=== PATIENT | male | born 1980 | race Two or more races ===

== ENCOUNTER 2020-03-22 10:37 | Emergency (ER) | payer OTHER, SELFPAY ==
--- NOTE | 2020-03-22 10:42 | ED_ITS ---
HPI - Altered Mental Status General Chief Complaint: ETOH/Substance Use Stated Complaint: PCP USE ,COOPERATIVE AT THIS TIME Time Seen by Provider: 03/22/20 10:42 Source: EMS Mode of arrival: EMS Limitations: other (PCP abuse) History of Present Illness MD complaint: other (smoked PCP on the way to the pharmacy, seen sitting down picked up by PD - sent to ED for PCP use) Onset (ago): minute(s) Severity: mild Consistency of symptoms: constant Context: drug abuse (smoked PCP) Associated symptoms: denies other symptoms Related Data Allergies Allergy/AdvReac Type Severity Reaction Status Date / Time No Known Allergies Allergy Unverified 02/04/20 18:28 [No Known Allergies*] Review of Systems Review of Systems: ROS unable to be obtained due to PCP abuse and intoxication [facility] Past Medical History Attestation statement: The following information was validated with the patient. Medical History (Updated 03/22/20 @ 11:27 by Carol Gray DO) Seizure Social History Social History (Updated 03/22/20 @ 10:45 by Carol Gray DO) Smoking Status: Current every day smoker Substance Use Type: Marijuana Substance Use Type Other:: PCP just today Advance Directives: No Advance Directives Information Provided: No Physical Exam Vital Signs: Vital Signs: Vital Signs Pulse Resp BP Pulse Ox 03/22/20 10:47 76 16 152/91 H 97 Body Mass Index 29.0 Appearance: Alert. Oriented X3. No acute distress. appears intoxicated but calm and cooperative, using his phone without issue Eyes: Pupils equal, round and reactive to light. slight vertical nystagmus but very minimal ENT: Pharynx normal. Neck: Normal inspection. Neck supple. CVS: Normal heart rate and rhythm. Pulses normal. Respiratory: No respiratory distress. Breath sounds normal. Abdomen: Soft and nontender. Skin: Skin warm and dry. Normal skin color. Normal skin turgor. Extremities: No lower extremity edema. No calf ttp Neuro: Oriented X 3. No motor deficit. No sensory deficit. Course Course Course Narrative: patient improved, steady gait, calm and cooperative MDM - Altered Mental Status MDM Narrative Medical decision making narrative: 39 yo male who used PCP recreationally does not want help with detox, mildly intoxicated very calm and cooperative, does not have a sober ride at this time will monitor until improved. Discharge Plan Discharge Clinical Impression: PCP (phencyclidine) abuse Patient Disposition: Home, Self-Care Instructions: Polysubstance Abuse (ED) Additional Instructions: return to ED for any worsening symptoms or concerns Stand Alone Forms: Work/School Release
[2020-03-22 10:47] VITALS: BP 152/91; BP 160/84; PULSE 76; PULSE 92; RESP 16; O2SAT 97; BMI 29.0
== END 2020-03-22 13:01 | disposition home or self-care (01) ==
PROVIDERS: Emergency Provider Emergency Medicine; PCP Family Medicine
DX: F16.10 Hallucinogen abuse, uncomplicated (principal); F17.210 Nicotine dependence, cigarettes, uncomplicated; Z71.6 Tobacco abuse counseling; F12.90 Cannabis use, unspecified, uncomplicated; Z71.51 Drug abuse counseling and surveillance of drug abuser
CPT/HCPCS: 99284

== ENCOUNTER 2020-09-05 14:47 | Emergency (ER) | payer OTHER, SELFPAY ==
--- NOTE | ~2020-09-05 | CT_ITS ---
EXAMINATION: CT HEAD/BRAIN WITHOUT CONTRAST CT CERVICAL SPINE WITHOUT CONTRAST CLINICAL INFORMATION: Seizure. COMPARISON: CT head 07/05/2019. TECHNIQUE: A noncontrast CT scan was performed from the skull base to the vertex. A noncontrast CT scan of the cervical spine was performed from the base of the skull through T1 at 2.5 mm and 0.625 mm collimation. Coronal and sagittal reformats were obtained at the acquisition workstation. This CT examination was performed using dose optimization techniques as appropriate, variously including the following: * Automated exposure control. * Adjustment of mA and/or kV according to patient size (this includes techniques or standardized protocols for targeted exams where dose is matched to indication/reason for exam; i.e. extremities or head). * Use of iterative reconstruction technique. Dose length product is 709 mGy-cm. FINDINGS: HEAD/BRAIN: There is no evidence of acute intracranial hemorrhage or territorial infarction. No abnormal mass effect or midline shift is seen. Dcak-to-vobon matter differentiation is well preserved. No extra-axial fluid collections are identified. No significant volume loss. No hydrocephalus. There is no abnormal attenuation within the brain parenchyma. No acute calvarial fracture. Mild ethmoid sinus mucosal thickening. Remainder of the paranasal sinuses and mastoid air cells are well aerated. CERVICAL SPINE: Straightening of the cervical curvature. The atlantooccipital and atlantoaxial articulations remain well aligned. Otherwise, there is anatomic alignment of the vertebral bodies and posterior elements. No evidence of acute fracture or subluxation. Moderate C5-C6 disc degeneration. No prevertebral soft tissue swelling. The paraspinal soft tissues are unremarkable. There is no cervical lymphadenopathy. The thyroid gland is unremarkable. The visualized lung apices are clear. CT/CT cervical spine wo con IMPRESSION: 1. No CT evidence of acute intracranial pathology. 2. No CT evidence of acute cervical spine fracture.
[2020-09-05 15:03] VITALS: BP 150/90; BP 151/84; PULSE 113; PULSE 88; RESP 22; TEMP 37; O2SAT 96; O2SAT 98; BMI 30.3
--- NOTE | 2020-09-05 15:51 | ED.SEIZURE ---
HPI - Seizure General Chief Complaint: Seizure Stated Complaint: SZ Time Seen by Provider: 09/05/20 15:35 Source: patient Mode of arrival: ambulatory Limitations: no limitations History of Present Illness HPI Narrative: Patient presents to ED for seizure. Patient had a seizure today. Patient states he was informed by his neighbor that she found him seizing and biting his tongue. Patient states before having seizure he had aura and then woke up to his friend looked at him. He states he is compliant with his medications patient informed me that his neurologist informed him that if he had another seizure that he should go up on his oxcarbazepine to 1 pill and a half. Patient states he is compliant with his Dilantin and Keppra and Oxycarbazepine. Related Data Allergies Allergy/AdvReac Type Severity Reaction Status Date / Time No Known Allergies Allergy Verified 09/05/20 15:12 [No Known Allergies*] Review of Systems Review of Systems: Yes all other systems are reviewed and are negative Constitutional: Constitutional: Reports as per HPI and Reports no additional constitutional complaints Eyes: Eyes: Reports as per HPI and Reports no additional eye complaints ENT: Reports system reviewed and no additional complaints, except as documented and Reports as per HPI Cardiovascular: Cardiovascular: Reports as per HPI and Reports no additional cardiovascular complaints Respiratory: Respiratory: Reports as per HPI and Reports no additional respiratory complaints Gastrointestinal: Gastrointestinal: Reports as per HPI and Reports no additional gastrointestinal complaints Genitourinary: Genitourinary: Reports no additional male genitourinary complaints and Reports as per HPI Musculoskeletal: Musculoskeletal: Reports no additional musculoskeletal complaints and Reports as per HPI Neurologic: Reports system reviewed and no additional complaints, except as documented and Reports as per HPI Comments: Seizure Psychiatric: Psychiatric: Reports no additional psychiatric complaints and Reports as per HPI [facility] Past Medical History Medical History (Updated 09/06/20 @ 00:01 by Kaleb Banda) Seizure Social History Social History (Updated 03/22/20 @ 10:45 by Carol Gray DO) Alcohol intake: never Smoking Status: Current every day smoker Use of substances other than those prescribed or required for medical reasons: Yes Substance Use Type: Marijuana Advance Directives: No Advance Directives Information Provided: Yes Physical Exam Vital Signs: Vital Signs: Last Vital Signs Temp 98.6 F 09/05/20 15:03 Pulse 73 09/05/20 18:19 Resp 20 09/05/20 18:19 BP 141/93 H 09/05/20 18:19 Pulse Ox 99 09/05/20 18:19 Body Mass Index 30.3 Const: General: cooperative, healthy appearing, comfortable, no acute distress, well developed, alert, awake and Physically active Orientation/consciousness: patient oriented x3 HENMT: Other: Oral cavity patient has slight superficial abrasion on right side of tongue due to biting during seizure. No laceration repair indicated. Head: Yes normal to inspection, Yes No palpable skull fracture present, Yes normocephalic, Yes atraumatic, No abrasion, No Sanchez's sign, No contusion, No cranial bruits, No hematoma, No laceration, No occipital foramen tenderness, No palpable skull fracture, No raccoon eyes, No scalp lesion, No scalp tenderness, No Temporal artery tenderness present and No periorbital ecchymosis Eyes: General: appearance normal, both eyes and all related structures Neck: Neck: Yes normal visual inspection, Yes full ROM, Yes no lymphadenopathy, Yes no meningeal signs, Yes trachea midline, Yes supple and No tender Chest: Chest palpation & inspection: normal inspection of the chest and normal palpation of entire chest wall Resp: Effort & Inspection: normal respiratory effort and able to speak in complete sentences Auscultation: clear to auscultation bilaterally Cardio: Jugular venous distension: no JVD Heart sounds: S1 normal heart sound present and S2 normal heart sound present GI: Inspection: Yes normal to inspection and No abdominal wall ecchymosis Palpation (GI): Soft to palpation, not firm, nontender, no guarding and not rigid : General: No CVA tenderness and Yes no CVA tenderness Back/Spine/Pelvis: Back: no CVA tenderness, No CVA tenderness and No back tenderness Skin: General skin exam: no rashes or lesions noted and elasticity normal Neuro: General: patient oriented x3, gait normal, no meningeal signs and CN's II-XI intact bilaterally Cranial nerves: Yes CN's II-XII intact bilaterally Extrem: General: Yes normal to inspection and Yes full ROM Psych: Appearance: grossly normal, well kempt and not disheveled Course Course Course Narrative: Patient having medical workup to find out why he had another seizure. Patient will have labs, including imaging. Reevaluation(s) Reevaluation #1: Patient labs including electrolytes came back normal at baseline. Patient chronically has elevated white blood cell count. Head CT and cervical spine CT came back normal. Urine negative for any UTI. Patient denies any history of alcohol abuse. Not suspecting alcohol withdrawal seizures. Patient denies any recent drug use. Patient's Dilantin level came back 5.7. When I trended patient's Dilantin level is always subtherapeutic. Patient states he has not missed a dose of his meds including Dilantin and he has been on the same dose for 10 years and his neurologist Dr. Valdez is aware. Will try to contact to Dr. Cliff Valdez. Patient is not postictal. Patient is alert oriented x3 Reevaluation #2: I called the number of Dr. Cliff Valdez given to me by patient and it was affiliated with [facility] ( [phone]). Dr. Khloe Peguero, the covering neurologist called and back the ER spoke to me. I informed the patient's history, physical exam, and lab results and diagnostic. I discussed increasing oxcarbezepine to one pill and half as patient states his Neurologist, Dr. Cliff Valdez if patient has another seizure. Dr. Khloe Peguero states he knows Dr. Cliff Valdez. Dr. khloe Peguero agrees that patient can go up to 450mg oxcarbazepine twice a day from 300mg twice a day. Dr. Khloe Peguero was made aware of patient's present dilantin level and it being chronically subtherapuetic. He states the dilantin should not be increased and patient could be discharged and follow up and with infomred Dr. Valdez tomorrow of the dilantin level for adjustment if needed. Dr. Peguero states sometimes patient may be on low dilantin doses due to there body's inability to tolerate higer dilantin doses. patient states he has been on dilantin same dose for 10 years. Patient presently is alert oriented x3 with normal gait. Patient took his meds as instructed during the ED. Patient took his p.m. dose of Dilantin, and Keppra. Patient also was instructed to start taking 450 mg b.i.d. of oxcarbazepine tonight. Patient took in the ER before discharge. Patient given copy of labs and imaging to follow up with . MDM - Seizure MDM Narrative Medical decision making narrative: Seizure Lab Data Result diagrams: 09/05/20 16:50 09/05/20 16:50 Labs: Lab Results 09/05/20 09/05/20 09/05/20 Range/Units 16:50 16:50 16:50 WBC 16.9 H (4.8-10.8) X10*3/uL RBC 5.42 (4.60-5.80) X10*6/uL Hgb 17.3 (14.0-18.0) g/dl Hct 49.2 (42-52) % MCV 90.8 (80-98) fL MCH 31.9 (27.0-33.0) pg MCHC 35.2 (31.0-36.0) g/dl RDW 13.1 (11.0-16.0) % Plt Count 361 (160-400) X10*3/uL MPV 8.9 L (9.4-12.4) fL Immature Gran % (Auto) 0.5 H (0.0-0.4) % Neut % (Auto) 73.4 H (45-73) % Lymph % (Auto) 19.0 L (20-40) % Isabella % (Auto) 5.6 (2-11) % Eos % (Auto) 1.2 (0-4) % Baso % (Auto) 0.3 (0-2) % Lymph # (Auto) 3.2 (1.2-4.9) X10*3/uL Isabella # (Auto) 0.9 (0.1-1.2) X10*3/uL Eos # (Auto) 0.2 (0.0-0.4) X10*3/uL Baso # (Auto) 0.1 (0.0-0.2) X10*3/uL Abs Immat Gran (auto) 0.09 H (0.00-0.03) X10*3/uL Absolute Neuts (auto) 12.4 H (2.0-8.3) X10*3/uL Absolute Nucleated RBC 0.000 (0.0-0.012) X10*3/uL Nucleated RBC % (auto) 0.0 (0.0-0.2) /100WBC PT 12.6 (10.8-13.0) SEC INR 1.1 (0.9-1.1) APTT 33.5 (24.1-38.0) SEC Sodium 139 (135-145) mmol/L Potassium 4.4 (3.3-5.1) mmol/L Chloride 107 (96-108) mmol/L Carbon Dioxide 22 (22-29) mmol/L Anion Gap 14 (12-20) BUN 7 L (9-16) mg/dL Creatinine 0.93 (0.5-1.4) mg/dL Estim Creat Clear Calc 131.4 Estimated GFR > 60 Random Glucose 72 (60-115) mg/dL Calcium 9.1 (8.4-10.2) mg/dL Magnesium 2.2 (1.6-2.6) mg/dL Total Bilirubin 0.7 (0.0-1.0) mg/dL AST 29 (5-37) U/L ALT 42 H (0-40) U/L Alkaline Phosphatase 94 (39-117) U/L Total Protein 7.4 (6.5-8.0) g/dL Albumin 4.3 (3.5-5.0) g/dL Urine Color Urine Appearance Urine pH (5.0-8.0) Ur Specific [place] (1.005-1.025) Urine Protein (NEG-TRACE) MG/DL Urine Glucose (UA) (NEG) MG/DL Urine Ketones (NEG) MG/DL Urine Blood (NEG) Urine Nitrite (NEG) Ur Leukocyte Esterase (NEG) Phenytoin (10.0-20.0) ug/mL 09/05/20 09/05/20 Range/Units 16:50 17:07 WBC (4.8-10.8) X10*3/uL RBC (4.60-5.80) X10*6/uL Hgb (14.0-18.0) g/dl Hct (42-52) % MCV (80-98) fL MCH (27.0-33.0) pg MCHC (31.0-36.0) g/dl RDW (11.0-16.0) % Plt Count (160-400) X10*3/uL MPV (9.4-12.4) fL Immature Gran % (Auto) (0.0-0.4) % Neut % (Auto) (45-73) % Lymph % (Auto) (20-40) % Isabella % (Auto) (2-11) % Eos % (Auto) (0-4) % Baso % (Auto) (0-2) % Lymph # (Auto) (1.2-4.9) X10*3/uL Isabella # (Auto) (0.1-1.2) X10*3/uL Eos # (Auto) (0.0-0.4) X10*3/uL Baso # (Auto) (0.0-0.2) X10*3/uL Abs Immat Gran (auto) (0.00-0.03) X10*3/uL Absolute Neuts (auto) (2.0-8.3) X10*3/uL Absolute Nucleated RBC (0.0-0.012) X10*3/uL Nucleated RBC % (auto) (0.0-0.2) /100WBC PT (10.8-13.0) SEC INR (0.9-1.1) APTT (24.1-38.0) SEC Sodium (135-145) mmol/L Potassium (3.3-5.1) mmol/L Chloride (96-108) mmol/L Carbon Dioxide (22-29) mmol/L Anion Gap (12-20) BUN (9-16) mg/dL Creatinine (0.5-1.4) mg/dL Estim Creat Clear Calc Estimated GFR Random Glucose (60-115) mg/dL Calcium (8.4-10.2) mg/dL Magnesium (1.6-2.6) mg/dL Total Bilirubin (0.0-1.0) mg/dL AST (5-37) U/L ALT (0-40) U/L Alkaline Phosphatase (39-117) U/L Total Protein (6.5-8.0) g/dL Albumin (3.5-5.0) g/dL Urine Color YELLOW Urine Appearance CLEAR Urine pH 7.5 (5.0-8.0) Ur Specific [place] 1.020 (1.005-1.025) Urine Protein NEG (NEG-TRACE) MG/DL Urine Glucose (UA) NEG (NEG) MG/DL Urine Ketones NEG (NEG) MG/DL Urine Blood NEG (NEG) Urine Nitrite NEG (NEG) Ur Leukocyte Esterase NEG (NEG) Phenytoin 5.7 L* (10.0-20.0) ug/mL Discharge Plan Discharge Clinical Impression: Generalized seizure Patient Disposition: Home, Self-Care Instructions: Generalized Tonic Clonic Seizures (ED) Additional Instructions: Return to the ED immediately for another seizure, headache, dizziness, chest pain, weakness, paralysis, slurred speech, facial droop, fever, chills, headache, neck stiffness, any other concerning symptoms. Begin taking oxcarbazepine 450 mg b.i.d. starting today. Please follow-up with your neurologist Dr. Cliff Valdez tomorrow as recommended by Dr. Khloe Peguero. Your Dilantin level came back subtherapeutic at 5.7. Dr. Valdez should be made aware of subtherapeutic dilantin level. Electrolytes came back normal. Rest of labs came back at baseline. Urine negative for UTI. Referrals: Cliff Valdez MD [Physician] - 2 days (Seizure. oxcarbazepine increased to 450mg bid as recommended by Dr. Khloe Peguero. Dilantin level subtherapeutic at 5.7. Dr. Khloe Peguero did not recommend increasing dilantin dosage, and Dr. Valdez should be made aware of subtherapeutic level at clinic visit. ) Interventions: ED Discharge Assessment Last Done: 09/05/20 19:33 Discharge Date/Time: 09/05/20 19:42 Print Language: Romanian
[2020-09-05] MEDS: 0.9 % Sodium Chloride 1,000 ML 999 ML IV (15:52)
[2020-09-05 16:04] VITALS: PULSE 86; RESP 16
[2020-09-05 16:57] LABS: MANUAL DIFF FLAG NO
[2020-09-05 16:58] LABS: Basophils Absolute Auto 0.1 X10*3/uL (0.0-0.2); Basophils Percent Auto 0.3 % (0-2); Eosinophils Absolute Auto 0.2 X10*3/uL (0.0-0.4); Eosinophils Percent Auto 1.2 % (0-4); Hematocrit 49.2 % (42-52); Hemoglobin 17.3 g/dl (14.0-18.0); Imm Gran Abs Auto 0.09 X10*3/uL (0.00-0.03); Imm Gran Pct Auto 0.5 % (0.0-0.4); Lymphocytes Absolute Auto 3.2 X10*3/uL (1.2-4.9); Mean Corpuscular HGB Conc 35.2 g/dl (31.0-36.0); Mean Corpuscular Hemoglobin 31.9 pg (27.0-33.0); Mean Corpuscular Volume 90.8 fL (80-98); Mean Platelet Volume 8.9 fL (9.4-12.4); Monocytes Absolute Auto 0.9 X10*3/uL (0.1-1.2); Monocytes Percent Auto 5.6 % (2-11); Neutrophils Absolute Auto 12.4 X10*3/uL (2.0-8.3); Neutrophils Percent Auto 73.4 % (45-73); Platelet Count 361 X10*3/uL (160-400); Red Blood Count 5.42 X10*6/uL (4.60-5.80); Red Cell Distribution Width 13.1 % (11.0-16.0); White Blood Count 16.9 X10*3/uL (4.8-10.8)
[2020-09-05 17:03] LABS: INTERNATIONAL NORM RATIO 1.1 (0.9-1.1); Prothrombin Time 12.6 SEC (10.8-13.0)
[2020-09-05 17:06] LABS: Partial Thromboplastin Time 33.5 SEC (24.1-38.0)
[2020-09-05 17:21] LABS: Glucose Urine UA NEG (NEG); Leukocyte Esterase Urine NEG (NEG); Nitrite Urine NEG (NEG); PH 7.5 (5.0-8.0); Urine Blood NEG (NEG); Urine Ketones NEG (NEG); Urine Protein NEG (NEG-TRACE)
[2020-09-05 17:22] LABS: Appearance Urine CLEAR; Color Urine YELLOW
[2020-09-05 17:37] LABS: Alanine Aminotransferase 42 U/L (0-40); Albumin Level 4.3 g/dL (3.5-5.0); Alkaline Phosphatase 94 U/L (39-117); Anion Gap 14 (12-20); Aspartate Amino Transferase 29 U/L (5-37); Bilirubin Total 0.7 mg/dL (0.0-1.0); Blood Urea Nitrogen 7 mg/dL (9-16); Calcium 9.1 mg/dL (8.4-10.2); Carbon Dioxide 22 mmol/L (22-29); Chloride 107 mmol/L (96-108); Creatinine Clr Calc Pharmacy 131.4; Estimated Glomerular Filt Rate > 60; Glucose Random 72 mg/dL (60-115); Magnesium 2.2 mg/dL (1.6-2.6); Potassium 4.4 mmol/L (3.3-5.1); Sodium 139 mmol/L (135-145); Total Protein 7.4 g/dL (6.5-8.0)
[2020-09-05 18:11] LABS: Phenytoin Dilantin 5.7 ug/mL (10.0-20.0)
[2020-09-05 18:19] VITALS: BP 141/93; PULSE 73; RESP 20; O2SAT 99
--- NOTE | 2020-09-05 18:20 | PC.NURSE ---
patient awake and alert. skin pwd. resp even and non labored. speaking in full, clear sentences. NSR via tele. VSS. no further seizure activity noted. PA at bedside for re-eval
== END 2020-09-05 19:42 | disposition home or self-care (01) ==
PROVIDERS: Physician Assistant; Emergency Provider Emergency Medicine; PCP Family Medicine
DX: G40.409 Other generalized epilepsy and epileptic syndromes, not intractable, without status epilepticus (principal); F17.200 Nicotine dependence, unspecified, uncomplicated; F12.90 Cannabis use, unspecified, uncomplicated
CPT/HCPCS: 36415; 70450; 72125; 80053; 80185; 81003; 83735; 85025; 85610; 85730; 96360; 99284

== ENCOUNTER 2020-10-14 20:29 | Emergency (ER) | payer OTHER, MEDICARE, SELFPAY ==
[2020-10-14 20:36] VITALS: BP 147/94; PULSE 78; RESP 20; TEMP 36.6; O2SAT 98; BMI 30.2
--- NOTE | 2020-10-14 20:46 | ED.WOUNDLAC ---
HPI - Wound/Laceration General Chief Complaint: Wound/Laceration Stated Complaint: Finger Lac Time Seen by Provider: 10/14/20 20:45 History of Present Illness HPI narrative: Patient cut left index finger back of the finger with a knife while cutting vegetables in the kitchen, there is no numbness with no weakness no tingling no other injury Related Data Allergies Allergy/AdvReac Type Severity Reaction Status Date / Time No Known Allergies Allergy Verified 10/14/20 20:40 [No Known Allergies*] Review of Systems Review of Systems: Positive left 2nd finger laceration Negatives are no fever no chills no numbness weakness or tingling no joint pains no rash Yes all other systems are reviewed and are negative PMFSH Past Medical History Source: nursing notes reviewed Medical History Seizure Social History Social History Alcohol intake: never Substance Use Type: Marijuana Advance Directives: No Advance Directives Information Provided: No Physical Exam Vital Signs: Vital Signs: Last Vital Signs Temp 97.9 F 10/14/20 20:36 Pulse 78 10/14/20 20:36 Resp 20 10/14/20 20:36 BP 147/94 H 10/14/20 20:36 Pulse Ox 98 10/14/20 20:36 Body Mass Index 30.2 General appearance no distress Head is normocephalic atraumatic Neck is supple Respiratory no distress Extremities the left index finger has a 1.5 cm laceration, all extensor and flexor tendon function is normal, the laceration is on the mid dorsal phalanx, neurovascular intact distal Other extremities normal Course Course Course Narrative: 1.5 cm left index finger laceration is cleansed and irrigated with normal saline it is checked for foreign body none seen Digital block with 6 cc 1% lidocaine is injected and wound is closed with 4 5.0 nylon sutures Bleeding is controlled and wound is bandaged Discharge Plan Discharge Clinical Impression: Laceration Patient Disposition: Home, Self-Care Additional Instructions: Stitches out in 7 days Return anytime for redness swelling any sign of infection You did not want a tetanus shot now, check with primary doctor Interventions: ED Discharge Assessment Last Done: 10/14/20 22:00 Discharge Date/Time: 10/14/20 21:19
[2020-10-14] MEDS: Lidocaine HCl 1 % MPF 5 ML VIAL SUBCUT ×2 (20:52)
== END 2020-10-14 21:19 | disposition home or self-care (01) ==
PROVIDERS: Emergency Provider Internal Medicine; PCP Family Medicine
DX: S61.211A Laceration without foreign body of left index finger without damage to nail, initial encounter (principal); W26.0XXA Contact with knife, initial encounter; F12.90 Cannabis use, unspecified, uncomplicated; Y93.G1 Activity, food preparation and clean up; Y92.030 Kitchen in apartment as the place of occurrence of the external cause; Y99.8 Other external cause status
CPT/HCPCS: 12001; 90471; 99284

== ENCOUNTER 2020-10-21 12:25 | Emergency (ER) | payer MEDICARE, SELFPAY ==
[2020-10-21 12:29] VITALS: BP 152/92; PULSE 93; RESP 18; TEMP 36.4; O2SAT 96; BMI 30.2
--- NOTE | 2020-10-21 12:56 | ED_ITS ---
HPI - Recheck/Abnormal Lab/Rx General Chief Complaint: Wound/Laceration Stated Complaint: suture removal Time Seen by Provider: 10/21/20 12:46 Source: patient Mode of arrival: ambulatory Limitations: no limitations History of Present Illness complaint: suture/staple removal Initial visit (ago): day(s) (Seven days ago) Initial visit for: laceration Returns today for: staple/stitch removal Symptoms since prior visit: no new symptoms Context: planned re-check Associated symptoms: none Related Data Allergies Allergy/AdvReac Type Severity Reaction Status Date / Time No Known Allergies Allergy Verified 10/14/20 20:40 [No Known Allergies*] Review of Systems Review of Systems: Constitutional : No Fever, No Chills, Cardiovascular : No Chest Pain, No SOB Respiratory : No Dyspnea Gastrointestinal : No abdominal pain Musculoskeletal : No Joint Swelling Skin : positive healing wound, No Foreign bodies, No rash, No surrounding erythema Neuro : No Weakness, No Numbness/tingling Psych : No SI/HI/thoughts of self injury Yes all other systems are reviewed and are negative REPLACED BY [facility] Past Medical History Attestation statement: The following information was validated with the patient. Medical History Seizure Social History Social History Alcohol intake: never Substance Use Type: Marijuana Advance Directives: No Advance Directives Information Provided: No Physical Exam Vital Signs: Vital Signs: Last Vital Signs Temp 97.6 F 10/21/20 12:29 Pulse 93 10/21/20 12:29 Resp 18 10/21/20 12:29 BP 152/92 H 10/21/20 12:29 Pulse Ox 96 10/21/20 12:29 Body Mass Index 30.2 vital signs have been reviewed as normal and appeared to be correct. Blood pressure normal. Heart rate normal. Respiration rate normal. Temperature normal. Oxygen saturation normal. Appearance: Alert. Oriented X3. No acute distress. Head: Normal external exam. Normocephalic. Eyes: PERRLA. EOMI. Conjunctiva and sclera normal. Eyelids normal. ENT: Pharynx normal. Uvula midline. Moist mucous membranes. Neck: Normal inspection. Neck supple. FROM. No adenopathy. No meningeal signs. CVS: Normal heart rate and rhythm. Heart sound normal. No murmurs noted. Pulses normal throughout. Respiratory: No respiratory distress. Painless inspiration. Breath sounds normal. No wheezes/rales/rhonchi noted. Chest nontender. No accessory muscle usage noted or decreased air movement noted. Back: Full range of motion noted. Skin: To left index finger patient has 4 sutures with the well-healing wound no surrounding erythema/induration/fluctuance or signs of infection or streaking. Skin warm and dry. Normal skin color. Normal skin turgor. No rashes/lesions noted. Extremities: Extremities exhibit normal range of motion. Extremities nontender. Neuro: Oriented X 3. No motor deficit. No sensory deficit. Reflexes normal. Normal steady gait. Course Course Course Narrative: Patient is status post suture removal tolerated procedure well. No complications. No signs of infection. Will DC home with instructions return if any new or worsening symptoms and follow-up with primary care provider. Patient understands agrees with this plan. Discharge Plan Discharge Clinical Impression: Visit for suture removal Patient Disposition: Home, Self-Care Instructions: Stitches Removal (ED) Referrals: Sandi Ferris DO [Primary Care Provider] - 2 days Interventions: ED Discharge Assessment Last Done: 10/21/20 13:05 Discharge Date/Time: 10/21/20 13:06 Print Language: [place] Island[place]
== END 2020-10-21 13:06 | disposition home or self-care (01) ==
LOC: HO.ED 12:54
PROVIDERS: Emergency Provider Emergency Medicine Emergency Medical Services; PCP Family Medicine
DX: Z48.02 Encounter for removal of sutures (principal); S61.211D Laceration without foreign body of left index finger without damage to nail, subsequent encounter; W45.8XXD Other foreign body or object entering through skin, subsequent encounter
CPT/HCPCS: 99283

== ENCOUNTER 2023-04-05 13:05 | Outpatient (AMB) | payer MEDICARE, SELFPAY ==
--- NOTE | 2023-04-05 13:07 | A.OFFVIS_ITS ---
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 Pt reports he was followed by Dr. Valdez for seizure, but Dr. Valdez moved and he could not make follow up appointment. Pt reports he had the first seizure at his age [age] years old. He can't remember what happened and what type of seizure he had, just remember he lost consciousness. He has been taking keppra 1500 mg BID and trileptal 600 mg BID and dilantin 200 mg BID for 14 years. Pt reports he still has seizure sporadically. His seizure happens while he sleep, his mother witnessed gasping with weird sound and upper extremities contracture. He wakes up with muscle ache, neck and back pain when he had seizure. No incontinence with the seizure. Pt reports he had 4 seizures over the last 8 month. Every seizures happened when he sleeps. He did not missed medication. He had brain MRI done 3 years ago, but EEG was done more than 3 years ago. He smokes marijuana 3-4 times a day, 6-7 cigarets a day. Denies alcohol intake. Pt reports snoring, and daytime sleepiness. [facility] Medical History (Updated 04/05/23 @ 13:39 by Ash Dowling CNP) Seizure Family History (Updated 04/05/23 @ 13:15 by Sandi Guzman MA) Maternal Aunt Seizure disorder Social History (Updated 04/05/23 @ 13:15 by Sandi Guzman MA) Alcohol intake: never Patient Tobacco Use Status: Never used Tobacco Substance Use Type: Marijuana Review of Systems Const All systems reviewed & are unremarkable except as noted in HPI and below ENT Reports Normal hearing present Neuro Reports Normal hearing present Physical Exam Vital Signs: Last Vital Signs Pulse 91 04/05/23 13:15 BP 124/80 04/05/23 13:15 Pulse Ox 95 04/05/23 13:15 Oxygen Delivery Method Room Air 04/05/23 13:15 BMI result Body Mass Index 31.4 Const General: cooperative and tired appearing Nutritional Appearance: obese Orientation/consciousness: patient oriented x3 Neck Neck: Yes full ROM and Yes supple Resp Effort & Inspection: normal respiratory effort and able to speak in complete sentences Neuro Other: very mild left hand tremor General: patient oriented x3, gait normal and moves all extremities Cranial nerves: Yes Bilaterally intact EOM present, Yes Normal facial strength present, Yes Midline tongue present, Yes Symmetric palate elevation present, Yes Normal hearing present, Yes Ability to bilaterally rotate head present and Yes Ability to bilaterally elevate shoulders present Cognition (Neuro): normal cognition Gait exam (Neuro): Normal gait present Motor exam (neuro): 5/5 motor strength present throughout, Pronator motor function not present and no tremor noted Coordination: [id number] test normal and [id number] test normal Psych Appearance: grossly normal Mental Status: mental status grossly normal Speech and movement: Normal speech and movement present Affect: normal affect Attitude: cooperative Assessment & Plan Assessment & Plan (1) Seizure: Code(s): R56.9 - Unspecified convulsions (2) Daytime sleepiness: Code(s): R40.0 - Somnolence (3) Snoring: Code(s): R06.83 - Snoring Plan Advised patient to undergo brain MRI and EEG to assess seizure. Continue to take keppra 1500 mg BID, oxcarbazepine 600 mg BID and dilantin 200 mg BID. Advised patient to undergo home sleep study to assess sleep apnea. Will follow up of sleep study for appropriated treatment options. Refer patient to [facility] epilepsy clinic. Orders: Orders MR head/brain wo con Today R56.9 - Unspecified convulsions EEG ambulatory Today R56.9 - Unspecified convulsions RT home sleep study Today R06.83 - Snoring, R40.0 - Somnolence Referrals Neurology Referral R56.9 - Unspecified convulsions Coding Level of Care Code New Pt Level 4 (20693) Diagnoses Seizure R56.9 Daytime sleepiness R40.0 Snoring R06.83
[2023-04-05 13:15] VITALS: BP 124/80; PULSE 91; O2SAT 95; BMI 31.4
== END 2023-04-05 13:44 | disposition home or self-care (01) ==
PROVIDERS: PCP Family Medicine; Visit Provider Nurse Practitioner Family
DX: R56.9 Unspecified convulsions (principal); R40.0 Somnolence; R06.83 Snoring
CPT/HCPCS: 99204

== ENCOUNTER → 2023-04-05 13:05 | Outpatient (BNVA) | payer MEDICARE, SELFPAY | PROVIDERS: PCP Family Medicine; Visit Provider Nurse Practitioner Family | DX: R56.9 Unspecified convulsions (principal); R40.0 Somnolence; R06.83 Snoring | CPT/HCPCS: 99202 ==

== ENCOUNTER 2023-05-29 08:56 | Outpatient (REF) | payer MEDICARE, SELFPAY ==
--- NOTE | ~2023-05-29 | MR_ITS ---
EXAMINATION: MRI OF THE BRAIN WITHOUT CONTRAST CLINICAL INFORMATION: Unspecified convulsions. COMPARISON: CT scan of the head 09/05/2020. MRI scan of the brain 12/22/2012. TECHNIQUE: MRI of the brain was obtained using routine sequences without contrast. FINDINGS: No diffusion abnormalities are identified to suggest an acute or subacute infarct. No mass effect or midline shift is seen. The ventricles and sulci are normal in size. Brain parenchymal signal is unremarkable. The previously described area of hyperintense T2 adjacent to C2 on the right on the prior MRI scan is not appreciated on this study. Brain parenchymal signal is unremarkable. The hippocampi are symmetric in size and signal. No extra-axial fluid collections are seen. The brainstem and cerebellum are normal. No pathologic magnetic susceptibility artifact is identified on the gradient refocused acquisition. The craniovertebral junction, marrow signal, and midline structures are normal. The major intracranial flow-voids at the level of the [place] of [place] are preserved. The dural venous sinus flow-voids are maintained. The mastoid air cells are well-aerated. There is an area of heterogenous signal along the posterolateral wall of the left maxillary sinus superiorly. This has hyperintense T1 and T2 signal with surrounding hypointense material. It is a new finding compared to the prior MRI. It may be consistent with inspissated secretions. There is mucoperiosteal thickening in the posterior sphenoid and left ethmoid sinuses. MR/MR head/brain wo con IMPRESSION: 1. There are no acute bleeds or infarcts. No masses are demonstrated. Brain parenchymal signal is unremarkable on the current study. 2. There is an area of heterogenous signal along the posterolateral wall of the left maxillary sinus superiorly, which may be consistent with inspissated secretions. Recommend CT scan of the paranasal sinuses for further assessment.
== END 2023-05-29 08:57 | disposition home or self-care (01) ==
LOC: HO.MRI 08:56
PROVIDERS: PCP Family Medicine; Visit Provider Nurse Practitioner Family
DX: R56.9 Unspecified convulsions (principal)
CPT/HCPCS: 70551

== ENCOUNTER → 2023-06-27 13:21 | Outpatient (REF) | payer MEDICARE, MEDICAID, SELFPAY | LOC: HO.SL 13:21 | PROVIDERS: PCP Family Medicine; Visit Provider Nurse Practitioner Family | DX: G47.33 Obstructive sleep apnea (adult) (pediatric) (principal); R06.83 Snoring; R40.0 Somnolence | CPT/HCPCS: 95806 ==

== ENCOUNTER → 2023-06-27 13:48 | Outpatient (BNV) | payer MEDICARE, SELFPAY | PROVIDERS: PCP Family Medicine; Visit Provider Internal Medicine | DX: G47.33 Obstructive sleep apnea (adult) (pediatric) (principal) | CPT/HCPCS: 95806 ==

== ENCOUNTER 2023-07-31 09:16 | Outpatient (AMB) | payer MEDICARE, MEDICAID, SELFPAY ==
--- NOTE | 2023-07-31 09:47 | MHC.OFFVIS ---
Intake Vital Signs 07/31/23 09:54 Height 5 ft 11 in Weight 212 lb 8 oz BMI 29.6 BP 132/80 Blood Pressure Location Lt brachial Position Sitting Pulse 75 Pulse Source Pulse Oximeter Pulse Oximetry (%) 97 Oxygen Delivery Method Room Air Intake Visit Reasons: f/u for seizures - CONF w/ address Intake Note: Patient presents for seizures f/u. Allergies No Known Allergies [No Known Allergies*] Allergy (Verified 08/13/23 22:46) HPI HPI Comments History of Present Illness Details 42 y/o male patient presents for follow up of seizure and sleep study. Pt reports he did not have seizure since the last visit. His seizure usually happens while he sleep, his mother witnessed gasping with weird sound and upper extremities contracture. He wakes up with muscle ache, neck and back pain when he had seizure. Pt's first seizure at his age [age] years old. He can't remember what happened and what type of seizure he had, just remember he lost consciousness. He has been taking keppra 1500 mg BID and trileptal 600 mg BID and dilantin 200 mg BID for 14 years. Brain MRI report reviewed. 1. There are no acute bleeds or infarcts. No masses are demonstrated. Brain parenchymal signal is unremarkable on the current study. 2. There is an area of heterogenous signal along the posterolateral wall of the left maxillary sinus superiorly, which may be consistent with inspissated secretions. Recommend CT scan of the paranasal sinuses for further assessment. CT of brain ordered for further assessment and scheduled on 08/11/23. EEG not done yet. The home sleep study result was severe degree of sleep apnea. The AHI was 27/hr and oxygen anurag was 82%. APAP [id number] ordered, but he did not get CPAP yet. He smokes marijuana 3-4 times a day, 6-7 cigarets a day. Denies alcohol intake. [facility] Medical History (Updated 08/25/23 @ 19:49 by Ash Dowling CNP) Seizure Family History Maternal Aunt Seizure disorder Social History Alcohol intake: never Patient Tobacco Use Status: Never used Tobacco Substance Use Type: Marijuana Review of Systems Const All systems reviewed & are unremarkable except as noted in HPI and below ENT Reports Normal hearing present Neuro Reports Normal hearing present Physical Exam Vital Signs: Last Vital Signs Pulse 75 07/31/23 09:54 BP 132/80 07/31/23 09:54 Pulse Ox 97 07/31/23 09:54 Oxygen Delivery Method Room Air 07/31/23 09:54 BMI result Body Mass Index 29.6 Const General: cooperative Nutritional Appearance: obese Orientation/consciousness: patient oriented x3 Neck Neck: Yes full ROM and Yes supple Resp Effort & Inspection: normal respiratory effort and able to speak in complete sentences Neuro Other: very mild left hand tremor General: patient oriented x3, gait normal and moves all extremities Cranial nerves: Yes Bilaterally intact EOM present, Yes Normal facial strength present, Yes Midline tongue present, Yes Symmetric palate elevation present, Yes Normal hearing present, Yes Ability to bilaterally rotate head present and Yes Ability to bilaterally elevate shoulders present Cognition (Neuro): normal cognition Gait exam (Neuro): Normal gait present Motor exam (neuro): 5/5 motor strength present throughout, Pronator motor function not present and no tremor noted Coordination: [id number] test normal and sahq-im-fmvo test normal Psych Appearance: grossly normal Mental Status: mental status grossly normal Speech and movement: Normal speech and movement present Affect: normal affect Attitude: cooperative Assessment & Plan Assessment & Plan (1) Seizure: Code(s): R56.9 - Unspecified convulsions (2) JENNIFER (obstructive sleep apnea): Comment: Severe degree of sleep apnea. The AHI was 27/hr and oxygen anurag was 82%. Code(s): G47.33 - Obstructive sleep apnea (adult) (pediatric) (3) Daytime sleepiness: Code(s): R40.0 - Somnolence (4) Snoring: Code(s): R06.83 - Snoring Plan Advised patient to undergo CT of parasinus and EEG. Continue to take keppra 1500 mg BID, oxcarbazepine 600 mg BID and dilantin 200 mg BID. Advised patient to start APAP at [id number]. Stressed compliance, use CPAP mightly and more than 4 hrs. Orders: Orders Comprehensive Met. Panel 07/31/23 R56.9 - Unspecified convulsions Complete Blood Count Auto Diff 07/31/23 R56.9 - Unspecified convulsions Coding Level of Care Code Est Pt Level 4 (00158) Diagnoses Seizure R56.9 JENNIFER (obstructive sleep apnea) G47.33 Daytime sleepiness R40.0 Snoring R06.83
[2023-07-31 09:54] VITALS: BP 132/80; PULSE 75; O2SAT 97; BMI 29.6
== END 2023-07-31 10:19 | disposition home or self-care (01) ==
PROVIDERS: PCP Family Medicine; Visit Provider Nurse Practitioner Family
DX: R56.9 Unspecified convulsions (principal); G47.33 Obstructive sleep apnea (adult) (pediatric); R40.0 Somnolence; R06.83 Snoring
CPT/HCPCS: 99214

== ENCOUNTER → 2023-07-31 09:16 | Outpatient (BNVA) | payer MEDICARE, MEDICAID, SELFPAY | PROVIDERS: PCP Family Medicine; Visit Provider Nurse Practitioner Family | DX: R56.9 Unspecified convulsions (principal); G47.33 Obstructive sleep apnea (adult) (pediatric); R40.0 Somnolence; R06.83 Snoring | CPT/HCPCS: 99212 ==

== ENCOUNTER 2023-07-31 12:28 | Outpatient (REF) | payer MEDICARE, MEDICAID, SELFPAY ==
[2023-07-31 13:14] LABS: MANUAL DIFF FLAG NO
[2023-07-31 13:37] LABS: Basophils Absolute Auto 0.1 X10*3/uL (0.0-0.2); Basophils Percent Auto 0.6 % (0-2); Eosinophils Absolute Auto 0.2 X10*3/uL (0.0-0.4); Eosinophils Percent Auto 1.5 % (0-4); Hemoglobin 17.5 g/dl (14.0-18.0); Imm Gran Abs Auto 0.03 X10*3/uL (0.00-0.03); Imm Gran Pct Auto 0.3 % (0.0-0.4); Lymphocytes Absolute Auto 3.4 X10*3/uL (1.2-4.9); Lymphocytes Percent Auto 32.4 % (20-40); Mean Corpuscular HGB Conc 36.5 g/dl (31.0-36.0); Mean Corpuscular Volume 90.4 fL (80.0-98.0); Mean Platelet Volume 9.4 fL (9.4-12.4); Monocytes Absolute Auto 0.6 X10*3/uL (0.1-1.2); Monocytes Percent Auto 5.4 % (2-11); Neutrophils Absolute Auto 6.2 x10*3/uL (2.0-8.3); Neutrophils Percent Auto 59.8 % (45-73); Platelet Count 327 X10*3/uL (160-400); Red Blood Count 5.31 X10*6/uL (4.60-5.80); White Blood Count 10.4 X10*3/uL (4.8-10.8)
[2023-07-31 14:12] LABS: Alanine Aminotransferase 17 U/L (0-40); Albumin Level 4.5 g/dL (3.5-5.0); Alkaline Phosphatase 78 U/L (39-117); Anion Gap 15 (12-20); Aspartate Amino Transferase 20 U/L (5-37); Bilirubin Total 0.4 mg/dL (0.0-1.0); Blood Urea Nitrogen 10 mg/dL (9-16); Calcium 9.7 mg/dL (8.4-10.2); Carbon Dioxide 28 mmol/L (22-29); Chloride 101 mmol/L (96-108); Estimated Glomerular Filt Rate > 60; Glucose Random 128 mg/dL (60-115); Potassium 3.2 mmol/L (3.3-5.1); Sodium 141 mmol/L (135-145); Total Protein 7.9 g/dL (6.5-8.0)
== END 2023-07-31 12:29 | disposition home or self-care (01) ==
LOC: HO.HHCL 12:28
PROVIDERS: Visit Provider Nurse Practitioner Family
DX: R56.9 Unspecified convulsions (principal)
CPT/HCPCS: 36415; 80053; 85025

== ENCOUNTER 2023-08-13 22:34 | Emergency (ER) | payer MEDICARE, MEDICAID, SELFPAY ==
[2023-08-13 22:46] VITALS: BP 176/98; BP 188/102; PULSE 116; PULSE 125; RESP 24; TEMP 36.8; O2SAT 97; O2SAT 98; BMI 30.6
--- NOTE | 2023-08-13 23:37 | ED.GENADULT ---
HPI - General Adult General Chief complaint: Ear Problems Stated complaint: feels something crawled into ear, pressure Time Seen by Provider: 08/13/23 23:32 History of Present Illness HPI narrative: The patient is a 42-year-old male who says that he was at home watching TV when he felt a pressure in his left ear. He thought that perhaps something had crawled into his ear. He used a Q-tip to try to clear out his ear and it came out bloody. He then called an ambulance and was brought to the hospital. He was also concerned that his blood pressure was high. He has not taken his blood pressure medications today. The patient says he has not felt very well for the last few days. He enter 3 days ago and had a chest x-ray and other testing all of which was unremarkable. He does not know if he has had a fever. Related Data Home Medications Medication Instructions Recorded Confirmed atorvastatin 10 mg tablet 10 mg PO DAILY 04/05/23 levetiracetam 500 mg tablet 1,500 mg PO BID 04/05/23 oxcarbazepine 600 mg tablet 600 mg PO BID 04/05/23 phenytoin sodium extended 100 mg 200 mg PO BID 04/05/23 capsule hydrochlorothiazide 25 mg tablet 25 mg PO DAILY 07/31/23 Allergies Allergy/AdvReac Type Severity Reaction Status Date / Time No Known Allergies Allergy Verified 08/13/23 22:46 [No Known Allergies*] Review of Systems Review of Systems: Yes all other systems are reviewed and are negative [facility] Past Medical History Medical History (Updated 08/14/23 @ 01:50 by Ld Gilmore MD) Seizure Family History Family History Maternal Aunt Seizure disorder Social History Social History Alcohol intake: never Patient Tobacco Use Status: Never used Tobacco Substance Use Type: Marijuana Advance Directives: No Advance Directives Information Provided: No Physical Exam ED Vital Signs: Vital Signs - 24 hr 08/13/23 22:46 08/14/23 00:06 Temperature 98.2 F Pulse Rate 116 H 82 Respiratory Rate 24 H 20 Blood Pressure 176/98 H 159/97 H Pulse Oximetry 97 96 Oxygen Delivery Method Room Air Room Air BMI result Body Mass Index 30.6 Const Other: The patient was awake and alert. He has an anxious affect but does not appear in acute distress otherwise. HENMT Other: Face is symmetrical. Mucous membranes are moist. The pharynx is unremarkable in appearance. Both ear canals are clear. Both tympanic membranes are normal. The left ear canal has some small areas of abrasion but no active bleeding. There is no trismus. Eyes Other: Pupils are round equal, conjunctivae are clear, extraocular movements intact Neck Other: No cervical adenopathy appreciated Resp Effort & Inspection: normal respiratory effort Auscultation: clear to auscultation bilaterally Cardio Rate: regular rate Rhythm: regular rhythm Heart sounds: S1 normal heart sound present and S2 normal heart sound present Skin Other: The skin is dry and unremarkable Neuro Other: The patient was awake and alert with a normal mental status. Cranial nerves are intact. Eye movements are normal. Speech is clear. Moving his extremities normally. The patient is grossly neurologically intact Extrem Other: No peripheral edema. Medications Administered Discontinued Medications Generic Name Dose Route Start Last Admin Trade Name Barryq PRN Reason Stop Dose Admin Oxymetazoline HCl 2 spray 08/13/23 23:36 08/14/23 00:06 Oxymetazoline Hcl 0.05 % Nasal 15 Ml [place] NOSTRIL-B 08/13/23 23:37 2 spray ONCE ONE Administration Medical Decision Making Medical Decision Making [facility] Narrative: The patient is a 42-year-old male who has felt unwell for a few days. He was seen at [facility] 2 or 3 days ago with a negative workup. Today he developed abrupt left ear discomfort that he described as feeling like what happens when you take off in an airplane. He thought that perhaps he had something in his ear and so he used a Q-tip in the left ear and this seemed to provoke some bleeding. He called an ambulance and was brought to the hospital. Here he does not appear obviously acutely ill. His ear canals are normal bilaterally. No significant cerumen. No foreign bodies. There is some slight abrasion to the anterior wall of the left external auditory meatus. No active bleeding. Since the patient seemed to describes some sense of facial congestion I thought that perhaps he might have some degree of Eustachian tube dysfunction. He was given oxymetazoline in both nostrils and observed. Additionally viral swabs were sent. The patient seemed to feel better following the oxymetazoline. His viral swab is negative for COVID, influenza, and RSV. Clinically the patient looks well and I do not see any indication for additional testing. The tachycardia which he had initially as resolved. He will be discharged with instructions to avoid using Q-tips in his ear again. He should follow up with his regular doctor Lab Data Labs: Lab Results 08/14/23 Range/Units 00:46 Influenza Type A (PCR) NEGATIVE (Negative) Influenza Type B (PCR) NEGATIVE (Negative) RSV RNA Qual (PCR) NEGATIVE (Negative) SARS-CoV-2 RNA (RT-PCR) NEGATIVE (Negative) Discharge Plan Discharge Clinical Impression: Discomfort of left ear, Bleeding from left ear Patient Disposition: Home, Self-Care Additional Instructions: Please resume your normal medications. Your left ear canal is currently very clear although there are some abrasions in the ear canal. This is likely where the bleeding was coming from. There is no wax buildup or anything else in your left ear canal. Please be sure not to use Q-tips in the ear as you might provoke additional bleeding. Please plan on following up with your regular doctor for a recheck of your ear this. Return to the emergency room if significantly worse Prescriptions: No Action phenytoin sodium extended 100 mg capsule 200 mg PO BID levetiracetam 500 mg tablet 1,500 mg PO BID oxcarbazepine 600 mg tablet 600 mg PO BID atorvastatin 10 mg tablet 10 mg PO DAILY hydrochlorothiazide 25 mg tablet 25 mg PO DAILY Referrals: Sandi Ferris DO [Primary Care Provider] - (Left ear pain and bleeding)
[2023-08-14 00:06] VITALS: BP 159/97; PULSE 82; RESP 20; O2SAT 96
[2023-08-14] MEDS: Oxymetazoline HCl 0.05 % Nasal 15 ML SPRAY 2 SPRAY NOSTRIL-B (00:06)
[2023-08-14 01:40] LABS: Influenza A PCR NEGATIVE (Negative); Influenza B PCR NEGATIVE (Negative); Resp Syncy Virus RNA Qual PCR NEGATIVE (Negative); SARS COV2 PCR INHOUSE NEGATIVE (Negative)
[2023-08-14 02:03] VITALS: BP 123/72; PULSE 70; RESP 17; TEMP 36.6; O2SAT 97
== END 2023-08-14 02:04 | disposition home or self-care (01) ==
PROVIDERS: Emergency Provider Emergency Medicine; PCP Family Medicine
DX: H92.02 Otalgia, left ear (principal); H92.22 Otorrhagia, left ear; Z11.52 Encounter for screening for COVID-19; Z20.822 Contact with and (suspected) exposure to COVID-19
CPT/HCPCS: 0241U; 99282; 99283

== ENCOUNTER 2023-09-25 14:54 | Outpatient (REF) | payer MEDICARE, MEDICAID, SELFPAY ==
--- NOTE | ~2023-09-25 | CT_ITS ---
CT SINUS WITHOUT CONTRAST HISTORY: Evaluation of heterogeneous signal in the left maxillary sinus seen on prior MRI TECHNIQUE: CT images of the paranasal sinuses were acquired without contrast. This CT examination was performed using dose optimization techniques as appropriate, variously including the following: *Automated exposure control *Adjustment of mA and/or kV according to patient size (this includes techniques or standardized protocols for targeted exams where dose is matched to indication/reason for exam; i.e. extremities or head) *Use of iterative reconstruction technique DLP: 116 mGycm COMPARISON: Brain MRI 05/29/2023 FINDINGS: NASAL CAVITY: Chronic bilateral nasal bone fractures. Nasal septal curvature for which the possibility of remote nasal septal fracture not excluded. There is rightward curvature anteriorly narrowing the anterior right nasal passage, leftward curvature of the midportion with indentation along the left middle nasal turbinate and rightward curvature of the nasal septum more posteriorly indenting upon the right middle nasal turbinate. Asymmetric moderate mucosal disease and secretions in the left nasal cavity, including opacification of the left middle meatus anteriorly. Shallow bilateral olfactory fossae with lateral downsloping of the lateral lamellae. No evidence of Keros type III cribriform plate (lateral lamella 8-16 mm). FRONTAL SINUS: LEFT: Clear. Mild mucosal disease along the frontal sinus drainage pathway, which remains patent. RIGHT: Clear. Mild mucosal disease along the frontal sinus drainage pathway, which remains patent. MAXILLARY SINUS: LEFT: Chronic mucoperiosteal thickening along the left posterolateral maxillary sinus wall with cortical irregularity, which may reflect the clinical of chronic sinusitis and/or prior trauma. Otherwise the maxillary sinuses well aerated. The narrowed maxillary sinus ostium and ethmoid infundibulum. Opacified left middle meatus. RIGHT: Clear with patent osteomeatal unit. ETHMOID AIR CELLS: LEFT: Mild mucosal disease RIGHT: Mild mucosal disease Lamina papyracea: Intact. The left anterior ethmoid canal traverses through the ethmoid air cells. SPHENOID SINUS: LEFT: Redemonstrated dependent secretions/air-fluid level with patent ostium and sphenoethmoidal recess. RIGHT: Trace marginal secretions with patent ostium and sphenoethmoidal recess. The sphenoid septum does not insert onto the carotid canal. Sphenoethmoidal ([place]) cell: None. OTHER: Normal appearance of the orbits. The carotid canals are covered by bone. The temporomandibular joints are normal. The mastoid air cells and middle ear cavities are well aerated. A couple dental caries are seen. Impacted bilateral posterior maxillary molars. Elongated ossified styloid processes/stylohyoid ligaments can be correlated clinically for [place] syndrome. Complete right and incomplete left arcuate foramina. Nonspecific patchy sclerosis along the nasopharyngeal surface of the clivus with overlying tissue thickening along the roof of the nasopharynx eccentric to the right. While this may reflect adenoidal hyperplasia, ENT consultation and correlation with direct inspection is advised to exclude underlying lesion. This finding could also be further assessed with contrast-enhanced MRI. 3 mm ossified extra-axial lesion along the basiocciput just superior to the foramen magnum which may reflect a small meningioma. CT/CT sinus wo IV con IMPRESSION: 1. Chronic bilateral nasal bone fractures. Nasal septal curvature for which the possibility of remote nasal septal fracture is not excluded. Asymmetric moderate mucosal disease and partially opacified left nasal cavity. 2. Chronic mucoperiosteal thickening along the left posterolateral maxillary sinus wall with associated cortical irregularity, which may reflect sequela of prior trauma versus chronic sinusitis. Narrowing of the left maxillary sinus ostium and ethmoid infundibulum with opacified left middle meatus. 3. Redemonstrated dependent secretions/air-fluid level in the left sphenoid sinus. 4. A couple dental caries which correlation with dental examination is advised. 5. Elongated ossified styloid processes/stylohyoid ligaments can be correlated clinically for [place] syndrome. 6. Nonspecific patchy sclerosis along the nasopharyngeal surface of the clivus with overlying tissue thickening along the roof of the nasopharynx eccentric to the right. While this may reflect adenoidal hyperplasia, ENT consultation and correlation with direct inspection is advised to exclude underlying lesion. This finding could also be further assessed with contrast-enhanced MRI. Findings to be called to the ordering clinician by a [facility] Physician [employer]ision Repair Instructor. 7. 3 mm ossified extra-axial lesion along the basiocciput just superior to the foramen magnum which may reflect a small meningioma, which could likewise be better assessed on contrast-enhanced MRI.
== END 2023-09-25 14:55 | disposition home or self-care (01) ==
LOC: HO.CT 14:54
PROVIDERS: PCP Family Medicine; Visit Provider Nurse Practitioner Family
DX: R90.89 Other abnormal findings on diagnostic imaging of central nervous system (principal)
CPT/HCPCS: 70486

== ENCOUNTER 2023-11-06 11:42 | Emergency (ER) | payer MEDICARE, MEDICAID, SELFPAY ==
--- NOTE | 2023-11-06 | ECG_ITS ---
Test Reason : CHEST PAIN Blood Pressure : / mmHG Vent. Rate : 066 BPM Atrial Rate : 066 BPM P-R Int : 152 ms QRS Dur : 094 ms QT Int : 390 ms P-R-T Axes : 054 001 043 degrees QTc Int : 408 ms Normal sinus rhythm with sinus arrhythmia Normal ECG When compared to the previous EKG of Sinus tachycardia not present anymore Referred By: Generic ED Physician Electronically Signed By:Eric Robin
--- NOTE | ~2023-11-06 | XR_ITS ---
EXAMINATION: XR CHEST CLINICAL INFORMATION: Chest pain. COMPARISON: Chest radiograph 07/06/2019. TECHNIQUE: Frontal view of the chest was obtained. FINDINGS: Normal appearance of the cardiomediastinal silhouette. Unchanged slightly increased interstitial markings. No new focal airspace density. No pleural effusion. No pneumothorax. No acute osseous findings. XR/XR chest 1V IMPRESSION: 1. No acute cardiopulmonary findings. 2. Unchanged slightly increased interstitial markings that could indicate chronic small airways disease.
[2023-11-06 11:47] VITALS: BP 128/84; PULSE 68; O2SAT 100
[2023-11-06 11:50] VITALS: BP 149/91; PULSE 71; RESP 18; TEMP 36.7; O2SAT 97; BMI 27.6
--- NOTE | 2023-11-06 12:18 | ED.CHESTPAIN ---
HPI - Chest Pain General Chief Complaint: Chest Pain Stated Complaint: CP X12 HOURS PER EMS Time Seen by Provider: 11/06/23 12:02 Source: patient Mode of arrival: ambulatory Limitations: no limitations History of Present Illness ED Provider: MILLIE MCLAUGHLIN narrative: 43 yo male with PMH of seizures, HLD, HTN here with c/o anxiety and chest pain yesterday just started on HCTZ 3 months ago but daily BP readings 170/100 in AM then at night 130/90 or 100s and he states his BP is high throughout the day he feels the 25mg is not helping and he is anxious. No headaches, numbness, weakness. Pain gone now MD complaint: chest pain (HTN) Onset (ago): day(s) (2) Timing of current episode: now resolved Prior episodes: Yes Onset: during rest Pain location: substernal Pain radiation: none Severity: mild Quality: tightness Relieving factors: nothing Exacerbating factors: stress Context: other (recent dx of HTN and feels HCTZ is not helping) Associated symptoms: sense of impending doom Treatment prior to arrival: none Related Data Home Medications ?Medication ?Instructions ?Recorded ?Confirmed atorvastatin 10 mg tablet 10 mg PO DAILY 04/05/23 levetiracetam 500 mg tablet 1,500 mg PO BID 04/05/23 oxcarbazepine 600 mg tablet 600 mg PO BID 04/05/23 phenytoin sodium extended 100 mg 200 mg PO BID 04/05/23 capsule hydrochlorothiazide 25 mg tablet 25 mg PO DAILY 07/31/23 Previous Rx's ?Medication ?Instructions ?Recorded lisinopril 10 1 tab PO DAILY #30 tabs 11/06/23 mg-hydrochlorothiazide 12.5 mg tablet Allergies Allergy/AdvReac Type Severity Reaction Status Date / Time No Known Allergies Allergy Verified 11/06/23 11:52 [No Known Allergies*] Review of Systems Review of Systems: Constitutional : No Weight loss, No Fever, No Chills ENT/Mouth : No sore throat, No Rhinorrhea Eyes: No Eye Pain, No Swelling Cardiovascular : pos Chest Pain, no SOB, no Dyspnea on Exertion, No Orthopnea, No Edema, No Palpitations Respiratory : No Cough, No Sputum Gastrointestinal : no Nausea, No Vomiting, No Diarrhea, No abdominal Pain, No Hematochezia, No Melena Genitourinary : No Dysuria, No Urinary Frequency Musculoskeletal : No joint pain, No Myalgias, No Joint Swelling Skin : No Skin Lesions, No rash Neuro : No Weakness, No Numbness, No Dizziness, No Headache Psych : pos Anxiety/Panic, No Depression Heme/Lymph: No Bruising, No Lymphadenopathy Endocrine : No Polyuria, No Polydipsia All other systems reviewed and are negative [facility] Past Medical History Attestation statement: The following information was validated with the patient. Source: old records reviewed Medical History Nasopharyngeal mass Seizure Family History Family History Maternal Aunt Seizure disorder Social History Social History Alcohol intake: never Patient Tobacco Use Status: Never used Tobacco Smoked in Last 30 Days: Yes Use of substances other than those prescribed or required for medical reasons: Yes Substance Use Type: Marijuana Advance Directives: No Advance Directives Information Provided: No Do you have a plan to hurt others: No Plan Physical Exam Vital Signs: Vital Signs: Last Vital Signs Temp 98.0 F 11/06/23 11:50 Pulse 80 11/06/23 12:24 Resp 18 11/06/23 12:24 BP 129/99 H 11/06/23 12:24 Pulse Ox 97 11/06/23 12:24 O2 Del Method Room Air 11/06/23 12:24 BMI result Body Mass Index 27.6 Appearance: Alert. Oriented X3. No acute distress. Eyes: Pupils equal, round and reactive to light. ENT: Pharynx normal. Neck: Normal inspection. Neck supple. CVS: Normal heart rate and rhythm. Pulses normal. Respiratory: No respiratory distress. Breath sounds normal. Abdomen: Soft and nontender. Skin: Skin warm and dry. Normal skin color. Normal skin turgor. Extremities: No lower extremity edema. No calf ttp Neuro: Oriented X 3. No motor deficit. No sensory deficit. Medical Decision Making Medical Decision Making [facility] Narrative: 43 yo male with PMH of seizures, HLD, HTN here with c/o resolved chest pain and anxiety in setting of persistent elevated BP readings despite being on HCTZ x 3 months - at htis time symptoms very atypical PERC negative distal pulses intact and pain free now doubt dissection will obtain EKG, troponin and likely start on combination of lisinopril HCTZ he reports daily high readings of 170/100 then at night high 130s/100s. Differential Diagnosis Differential Diagnoses: The differential diagnosis associated with the presentation includes Admission/Observation Consideration of admission/observation: Escalation of care including admission/observation considered negative workup BP stable will add on lisinopril normal Cr and DC home Lab Data MDM Lab Attestation statement: I reviewed the patient's lab results. 11/06/23 12:21 11/06/23 12:21 Labs: Lab Results 11/06/23 Range/Units 12:21 Sodium 139 (135-145) mmol/L Potassium 3.4 (3.3-5.1) mmol/L Chloride 106 (96-108) mmol/L Carbon Dioxide 23 (22-29) mmol/L Anion Gap 13 (12-20) BUN 9 (9-16) mg/dL Creatinine 0.98 (0.5-1.4) mg/dL Estim Creat Clear Calc 113.0 Estimated GFR > 60 Random Glucose 173 H (60-115) mg/dL Calcium 8.9 D (8.4-10.2) mg/dL Magnesium 1.9 (1.6-2.6) mg/dL Total Bilirubin 0.4 (0.0-1.0) mg/dL AST 17 (5-37) U/L ALT 16 (0-40) U/L Alkaline Phosphatase 63 (39-117) U/L Total Protein 7.2 (6.5-8.0) g/dL Albumin 4.1 (3.5-5.0) g/dL Independent Interpretation I performed an independent interpretation of an: EKG and Plain X-Ray (normal ) Interpretation: Rate: 66 Rhythm: NSR Narvon: normal Normal P waves. Normal MARSHA. Normal QRS complex. ST T wave : normal no ANOOP qTC: 408 prior studies: no acute ischemia The study has been interpreted contemporaneously by me. . Radiology Impression Discussion of test interpretation with radiology: I have reviewed the radiologist's reading. Independent Historian Clinical information obtained from an independent historian. History obtained from or confirmed by: Spouse External Record Review External record reviewed: Inpatient record Prescription Management I considered prescription management with: Other Discharge Plan Discharge Clinical Impression: Atypical chest pain, Chronic hypertension Patient Disposition: Home, Self-Care Instructions: Chest Pain (ED), Chronic Hypertension (ED) Additional Instructions: STOP THE 25MG HCTZ YOU HAVE NOW AND TAKE THE COMBINATION PILL RETURN FOR WORSENING SYMPTOMS, TONGUE SWELLING, INCREASED PAIN OR EDEMA OR ANY OTHER CONCERNS HOLD BLOOD PRESSURE MEDICATIONS FOR DIZZINESS OR BLOOD PRESSURE BELOW 90 Prescriptions: New lisinopril-hydrochlorothiazide 10-12.5 mg tablet 1 tab PO DAILY Qty: 30 0RF No Action phenytoin sodium extended 100 mg capsule 200 mg PO BID levetiracetam 500 mg tablet 1,500 mg PO BID oxcarbazepine 600 mg tablet 600 mg PO BID atorvastatin 10 mg tablet 10 mg PO DAILY hydrochlorothiazide 25 mg tablet 25 mg PO DAILY Print Language: Lebanese
[2023-11-06 12:24] VITALS: BP 129/99; PULSE 80; RESP 18; O2SAT 97
--- NOTE | 2023-11-06 12:25 | PC.NURSE ---
Present to ED via EMS from home. Reports substernal CP X 12 hours, non-radiating, 10/27 initially. EMS treated with 324 mg of ASA and 0.4 mg of Nitro, pt reports his pain is relieved at this time. Denies this ever happening before. Started HCTZ 3 months ago and feels it is not working for his BP. Denies SOB, N/V/D, dizziness, recent illnesses or falls. Alert and oriented, breathing even and unlabored, skin warm and dry. 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
[2023-11-06 12:26] LABS: MANUAL DIFF FLAG NO
[2023-11-06 12:40] LABS: Alanine Aminotransferase 16 U/L (0-40); Albumin Level 4.1 g/dL (3.5-5.0); Alkaline Phosphatase 63 U/L (39-117); Anion Gap 13 (12-20); Aspartate Amino Transferase 17 U/L (5-37); Bilirubin Total 0.4 mg/dL (0.0-1.0); Blood Urea Nitrogen 9 mg/dL (9-16); Calcium 8.9 mg/dL (8.4-10.2); Carbon Dioxide 23 mmol/L (22-29); Chloride 106 mmol/L (96-108); Estimated Glomerular Filt Rate > 60; Glucose Random 173 mg/dL (60-115); Magnesium 1.9 mg/dL (1.6-2.6); Potassium 3.4 mmol/L (3.3-5.1); Sodium 139 mmol/L (135-145); Total Protein 7.2 g/dL (6.5-8.0)
[2023-11-06 12:47] LABS: Troponin-I High Sensitivity 5.2 ng/L (<3.5-35.0)
[2023-11-06 13:01] LABS: Basophils Absolute Auto 0.1 X10*3/uL (0.0-0.2); Basophils Percent Auto 0.6 % (0-2); Eosinophils Absolute Auto 0.2 X10*3/uL (0.0-0.4); Eosinophils Percent Auto 2.9 % (0-4); Hematocrit 45.9 % (42.0-52.0); Hemoglobin 16.7 g/dl (14.0-18.0); Imm Gran Abs Auto 0.03 X10*3/uL (0.00-0.03); Imm Gran Pct Auto 0.4 % (0.0-0.4); Lymphocytes Absolute Auto 2.7 X10*3/uL (1.2-4.9); Lymphocytes Percent Auto 32.4 % (20-40); Mean Corpuscular HGB Conc 36.4 g/dl (31.0-36.0); Mean Corpuscular Hemoglobin 33.1 pg (27.0-33.0); Mean Corpuscular Volume 91.1 fL (80.0-98.0); Mean Platelet Volume 9.2 fL (9.4-12.4); Monocytes Absolute Auto 0.5 X10*3/uL (0.1-1.2); Monocytes Percent Auto 6.1 % (2-11); Neutrophils Absolute Auto 4.8 x10*3/uL (2.0-8.3); Neutrophils Percent Auto 57.6 % (45-73); Platelet Count 289 X10*3/uL (160-400); Red Blood Count 5.04 X10*6/uL (4.60-5.80); Red Cell Distribution Width 13.2 % (11.0-16.0); White Blood Count 8.4 X10*3/uL (4.8-10.8)
[2023-11-06 13:33] VITALS: BP 125/79; PULSE 68; RESP 11; TEMP 36.9; O2SAT 98
[2023-11-06 13:35] VITALS: BP 125/79; PULSE 68; RESP 11; TEMP 36.9; O2SAT 98
== END 2023-11-06 13:36 | disposition home or self-care (01) ==
PROVIDERS: Emergency Provider Emergency Medicine; PCP Family Medicine
DX: R07.89 Other chest pain (principal); I10 Essential (primary) hypertension; F41.1 Generalized anxiety disorder; Z79.899 Other long term (current) drug therapy
CPT/HCPCS: 36415; 71045; 80053; 83735; 84484; 85025; 93005; 99283; 99285

== ENCOUNTER → 2023-11-06 11:49 | Outpatient (BNV) | payer MEDICARE, MEDICAID, SELFPAY | PROVIDERS: Emergency Provider Emergency Medicine; PCP Family Medicine; Visit Provider Internal Medicine Cardiovascular Disease | DX: R07.9 Chest pain, unspecified (principal) | CPT/HCPCS: 93010 ==

== ENCOUNTER 2023-11-27 09:32 | Outpatient (REF) | payer MEDICARE, MEDICAID, SELFPAY ==
[2023-11-27 10:59] LABS: MANUAL DIFF FLAG NO
[2023-11-27 11:11] LABS: Basophils Percent Auto 0.4 % (0-2); Eosinophils Absolute Auto 0.2 X10*3/uL (0.0-0.4); Eosinophils Percent Auto 2.4 % (0-4); Hematocrit 48.3 % (42.0-52.0); Hemoglobin 17.2 g/dl (14.0-18.0); Imm Gran Abs Auto 0.03 X10*3/uL (0.00-0.03); Imm Gran Pct Auto 0.4 % (0.0-0.4); Lymphocytes Absolute Auto 2.8 X10*3/uL (1.2-4.9); Lymphocytes Percent Auto 33.1 % (20-40); Mean Corpuscular HGB Conc 35.6 g/dl (31.0-36.0); Mean Corpuscular Hemoglobin 32.2 pg (27.0-33.0); Mean Corpuscular Volume 90.4 fL (80.0-98.0); Mean Platelet Volume 9.1 fL (9.4-12.4); Monocytes Absolute Auto 0.5 X10*3/uL (0.1-1.2); Monocytes Percent Auto 5.3 % (2-11); Neutrophils Percent Auto 58.4 % (45-73); Platelet Count 323 X10*3/uL (160-400); Red Blood Count 5.34 X10*6/uL (4.60-5.80); Red Cell Distribution Width 12.8 % (11.0-16.0); White Blood Count 8.5 X10*3/uL (4.8-10.8)
[2023-11-27 11:45] LABS: Alanine Aminotransferase 15 U/L (0-40); Albumin Level 4.5 g/dL (3.5-5.0); Alkaline Phosphatase 72 U/L (39-117); Anion Gap 12 (12-20); Aspartate Amino Transferase 16 U/L (5-37); Bilirubin Direct 0.1 mg/dL (0.0-0.5); Bilirubin Total 0.3 mg/dL (0.0-1.0); Blood Urea Nitrogen 10 mg/dL (9-16); Calcium 9.3 mg/dL (8.4-10.2); Carbon Dioxide 26 mmol/L (22-29); Chloride 104 mmol/L (96-108); Cholesterol 210 mg/dL (<200); Estimated Glomerular Filt Rate > 60; Free T4 (Free Thyroxine) 0.88 ng/dL (0.71-1.85); Glucose Random 114 mg/dL (60-115); HDL Cholesterol 40 mg/dL (>40); LDL Cholesterol Calculated 136 mg/dL (<100); Potassium 4.2 mmol/L (3.3-5.1); Sodium 138 mmol/L (135-145); Thyroid Stimulating Hormone 0.36 uIU/mL (0.32-4.0); Total Protein 7.5 g/dL (6.5-8.0); Triglycerides 172 mg/dL (<150); Vitamin D 25-OH Total 61.3 ng/mL (>30)
[2023-11-27 11:46] LABS: Estimated Average Glucose 103 mg/dL; Hemoglobin A1c % 5.2 % (<6.0)
[2023-11-27 12:38] LABS: CT PCR NOT DETECTED (Not Detect.); NG PCR NOT DETECTED (Not Detect.)
[2023-11-27 14:58] LABS: Creatinine Urine 140.58 mg/dL; Microalbumin Urine < 5.0 mg/L
[2023-11-28 08:13] LABS: HBsAGNum1 0.39 S/CO (0.00-0.99); HIV AB/AG Nonreactive (Nonreactive); HIV Num 1 0.05 S/CO (0.00-0.99); Hepatitis B Surface Antigen Negative (Negative)
[2023-11-29 14:04] LABS: RPR Rapid Plasma Reagin NON-REACTIVE (NON-REACTIVE)
[2023-11-29 15:14] LABS: HCV RNA PCR Qn <1.18 NOT DETECTED Log IU/mL (NOT DETECTED); HCV RNA PCR Qn <15 NOT DETECTED IU/mL (NOT DETECTED)
== END 2023-11-27 09:33 | disposition home or self-care (01) ==
LOC: HO.HHCL 09:32
PROVIDERS: Visit Provider Family Medicine
DX: I10 Essential (primary) hypertension (principal)
CPT/HCPCS: 80048; 80061; 80076; 82043; 82306; 82570; 83036; 84439; 84443; 85025; 86592; 87340; 87389; 87491; 87522; 87591

== ENCOUNTER 2023-12-09 09:59 | Outpatient (AMB) | payer MEDICAID, SELFPAY ==
[2023-12-09 10:42] VITALS: BP 118/84; PULSE 74; O2SAT 97; BMI 26.8
--- NOTE | 2023-12-09 10:42 | A.OFFVIS_ITS ---
Vital Signs 12/09/23 10:42 Height 6 ft 2 in Weight 209 lb BMI 26.8 BP 118/84 Blood Pressure Location Rt brachial Position Sitting Pulse 74 Pulse Source Auscultation Pulse Oximetry (%) 97 Oxygen Delivery Method Room Air Intake Visit Reasons: follow up seizures-CONF Intake Note: Patient presents for follow up seizures. patient had a seizure a month ago while he was sleeping. Allergies No Known Allergies [No Known Allergies*] Allergy (Verified 12/09/23 10:45) Medication List - Last Reconciled 12/09/23 by ERNESTINE Escalante atorvastatin 10 mg PO DAILY hydrochlorothiazide 25 mg PO DAILY levetiracetam 1,500 mg PO BID lisinopril-hydrochlorothiazide 10-12.5 mg 1 tab PO DAILY oxcarbazepine 600 mg PO BID phenytoin sodium extended 200 mg PO BID HPI Comments Details: 43-yr-old male presents for f/u visit. Pt denies any significant interval medical changes. Pt states he has started APAP 6-20 cmH2O w/ EPR 3, however he has not toelrtaed the nasal mask. He states he spoke to [facility] home [facility] and requested he try a full face mask instead, but he has not heard anything. He states he had one breakthrough nocturnal seizure about a month ago. He states he typically has about one breakthrough nocturnal seizure a month. He states he is compliant w/ his Keppra, Trileptal, Phenytoin. He does NOT drive. He does not work- on disability. Sinus CT showed sinus inflammation and nonspecific patchy sclerosis along the nasopharyngeal surface of the clivus with overlying tissue thickening along the roof of the nasopharynx eccentric to the right. Upon review, Dr Thurman had initiated a STAT referral to ENT- pt has an appt in Mar 2024. He denies h/o sinus infection. He reports that he has had a change in his voice in the last few months. When he is talking, his throat will feel dry, and his voice hesitates/cracks. Denies dysphagia, coughing while eating/drinking, rhinorhea while eating/drinking, sore throat. 09/25/23, CT/CT sinus wo IV con: IMPRESSION: 1. Chronic bilateral nasal bone fractures. Nasal septal curvature for which the possibility of remote nasal septal fracture is not excluded. Asymmetric moderate mucosal disease and partially opacified left nasal cavity. 2. Chronic mucoperiosteal thickening along the left posterolateral maxillary sinus wall with associated cortical irregularity, which may reflect sequela of prior trauma versus chronic sinusitis. Narrowing of the left maxillary sinus ostium and ethmoid infundibulum with opacified left middle meatus. 3. Redemonstrated dependent secretions/air-fluid level in the left sphenoid sinus. 4. A couple dental caries which correlation with dental examination is advised. 5. Elongated ossified styloid processes/stylohyoid ligaments can be correlated clinically for [place] syndrome. 6. Nonspecific patchy sclerosis along the nasopharyngeal surface of the clivus with overlying tissue thickening along the roof of the nasopharynx eccentric to the right. While this may reflect adenoidal hyperplasia, ENT consultation and correlation with direct inspection is advised to exclude underlying lesion. This finding could also be further assessed with contrast-enhanced MRI. Findings to be called to the ordering clinician by a [facility]. 7. 3 mm ossified extra-axial lesion along the basiocciput just superior to the foramen magnum which may reflect a small meningioma, which could likewise be better assessed on contrast-enhanced MRI. [facility] Medical History Nasopharyngeal mass Seizure Family History Maternal Aunt Seizure disorder Social History Alcohol intake: never Patient Tobacco Use Status: Never used Tobacco Substance Use Type: Marijuana Physical Exam Vital Signs: Last Vital Signs Pulse 74 12/09/23 10:42 BP 118/84 12/09/23 10:42 Pulse Ox 97 12/09/23 10:42 Oxygen Delivery Method Room Air 12/09/23 10:42 BMI result Body Mass Index 26.8 Const General: cooperative and no acute distress Orientation/consciousness: patient oriented x3 Resp Effort & Inspection: normal respiratory effort and able to speak in complete sentences Neuro Other: With prolonged speaking, voice breaks. Posterior oropharynx clear. General: patient oriented x3 Cranial nerves: Yes CN's II-XII intact bilaterally Cognition (Neuro): normal cognition Psych Appearance: grossly normal Mental Status: mental status grossly normal Speech and movement: Normal speech and movement present Affect: normal affect Attitude: cooperative Assessment & Plan Assessment & Plan (1) Nocturnal seizures: Code(s): R56.9 - Unspecified convulsions Category: Medical (2) JENNIFER (obstructive sleep apnea): Comment: Severe degree of sleep apnea. The AHI was 27/hr and oxygen anurag was 82%. Code(s): G47.33 - Obstructive sleep apnea (adult) (pediatric) Category: Medical (3) Seizure: Code(s): R56.9 - Unspecified convulsions Category: Medical (4) Meningioma: Comment: Sinus CT, September 2023: 3 mm ossified extra-axial lesion along the basiocciput just superior to the foramen magnum which may reflect a small meningioma Code(s): D32.9 - Benign neoplasm of meninges, unspecified Category: Medical Plan Pt is not tolerating APAP, thus pt advised to undergo in-lab PAP titration study to identify optimal PAP treatment settings for pt's severe degree of obstructive sleep apnea. Reviewed recent sinus CT- f/u w/ ENT as scheduled Will order f/u brain MRI w/wo to better assess brain MRI w/o finding of 3 mm ossified extra-axial lesion along the basiocciput just superior to the foramen magnum- possibly a small meningioma. For seizure: Re-ordered EEG Continue keppra 1500 mg BID, oxcarbazepine 600 mg BID and dilantin 200 mg BID. Check phenytoin level. f/u in 6 months or sooner prn. Orders: Orders MR head/brain wo/w con Today D32.9 - Benign neoplasm of meninges, unspecified, R56.9 - Unspecified convulsions EEG electroencephalogram Today R56.9 - Unspecified convulsions Phenytoin Dilantin Today R56.9 - Unspecified convulsions RT PSG in-lab sleep titration Today G47.33 - Obstructive sleep apnea (adult) (pediatric), R56.9 - Unspecified convulsions Coding Level of Care Code Est Pt Level 4 (43948) Diagnoses Nocturnal seizures R56.9 JENNIFER (obstructive sleep apnea) G47.33 Seizure R56.9 Meningioma D32.9
== END 2023-12-09 11:51 | disposition home or self-care (01) ==
PROVIDERS: PCP Family Medicine; Visit Provider Nurse Practitioner Family
DX: R56.9 Unspecified convulsions (principal); G47.33 Obstructive sleep apnea (adult) (pediatric); D32.9 Benign neoplasm of meninges, unspecified
CPT/HCPCS: 99214

== ENCOUNTER → 2023-12-09 09:59 | Outpatient (BNVA) | payer MEDICAID, SELFPAY | PROVIDERS: PCP Family Medicine; Visit Provider Nurse Practitioner Family | DX: R56.9 Unspecified convulsions (principal); G47.33 Obstructive sleep apnea (adult) (pediatric); D32.9 Benign neoplasm of meninges, unspecified | CPT/HCPCS: 99212 ==

== ENCOUNTER 2023-12-11 12:54 | Outpatient (REF) | payer MEDICARE, MEDICAID, SELFPAY ==
--- NOTE | ~2023-12-11 | MR_ITS ---
EXAMINATION: MR BRAIN WITHOUT AND WITH CONTRAST CLINICAL INFORMATION: 3 mm ossified extra-axial lesion COMPARISON: MRI brain on 05/29/[address] head on 09/25/2023 TECHNIQUE: Multiplanar, multisequence MRI of the brain was obtained before and after the intravenous administration of 10 mL Gadavist. FINDINGS: No acute intracranial hemorrhage or infarct. Several scattered periventricular and deep white matter T2/FLAIR hyperintensities, nonspecific however commonly seen with small vessel ischemic disease. No midline shift or hydrocephalus. No acute extra-axial fluid collections. There is a tiny protrusion finding along the right aspect of the clivus inferiorly which demonstrates some susceptibility artifact, likely correlating with finding on CT. No associated enhancement is definitively seen. The osseous structures are otherwise unremarkable. The pituitary gland, pineal gland and remaining midline structures are unremarkable. No orbital pathology. Mild mucosal thickening of the ethmoid and sphenoid sinuses. The mastoid air cells are clear. MR/MR head/brain wo/w con IMPRESSION: -Unremarkable MRI brain. -Nonspecific tiny protrusion finding along the right aspect of the clivus inferiorly which demonstrates some susceptibility artifact, likely correlating with finding on CT. No associated enhancement is definitively seen. This is similar in appearance when compared to prior MRI and remains too small to definitively characterize on MRI. Electronically signed by: Francesca Harman MD 01/09/2024 03:13 PM EDT
[2023-12-11] MEDS: gadobutroL 10 ML VIAL IVPUSH (14:19)
== END 2023-12-11 12:55 | disposition home or self-care (01) ==
LOC: HO.MRI 12:54
PROVIDERS: PCP Family Medicine; Visit Provider Nurse Practitioner Family
DX: R56.9 Unspecified convulsions (principal); D32.9 Benign neoplasm of meninges, unspecified
CPT/HCPCS: 70553; A9585

== ENCOUNTER 2024-04-28 10:18 | Emergency (ER) | payer MEDICARE, MEDICAID, SELFPAY ==
--- NOTE | ~2024-04-28 | CT_ITS ---
EXAMINATION: CT HEAD WITHOUT CONTRAST CLINICAL INFORMATION: Seizure. COMPARISON: CT head September 05, 2020. MRI of head December 11, 2023. CT sinus series September 25, 2023 TECHNIQUE: Contiguous axial imaging was performed from the skull base to vertex without intravenous administration of contrast. Coronal and sagittal reformatted images are performed at the CT scanner. This CT examination was performed using dose optimization techniques as appropriate, variously including the following: *Automated exposure control *Adjustment of mA and/or kV according to patient size (this includes techniques or standardized protocols for targeted exams where dose is matched to indication/reason for exam; i.e. extremities or head) *Use of iterative reconstruction technique DLP: 755 mGy-cm. FINDINGS: There is no evidence of acute intracranial hemorrhage or territorial infarction. No abnormal mass-effect or midline shift is seen. Devine to white matter differentiation is well preserved. No extra-axial fluid collections are identified. The ventricles are normal in size. There is no abnormal attenuation within the brain parenchyma. There is no osseous abnormality. Redemonstration of the fluid/mucoperiosteal thickening at the dependent portion of left sphenoid sinus unchanged since MR head December 11, 2023. Mastoid air cells and middle ear cavities are normally aerated. CT/CT head/brain wo IV con IMPRESSION: 1. No acute intracranial pathology. 2. Redemonstration of the fluid/mucoperiosteal thickening at the dependent portion of left sphenoid sinus unchanged since MR head December 11, 2023. Electronically signed by: José Wu MD 04/28/2024 03:35 PM EST
[2024-04-28 10:54] VITALS: BP 129/72; PULSE 83; O2SAT 97
[2024-04-28 11:07] VITALS: BMI 26.8
--- NOTE | 2024-04-28 11:10 | ECG_ITS ---
Test Reason : SIEZURE Blood Pressure : / mmHG Vent. Rate : 069 BPM Atrial Rate : 069 BPM P-R Int : 136 ms QRS Dur : 086 ms QT Int : 374 ms P-R-T Axes : 045 -02 041 degrees QTc Int : 400 ms Normal sinus rhythm Normal ECG When compared to the previous EKG of No significant changes seen Referred By: Jonathan Rico Electronically Signed By:JAYLENE MARCUS MD
[2024-04-28 11:15] VITALS: BP 120/70; PULSE 81; RESP 18; TEMP 36.6; O2SAT 96
[2024-04-28] MEDS: clonazePAM 1 MG TABLET PO (11:27)
--- NOTE | 2024-04-28 11:32 | PC.NURSE ---
[facility] s/p witnessed seizure by [facility] staff. pt arrives in clean dry clothes, a&o x4 on arrival, speaking in full sentences in kirk stretcher. seizure precautions placed pt has a seizure history and sts that he is compliant with his medications. significant other at bedside confirms that he take keppra and oxcarbazepine. per SO pt seizure activity is not tonic clonic in nature, however she and the patient report that seizures are become for frequent with up to 3 episodes per day Pt was evaluated by MD Rico at bedside on arrival, clonazepam 1mg given per JUL Plan for lab work EKG and CT imaging
--- NOTE | 2024-04-28 11:45 | ED_ITS ---
HPI - Seizure General Chief Complaint: Seizure Stated Complaint: MULTIPLE SZ @ ADULT DAY CARE PER EMS Time Seen by Provider: 04/28/24 11:18 Source: patient and family () Mode of arrival: EMS History of Present Illness HPI Narrative: THIS IS A 43 YEARS OLD WITH EPILEPSY PRESENTED TO THE EMERGENCY DEPARTMENT AFTER SEIZURE AT THE DAY CARE, HE ARRIVED BY AMBULANCE AWAKE ALERT NO POSTICTAL NOW, HE WAS POSTICTAL PER EMS. ACCORDING TO THE USUALLY BECAME STIFF. PATIENT WAS SEEN IN THE EMERGENCY DEPARTMENT At [facility] 04/26, HE TAKES KEPPRA 1500 TWICE A DAY, OXCARBAZEPINE 900 MG TWICE A DAY AND PHENYTOIN 200 MG TWICE A DAY complaint: seizure Onset (ago): hour(s) (3) Witnessed: No Seizure History: Yes Place: DAY PROGRAM Associated symptoms: denies other symptoms Related Data Home Medications ?Medication ?Instructions ?Recorded ?Confirmed atorvastatin 10 mg tablet 10 mg PO DAILY 04/05/23 12/09/23 levetiracetam 500 mg tablet 1,500 mg PO BID 04/05/23 12/09/23 oxcarbazepine 600 mg tablet 600 mg PO BID 04/05/23 12/09/23 phenytoin sodium extended 100 mg 200 mg PO BID 04/05/23 12/09/23 capsule hydrochlorothiazide 25 mg tablet 25 mg PO DAILY 07/31/23 Previous Rx's ?Medication ?Instructions ?Recorded lisinopril 10 1 tab PO DAILY #30 tabs 11/06/23 mg-hydrochlorothiazide 12.5 mg tablet Allergies Allergy/AdvReac Type Severity Reaction Status Date / Time No Known Allergies Allergy Verified 04/28/24 11:09 [No Known Allergies*] Review of Systems 2 Constitutional: Constitutional: Reports no additional constitutional complaints ENT: Reports system reviewed and no additional complaints, except as documented Musculoskeletal: Musculoskeletal: Reports no additional musculoskeletal complaints PMFSH Past Medical History Medical History Nasopharyngeal mass Seizure Family History Family History Maternal Aunt Seizure disorder Social History Social History Alcohol intake: never Patient Tobacco Use Status: Never used Tobacco Smoked in Last 30 Days: Yes Use of substances other than those prescribed or required for medical reasons: Yes Substance Use Type: Crack/Cocaine and Marijuana Advance Directives: No Advance Directives Information Provided: Yes Do you have a plan to hurt others: No Plan Physical Exam 2 Vital Signs: Vital Signs: Last Vital Signs Temp 99.1 F 04/28/24 14:00 Pulse 68 04/28/24 14:00 Resp 14 04/28/24 14:00 BP 106/52 L 04/28/24 14:00 Pulse Ox 97 04/28/24 14:00 O2 Del Method Room Air 04/28/24 14:00 BMI result Body Mass Index 26.8 PATIENT IS AWAKE ALERT NO DISTRESS AT THIS TIME Const: General: cooperative Nutritional Appearance: well nourished O rientation/consciousness: patient oriented x3 Limitations: no limitations HEENT: Head: Yes normal to inspection Ears: hearing grossly normal bilaterally Face and sinus: Yes normal facial exam Mouth: Normal oral and palatal mucosa present Neck: Neck: Yes normal visual inspection Carotids: normal carotid upstroke Chest: Chest palpation & inspection: normal inspection of the chest Resp: Effort & Inspection: normal respiratory effort Auscultation: clear to auscultation bilaterally Cardio: Jugular venous distension: no JVD Rate: regular rate Rhythm: r egular rhythm GI: Inspection: Yes normal to inspection Palpation (GI): Soft to palpation Auscultation: normal bowel sounds Skin: General skin exam: no rashes or lesions noted and elasticity normal L esions: no lesions Rashes: no rashes Neuro: General: patient oriented x3 Cranial nerves: Yes CN's II-XII intact bilaterally Course Reevaluation(s) Reevaluation #1: I REVIEWED THE RECORD FROM THE VISIT OF 04/26 TREATED AND RELEASE FROM THE EMERGENCY DEPARTMENT Time: 12:05 Reevaluation #2: DRUG SCREEN SEEN HE HAS COCAINE IN THE URINE THIS COULD BE THE REASON FOR HIS SEIZURE WELL, DILANTIN LEVEL IS LOW 7.6 I WILL GIVE AN EXTRA DOSE OF DILANTIN Time: 13:29 Reevaluation #3: I SPOKE WITH PT NEUROLOGIST DR MONICO BELL TO D/C WILL CALL PT FOR FOLLOW UP HE WILL BE ON OXCARBAZEPINE 600 MG TID,KEPPRA 1500 BID AND DILANTIN 200 BID WBC ELEVATED BUT NO FEVER NO SIGN OF INFECTION WAS ELEVATED AT [facility] 2 DAYS AGO 26 k Time: 14:57 Medications Administered Discontinued Medications Generic Name Dose Route Start Last Admin Trade Name Juwan PRN Reason Stop Dose Admin Clonazepam 1 mg 04/28/24 11:11 04/28/24 11:27 Clonazepam 1 Mg Tablet PO 04/28/24 11:12 1 mg ONCE ONE Administration Phenytoin Sodium 300 mg 04/28/24 13:28 04/28/24 13:41 Phenytoin Sodium Extended 100 Mg Capsule PO 04/28/24 13:29 300 mg ONCE ONE Administration Medical Decision Making Medical Decision Making [facility] Narrative: PATIENT IS HERE FOR RECURRENT SEIZURE WE WILL GET LABS LEVEL OF DILANTIN AND KEPPRA Differential Diagnosis Differential Diagnoses: The differential diagnosis associated with the presentation includes NONCOMPLIANT, SUBTHERAPEUTIC LEVELS, VIRAL SEEN Admission/Observation Consideration of admission/observation: Escalation of care including admission/observation considered Consult Healthcare Provider Management of the patient was discussed with: Chief [facility] NEUROLOGIST DR MONICO RANDALL Lab Data [facility] Lab Attestation statement: I reviewed the patient's lab results. 04/28/24 12:07 04/28/24 12:06 Labs: Lab Results 04/28/24 04/28/24 Range/Units 12:06 12:07 WBC 17.6 H (4.8-10.8) X10*3/uL RBC 4.95 (4.60-5.80) X10*6/uL Hgb 16.0 (14.0-18.0) g/dl Hct 46.4 (42.0-52.0) % MCV 93.7 (80.0-98.0) fL MCH 32.3 (27.0-33.0) pg MCHC 34.5 (31.0-36.0) g/dl RDW 12.8 (11.0-16.0) % Plt Count 277 (160-400) X10*3/uL MPV 8.8 L (9.4-12.4) fL Immature Gran % (Auto) 0.5 H (0.0-0.4) % Neut % (Auto) 85.7 H (45-73) % Lymph % (Auto) 9.4 L (20-40) % [place] % (Auto) 4.0 (2-11) % Eos % (Auto) 0.2 (0-4) % Baso % (Auto) 0.2 (0-2) % Lymph # (Auto) 1.7 (1.2-4.9) X10*3/uL [place] # (Auto) 0.7 (0.1-1.2) X10*3/uL Eos # (Auto) 0.0 (0.0-0.4) X10*3/uL Baso # (Auto) 0.0 (0.0-0.2) X10*3/uL Abs Immat Gran (auto) 0.09 H (0.00-0.03) X10*3/uL Absolute Neuts (auto) 15.1 H (2.0-8.3) x10*3/uL Absolute Nucleated RBC 0.000 (0.0-0.012) X10*3/uL Nucleated RBC % (auto) 0.0 (0.0-0.2) /100WBC Sodium 139 (135-145) mmol/L Potassium 3.8 (3.3-5.1) mmol/L Chloride 102 (96-108) mmol/L Carbon Dioxide 31 H (22-29) mmol/L Anion Gap 10 L (12-20) BUN 10 (9-16) mg/dL Creatinine 1.06 (0.5-1.4) mg/dL Estim Creat Clear Calc 75.2 Estimated GFR > 60 Random Glucose 109 (60-115) mg/dL Lactic Acid 1.5 (0.5-2.0) mmol/L Calcium 8.9 (8.4-10.2) mg/dL Magnesium 2.2 (1.6-2.6) mg/dL Total Bilirubin 0.3 (0.0-1.0) mg/dL AST 25 (5-37) U/L ALT 18 (0-40) U/L Alkaline Phosphatase 55 (39-117) U/L Total Protein 7.8 (6.5-8.0) g/dL Albumin 4.3 (3.5-5.0) g/dL Urine Color Yellow Urine Appearance Clear Urine pH 6.0 (5.0-9.0) Ur Specific [place] 1.015 (1.005-1.025) Urine Protein Negative (Neg-Trace) mg/dL Urine Glucose (UA) Negative (Negative) mg/dL Urine Ketones Negative (Negative) mg/dL Urine Blood Negative (Negative) Urine Nitrite Negative (Negative) Ur Leukocyte Esterase Negative (Negative) Urine RBC 0-2 (0-2) /HPF Urine WBC 0-5 (0-5) /HPF Ur Squamous Epith Cells 0-2 (0-2) /HPF Urine Bacteria None Seen (None Seen) Hyaline Casts 0-2 (0-2) /LPF Urine Opiates Screen Not Detected (Not Detect) Ur Buprenorphine Scrn Not Detected (Not Detect) ng/mL Ur Oxycodone Screen Not Detected (Not Detect) ng/mL Urine Methadone Screen Not Detected (Not Detect) ng/mL Urine Fentanyl Screen Not Detected (Not Detect) Ur Barbiturates Screen Not Detected (Not Detect) Phenytoin 7.6 L* (10.0-20.0) ug/mL Ur Phencyclidine Scrn Not Detected (Not Detect) Ur Amphetamines Screen Not Detected (Not Detect) U Benzodiazepines Scrn Not Detected (Not Detect) Urine Cocaine Screen POSITIVE H (Not Detect) U Marijuana (THC) Screen POSITIVE H (Not Detect) Independent Interpretation I performed an independent interpretation of an: CT Scan Interpretation: NAD Radiology Impression Discussion of test interpretation with radiology: I have reviewed the radiologist's reading. Radiologist Impression: morrhage or territorial infarction. No abnormal mass-effect or midline shift is seen. Devine to white matter differentiation is well preserved. No extra-axial fluid collections are identified. The ventricles are normal in size. There is no abnormal attenuation within the brain parenchyma. There is no osseous abnormality. Redemonstration of the fluid/mucoperiosteal thickening at the dependent portion of left sphenoid sinus unchanged since MR head December 11, 2023. Mastoid air cells and middle ear cavities are normally aerated. CT/CT head/brain wo IV con IMPRESSION: 1. No acute intracranial pathology. 2. Redemonstration of the fluid/mucoperiosteal thickening at the dependent portion of left sphenoid sinus unchanged since MR head December 11, 2023. Electronically signed by: José Wu MD 04/28/2024 03:35 PM [facility] Dictated By: José Wu MD Independent Historian Clinical information obtained from an independent historian. History obtained from or confirmed by: Spouse Chronic Conditions SEIZURE Social Determinants COCAINE ABUSE Discharge Plan Discharge Clinical Impression: Seizure, Cocaine abuse Patient Disposition: Home, Self-Care Instructions: Recurrent Seizures in Adults (ED) Additional Instructions: INCREASE OXCARBAZINE TO 900 TWICE DAY(3 PILLS TWICE DAY CONTINUE KEPPRA AND DILANTIN BEFORE YOUR NEUROLOGIST WILL CALL YOU FOR APPOINTMENT Prescriptions: No Action lisinopril-hydrochlorothiazide 10-12.5 mg tablet 1 tab PO DAILY Qty: 30 0RF phenytoin sodium extended 100 mg capsule 200 mg PO BID levetiracetam 500 mg tablet 1,500 mg PO BID oxcarbazepine 600 mg tablet 600 mg PO BID atorvastatin 10 mg tablet 10 mg PO DAILY hydrochlorothiazide 25 mg tablet 25 mg PO DAILY Print Language: Upper Sorbian
[2024-04-28 12:12] LABS: MANUAL DIFF FLAG NO
[2024-04-28 12:14] LABS: Basophils Percent Auto 0.2 % (0-2); Eosinophils Percent Auto 0.2 % (0-4); Hematocrit 46.4 % (42.0-52.0); Imm Gran Abs Auto 0.09 X10*3/uL (0.00-0.03); Imm Gran Pct Auto 0.5 % (0.0-0.4); Lymphocytes Absolute Auto 1.7 X10*3/uL (1.2-4.9); Lymphocytes Percent Auto 9.4 % (20-40); Mean Corpuscular HGB Conc 34.5 g/dl (31.0-36.0); Mean Corpuscular Hemoglobin 32.3 pg (27.0-33.0); Mean Corpuscular Volume 93.7 fL (80.0-98.0); Mean Platelet Volume 8.8 fL (9.4-12.4); Monocytes Absolute Auto 0.7 X10*3/uL (0.1-1.2); Neutrophils Absolute Auto 15.1 x10*3/uL (2.0-8.3); Neutrophils Percent Auto 85.7 % (45-73); Platelet Count 277 X10*3/uL (160-400); Red Blood Count 4.95 X10*6/uL (4.60-5.80); Red Cell Distribution Width 12.8 % (11.0-16.0); White Blood Count 17.6 X10*3/uL (4.8-10.8)
[2024-04-28 12:18] LABS: Appearance Urine Clear; Color Urine Yellow; Glucose Urine UA Negative (Negative); Leukocyte Esterase Urine Negative (Negative); Nitrite Urine Negative (Negative); Specific Gravity - Urine 1.015 (1.005-1.025); Urine Blood Negative (Negative); Urine Ketones Negative (Negative); Urine Protein Negative (Neg-Trace)
[2024-04-28 12:20] LABS: Bacteria Urine None Seen (None Seen); Hyaline Casts Urine 0-2 /LPF (0-2); RBC Urine 0-2 /HPF (0-2); Squamous Epithelial Cell Urine 0-2 /HPF (0-2); WBC Urine 0-5 /HPF (0-5)
[2024-04-28 12:23] LABS: Amphetamine Screen Urine Not Detected (Not Detect); Barbiturates, Urine Not Detected (Not Detect); Benzodiazepines Screen Urine Not Detected (Not Detect); Buprenorphine Scr Not Detected (Not Detect); Cannabinoid Screen Urine POSITIVE (Not Detect); Cocaine Screen Urine POSITIVE (Not Detect); Fentanyl, urine Not Detected (Not Detect); Methadone Screen, Urine Not Detected (Not Detect); Opiate Screen Urine Not Detected (Not Detect); Oxycodone Screen Urine Not Detected (Not Detect); Phencyclidine Screen Urine Not Detected (Not Detect)
[2024-04-28 12:27] LABS: Alanine Aminotransferase 18 U/L (0-40); Albumin Level 4.3 g/dL (3.5-5.0); Alkaline Phosphatase 55 U/L (39-117); Anion Gap 10 (12-20); Aspartate Amino Transferase 25 U/L (5-37); Bilirubin Total 0.3 mg/dL (0.0-1.0); Blood Urea Nitrogen 10 mg/dL (9-16); Calcium 8.9 mg/dL (8.4-10.2); Carbon Dioxide 31 mmol/L (22-29); Chloride 102 mmol/L (96-108); Creatinine Clr Calc Pharmacy 75.2; Estimated Glomerular Filt Rate > 60; Glucose Random 109 mg/dL (60-115); Magnesium 2.2 mg/dL (1.6-2.6); Potassium 3.8 mmol/L (3.3-5.1); Sodium 139 mmol/L (135-145); Total Protein 7.8 g/dL (6.5-8.0)
[2024-04-28 12:27] LABS: Lactic Acid 1.5 mmol/L (0.5-2.0)
[2024-04-28 12:33] LABS: Phenytoin Dilantin 7.6 ug/mL (10.0-20.0)
[2024-04-28] MEDS: Phenytoin Sodium Extended 100 MG CAPSULE 300 MG PO (13:41)
[2024-04-28 14:00] VITALS: BP 106/52; PULSE 68; RESP 14; TEMP 37.3; O2SAT 97
[2024-05-02 02:29] LABS: Levetiracetam Keppra 25.8 mcg/mL (6.0-46.0)
== END 2024-04-28 17:43 | disposition home or self-care (01) ==
PROVIDERS: Emergency Provider Emergency Medicine; PCP Family Medicine
DX: G40.909 Epilepsy, unspecified, not intractable, without status epilepticus (principal); F14.10 Cocaine abuse, uncomplicated
CPT/HCPCS: 36415; 70450; 80053; 80177; 80185; 80307; 81001; 83605; 83735; 85025; 93005; 99284

== ENCOUNTER → 2024-04-28 11:10 | Outpatient (BNV) | payer MEDICARE, MEDICAID, SELFPAY | PROVIDERS: Emergency Provider Emergency Medicine; PCP Family Medicine; Visit Provider Internal Medicine Cardiovascular Disease | DX: R56.9 Unspecified convulsions (principal) | CPT/HCPCS: 93010 ==

== ENCOUNTER 2024-06-03 10:04 | Outpatient (REF) | payer MEDICARE, MEDICAID, SELFPAY ==
[2024-06-03 11:43] LABS: Phenytoin Dilantin 13.6 ug/mL (10.0-20.0)
[2024-06-06 02:54] LABS: TS Negative Control Passed; TS Panel A 0; TS Panel B 0; TS Positive Control Passed; TSpotTB Negative (Negative)
== END 2024-06-03 10:05 | disposition home or self-care (01) ==
LOC: HO.HHCL 10:04
PROVIDERS: Nurse Practitioner Family; Visit Provider Family Medicine
DX: Z00.00 Encounter for general adult medical examination without abnormal findings (principal); R56.9 Unspecified convulsions; Z11.1 Encounter for screening for respiratory tuberculosis
CPT/HCPCS: 36415; 80185; 86481

== ENCOUNTER → 2024-06-22 15:11 | Outpatient (BNV) | payer MEDICARE, MEDICAID, SELFPAY | PROVIDERS: PCP Family Medicine; Visit Provider Radiology Diagnostic Radiology | DX: D48.0 Neoplasm of uncertain behavior of bone and articular cartilage (principal) | CPT/HCPCS: 70487 ==

== ENCOUNTER → 2024-06-25 10:57 | Outpatient (AMB) | payer MEDICARE, MEDICAID, SELFPAY ==
--- NOTE | 2024-06-25 10:57 | A.OFFVIS_ITS ---
Vital Signs 06/25/24 11:03 Height 5 ft 11 in Weight 206 lb BMI 28.7 Intake Visit Reasons: Follow up Intake Note: Patient is taking 300mg of Phenytoin. Also he states that oxcarbazepine is making him shaky and having mood swings. [employer] Department Required: No Accompanied by: Self / Same As Patient Allergies No Known Allergies [No Known Allergies*] Allergy (Verified 06/25/24 10:57) Medication List - Last Reconciled 06/25/24 by ERNESTINE Escalante atorvastatin 10 mg PO DAILY levetiracetam 1,250 mg (2.5 x 500 mg) PO Q12H 30 days lisinopril-hydrochlorothiazide 10-12.5 mg 1 tab PO DAILY oxcarbazepine 900 mg (1.5 x 600 mg) PO Q12H 30 days phenytoin sodium extended 200 mg (2 x 100 mg) PO Q12H 30 days pyridoxine (vitamin B6) 50 mg PO Q12H 30 days Do you need a note to return to daycare/school/sports/work: No HPI Comments Details: 43-yr-old male presents for f/u seizure disorder and obstructive sleep apnea. In regards to JENNIFER: Patient has not tolerated APAP 6-20 cmH2O w/ EPR 3, either with nasal or fullface mask. We had ordered a f/u in-lab PAP titration study at the last visit, however patient has not done this. Today, he would like to hold on doing this, as he feels he will not tolerate CPAP at all. For the previously identified nasopharynx lesion: He has ENT consult with Dr Daniel, patient states he was told everything is okay. Unfortunately, we do not have ENT notes to review today. He states he has a follow-up with ENT later this month. In regards to seizure disorder: He did not have the requested EEG after the last visit. He states had a stronger seizure- 3 back to back seizures, when he was in his day program in Apr, and was evaluated at the [facility] ER where work-up was notable for WBC 17.6 H, neuts 85.7 H, phenytoin level 7.6 L, levetiracetam level 25.8 WNL, positive urine marijuana/cocaine, . Pt reports he does regularly use marijuana. States he does not normally use cocaine- and can not clearly state why he did that day. He states his last breakthrough nocturnal seizure was last week, continues to have about one breakthrough seizure per month, which is milder than the 1 he had in April. He does sometimes skip a dose of his AED medications, when he is in a bad mood or is irritable. He is wondering if his Keppra can be causing his mood issues, as he recently read the that could be a side effect. His current AED tx- Keppra 1500 mg q.12 hours, Trileptal 600 mg q.12 hours, Phenytoin 200 mg q.12 hours. Patient states he was started on seizure medication proximally 14-15 years ago in [place]. At that time he was started on phenytoin. He states Trileptal and Keppra added once he moved to [place] by his previous neurologist, Dr. Valdez. He denies trying any other AED tx. He does NOT drive. He does not work- on disability. [facility] Medical History Nasopharyngeal mass Seizure Family History Maternal Aunt Seizure disorder Social History Alcohol intake: never Patient Tobacco Use Status: Never used Tobacco Substance Use Type: Crack/Cocaine and Marijuana Physical Exam Vital Signs: BMI result Body Mass Index 28.7 Const General: cooperative and no acute distress Orientation/consciousness: patient oriented x3 Resp Effort & Inspection: normal respiratory effort Neuro Other: With prolonged speaking, voice breaks. General: patient oriented x3 Cognition (Neuro): normal cognition Psych Appearance: grossly normal Mental Status: mental status grossly normal Affect: normal affect Attitude: cooperative Telehealth Telehealth Telehealth Platform: [facility] Location of provider rendering services: practice address Location of patient: address on file Patient Identification confirmed using: Name, : Yes Telehealth method: video Patient verbally consented to treatment: Yes Patient verbally consented to billing insurance company: Yes Patient informed of any privacy concerns related to visit: Yes Minutes spent on Phone/Video with Pt.: 29 Results Reviewed Results Reviewed: 06/22/2024, Ordering Physician: BEV DANIEL MD Date of Service: 06/22/24 Procedure(s): CT facial bones w IV con Comparison: MR/SR - MR HEAD/BRAIN WO/W CON - 12/11/23 13:[address]/SR - CT SINUS WO IV CON - 09/25/23 15:27 EDT Findings: * Chronic bilateral nasal bone fractures. * Chronic deformity of the nasal septum with leftward deviation. * Multiple dental caries. * Temporomandibular joints are intact. * Elongated styloid processes similar to prior. * Slight progression of periosteal thickening in the posterolateral wall of the left maxillary sinus. * Small amount of fluid in the left sphenoid sinus. * Orbits normal. * Visualized intracranial contents are within normal limits. * Similar sclerosis of the undersurface of the clivus. * Degenerative disc disease at C4-C5 and C5-C6. * No foreign bodies IMPRESSION: 1. No acute findings. 2. Slight progression of periosteal thickening in the posterolateral wall of the left maxillary sinus. This may be related to chronic sinusitis or prior trauma. 3. Similar sclerosis of the undersurface of the clivus. 12/11/2023, MR BRAIN WITHOUT AND WITH CONTRAST CLINICAL INFORMATION: 3 mm ossified extra-axial lesion COMPARISON: MRI brain on 05/29/[address] head on 09/25/2023 TECHNIQUE: Multiplanar, multisequence MRI of the brain was obtained before and after the intravenous administration of 10 mL Gadavist. FINDINGS: * No acute intracranial hemorrhage or infarct. Several scattered periventricular and deep white matter T2/FLAIR hyperintensities, nonspecific however commonly seen with small vessel ischemic disease. * No midline shift or hydrocephalus. * No acute extra-axial fluid collections. * There is a tiny protrusion finding along the right aspect of the clivus inferiorly which demonstrates some susceptibility artifact, likely correlating with finding on CT. No associated enhancement is definitively seen. The osseous structures are otherwise unremarkable. * The pituitary gland, pineal gland and remaining midline structures are unremarkable. * No orbital pathology. * Mild mucosal thickening of the ethmoid and sphenoid sinuses. The mastoid air cells are clear. IMPRESSION: -Unremarkable MRI brain. -Nonspecific tiny protrusion finding along the right aspect of the clivus inferiorly which demonstrates some susceptibility artifact, likely correlating with finding on CT. No associated enhancement is definitively seen. This is similar in appearance when compared to prior MRI and remains too small to definitively characterize on MRI. 09/25/23, CT/CT sinus wo IV con: IMPRESSION: 1. Chronic bilateral nasal bone fractures. Nasal septal curvature for which the possibility of remote nasal septal fracture is not excluded. Asymmetric moderate mucosal disease and partially opacified left nasal cavity. 2. Chronic mucoperiosteal thickening along the left posterolateral maxillary sinus wall with associated cortical irregularity, which may reflect sequela of prior trauma versus chronic sinusitis. Narrowing of the left maxillary sinus ostium and ethmoid infundibulum with opacified left middle meatus. 3. Redemonstrated dependent secretions/air-fluid level in the left sphenoid sinus. 4. A couple dental caries which correlation with dental examination is advised. 5. Elongated ossified styloid processes/stylohyoid ligaments can be correlated clinically for Clifton syndrome. 6. Nonspecific patchy sclerosis along the nasopharyngeal surface of the clivus with overlying tissue thickening along the roof of the nasopharynx eccentric to the right. While this may reflect adenoidal hyperplasia, ENT consultation and correlation with direct inspection is advised to exclude underlying lesion. This finding could also be further assessed with contrast-enhanced MRI. Findings to be called to the ordering clinician by a [facility] Hearing Consultant. 7. 3 mm ossified extra-axial lesion along the basiocciput just superior to the foramen magnum which may reflect a small meningioma, which could likewise be better assessed on contrast-enhanced MRI. Assessment & Plan Assessment & Plan (1) Seizure: Code(s): R56.9 - Unspecified convulsions Category: Medical (2) Nocturnal seizures: Code(s): R56.9 - Unspecified convulsions Category: Medical (3) Meningioma: Comment: Sinus CT, September 2023: 3 mm ossified extra-axial lesion along the basiocciput just superior to the foramen magnum which may reflect a small meningioma Code(s): D32.9 - Benign neoplasm of meninges, unspecified Category: Medical (4) JENNIFER (obstructive sleep apnea): Comment: Severe degree of sleep apnea. The AHI was 27/hr and oxygen anurag was 82%. Code(s): G47.33 - Obstructive sleep apnea (adult) (pediatric) Category: Medical Plan For severe JENNIFER: Pt has not tolerated APAP. Patient again advised to undergo in-lab PAP titration study, however patient declines today. For nasopharynx lesion: f/u w/ ENT as scheduled Will order f/u brain MRI w/wo to better assess brain MRI w/o finding of 3 mm ossified extra-axial lesion along the basiocciput just superior to the foramen magnum- possibly a small meningioma. For seizure disorder: Re-ordered EEG Check CBC, CMP, phenytoin and oxcarbazepine level in 4 weeks. Discussed that levetiracetam does have a known side effect of causing mood changes in/or irritability, thus we will try to decrease levetiracetam dose. However, as he continues to have breakthrough seizures, we will also need to trial increasing his oxcarbazepine level. In the meantime, we will initiate pyridoxine supplement in hopes this mitigates mood irritability from levetiracetam. As patient continues to have breakthrough seizure on 3 AEDs, we will request 2nd opinion from a tertiary epilepsy care center. Reduce levetiracetam from 1500 mg BID to 1250 mg p.o. q.12 hours. Start pyridoxine 50 mg p.o. q.12 hours. Increase oxcarbazepine from 600 mg BID to 900 mg q.12 hours Continue phenytoin 200 mg BID. Patient advised to avoid cocaine use. Patient/partner advise to call 911 for a seizure lasting greater than 2-3 minutes or if patient has more than 3 seizures in [address] We will reach out to patient in 1 month, to check status an ensure he completes labs and studies as ordered. Will follow-up upon review of above and patient to follow-up in clinic in 6 months or sooner prn. Orders: Orders Complete Blood Count Auto Diff Today D32.9 - Benign neoplasm of meninges, unspecified, J39.2 - Other diseases of pharynx, R56.9 - Unspecified convulsions Comprehensive Met. Panel Today D32.9 - Benign neoplasm of meninges, unspecified, J39.2 - Other diseases of pharynx, R56.9 - Unspecified convulsions EEG electroencephalogram Today D32.9 - Benign neoplasm of meninges, unspecified, J39.2 - Other diseases of pharynx, R56.9 - Unspecified convulsions Phenytoin Dilantin Today R56.9 - Unspecified convulsions Phenytoin, Free/Unbound Today R56.9 - Unspecified convulsions Oxcarbazepine Today R56.9 - Unspecified convulsions Referrals Neurology Referral R56.9 - Unspecified convulsions Medications: New pyridoxine (vitamin B6) 50 mg PO Q12H 30 days 60 tabs 6RF Changed From phenytoin sodium extended 200 mg PO BID To phenytoin sodium extended 200 mg (2 x 100 mg) PO Q12H 30 days 120 caps 6RF From oxcarbazepine 600 mg PO BID To oxcarbazepine 900 mg (1.5 x 600 mg) PO Q12H 30 days 90 tabs 6RF From levetiracetam 1,500 mg PO BID To levetiracetam 1,250 mg (2.5 x 500 mg) PO Q12H 30 days 150 tabs 3RF Coding Level of Care Code Tele Est Pt Level 4 (43239) Diagnoses Seizure R56.9 Nocturnal seizures R56.9 Meningioma D32.9 JENNIFER (obstructive sleep apnea) G47.33
--- OUTSIDE RECORDS SUMMARY | 2024-06-25 10:59 | XMS_ITS | Encounter Summary ---
Author Organization [facility] Address [address] [facility] [address] [place] [address] Care Team Providers Care Distance Learning Administrator Name Role Phone Roxy Ferrisfer Primary Care Provider + [phone] Encounter Details Date Type Department Care Team (Late st Contact Info) Description 06/03/2024 Orders Only GENERIC EXTERNAL DATA DEPARTMENT Provider, Generic External Data Social History Tobacco Use Types Packs/Day Years Used Date Smoking Tobacco: Former Cigarettes Passive Smoke Exposure: Past Smokeless Tobacco: Never Alcohol Use Standard Drinks/Week Comments Never 0 (1 standard drink = 0.6 oz pur e alcohol) Depression Answer Date Recorded Patient Health Questionnaire-9 Score 2 11/22/2023 Patient Health Questionnaire-9 Score 2 11/22/2023 Last PHQ-9: Questionnaire Data Not on file 0 11/22/2023 Housing Stability Answer Date Recorded What is your housing situation today? I have carmine cisneros 11/22/[address] you li ve. Do you have problems with any of the following? None of the above 11/22/2023 Food Insecurity Answer Date Recorded Within the past 12 months, y ou worried that your food would run out before you got money to buy more: Never True 11/22/2023 Within the past 12 months,th e food you bought just didn't last and you didn't have enough money to get more: Never True 09/2023 Transportation Answer Date Recorded In the past 12 months, has l ack of transportation kept you from medical appts, meetings, work or from getting things needed for daily living? Yes, it has kept me from non-medical meetings, work, or getting things that I need 11/22/2023 Utilities Answer Date Recorded In the past 12 months, has t he electric, gas, oil or water [employer] threatened to shut off services in your home? No 11/22/2023 Depression Answer Date Recorded Patient Health Questionnaire-2 Score 1 11/22/2023 Internet Access Answer Date Recorded Internet Access Q1 No 01/20/2024 Internet Access Q2 I do not want or need it 06/2023 Sex and Gender Information Value Date Recorded Sex Assigned at Male 03/19/2022 10:22 AM EDT Legal Sex Male 10:22 AM EDT Gender Identity Male 03/19/2022 10:22 AM EDT Sexual Orientation Straight 03/19/2022 10 :22 AM EDT documented as of this encounter Plan of Treatment Not on file documented as of this encounter Procedures Procedure Name Priority Date/Time Associated Diagnosis Comments CT FACIAL BONES W CONTRAST Routine 06/23/2024 6:58 PM EST PHENYTOIN Routine 06/03/2024 10:06 AM EST documented in this encounter Results * CT FACIAL BONES W CONTRAST (06/23/2024 6:58 PM EST) Anatomical Region Laterality Modality Computed Tomogra phy 06/23/2024 6:58 PM EST Narrative 06/23/2024 7:00 PM EST ? [facility] ?[address] ?[place] [address] ? CT Scan Report ? Signed ? Patient: Jenna Felipe, ?MR#: [id number] ?? [id number] ? : 1980 ?Acct:[id number] ? Age/Sex: 43 / M ?ADM Date: 06/22/24 ? Loc: HO.CT ? Attending Dr: Matt Daniel MD ? Ordering Physician: MATT DANIEL MD ?? Date of Service: 06/22/24 ?? Procedure(s): CT facial bones w IV con ?? Accession Number(s): [id number] ? cc: Sandi Ferris DO; MATT DANIEL MD ? Report Number: ?? [id number]: Total DLP = ??350.00 mGy-cm ? 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 ARTICULAR CARTILAGE ? CT maxillofacial with contrast ? Comparison: MR/SR - MR HEAD/BRAIN WO/W CON - 12/11/23 13:22 EDT ?? CT/SR - CT SINUS WO IV CON - 09/25/23 15:27 EDT ? Findings: ?? Chronic bilateral nasal bone fractures. ?? Chronic deformity of the nasal septum with leftward deviation. ? Multiple dental caries. ?? Temporomandibular joints are intact. ?? Elongated styloid processes similar to prior. ? Slight progression of periosteal thickening in the posterolateral wall of ?? the left maxillary sinus. ?? Small amount of fluid in the left sphenoid sinus. ? Orbits normal. ?? Visualized intracranial contents are within normal limits. ? Similar sclerosis of the undersurface of the clivus. ?? 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 ?? No foreign bodies. ? IMPRESSION: ? 1. No acute findings. ?? 2. Slight progression of periosteal thickening in the posterolateral wall ?? of the left maxillary sinus. This may be related to chronic sinusitis or ?? prior trauma. ?? 3. Similar sclerosis of the undersurface of the clivus. ? This document has been electronically signed by: Cris Allison MD on ?? 06/23/2024 18:58:50 ? Dictated By: ?Cris Allison MD ? Signed By: ?<Electronically signed by Cris Allison MD in [place]> ?06/23/241858 ? DD/ 57 ? TD/TT: 06/23/241857 ? Roll Up Guider Operator: ? 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 Chronic deformity of the nasal septum with leftward deviation. Multiple dental caries. Temporomandibular joints are intact. Elongated styloid processes similar to prior. Slight progression of periosteal thickening in the posterolateral wall of the left maxillary sinus. Small amount of fluid in the left sphenoid sinus. Orbits normal. Visualized intracranial contents are within normal limits. Similar sclerosis of the undersurface of the clivus. 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 No foreign bodies. IMPRESSION: 1. No acute findings. 2. Slight progression of periosteal thickening in the posterolateral wall of the left maxillary sinus. This may be related to chronic sinusitis or prior trauma. 3. Similar sclerosis of the undersurface of the clivus. This document has been electronically signed by: Cris Allison MD on 06/23/2024 18:58:50 Dictated By: Cris Allison MD Signed By: <Electronically signed by Cris Allison MD in [place]> 06/23/241858 DD/ 57 TD/TT: 06/23/241857 Roll Up Guider Operator: us [facility] External Provider IMG CT PROCEDURES Final Result * Phenytoin (06/03/2024 10:06 AM EST) Phenytoin Dilantin 13.6 10.0 - 20.0 ug/mL [facility] 06/03/2024 10:0 6 AM EST 06/03/2024 11:03 AM EST Generic External Data Provider LAB BLOOD ORDERAB LES Final Result [facility] [address] [place] [address] [phone] documented in this encounter Visit Diagnoses Not on filedocumented in this encounter Additional Health Concerns Assessment Noted Time PHQ-9 Depression Total Score: 2 11/22/19 24 11:52 AM EDT documented as of this encounter Care Teams Distance Learning Administrator Relationship Specialty Start Date End Date Sandi Ferris DO [address] [place] [address] PCP - General Family Medicine 11/10/12 documented as of this encounter
--- OUTSIDE RECORDS SUMMARY | 2024-06-25 10:59 | XMS_ITS | Encounter Summary ---
Author Organization [employer] Address [address] [facility] [address] [place] [address] Care Team Providers Care Kindergarten Tutor Name Role Phone Sandi Ferris DO Primary Care Provider [phone] Reason for Visit * Reason Onset Date Comments Nurse Triage 05/06/2024 Encounter Details Date Type Department Care Team ([facility] st Contact Info) Description 05/06/2024 Telephone [facility] MEDICINE [address] [place], [place] [phone] Sandi Ferris DO [address] [place], [place] [phone] Nurse Triage Social History Tobacco Use Types Packs/Day Years [...] t he electric, gas, oil or water company threatened to shut off services in your [...] AM EDT documented as of this encounter Miscellaneous Notes * Telephone Encounter - Eleanor John RN - 05/06/2024 3:44 PM EST Request ED report [facility] medical for 05/10/24 for Pt chart. Triage call Pt reports two seizures recently, 04/28/24 and 05/10/24. Pt reports taking medication as prescribed, no missed doses. [place] [facility] [place]. Pt went to [facility] 05/10/24 for second seizure. Pt reports the Doctor there said the medications are just not working for Pt and there may be something else wrong , Pt is afraid at this time. During this call Pt is talking to other people and voice sounds shakey possibly on public transportation. Pt is advised to go home and rest, continue to take medications as prescribed and Pt has a scheduled apt with PCP 05/18/24 @ 1115am and is reminded to come to that apt. Pt agrees with this disposition and will be at apt 05/18/24. Lost call x1 . Pt insurance is verified as active . Protocol Used: Seizure (Adult) Protocol-Based Disposition: See in Office or Video Visit Today or Tomorrow Override (Final) Disposition: See in Office or Video Visit within 2 Weeks Override Reason: Other Video visit not offered Positive Triage Question: * Patient wants to be seen * All higher-acuity triage questions were negative Care Advice Discussed: * Reassurance and Education - Brief Seizure Lasting Less Than 5 Minutes * Post-Ictal Confusion * Reasons To Call Back - Another seizure occurs - Fever or severe headache - Stays confused (such as disoriented or slurred speech) over 30 minutes - Wants to sleep over 2 hours (or longer than usual) - Patient becomes worse or you have more questions * Prevention * Reasons To Call Back - You have more questions * Telephone Encounter - Juan Luis Klein - 05/06/2024 3:23 PM EST Symptom: Seizure Outcome: Talk to a nurse or provider within 15 minutes Reason: Caller denied all higher acuity questions The caller accepted this outcome. documented in this encounter Plan of Treatment Not on file documented as of this encounter Visit Diagnoses Not on filedocumented in this encounter Additional Health Concerns Assessment Noted Time PHQ-9 Depression Total Score: 2 11/22/19 24 11:52 AM EDT documented as of this encounter Care Teams Kindergarten Tutor Relationship Specialty Start Date End Date Sandi Ferris DO [address] [place] [address] PCP - General Family Medicine 11/10/12 documented as of this encounter
--- OUTSIDE RECORDS SUMMARY | 2024-06-25 10:59 | XMS_ITS | Clinical Summary ---
Author Organization [email or web address] Address [address] [place] [address] [address] [place] [address] Care Team Providers Care Supervisor Orchard Name Role Phone Barrington Sandi Primary Care Provider [phone] Allergies No known active allergies Medications atorvastatin (Lipitor) 10 MG tabletIndications :Hyperlipidemia, unspecified hyperlipidemia type TAKE 1 TABLET BY MOUTH DAILY 90 tablet 3 11/08/19 24 Active lisinopril-hydroC HLOROthiazide 10-12.5 MG tablet TAKE 1 TABLET BY MOUTH EVERY DAY 90 tablet 1 02/14/20 24 Active OXcarbazepine (Trileptal) 600 MG tablet TAKE 1 TABLET BY MOUTH TWO TIMES A DAY 60 tablet 05/22/19 25 Active OXcarbazepine (Trileptal) 300 MG tablet Take 1 tablet (300 mg) by mouth 2 times daily. Take with 600 mg tablet BID 60 tablet 3 06/03/19 25 026 Active phenytoin ER (Dilantin) 100 MG capsule TAKE 2 CAPSULES BY MOUTH TWO TIMES A DAY 120 capsule 1 06/16/19 25 Active levETIRAcetam XR (Keppra XR) 500 MG 24 hr tablet TAKE 3 TABLETS BY MOUTH TWO TIMES A DAY. DO NOT CRUSH, CHEW OR SPLIT 180 tablet 1 06/16/19 25 Active phenytoin ER (Dilantin) 100 MG capsule TAKE 2 CAPSULES BY MOUTH TWO TIMES A DAY 120 capsule 05/21/19 25 025 Discontinued levETIRAcetam XR (Keppra XR) 500 MG 24 hr tablet TAKE 3 TABLETS BY MOUTH TWO TIMES A DAY. DO NOT CRUSH, CHEW OR SPLIT 180 tablet 05/22/19 25 025 Discontinued(R eorder (will not trigger notification to Pharmacy)) Active Problems Problem Noted Date Diagnosed Date Hyperlipidemia 06/03/2024 Cocaine use 06/03/2024 History of traumatic brain injury 08/14/2022 Major depression, recurrent, chronic 08/14/2022 Essential hypertension 08/14/2022 Cannabis abuse 02/21/2015 Mood disorder 02/21/2015 Seizure disorder 02/21/2015 History of tobacco use 02/21/2015 Encounters Date Type Department Care Team Description 06/16/2024 Telephone [facility] [address] [facility] [place] [address] Sandi Ferris DO Adult Day Health Program (I called Windy at the [facility], and reached her voicemail. I left a message informing her that the [facility] PCP Order Form, was faxed to her office this morning. I asked her to return my call at ext [phone], if she has any questions.) 06/15/2024 Refill [facility] [address] [place] [address] Sandi Ferris DO 06/15/2024 Refill [facility] [address] [place] [address] Name, MD Landry 06/03/2024 9:30 AM EST Office Visit [facility] [address] [facility] [facility] [place] [address] Sandi Ferris DO Essential hypertension (Primary Dx); Other hyperlipidemia; Seizure disorder (CMS/HCC); Major depression, recurrent, chronic (CMS/HCC); Abnormal CT scan, sinus; Healthcare maintenance; Encounter for immunization 06/03/2024 Orders Only GENERIC EXTERNAL DATA DEPARTMENT Provider, Generic External Data 06/03/2024 Travel 05/26/2024 Outside Procedure [facility] [address] [place], [place] [phone] Kush Sorensenn, OD Presbyopia (Primary Dx) 05/25/2024 2:30 PM EST Office Visit [facility] [address] [place] [address] EduKushn, OD Myopia of both eyes (Primary Dx) 05/25/2024 Travel 05/25/2024 Patient Outreach [facility] [address] [place] [address] Sandi Ferris DO Pre-visit Planning (SDOH screening completed on 11/22/2023) 05/22/2024 Refill [facility] Murray Sanchez, [place] [address] Sandi Ferris DO 05/21/2024 Refill [facility] [place], [place] [address] Sandi Ferris, 05/18/2024 Travel 05/18/2024 Telephone [facility] [address] [facility] [place] [address] Manasa Heath RN Appointment Request; Nurse Triage 05/18/2024 Telephone [facility] [place], [place] [address] Sandi Ferris DO 05/06/2024 Telephone [facility] [address] [facility] [place] [address] Sandi Ferris DO Nurse Triage 04/28/2024 Orders Only GENERIC EXTERNAL DATA DEPARTMENT Provider, Generic External Data 04/27/2024 Telephone [facility] [place] [address] Sandi Ferris DO 04/23/2024 Telephone [facility] [place], [place] [address] Sandi Ferris DO Appointment Request 04/23/2024 Telephone [facility] [place] [address] Sandi Ferris DO ADH Program (I received a message from Windy, at [facility], regarding a PCP order form and standing orders. I returned her call, and informed her that the patient needs to be seen, before the paperwork is completed, because his last PCP appointment was on 01/30/23. He is scheduled for a RV on 05/18/24, and for a PE on 06/03/24. The paperwork will be completed after he is seen. She verbalized understanding.) 04/13/2024 Patient Outreach [facility] [place] [address] Sandi Dietrich DO Pre-visit Planning (SDND screening completed on 11/22/2023) from Last 3 Months Immunizations Name Administration Dates Next Due Influenza injectable quadriv alent IIV4 with preservative 01/30/2023,02/21/2015 Influenza injectable quadrivalent preservative f ree 08/14/2022,03/30/2019 Influenza, Split (incl. purified surface antigen ) 03/05/2013 Influenza, seasonal, injectable, preservative fr ee 06/03/2024 Moderna Covid-19 Vaccine 12+ 10/24/2020,09/27/19 21 Moderna Covid-19 Vaccine 6+ Bivalent 08/14/2022 Pfizer Covid-19 Vaccine 12+ 06/03/2024 Pneumococcal Polysaccharide PPSV23 11/06/2013, TD (adult), 2 Lf tetanus tox oid, preservative free, adsorbed 07/14/2019 Tdap 11/25/2012 Family History Medical History Relation Name Comments Kidney disease Brother Heart failure Father Kidney failure Father Lung cancer Father's Brother Anxiety disorder Mother Hypertension Mother Lupus Mother Stroke Mother's Brother 1 Seizures Mother's Brother 2 Relation Name Status Comments Brother Father Father's Brother Mother Mother's Brother 1 Mother's Brother 2 Alive Social History Tobacco Use Types Packs/Day Years Used Date Smoking Tobacco: Former Cigarettes Passive Smoke Exposure: Past Smokeless Tobacco: Never Tobacco Cessation:Counseling Given: Not Answered Alcohol Use Standard Drinks/Week Comments Never 0 [...] Orientation Straight 03/19/2022 10 :22 AM EDT Last Filed Vital Signs Vital Sign Reading Time Taken Comments Blood Pressure 124/78 06/03/2024 9:16 AM EST Pulse 86 06/03/2024 9:16 AM EST Temperature 36.2 ??C (97.1 ??F) 06/03/2024 9:16 AM ES T Respiratory Rate 20 06/03/2024 9:16 AM EST Oxygen Saturation 98% 11/22/2023 11:46 AM EDT Inhaled Oxygen Concentration - - Weight 93.5 kg (206 lb 2 oz) 06/03/2024 9:16 AM EST Height 180.3 cm (5' 11 ) 06/03/2024 9:16 AM EST Body Mass Index 28.75 06/03/2024 9:16 AM EST Plan of Treatment Health Maintenance Due Date Last Done Comments Family Planning (PISQ) 09/08/1995 Hepatitis A Vaccines (1 of 2 - Risk 2-dose series) 09/08/1999 Hepatitis B Vaccines (1 of 3 - 19+ 3-dose series) 09/08/1999 Depression Screening 11/21/2024 11/22/2023, 11/22/19 24 SDOH Screening 11/21/2024 11/22/2023 Alcohol/Substance Use Screening 06/03/2025 06/03/2024 Tobacco Screening 06/03/2025 06/03/2024 Lipid Panel 11/26/2028 11/27/2023, 11/02/2020 DTaP/Tdap/Td Vaccines (3 - Td or Tdap) 07/14/2029 07/14/2019, 11/25/2012 Zoster Vaccines (1 of 2) 2030 RSV Patients and Patients Aged 60 years or older (1 - 1-dose 75+ series) 09/08/2055 Pneumococcal Vaccine: Pediatrics (0 to 5 Years) and At-Risk Patients (6 to 49) Years) Aged Out 11/06/2013, 11/25/2012 No longer eligibl e based on patient's age to complete this topic Hepatitis C Screening Completed 11/02/2020 HIV Screening Completed 11/27/2023, 11/02/2020 COVID-19 Vaccine Completed 06/03/2024, , 10/24/2020, Additional history exists Influenza Vaccine Completed 06/03/2024, , 08/14/2022, Additional history exists HIB Vaccines Aged Out No longer eligi ble based on patient's age to complete this topic HPV Vaccines Aged Out No longer eligi ble based on patient's age to complete this topic IPV Vaccines Aged Out No longer eligi ble based on patient's age to complete this topic Meningococcal Vaccine Aged Out No anthony kimber eligible based on patient's age to complete this topic RSV under 20 months Aged Out No longe r eligible based on patient's age to complete this topic Rotavirus Vaccines Aged Out No longer eligible based on patient's age to complete this topic Procedures Procedure Name Priority Date/Time Associated Diagnosis Comments CT FACIAL BONES W CONTRAST Routine 06/23/2024 6:58 PM EST PHENYTOIN Routine 06/03/2024 10:06 AM EST T-SPOT(R).TB Routine 06/03/2024 10:06 AM EST Healthcare maintenance LEVETIRACETAM Routine 04/28/2024 12:07 PM EST PHENYTOIN Routine 04/28/2024 12:07 PM EST LACTIC ACID Routine 04/28/2024 12:07 PM EST DRUG MONITOR, PANEL 1, SCREEN, URINE Routine 04/28/2024 12:07 PM EST CBC WITH AUTO DIFFERENTIAL Routine 04/28/2024 12:07 PM EST MAGNESIUM Routine 04/28/2024 12:06 PM EST COMPREHENSIVE METABOLIC PANEL Routine 04/28/2024 12:06 PM EST URINALYSIS, COMPLETE, WITH REFLEX TO CULTURE Routine 04/28/2024 12:[address] HEAD WO CONTRAST Routine 04/28/2024 1 1:39 AM EST HIV 1/2 ANTIGEN/ANTIBODY, FOURTH GENERATION W/RFL Routine 11/27/2023 9:44 AM EDT LIPID PANEL, STANDARD Routine 11/27/2023 9:44 AM EDT ZZZ HISTORICAL HEPATITIS C AB W/REFL TO HCV RNA, QN, PCR Routine 11/02/2020 9:55 AM EDT from Last 3 Months or Most Recently Relevant to Health Maintenance Results * CT FACIAL BONES W CONTRAST (06/23/2024 6:58 PM EST) Anatomical Region Laterality Modality Computed Tomogra phy 06/23/2024 6:58 PM EST Narrative 06/23/2024 7:00 PM EST ? [facility] ?[address] ?[place] [address] ? CT Scan Report ? Signed ? Patient: West Matteo, ?MR#: [id number] ?? [id number] ? : 1980 ?Acct:[id number] ? Age/Sex: 43 / M ?ADM Date: /03/25 ? Loc: HO.CT ? Attending Dr: Matt Daniel MD ? Ordering Physician: MATT DANIEL MD ?? Date of Service: 06/22/24 ?? Procedure(s): CT facial bones w IV con ?? Accession Number(s): [id number] ? cc: Sandi Ferris DO; MATT DANIEL MD ? Report Number: ?? [id number]: Total DLP = ??350.00 mGy-cm ? CLINICAL [...] signed by Cris Allison MD in OV> ?06/23/24 1859 ? DD/ 1858 ? TD/TT: 06/23/24 1858 ? Flat Machine Cutter: ? Procedure Note Alma Delia Velásquez - 06/23/[address] [place] [address] CT Scan Report Signed Patient: West Matteo,LuisMR#: [id number] : 1980Acct:[id number] Age/Sex: 43 / MADM Date: 06/22/24 Loc: HO.CT Attending Dr: Matt Daniel MD Ordering Physician: MATT DANIEL MD Date of Service: 06/22/24 Procedure(s): CT facial bones w IV con Accession Number(s): [id number] cc: Sandi Ferris DO; MATT DANIEL MD Report Number: [id number]: Total DLP = 350.00 mGy-cm CLINICAL HISTORY: [...] in OV> 06/23/241858 DD/ 57 TD/TT: 06/23/241857 Flat Machine Cutter: [facility] External Provider IMG CT PROCEDURES Final Result * T-SPOT??.TB (06/03/2024 10:06 AM EST) T Spot TB Negative Negative [facility] Comment:A negative test resu lt does not exclude the possibilityof exposure to or infection with Mycobacteriumtuberculosis (M. tuberculosis). Patients with recentexposure to TB infected individuals exhibiting anegative T-SPOT.TB result should be considered forretesting within 6 weeks or if other relevant clinicalsymptoms indicate. Results from T-SPOT.TB testing mustbe used in conjunction with each individual'sepidemiological history, current medical status,and results of other diagnostic evaluations.The T-SPOT.TB test is qualitative and results arereported as positive, borderline, or negative, giventhat the test controls perform as expected. In linewith the Centers for Disease Control and Prevention's2010 recommendation to report quantitative measurementsalongside the qualitative result, the laboratoryprovides spot counts for informational purposes only.The T-SPOT.TB test should not be interpreted as aquantitative test. TS PANEL A 0 [facility] TS PANEL B 0 [facility] Negative Control Passed [facility] Positive Control Passed [facility] Comment:For additional infor mation, please refer tohttp://education.WordSentry/faq/GBW554(This link is being provided for informational/educational purposes only.)THIS TEST WAS PERFORMED AT:[id number] [place] [address]RLVYSPYCHUCK FERRELL MD,PHD 06/03/2024 10:0 6 AM EST 06/03/2024 11:03 AM EST us Sandi Ferris DO LAB BLOOD ORDERABLES Final R esult [facility] [address] [place] [phone] * Phenytoin (06/03/2024 10:06 AM EST) Only the most recent of2 resultswithin the time period is included. Pathologist [facility] Phenytoin Dilantin 13.6 10.0 - 20.0 ug/mL [facility] 06/03/2024 10:0 6 AM EST 06/03/2024 11:03 AM EST us Generic External Data Provider LAB BLOOD ORDERAB LES Final Result [facility] [address] [place] [address] [phone] * (ABNORMAL) Drug Monitoring, Panel 1, Screen, Urine (04/28/2024 12:07 PM EST) Opiate Screen Urine Not Detected Not Detect [facility] Comment:Opiate cut-off is 30 0 ng/mL.Positive results are unconfirmed and should not be used fornon-medical purposes. Barbiturates, Urine Not Detected Not Detect [facility] Comment:Barbiturate cut-off is 200 ng/mL.Positive results are unconfirmed and should not be used fornon-medical purposes. Phencyclidine Screen Urine Not Detected Not Detect [facility] Comment:Phencyclidine cut-of f is 25 ng/mL.Positive results are unconfirmed and should not be used fornon-medical purposes. Amphetamine Screen Urine Not Detected Not Detect [facility] Comment:Amphetamine cut-off is 1000 ng/mL.Positive results are unconfirmed and should not be used fornon-medical purposes. Benzodiazepines Screen Urine Not Detected Not Detect [facility] Comment:Benzodiazepine cut-o ff is 200 ng/mL.Positive results are unconfirmed and should not be used fornon-medical purposes. Cocaine Screen Urine POSITIVE(A) Not Detect [facility] Comment:Cocaine cut-off is 3 00 ng/mL.Positive results are unconfirmed and should not be used fornon-medical purposes. Cannabinoid Screen Urine POSITIVE(A) Not Detect [facility] Comment:Cannabinoid cut-off is 50 ng/mL.Positive results are unconfirmed and should not be used fornon-medical purposes. Methadone Screen, Urine Not Detected Not Detect ng/mL [facility] Comment:Methadone cut-off is 300 ng/mL.Positive results are unconfirmed and should not be used fornon-medical purposes. FENTANYL URINE Not Detected Not Detect [facility] Comment:Fentanyl cut-off is 1 ng/mL.Positive results are unconfirmed and should not be used fornon-medical purposes. Oxycodone Urine Screen Not Detected Not Detect ng/mL [facility] Comment:Oxycodone cut-off is 100 ng/mL.Positive results are unconfirmed and should not be used fornon-medical purposes. Buprenorphine Screen Not Detected Not Detect ng/mL [facility] Comment:Buprenorphine cut-of f is 5 ng/mL.Positive results are unconfirmed and should not be used fornon-medical purposes. 04/28/2024 12:0 7 PM EST 04/28/2024 12:09 PM EST us Generic External Data Provider LAB URINE ORDERAB LES Final Result [facility] [address] [place] [phone] * (ABNORMAL) CBC auto differential (04/28/2024 12:07 PM EST) White Blood Count 17.6(H) 4.8 - 10.8 X10*3/uL [facility] Red Blood Count 4.95 4.60 - 5.80 X10*6/uL [facility] Hemoglobin 16.0 14.0 - 18.0 g/dl [facility] Hematocrit 46.4 42.0 - 52.0 % [facility] Mean Corpuscular Volume 93.7 80.0 - 98.0 fL [facility] Mean Corpuscular Hemoglobin 32.3 27.0 - 33.0 pg [facility] Mean Corpuscular HGB Conc 34.5 31.0 - 36.0 g/dl [facility] Red Cell Distribution Width 12.8 11.0 - 16.0 % [facility] Platelet Count 277 160 - 400 X10*3/uL [facility] Mean Platelet Volume 8.8(L) 9.4 - 12.4 fL [facility] Neutrophils Percent Auto 85.7(H) 45 - 73 % [facility] Imm Gran Pct Auto 0.5(H) 0.0 - 0.4 % [facility] Lymphocytes Percent Auto 9.4(L) 20 - 40 % [facility] Monocytes Percent Auto 4.0 2 - 11 % [facility] Eosinophils Percent Auto 0.2 0 - 4 % [facility] Basophils Percent Auto 0.2 0 - 2 % [facility] NRBC Pct Auto 0.0 0.0 - 0.2 /100WBC [facility] Neutrophils Absolute Auto 15.1(H) 2.0 - 8.3 x10*3/uL [facility] Imm Gran Abs Auto 0.09(H) 0.00 - 0.03 X10*3/uL [facility] Lymphocytes Absolute Auto 1.7 1.2 - 4.9 X10*3/uL [facility] Monocytes Absolute Auto 0.7 0.1 - 1.2 X10*3/uL [facility] Eosinophils Absolute Auto 0.0 0.0 - 0.4 X10*3/uL [facility] Basophils Absolute Auto 0.0 0.0 - 0.2 X10*3/uL [facility] NRBC Abs Auto 0.000 0.0 - 0.012 X10*3/uL [facility] 04/28/2024 12:0 7 PM EST 04/28/2024 12:09 PM EST us Generic External Data Provider LAB BLOOD ORDERAB LES Final Result [facility] [address] [place], [place] [phone] * Levetiracetam (04/28/2024 12:07 PM EST) Levetiracetam 25.8 6.0 - 46.0 mcg/mL [facility] Comment:Brivaracetam (Brivia ct(R), Rikelta(R)) exhibitssignificant cross- reactivity in the Levetiracetam(Keppra(R), Spritam(R)) immunoassay. If Brivaracetamhas been prescribed, order test code [id number] by [facility].THIS TEST WAS PERFORMED AT:[id number] [place] [address]RRFNZEQCHUCK FERRELL MD,PHD 04/28/2024 12:0 7 PM EST 04/28/2024 12:09 PM EST Generic External Data Provider LAB BLOOD ORDERAB LES Final Result Performing Organization Address [facility]/ZIP Co de Phone Number [facility] [address] [place] [phone] * Lactic Acid (04/28/2024 12:07 PM EST) Lactic Acid 1.5 0.5 - 2.0 mmol/L [facility] 04/28/2024 12:0 7 PM EST 04/28/2024 12:09 PM EST Generic External Data Provider LAB BLOOD ORDERAB LES Final Result Performing Organization Address City/[facility]/ZIP Co de Phone Number [facility] [address] [place] [phone] * Urinalysis, Complete, with Reflex to Culture (04/28/2024 12:06 PM EST) Color Urine Yellow [facility] Appearance Urine Clear [facility] PH 6.0 5.0 - 9.0 [facility] Glucose Urine UA Negative Negative mg/dL [facility] Urine Blood Negative Negative [facility] Specific [place] - Urine 1.015 1.005 - 1.025 [facility] Urine Protein Negative Neg-Trace mg/dL [facility] Urine Ketones Negative Negative mg/dL [facility] Nitrite Urine Negative Negative [facility] Leukocyte Esterase Urine Negative Negative [facility] RBC Urine 0-2 0 - 2 /HPF [facility] Urine WBC 0-5 0 - 5 /HPF [facility] Urine Squamous Epithelial Cell 0-2 0 - 2 /HPF [facility] Urine Bacteria None Seen None Seen [facility] Hyaline Casts, Urine 0-2 0 - 2 /LPF [facility] 04/28/2024 12:0 6 PM EST 04/28/2024 12:09 PM EST Narrative [facility] - 04/28/2024 12:21 PM EST [id number], Clean Catch us Generic External Data Provider LAB URINE ORDERAB LES Final Result Performing Organization Address City/[facility]/ZIP Co de Phone Number [facility] [address] [place] [phone] * Magnesium (04/28/2024 12:06 PM EST) Pathologist [facility] Magnesium 2.2 1.6 - 2.6 mg/dL [facility] 04/28/2024 12:0 6 PM EST 04/28/2024 12:09 PM EST us Generic External Data Provider LAB BLOOD ORDERAB LES Final Result Performing Organization Address [facility]/ZIP Co de Phone Number [facility] [address] [place] [phone] * (ABNORMAL) Comprehensive Metabolic Panel (04/28/2024 12:06 PM EST) Pathologist [facility] Sodium 139 135 - 145 mmol/L [facility] Potassium 3.8 3.3 - 5.1 mmol/L [facility] Chloride 102 96 - 108 mmol/L [facility] Carbon Dioxide 31(H) 22 - 29 mmol/L [facility] Anion Gap 10(L) 12 - 20 [facility] Urea Nitrogen (BUN) 10 9 - 16 mg/dL [facility] Creatinine, Serum 1.06 0.5 - 1.4 mg/dL [facility] Creatinine Clr Calc Pharmacy 75.2 [facility] Comment:eGFR (calculated fro m the MDRD study equation) and eCrCl(calculated from the Cockcroft-Gault equation) are based ondifferent parameters and may not yield comparable results.If eCrCl result is absurd, please check patient'sheight/weight. Estimated Glomerular Filt Rate >60 [facility] Comment:Chronic Kidney Disea se: Estimated GFR < 60 mL/min/1.11k2Ogbiil Kidney Disease: Estimated GFR < 15 mL/min/1.73m2 Glucose 109 60 - 115 mg/dL [facility] Calcium 8.9 8.4 - 10.2 mg/dL [facility] Bilirubin, Total 0.3 0.0 - 1.0 mg/dL [facility] Aspartate Amino Transferase 25 5 - 37 U/L [facility] Alanine Aminotransferase 18 0 - 40 U/L [facility] Total Protein 7.8 6.5 - 8.0 g/dL [facility] Albumin Level 4.3 3.5 - 5.0 g/dL [facility] Alkaline Phosphatase 55 39 - 117 U/L [facility] 04/28/2024 12:0 6 PM EST 04/28/2024 12:09 PM EST us Generic External Data Provider LAB BLOOD ORDERAB LES Final Result Performing Organization Address City/State/[facility] de Phone Number [facility] [address] [place] [phone] * CT Head w/o Contrast (04/28/2024 11:39 AM EST) Anatomical Region Laterality Modality Head, Neck Computed Tomogra phy 04/28/2024 11:3 9 AM EST Narrative 04/28/2024 3:37 PM EST ? [facility] [facility] ?[address] ?[place] [address] ? CT Scan Report ? Signed ? Patient: West Matteo, ?MR#: [id number] ?? [id number] ? : 1980 ?Acct:[id number] ? Age/Sex: 43 / M ?ADM Date: 04/28/24 ? Loc: HO.ED ? Attending Dr: ? Ordering Physician: Jonathan Rico MD ?? Date of Service: 04/28/24 ?? Procedure(s): CT head/brain wo IV con ?? Accession Number(s): [id number] ? cc: Jonathan Rico MD; Sandi Ferris DO ? EXAMINATION: ?? CT HEAD WITHOUT CONTRAST ? CLINICAL INFORMATION: ?? Seizure. ? COMPARISON: ?? CT head September 05, 2020. MRI of head December 11, 2023. CT sinus series May ?? 2023 ? TECHNIQUE: ?? Contiguous axial imaging was performed from the skull base to vertex ?? without intravenous administration of contrast. ?? Coronal and sagittal reformatted images are performed at the CT scanner. ? This CT examination was performed using dose optimization techniques as ?? appropriate, variously including the following: ?? *Automated exposure control ?? *Adjustment of mA and/or kV according to patient size (this includes ?? techniques or standardized protocols for targeted exams where dose is ?? matched to indication/reason for exam; i.e. extremities or head) ?? *Use of iterative reconstruction technique ? DLP: ?? 755 mGy-cm. ? FINDINGS: ?? There is no evidence of acute intracranial hemorrhage or territorial ?? infarction. No abnormal mass-effect or midline shift is seen. Devine to ?? white matter differentiation is well preserved. ?? No extra-axial fluid collections are identified. ?? The ventricles are normal in size. There is no abnormal attenuation ?? within the brain parenchyma. ?? There is no osseous abnormality. ?? Redemonstration of the fluid/mucoperiosteal thickening at the dependent ?? portion of left sphenoid sinus unchanged since MR head December 11, 2023. ?? Mastoid air cells and middle ear cavities are normally aerated. ? CT/CT head/brain wo IV con ?? IMPRESSION: ?? 1. ??No acute intracranial pathology. ?? 2. ??Redemonstration of the fluid/mucoperiosteal thickening at the ?? dependent portion of left sphenoid sinus unchanged since MR head November ?? 2023. ? Electronically signed by: ??José Wu MD ??04/28/2024 03:35 PM EST RP ? Dictated By: ?José Wu MD ? Signed By: ?<Electronically signed by José Wu MD in OV> ?04/28/245 ? DD/ ? TD/TT: 04/28/24 1200 ? Flat Machine Cutter: BA ? Procedure Note Donbrandonter, Image - 04/28/[address] [address] [address] Scan Report Signed Patient: Tylor Mckeon#: [id number] : 1980Acct:[id number] Age/Sex: 43 / MADM Date: 04/28/24 Loc: HO.ED Attending Dr: Ordering Physician: Jonathan Rico MD Date of Service: 04/28/24 Procedure(s): CT head/brain wo IV con Accession Number(s): [id number] cc: Jonathan Rico MD; Sandi Ferris DO EXAMINATION: CT HEAD WITHOUT CONTRAST CLINICAL INFORMATION: Seizure. COMPARISON: CT head September 05, 2020. MRI of head December 11, 2023. CT sinus series September 25, 2023 TECHNIQUE: Contiguous axial imaging was performed from the skull base to vertex without intravenous administration of contrast. Coronal and sagittal reformatted images are performed at the CT scanner. This CT examination was performed using dose optimization techniques as appropriate, variously including the following: *Automated exposure control *Adjustment of mA and/or kV according to patient size (this includes techniques or standardized protocols for targeted exams where dose is matched to indication/reason for exam; i.e. extremities or head) *Use of iterative reconstruction technique DLP: 755 mGy-cm. FINDINGS: There is no evidence of acute intracranial hemorrhage or territorial infarction. No abnormal mass-effect or midline shift is seen. Devine to white matter differentiation is well preserved. No extra-axial fluid collections are identified. The ventricles are normal in size. There is no abnormal attenuation within the brain parenchyma. There is no osseous abnormality. Redemonstration of the fluid/mucoperiosteal thickening at the dependent portion of left sphenoid sinus unchanged since MR head December 11, 2023. Mastoid air cells and middle ear cavities are normally aerated. CT/CT head/brain wo IV con IMPRESSION: 1. No acute intracranial pathology. 2. Redemonstration of the fluid/mucoperiosteal thickening at the dependent portion of left sphenoid sinus unchanged since MR head December 11, 2023. Electronically signed by: José Wu MD 04/28/2024 03:35 PM EST RP Dictated By: José Wu MD Signed By: <Electronically signed by José Wu MD in OV> 04/28/24 1535 DD/ 1139 TD/TT: 04/28/24 1200 Flat Machine Cutter: [facility] External Provider IMG CT PROCEDURES Final Result * HIV-1/2 Antigen and Antibodies, Fourth Generation, with Reflexes (11/27/2023 9:44 AM EDT) HIV AB/AG Nonreactive Nonreactive [facility] Comment:HIV-1 p24 Ag and/or HIV-1/HIV-2 Ab not detected.A test result that is nonreactive does not exclude thepossibility of exposure to or infection with HIV-1 and/orHIV-2. Nonreactive results in this assay for individualswith prior exposure to HIV-1 and/or HIV-2 may be due toantigen and antibody levels that are below the limit ofdetection of this assay.The [employer] HIV Ag/Ab Combo assay result andsupplemental assay results should be interpreted inconjunction with the patient's clinical presentation,history and other laboratory results. If the results areinconsistent with clinical evidence, additional testing issuggested to confirm the result. 11/27/2023 9:44 AM EDT 11/27/2023 10:58 AM EDT Sandi Ferris DO LAB BLOOD ORDERABLES Final R esult [facility] [address] [place] [phone] * (ABNORMAL) Lipid Panel, Standard (11/27/2023 9:44 AM EDT) Triglycerides 172(H) <150 mg/dL [facility] Comment:Desirable Triglyceri de: less than 150 mg/dLBorderline High Triglyceride 150-199 mg/dLHigh Triglyceride: 200-499 mg/dLVery High Triglyceride: greater than or equal to 5OO mg/dL Cholesterol 210(H) <200 mg/dL [facility] Comment:Desirable Cholestero l: less than 200 mg/dLBorderline High Cholesterol: 200-239 mg/dLHigh Cholesterol: greater than 239 mg/dL LDL Cholesterol Calculated 136(H) <100 mg/dL [facility] Comment:Desirable LDL: less than 100 mg/dLNear Optimal/Above Optimal LDL: 110- 129 mg/dLBorderline High LDL: 130-159 mg/dLHigh LDL: 160-189 mg/dLVery High LDL: greater than or equal to 190 mg/dL HDL Cholesterol 40(L) >40 mg/dL [facility] Comment:Desirable HDL: great er than 40 mg/dL Note: This HDL assay may give artificially low results in patients with liver disease. 11/27/2023 9:44 AM EDT 11/27/2023 10:58 AM EDT Sandi Ferris DO LAB BLOOD ORDERABLES Final R esult [facility] [address] [place] [phone] * HEPATITIS C AB W/REFL TO HCV RNA, QN, PCR (11/02/2020 9:55 AM EDT) HEPATITIS C ANTIBODY NON-REACT JEFF NON-REACT JEFF [facility] INDEX 0.03 <1.00 [facility] Comment: ?? HCV antibody was non-reactive. There is no laboratory ?? evidence of HCV infection. ?? In most cases, no further action is required. However, if recent HCV exposure is suspected, a test for HCV RNA (test code 44142) is suggested. ?? For additional information please refer to http://education.Little Bird.[employer] e via [place]/faq/ZGI02q5 (This link is being provided for informational/ educational purposes only.) ?? 11/02/2020 9:55 AM EDT us Sandi Ferris DO HISTORICAL/NON ORDERABLE LAB S Final Result [facility] [address] from Last 3 Months or Most Recently Relevant to Health Maintenance Insurance STANDARD MEDICARE Care Teams Supervisor Orchard Relationship Specialty Start Date End Date Sandi Ferris DO [address] [place] [phone] PCP - General Family Medicine 11/10/12
--- OUTSIDE RECORDS SUMMARY | 2024-06-25 10:59 | XMS_ITS | Encounter Summary ---
Author Organization [employer] Address [address] [facility] [address] [place] [address] Care Team Providers Care Human Performance Technologist Name Role Phone BarringtonSandi Primary Care Provider + [phone] Reason for Visit * Reason Comments Med Refill Encounter Details Date Type Department Care Team ([facility] st Contact Info) Description 06/15/2024 Refill [facility] [address] [place], [place] [phone] Name, MD Landry [address] [place] [address] Social History Tobacco Use Types Packs/Day Years [...] documented as of this encounter Care Teams Human Performance Technologist Relationship Specialty Start Date End Date Sandi Ferris DO [address] [place] [phone] PCP - General Family Medicine 11/10/12 documented as of this encounter
--- OUTSIDE RECORDS SUMMARY | 2024-06-25 10:59 | XMS_ITS | Encounter Summary ---
Author Organization [employer] Address [address] [place] [address] 7t [place] [address] Care Team Providers Care Math Professor Name Role Phone Sandi Ferris DO Primary Care Provider [phone] Reason for Referral * Consultation (Urgent) - Authorized Specialty Diagnoses / Procedures Referred By Contac t Referred To Contact Neurology Diagnoses Seizure disorder (CMS/HCC) Sandi Ferris DO [address] [place] [address] Phone: tel: fax: [facility] [address] [place] [address] [address] [place] [address] Phone: tel: fax: Referral ID Status Reason Start Date Expiration Date Visits Requested Visits Authorized [id number] Authorized Specialty Services Required 06/03/2024 06/03/2025 1 1 Encounter Details Date Type Department Care Team (Late st Contact Info) Description 06/03/2024 9:30 AM EST Office Visit [facility]INE [address] [place], [place] [phone] Sandi Ferris DO [address] [place] [phone] Essential hypertension (Primary Dx); Other hyperlipidemia; Seizure disorder (CMS/HCC); Major depression, recurrent, chronic (CMS/HCC); Abnormal CT scan, sinus; Healthcare maintenance; Encounter for immunization Social History Tobacco Use Types Packs/Day Years [...] AM EDT documented as of this encounter Last Filed Vital Signs Vital Sign Reading Time Taken Comments Blood Pressure 124/78 06/03/2024 9:16 AM EST Pulse 86 06/03/2024 9:16 AM EST Temperature 36.2 ??C (97.1 ??F) 06/03/2024 9:16 AM ES T Respiratory Rate 20 06/03/2024 9:16 AM EST Oxygen Saturation - - Inhaled Oxygen Concentration - - Weight 93.5 kg (206 lb 2 oz) 06/03/2024 9:16 AM EST Height 180.3 cm (5' 11 ) 06/03/2024 9:16 AM EST Body Mass Index 28.75 06/03/2024 9:16 AM EST documented in this encounter Progress Notes * Sandi Barrington, DO - 06/03/2024 9:30 AM EST SUBJECTIVE Luis Felipe is a 43 y.o. male who presents for annual visit. He needs visit so that paperwork can be completed for day program. 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 He really enjoys the day program. HPI He had f/u with neurology in November and was re-referred for EEG and sent for MRI brain for f/u of CT findings. He was also sent for sleep study and advised to f/u in 6 mos. He was seen in [facility] ED last mos with multiple seizures. His utox was positive for cocaine and THC. His dilantin level was low and he was given dose of dilantin. ED spoke with neuro and ok to discharge. His oxcarbazepine was changed to TID and continued on keppra and dilantin. He was advised to f/u with neurology. He wants a new neurologist. He says that his neurologist called him after the ED visit and told himthat he was discharged from their office for going to the ED . He was supposed to have finger surgery 2 days after his ED visit but they cancelled the surgery because of his recent ED visit. He hasn't heard anything from [email or web address]. He was just told he needs to see his primary. He has to wear the splint all the time o/w he finger keeps bending backwards. He had eye exam in March and was given updated glasses rx and advised to f/u in a year. He saw ENT in February and had nasal endoscopy which showed mild nasal septal deviation to the L with mild crusting, no masses or bone erosions. ENT felt that all of the findings were due to his cocaine use and advised to f/u prn. He says that ENT just called the other day and told him that he had reviewed his MRI and that everything was good. He lives with his . He and his have shyanne together for 16 years. He has no kids. He has h/o tobacco use, quit 3 mos ago. He smoked 1ppd x 25 years. He reports no alcohol use. He uses THC every day. 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 He has been on disability since then. He has never had surgery. He has never had anesthesia. Review of Systems Constitutional: Negative for chills, fatigue and fever. HENT: Negative for congestion. Eyes: Negative for visual disturbance. Respiratory: Negative for cough and shortness of breath. Cardiovascular: Negative for chest pain, palpitations and leg swelling. Gastrointestinal: Negative for abdominal pain, constipation, diarrhea and vomiting. Skin: Negative for rash. Neurological: Negative for dizziness and headaches. Patient Active Problem List Diagnosis Cannabis abuse Mood disorder (CMS/HCC) Seizure disorder (CMS/HCC) History of tobacco use History of traumatic brain injury Major depression, recurrent, chronic (CMS/HCC) Essential hypertension Hyperlipidemia Cocaine use No Known Allergies History reviewed. No pertinent past medical history. History reviewed. No pertinent surgical history. Family History Problem Relation Name Age of Onset Lupus Mother Anxiety disorder Mother Hypertension Mother Kidney failure Father Heart failure Father Kidney disease Brother Stroke Mother's Brother Seizures Mother's Brother Lung cancer Father's Brother OBJECTIVE Visit Vitals BP 124/78 (BP Location: Left arm, Patient Position: Sitting, BP Cuff Size: Adult) Pulse 86 Temp 97.1 ??F (36.2 ??C) (Oral) Resp 20 Ht 5' 11 (1.803 m) Wt 206 lb 2 oz (93.5 kg) BMI 28.75 kg/m?? Smoking Status Former BSA 2.16 m?? Physical Exam Constitutional: General: He is not in acute distress. Appearance: Normal appearance. HENT: Right Ear: Tympanic membrane, ear canal and external ear normal. Left Ear: Tympanic membrane, ear canal and external ear normal. Nose: Nose normal. Mouth/Throat: Mouth: Mucous membranes are moist. Pharynx: Oropharynx is clear. Eyes: Extraocular Movements: Extraocular movements intact. Conjunctiva/sclera: Conjunctivae normal. Pupils: Pupils are equal, round, and reactive to light. Cardiovascular: Rate and Rhythm: Normal rate and regular rhythm. Heart sounds: Normal heart sounds. No murmur heard. Pulmonary: Effort: Pulmonary effort is normal. Breath sounds: Normal breath sounds. No wheezing or rhonchi. Abdominal: General: Bowel sounds are normal. Palpations: Abdomen is soft. There is no mass. Tenderness: There is no abdominal tenderness. Musculoskeletal: General: Normal range of motion. Cervical back: Normal range of motion and neck supple. Skin: General: Skin is warm and dry. Neurological: General: No focal deficit present. Mental Status: He is alert and oriented to person, place, and time. Cranial Nerves: No cranial nerve deficit. Motor: No weakness. Gait: Gait normal. Psychiatric: Mood and Affect: Mood normal. Thought Content: Thought content normal. Assessment/Plan Diagnoses and all orders for this visit: Essential hypertension BP controlled -cont lisinopril/HCTZ daily -Cr, GFR and urine microalbumin nml November 2023 -refer for EKG next visit -s/p optho eval Mar 2024 at [facility] for annual f/u Other hyperlipidemia LDL improved November 2023 -cont lipitor nightly -check lipids next visit Seizure disorder (CMS/HCC) -cont current med regimen -advised go to ED if >2 seizures/24hrs -referred to neurology for eval - Referral to Neurology; Future Major depression, recurrent, chronic (CMS/HCC) Mood improved -he denies any SI/HI -he has the number for crisis -he is not interested in med mgmt -he declines referral to therapist Abnormal CT scan, sinus S/p ENT eval with no masses or bone erosions Feb 2024 -CT sinus with chronic b/l nasal bone fractures, with nasal septal curvature, chronic mucoperiosteal thickening of the L lateral maxillary sinus, elongated ossified styloid processes, non-specific patchy sclerosis of the nasopharyngeal surface of the clivus, and 3 mm ossified extra-axial lesion along the basi occiput SEPTEMBER 2023 -MRI brain unremarkable with nonspecific tiny protrusion along R aspect of clivus inferiorly without enhancement, too small to characterize November 2023 -f/u with ENT prn Healthcare maintenance -s/p flu vaccine Jan 2023, repeat today -COVID vaccine today -s/p Tdap NOV 2012 -s/p Td JUN 2019 -s/p pneumovax NOV 2012 -PCV20 next visit -check T-spot -A1c 5.19 November 2023 -STI/HIV screen negative November 2023 - T-SPOT??.TB; Future Encounter for immunization - FLU VACCINE TRIVALENT (Fluarix) 6 mo + - COVID-19 VACCINE (Pfizer) 8610-0189 12 yrs + F/U with me in 4 mos or sooner prn Current Outpatient Medications: atorvastatin (Lipitor) 10 MG tablet, TAKE 1 TABLET BY MOUTH DAILY, Disp: 90 tablet, Rfl: 3 levETIRAcetam XR (Keppra XR) 500 MG 24 hr tablet, TAKE 3 TABLETS BY MOUTH TWO TIMES A DAY. DO NOT CRUSH, CHEW OR SPLIT, Disp: 180 tablet, Rfl: 0 lisinopril-hydroCHLOROthiazide 10-12.5 MG tablet, TAKE 1 TABLET BY MOUTH EVERY DAY, Disp: 90 tablet, Rfl: 1 OXcarbazepine (Trileptal) 300 MG tablet, Take 1 tablet (300 mg) by mouth 2 times daily. Take with 600 mg tablet BID, Disp: 60 tablet, Rfl: 3 OXcarbazepine (Trileptal) 600 MG tablet, TAKE 1 TABLET BY MOUTH TWO TIMES A DAY, Disp: 60 tablet, Rfl: 0 phenytoin ER (Dilantin) 100 MG capsule, TAKE 2 CAPSULES BY MOUTH TWO TIMES A DAY, Disp: 120 capsule, Rfl: 0 documented in this encounter Plan of Treatment Scheduled Referrals Name Type Priority Associated Diagnoses Orde r Schedule Referral to Neurology Outpatient Referral Urgent Seizure disorder ([facility]/HCC) Expected: 06/03/2024 (Approximate), Expires: 06/03/2025 documented as of this encounter Procedures Procedure Name Priority Date/Time Associated Diagnosis Comments T-SPOT(R).TB Routine 06/03/2024 10:06 AM EST Healthcare maintenance documented in this encounter Results * T-SPOT??.TB (06/03/2024 10:06 AM EST) [facility] T Spot TB Negative Negative [facility] Comment:A negative test resu lt does [...] as aquantitative test. TS PANEL A 0 [facility] TS PANEL B 0 [facility] Negative Control Passed [facility] Positive Control Passed [facility] Comment:For additional infor mation, please refer tohttp://education.[employer]/faq/OQV012(This link is being provided for informational/educational purposes only.)THIS TEST WAS PERFORMED AT:[employer] [id number] [place] [id number] FERRELL MD,PHD 06/03/2024 10:0 6 AM EST 06/03/2024 11:03 AM EST Sandi Ferris DO LAB BLOOD ORDERABLES Final R esult [facility] [address] [place] [phone] documented in this encounter Visit Diagnoses Diagnosis Essential hypertension- Primary Unspecified essential hypertension Other hyperlipidemia Seizure disorder (CMS/HCC) Unspecified epilepsy without mention of intractable epilepsy Major depression, recurrent, chronic (CMS/HCC) Abnormal CT scan, sinus Healthcare maintenance Encounter for immunization documented in this encounter Additional Health Concerns Assessment Noted Time PHQ-9 Depression Total Score: 2 11/22/19 24 11:52 AM EDT documented as of this encounter Care Teams Math Professor Relationship Specialty Start Date End Date Sandi Ferris DO [address] [place] [address] PCP - General Family Medicine 11/10/12 documented as of this encounter
--- OUTSIDE RECORDS SUMMARY | 2024-06-25 10:59 | XMS_ITS | Encounter Summary ---
Author Organization [employer] Address [address] [facility] 7t [place] [address] Care Team Providers Care Towing Pilot Name Role Phone BarringtonSandi Primary Care Provider + [phone] Encounter Details Date Type Department Care Team (Latest Contact Info) Description 06/03/2024 Travel Social History Tobacco Use Types Packs/Day Years [...] documented as of this encounter Care Teams Towing Pilot Relationship Specialty Start Date End Date Sandi Ferris DO [address] [place] [address] PCP - General Family Medicine 11/10/12 documented as of this encounter
--- OUTSIDE RECORDS SUMMARY | 2024-06-25 10:59 | XMS_ITS | Data Portability ---
Author Organization [place] [facility], Allergy Address [address] [address] Care Team Providers Care Mainframe Consultant Name Role Phone CORNELIUS SWAN Primary Care Provider [phone] Assessment Encounter Date Assessment Date Assessment LastModified by Organization Details LastModified Time 02/24/2024 02/24/2024 Patient underwent MRI scan for seizure workup showing changes of the clivus and the posterior aspect of the maxillary sinus. He denies any nasal symptoms other than some congestion. He does have a history of cocaine use which she reports stopping 1 month ago. Nasal endoscopy shows a mild septal deviation to the left side with crusting along the middle turbinate. There is no evidence of any masses or bone erosion. No lesions of the nasopharynx. I been unable to review the films personally. He will try to obtain the actual images for us on a disk so that we can look at both the MRI and any CTs that were performed. I suspect everything is likely to be related to cocaine use but it would be best to follow-up on the images [email or web address] Not available 02/24/2024 11:26:38 Plan of Treatment Reminders Order Date Submit Date Provider Last Modified By Organization Details Last Modified Time Details Appointments Establish ed 15 2024 08:45A M BEV CHERY MD Not available Not available Not available Lab None recorded. Referral None recorded. Procedures None recorded. Surgeries None recorded. Imaging None recorded. Medication Orders None recorded. Patient TargetsNo targets recorded. Patient InstructionsNo instructions recorded. Reason for Referral None Reported. Results Created Date Observation Date Name Description Value Unit Range Abnormal Flag Note LastModifiedBy Organization Detail LastModifiedTime 02/24/20 24 12/11/2023 MRI, brain + brain stem, w/wo contr ast No observ ation record ed. [email or web address] [facility] ([facility]) [address], [place], [address], 02/27/2024 14:58:33 05/15/20 24 12/11/2023 MRI, brain , w/wo contr ast No observ ation record ed. [email or web address] Not Available 2024 11:59:01 06/23/19 25 06/22/2024 CT, maxil lofac ial, w/ contr ast No observ ation record ed. [facility] (Medical Records) [address] [facility], [place], [address], 06/25/2024 10:28:37 Result Notes None recorded. Problems Name Problem SNOMED Code Status Onset Date Resolution Date Notes Provider Name and Address Organization Details Recorded Time Chronic rhinitis 18929887 Active 024 BEV CHERY MD [address] [address], [facility] [place], [address], [place] [facility] 4 11:25:12 Cocaine dependence in remission 512383651 Active 024 BEV CHERY MD [address] [address], [facility] [place], [address], [place] [facility] 4 11:25:24 Imaging result abnormal 880507752 Active 024 BEV CHERY MD 100 [facility] [address] [facility][note 2], [facility] [place], [address], [place] [facility] 4 11:25:30 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 Procedures Surgical History Date Name Laterality Status Provider Name and Address Organization Details Recorded Time JMSNasal/Sinus Endoscopy completed BEV DANIEL MD 100 [facility], [place], [address], [place] - [facility] 02/24/2024 11:25:07 Imaging Results Imaging Date Name Status LastModified by Organiz [facility] Details LastModified Time 12/11/2023 MRI, brain + brain stem, w/wo contrast completed [email or web address] [facility] ([facility]) [address] [facility] [address], [place], [address], 02/27/2024 14:58:33 12/11/2023 MRI, brain, w/wo contrast completed [email or web address] Information not available 05/21/2024 11:59:01 06/22/2024 CT, maxillofacial , w/ contrast active [email or web address] [facility] (Medical Records) [address], [place], [address], 06/25/2024 10:28:37 Procedure Notes None recorded. Medical Equipment None Reported. Medications Name Sig Start Date Stop Date Status Note LastModified by Organization Details LastModified Time atorvastatin 10 mg tablet TAKE 1 TABLET BY MOUTH DAILY active Not Available Not Available No t Available phenytoin sodium extended 100 mg capsule TAKE 2 CAPSULES BY MOUTH TWO TIMES A DAY active Not Available Not Available No t Available oxcarbazepine 600 mg tablet TAKE 1 TABLET BY MOUTH TWO TIMES A DAY active Not Available Not Available No t Available hydrochlorothi azide 25 mg tablet TAKE 1 TABLET BY MOUTH EVERY MORNING active Not Available Not Available No t Available lisinopril 10 mg-hydrochloro thiazide 12.5 mg tablet TAKE 1 TABLET BY MOUTH EVERY DAY active Not Available Not Available No t Available levetiracetam ER 500 mg tablet,extende d release 24 hr TAKE 3 TABLETS BY MOUTH TWO TIMES A DAY. DO NOT CRUSH, CHEW OR SPLIT active Not Available Not Available No t Available Vitals Date Recorded Body height Body mass index (BMI) Body weight Provider Name and Address Organization Details Last Updated DateTime 02/24/2024 180.34 cm 30.7 kg/m2 49012.32 g Curt Javier [place] - [facility] 02/24/2024 10:48:44 Social History None recorded. Functional Status None recorded. Mental Status None recorded. Family History Nothing Reported. Medical History No medical history recorded. Past Encounters Encounter ID Performer Location Encounter Start Date Encounter Closed Date Diagnosis/Indication Diagnosis SNOMED-CT Code Diagnosis ICD10 Code Diagnosis Note BEV AVILES MD [facility] [address] [place] [address] 02/24/2024 10:38:51 02/24/2024 11:31:02 Chronic rhinitis 24325850 J31.0 Cocaine de pendence in remission 814628237 F14.21 Imaging re sult abnormal 431112346 R93.89 Health Concerns Section Related Observation LastModified by Organization Detai ls LastModified Time None Recorded Concern Status LastModified by Organization Details LastModified Time None Recorded Advance Directives Directive None Recorded Payers Encounter Date Sequence Insurance Name Policy Number Policy Solorzano Covered Member ID Solorzano Member ID Guarantor Name 02/24/2024 2 [place] [facility] Luis José [id number] Luis José Notes Date Note Type Note Provider Name and Address Organization Details Recorded Time 02/24/2024 text/html Patient with history of seizure disorder and sleep apnea seen for an opinion regarding abnormal signal in the maxillary sinus and nasal cavity on MRI scan done for his seizures. He has a history of cocaine use. Reports last use 1 month ago. Also uses marijuana regularly. Denies any sinus pain or pressure. Currently using CPAP but has some congestion BEV DANIEL MD [address] [place] [address], [address], [facility] - [facility] 02/24/2024 11:27:27
--- OUTSIDE RECORDS SUMMARY | 2024-06-25 10:59 | XMS_ITS | Encounter Summary ---
Author Organization [employer] Address [address] [facility] 7t [place] [address] Care Team Providers Care Transmission Engineer Name Role Phone Sandi Ferris DO Primary Care Provider + [phone] Reason for Visit * Reason Comments Med Refill Encounter Details Date Type Department Care Team ([facility] st Contact Info) Description 06/15/2024 Refill [facility] [address] [place], [place] [phone] Sandi Ferris DO [address] [place], [place] [phone] Social History Tobacco Use Types Packs/Day Years [...] documented as of this encounter Care Teams Transmission Engineer Relationship Specialty Start Date End Date Sandi Ferris DO [address] [place] [address] PCP - General Family Medicine 11/10/12 documented as of this encounter
--- OUTSIDE RECORDS SUMMARY | 2024-06-25 10:59 | XMS_ITS | Encounter Summary ---
Author Organization [employer] Address [address] [facility] [address] [place] [address] Care Team Providers Care Tip Stretcher Name Role Phone Sandi Ferris DO Primary Care Provider Reason for Visit * Reason Onset Date Comments Adult Day Health Program 06/16/2024 I youngmanuel Temple at the [facility], and reached her voicemail. I left a message informing her that the [facility] PCP Order Form, was faxed to her office this morning. I asked her to return my call at ext [phone], if she has any questions. Encounter Details Date Type Department Care Team (Late st Contact Info) Description 06/16/2024 Telephone [facility] [address] [place] [address] Sandi Ferris DO [address] [place], [place] [phone] Adult Day Health Program (I called Windy at the [facility], and reached her voicemail. I left a message informing her that the [facility] PCP Order Form, was faxed to her office this morning. I asked her to return my call at ext [phone], if she has any questions.) Social History Tobacco Use Types Packs/Day Years [...] encounter Miscellaneous Notes * Telephone Encounter - Jeannette Chin [place] - 06/16/2024 9:55 AM EST I called Windy at the [facility], and reached her voicemail. I left a message informing her that the [facility] PCP Order Form, was faxed to her office this morning. I asked her to return my call at ext [phone], if she has any questions. documented in this encounter Plan of Treatment Not on file documented as of this encounter Visit Diagnoses Not on filedocumented in this encounter Additional Health Concerns Assessment Noted Time PHQ-9 Depression Total Score: 2 11/22/19 24 11:52 AM EDT documented as of this encounter Care Teams Tip Stretcher Relationship Specialty Start Date End Date Sandi Ferris DO [address] [place] [address] PCP - General Family Medicine 11/10/12 documented as of this encounter
--- OUTSIDE RECORDS SUMMARY | 2024-06-25 10:59 | XMS_ITS | Encounter Summary ---
Author Organization [employer] Address [address] [facility] 7t [place] [address] Care Team Providers Care Art Dealer Name Role Phone Sandi Ferris DO Primary Care Provider + [phone] Reason for Visit * Reason Onset Date Comments Appointment Request 06/12/2023 Encounter Details Date Type Department Care Team ([facility] st Contact Info) Description 06/12/2023 Telephone [facility] 230 [place], [place] [phone] Sandi Ferris DO 230 [place], [place] [phone] Appointment Request Social History Tobacco Use Types Packs/Day Years Used Date Smoking Tobacco: Every Day Cigarettes Passive Smoke Exposure: Current Smokeless Tobacco: Never Alcohol Use Standard Drinks/Week Comments Never 0 (1 standard drink = 0.6 oz pur e alcohol) Depression Answer Date Recorded Patient Health Questionnaire-9 Score 1 08/14/2022 Housing Stability Answer Date Recorded What is your housing situation today? I do not have housing (Staying with others, in a hotel, in a senior care, living outside on the street, on a beach, in a car, or in a park 02/26/[address] you li ve. Do you have problems with any of the following? None of the above 02/26/2023 Food Insecurity Answer Date Recorded Within the past 12 months, y ou worried that your food would run out before you got money to buy more: Never True 03/25/2023 Within the past 12 months,th e food you bought just didn't last and you didn't have enough money to get more: Never True 10/2022 Transportation Answer Date Recorded In the past 12 months, has l ack of transportation kept you from medical appts, meetings, work or from getting things needed for daily living? No 03/25/2023 Utilities Answer Date Recorded In the past 12 months, has t he electric, gas, oil or water company threatened to shut off services in your home? No 03/25/2023 Depression Answer Date Recorded Patient Health Questionnaire-2 Score 1 08/14/2022 Sex and Gender Information Value Date Recorded Sex Assigned at Male 03/19/2022 10:22 AM EDT Legal Sex Male 10:22 AM EDT Gender Identity Male 03/19/2022 10:22 AM EDT Sexual Orientation Straight 03/19/2022 10 :22 AM EDT documented as of this encounter Miscellaneous Notes * Telephone Encounter - Justin Hills - 07/26/2023 11:16 AM EST Tc from pt requesting to switch PCP due to provider not being available to see patient when needed,states they are not satisfied. Please contact at [phone] * Telephone Encounter - Cal Guzman - 06/12/2023 1:21 PM EST Tc from pt requesting to r/s OV on 06/12/2023 for HTN . Please contact pt @ [phone] documented in this encounter Plan of Treatment Not on file documented as of this encounter Visit Diagnoses Not on filedocumented in this encounter Additional Health Concerns Assessment Noted Time PHQ-9 Depression Total Score: 1 08/15/19 23 11:43 AM EDT documented as of this encounter Care Teams Art Dealer Relationship Specialty Start Date End Date Sandi Ferris DO [address] [place] [address] PCP - General Family Medicine 11/10/12 documented as of this encounter
--- OUTSIDE RECORDS SUMMARY | 2024-06-25 11:00 | XMS_ITS | Encounter Summary ---
Author Organization [employer] Address [address] [facility] [address] 7[address] [place] [address] Care Team Providers Care Chief Operating Officer Name Role Phone Roxy Ferrisfer Primary Care Provider + [phone] Encounter Details Date Type Department Care Team (Latest Contact Info) Description 05/26/2024 Outside Procedure [facility] [address] [place] [address] Edu, Rona, OD [address] [place] [address] Presbyopia (Primary Dx) Social History Tobacco Use Types Packs/Day Years [...] AM EDT documented as of this encounter Progress Notes * Rona Sorensen OD - 05/26/2024 4:40 PM EST MH glasses were dispensed, 2 of 2. documented in this encounter Plan of Treatment Not on file documented as of this encounter Visit Diagnoses Diagnosis Presbyopia- Primary documented in this encounter Additional Health Concerns Assessment Noted Time PHQ-9 Depression Total Score: 2 11/22/19 24 11:52 AM EDT documented as of this encounter Care Teams Chief Operating Officer Relationship Specialty Start Date End Date Sandi Ferris DO [address] [place] [address] PCP - General Family Medicine 11/10/12 documented as of this encounter
--- OUTSIDE RECORDS SUMMARY | 2024-06-25 11:00 | XMS_ITS | Clinical Summary ---
Author Organization [facility] Address [address] [place] [address] Care Team Providers Care Bonded Strand Operator Name Role Phone Unavailable Primary Care Provider Unavailabl e Social History Tobacco Use Types Packs/Day Years Used Date Smoking Tobacco: Never Assessed Sex and Gender Information Value Date Recorded Sex Assigned at Not on file Gender Identity Not on file Sexual Orientation Not on file Plan of Treatment Health Maintenance Due Date Last Done Comments DTaP,Tdap,and Td Vaccines (1 - Tdap) 09/08/1999 Hepatitis B Vaccines (1 of 3 - 19+ 3-dose series) 09/08/1999 COVID-19 Vaccine (2023-2 5 season) 2024 Influenza Vaccine (#1) 2024 HIB Vaccines Aged Out No longer eligi ble based on patient's age to complete this topic HPV Vaccines Aged Out No longer eligi ble based on patient's age to complete this topic Hepatitis A Vaccines Aged Out No long er eligible based on patient's age to complete this topic IPV Vaccines Aged Out No longer eligi ble based on patient's age to complete this topic MMR Vaccines Aged Out No longer eligi ble based on patient's age to complete this topic Meningococcal ACWY Vaccine Aged Out N o longer eligible based on patient's age to complete this topic Pneumococcal Vaccine: Pediat rics (0 to 5 Years) and At-Risk Patients (6 to 64 Years) Aged Out No longer eligible b ased on patient's age to complete this topic RSV Immunization Patients Un munira 20 months Aged Out No longer eligible b ased on patient's age to complete this topic Varicella Vaccines Aged Out No longer eligible based on patient's age to complete this topic
[2024-06-25 11:03] VITALS: BMI 28.7
== END ==
LOC: HO.HSMS 10:57
PROVIDERS: PCP Family Medicine; Visit Provider Nurse Practitioner Family
DX: R56.9 Unspecified convulsions (principal); D32.9 Benign neoplasm of meninges, unspecified; G47.33 Obstructive sleep apnea (adult) (pediatric)
CPT/HCPCS: 99214

== ENCOUNTER → 2024-06-25 10:57 | Outpatient (BNVA) | payer MEDICARE, MEDICAID, SELFPAY | PROVIDERS: PCP Family Medicine; Visit Provider Nurse Practitioner Family ==

== ENCOUNTER 2024-10-16 08:21 | Outpatient (AMB) | payer MEDICARE, MEDICAID, SELFPAY ==
--- OUTSIDE RECORDS SUMMARY | 2024-10-16 08:24 | XMS_ITS | Encounter Summary ---
Author Organization [employer] Address 75 [facility] 7t [place] [address] Care Team Providers Care Network Architect Name Role Phone Sandi Ferris DO Primary Care Provider + [phone] Reason for Visit * Reason Onset Date Comments Appointment Request 06/12/2023 Encounter Details Date Type Department Care Team ([facility] st Contact Info) Description 06/12/2023 Telephone [facility] MED[facility] 230 [place], [place] [phone] Sandi Ferris DO 230 [place], [place] [phone] Appointment Request Social History Tobacco Use Types [...] others, in a hotel, in a senior living, living outside on the street, on a [...] they are not satisfied. Please contact at [phone] * Telephone Encounter - Cal Guzman - 06/12/2023 1:21 PM EST Tc from pt requesting to r/s OV on 06/12/2023 for HTN . Please contact pt @ [phone] documented in this encounter Plan of Treatment Not on file documented as of this encounter Visit Diagnoses Not on filedocumented in this encounter Additional Health Concerns Assessment Noted Time PHQ-9 Depression Total Score: 1 08/15/19 23 11:43 AM EDT documented as of this encounter Care Teams Network Architect Relationship Specialty Start Date End Date Sandi Ferris DO [address] [place] [address] PCP - General Family Medicine 11/10/12 documented as of this encounter
[2024-10-16 08:32] VITALS: BP 120/78; PULSE 92; O2SAT 95; BMI 38.4
--- NOTE | 2024-10-16 08:32 | A.OFFVIS_ITS ---
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 Required: No Spindle Repairer Name: Patient speaks hebrew Accompanied by: Self / Same As Patient Allergies No Known Allergies [No Known Allergies*] Allergy (Verified 10/16/24 08:39) Medication List - Last Reconciled 10/16/24 by ERNESTINE Escalante atorvastatin 10 mg PO DAILY levetiracetam 1,250 mg (2.5 x 500 mg) PO Q12H 30 days lisinopril-hydrochlorothiazide 10-12.5 mg 1 tab PO DAILY oxcarbazepine 900 mg (1.5 x 600 mg) PO Q12H 30 days phenytoin sodium extended 200 mg (2 x 100 mg) PO Q12H 30 days pyridoxine (vitamin B6) 50 mg PO Q12H 30 days HPI Comments Details: 43-yr-old male presents for f/u seizure disorder and obstructive sleep apnea. In regards to seizure disorder: Patient had [facility] hospital evaluation, in early September, for having 3 back to back convulsive seizures. He denies known trigger for the seizures. He denies recent cocaine he is. He does still take marijuana on a regular basis, but confirms he only purchases marijuana from the dispensary. Head CT was unremarkable. Video EEG, while on his usual antiepileptic regimen, showed sharp waves and focal intermittent slowing over bilateral temporal regions, without push-button events or distinct electrographic seizure activity. Lab results were notable for, low oxcarbazepine level < 1, low Dilantin level at 5.2, positive cannabinoid screen, low TSH 0.22, low phosphorus 2.4, elevated magnesium 2.5, elevated glucose level 113, elevated lactate 3.4, elevated WBC 21.3, elevated needs 18.4-with otherwise normal CBC. Patient has not received an appointment yet with [facility]- patient had not realized that he needed to register with them directly, an order for them to accept our referral. But he states he did this today. He also did not undergo the brain MRI or EEG that was ordered by us at the last visit. He states he is compliant with his Keppra 1500 mg b.i.d., oxcarbazepine 600 mg b.i.d. and phenytoin 200 mg b.i.d.- usually taking these at 08:00 and 17:00. He did start vitamin B6, but stated he did not tolerate the prescribed version- made him dizzy. Since the recent hospitalization, he did start an OTC vitamin B6 supplement, which he states he is tolerating better. He can still be prone to irritability, such as may throw his phone when he receives multiple Spam calls. Patient states he was started on seizure medication proximally 14-15 years ago in [place]. At that time he was started on phenytoin. He states Trileptal and Keppra added once he moved to [place] by his previous neurologist, Dr. Valdez. He denies trying any other AED tx. He does NOT drive. He does not work- on disability. In regards to JENNIFER: Patient has not tolerated APAP 6-20 cmH2O w/ EPR 3, either with nasal or fullface mask. He continues to have sleep difficulties, snoring, fragmented sleep. And today, he is open to having a follow-up in-lab sleep study to help to determine which PAP settings and mask he would better tolerate. For the previously identified nasopharynx lesion: He has ENT consult with Dr Small, patient states he was told everything is okay. Unfortunately, we still do not have ENT notes. [facility] Medical History Nasopharyngeal mass Seizure Family History Maternal Aunt Seizure disorder Social History Alcohol intake: never Patient Tobacco Use Status: Never used Tobacco Substance Use Type: Crack/Cocaine and Marijuana Physical Exam Vital Signs: Last Vital Signs Pulse 92 10/16/24 08:32 BP 120/78 10/16/24 08:32 Pulse Ox 95 10/16/24 08:32 Oxygen Delivery Method Room Air 10/16/24 08:32 BMI result Body Mass Index 38.4 Const General: cooperative and no acute distress Orientation/consciousness: patient oriented x3 Resp Effort & Inspection: normal respiratory effort Neuro Other: With prolonged speaking, voice breaks. General: patient oriented x3 Cognition (Neuro): normal cognition Psych Appearance: grossly normal Mental Status: mental status grossly normal Affect: normal affect Attitude: cooperative Results Reviewed Results Reviewed: Results Labs, FROM [facility] CENTER: BLOOD COUNT & DIFF WBC 21.3 k/mm3 (High)? 09/19/2024 05:07 RBC 4.85 m/mm3 ()? 09/20/19 05:07 Hgb 16.0 Gm/dL ()? 09/19/2024 05:07 Hct 44.0 % ()? 09/19/2024 05:07 MCV 90.7 femtoliters ()? 09/19/2024 05:07 MCH 33.0 pg ()? 2024 05:07 MCHC 36.4 Gm/dL ()? 09/19/2024 05:07 Platelet Count 342 k/mm3 ()? 09/19/2024 05:07 RDW-SD 43.9 femtoliters ()? 09/19/2024 05:07 MPV 8.7 femtoliters (Low)? 09/19/2024 05:07 Nucleated RBC (Automated) 0.0 #/100 WBC'S ()? 09/19/2024 05:07 Abs. NRBC 0.0 k/mm3 ()? 09/19/2024 05:07 Abs. Neut 18.4 k/mm3 (High)? 09/19/2024 05:07 Abs. Lymph 1.8 k/mm3 ()? 09/19/2024 05:07 Abs. Becker 0.9 k/mm3 ()? 09/19/2024 05:07 Abs. Eo 0.0 k/mm3 ()? 025 05:07 Abs. Baso 0.1 k/mm3 ()? 09/19/2024 05:07 Neut % 86.3 % (High)? 09/20/19 05:07 Lymph % 8.5 % (Low)? 09/19/2024 05:07 Becker % 4.3 % (Low)? 09/20/19 05:07 Eos % 0.1 % ()? 09/19/2024 05:07 Baso % 0.3 % ()? 09/20/19 05:07 Imm Gran 0.5 % ()? 09/19/2024 05:07 Abs. Imm Gran 0.1 k/mm3 ()? 0 09/19/2024 05:07 BLOOD GAS Specimen Type - Blood Gas VENOUS ()? 09/19/2024 05:09 pH, Venous 7.46 (High)? 09/19/2024 05:09 pCO2, Venous 34 mm Hg (Low)? 09/19/2024 05:09 pO2, Venous 32 mm Hg (Low)? 09/19/2024 05:09 Bicarbonate, Estimated(Venous) 24 mmol/L ()? 09/19/2024 05:09 ? ? ? CHEM GENERAL Sodium 139 mmol/L ()? 09/20/2024 06:19 Potassium 4.0 mmol/L ()? 09/20 06:19 Chloride 104 mmol/L ()? 09/20/2024 06:19 Bicarbonate Level 22 mmol/L ()? 09/20/2024 06:19 Anion Gap 13 mmol/L ()? 09/20/2024 06:19 Glucose Level 113 mg/dL (High)? 09/20/2024 06:19 BUN 8 mg/dL ()? 09/20/2024 06:19 Creatinine-Blood 0.77 mg/dL ()? 09/20/2024 06:19 Estimated GFR Creatinine 113 ML/MIN/1.73 M2 ()? 09/20/2024 06:19 Calcium 8.6 mg/dL ()? 09/20/2024 06:19 Phosphorus 2.4 mg/dL (Low)? 09/20/2024 06:19 Magnesium 2.5 mg/dL (High)? 08/2024 06:19 Protein, Total 6.8 Gm/dL ()? 09/20/2024 06:19 Albumin 4.0 Gm/dL ()? 025 06:19 AG Ratio 1.4 ()? 09/20/2024 06:19 Alkaline Phosphatase 61 units/L ()? 09/20/2024 06:19 AST (SGOT) 28 units/L ()? 09/20/2024 06:19 ALT (SGPT) 16 units/L ()? 08/2024 06:19 Bilirubin, Total 0.5 mg/dL ()? 09/20/2024 06:19 Lactate 3.4 mmol/L (High)? 09/19/2024 07:18 ENDOCRINE/TUMOR MARKER TSH 0.22 uIU/mL (Low)? 09/20/2024 06:19 Free T4 0.96 ng/dL ()? 0508/2024 06:19 TOXICOLOGY/TDM Dilantin Level 5.2 mg/L (Low)? 09/20/2024 06:19 Barbiturate Screen, Urine NONE DETECTED ()? 09/19/2024 07:52 Cannabinoid Screen, Urine POSITIVE (Abnormal)? 09/19/2024 07:52 Cocaine Metabolite Screen, Urine NONE DETECTED ()? 09/19/2024 07:52 Benzodiazepine Screen, Urine NONE DETECTED ()? 09/19/2024 07:52 Amphetamine Screen, Urine NONE DETECTED ()? 09/19/2024 07:52 Opiate Screen, Urine NONE DETECTED ()? 09/19/2024 07:52 Levetiracetam Level 19.70 mg/L ()? 09/20/2024 06:19 UA/URINALYSIS Appear/Color, Urine LIGHT YELLOW ()? 09/19/2024 08:40 Specific [place], Urine 1.022 ()? 09/19/2024 08:40 pH, Urine 6.0 ()? 09/19/2024 08:40 Albumin, Urine 1+ (Abnormal)? 09/19/2024 08:40 Glucose, Urine 2+ (Abnormal)? 09/19/2024 08:40 Ketones, Urine TRACE (A bnormal)? 09/19/2024 08:40 Bilirubin, Urine NEGATIVE ()? 09/19/2024 08:40 Hemoglobin, Urine NEGATIVE ()? 09/19/2024 08:40 Nitrite, Urine NEGATIVE ()? 09/19/2024 08:40 Leukocyte, Urine NEGATIVE ()? 09/19/2024 08:40 Urobilinogen NORMAL mg/dL ()? 09/19/2024 08:40 WBC's, Urine 1 /HPF ()? 09/19/2024 08:40 RBC's, Urine <1 /HPF ()? 09/19/2024 08:40 Hyaline Cast 1 LPF ()? 09/19 08:40 Amorphous Crystals SLIGHT /HPF ()? 09/19/2024 08:40 Mucus SLIGHT /LPF ()? 09/19/2024 08:40 Hold Urine Culture Testing available 48 hours from time of collection. ()? 09/19/2024 08:40 ? ? ? RESULT: CT Head/Brain W/O Contrast CT Head/Brain W/O Contrast INDICATION: Seizure-like activity.. TECHNIQUE: Incremental CT without contrast through the head was formatted in axial and coronal plane. Weight-based protocol using automatic tube modulation was performed to optimize scan parameters. CTDIvol Head: 45.50 mGy, DLP Head: 772 mGy*cm. COMPARISON: 01/16/2021, 01/26/2024. FINDINGS: BRAIN and EXTRA-AXIAL SPACES: No parenchymal hemorrhage, midline shift or mass effect. Devine-white matter differentiation is well preserved. No acute infarct. Ventricles, sulci and basilar cisterns are age appropriate. No white matter lesions. No subarachnoid hemorrhage, subdural or epidural collections. CALVARIUM, SKULL BASE AND SOFT TISSUES: No fractures or suspicious bony lesions. The paranasal sinuses and mastoid air cells are clear. Visualized orbits and gl obes are intact. The extracranial soft tissues are unremarkable. IMPRESSION: No acute process. 09/20/2024, Interim EEG note, from [facility] Center: Patient: ??FLAVIO OWEN? Age: ??44 years?? ? Sex: ?Male?? ? : ?1980 Associated Diagnoses: ??None Author: ??Sudhir MOODY, Jeff Barfield INTRODUCTION:??The patient is a 44-year-old male who is referred for possible seizures in the setting of episodes of full body shaking during sleep. ? MEDICATIONS:??Oxcarbazepine, Levetiracetam, Cholecalciferol ? CONDITION OF RECORDING:??The patient underwent one day of digitally recorded video EEG monitoring beginning on 09/19/2024 at 3:56 PM and ending on 09/20/2024 at 8:00 AM, recorded with the patient awake and in all stages of sleep, reviewed with longitudinal and coronal bipolar montages, as well as average referential and anterior temporal montages with all electrodes applied in accordance with the International 10-20 System. ?Seizure and spike detection software was utilized throughout the recording. ?A single channel EKG lead was recorded as well to help identify artifact. ?The entire record was reviewed with special attention to button presses and diary entries.? ? DAY 1 (from 09/19/2024 at 3:56 PM until 09/20/2024 at 8:00 AM) ? INTERICTAL EEG DESCRIPTION:??An occipital dominant rhythm of 9 Hz is present. ?Low voltage 18 to 22 Hz activity is seen over the anterior head regions bilaterally. Focal intermittent slowing in the 2 to 6 Hz range is seen independently over the temporal regions bilaterally. ?Focal sharp waves are seen over the temporal regions bilaterally. ? Sleep is normal in configuration and distribution. ? ICTAL EEG AND VIDEO DESCRIPTION:?During the course of this day of continuous video EEG monitoring there were no push button events. ? IMPRESSION:??This day of continuous terminal system operator video EEG monitoring?is abnormal due to the presence of potentially epileptogenic activity seen over the temporal regions bilaterally. ?Focal intermittent slowing is seen over the temporal regions bilaterally as well. ?The findings suggest the presence of focal lesions or disturbances of cerebral function involving the temporal regions bilaterally. ?During the course of this day of continuous video EEG monitoring there were no push button events. ?No electrographic seizure activity is present. Assessment & Plan Assessment & Plan (1) Seizure: Code(s): R56.9 - Unspecified convulsions Category: Medical (2) Nocturnal seizures: Code(s): R56.9 - Unspecified convulsions Category: Medical (3) JENNIFER (obstructive sleep apnea): Comment: Severe degree of sleep apnea. The AHI was 27/hr and oxygen anurag was 82%. Code(s): G47.33 - Obstructive sleep apnea (adult) (pediatric) Category: Medical (4) Meningioma: Comment: Sinus CT, September 2023: 3 mm ossified extra-axial lesion along the basiocciput just superior to the foramen magnum which may reflect a small meningioma Code(s): D32.9 - Benign neoplasm of meninges, unspecified Category: Medical Plan For severe JENNIFER: Pt has not tolerated APAP. Patient advised to undergo in-lab PAP titration study to identify optimal PAP treatment pressures and PAP mask tolerance. For nasopharynx lesion: Hold brain MRI w/wo- previously ordered to better assess brain MRI w/o finding of 3 mm ossified extra-axial lesion along the basiocciput just superior to the foramen magnum- possibly a small meningioma. We will request ENT notes, and upon review will consider ordering brain MRI again. For seizure disorder: Reviewed recent [facility] Center records, video EEG results, labs. Check CBC, CMP, phenytoin, levetiracetam and oxcarbazepine levels, as well as magnesium/phosphorus/vitamin-D/thyroid studies today As patient continues to have breakthrough seizure on 3 AEDs, we will follow-up on request for 2nd opinion from a tertiary epilepsy care center. Continue levetiracetam 1250 mg p.o. q.12 hours. Continue OTC pyridoxine 50 mg p.o. q.12 hours. Continue oxcarbazepine 900 mg q.12 hours Continue phenytoin 200 mg q.12 hours. Advise patient to take all of his AED therapies every 12 hours, such as at 08:00 and 20:00 every day. Patient advised to avoid cocaine use. We will provide small order of as needed clonazepam ODT 2 mg for seizure lasting greater than 2 minutes. Reviewed administration technique with spouse. Patient/partner advise to call 911 for a seizure lasting greater than 2-3 minutes or if patient has more than 3 seizures in [address] We will reach out to patient in 1 month, to check status an ensure he completes labs and studies as ordered. Will follow-up upon review of above and patient to follow-up in clinic in 6 months or sooner prn. [place] Orders: Orders Complete Blood Count Auto Diff Today E83.39 - Other disorders of phosphorus metabolism, E83.41 - Hypermagnesemia, G47.33 - Obstructive sleep apnea (adult) (pediatric), R56.9 - Unspecified convulsions TSH reflex Free T4 Today E83.39 - Other disorders of phosphorus metabolism, E83.41 - Hypermagnesemia, G47.33 - Obstructive sleep apnea (adult) (pediatric), R56.9 - Unspecified convulsions Vitamin D 25-OH (D2 and D3) Today E83.39 - Other disorders of phosphorus metabolism, E83.41 - Hypermagnesemia, G47.33 - Obstructive sleep apnea (adult) (pediatric), R56.9 - Unspecified convulsions Vitamin B12 and Folate Today E83.39 - Other disorders of phosphorus metabolism, E83.41 - Hypermagnesemia, G47.33 - Obstructive sleep apnea (adult) (pediatric), R56.9 - Unspecified convulsions RT PSG in-lab sleep titration Today E83.39 - Other disorders of phosphorus metabolism, E83.41 - Hypermagnesemia, G47.33 - Obstructive sleep apnea (adult) (pediatric), R56.9 - Unspecified convulsions Phenytoin Dilantin Today E83.39 - Other disorders of phosphorus metabolism, E83.41 - Hypermagnesemia, G47.33 - Obstructive sleep apnea (adult) (pediatric), R56.9 - Unspecified convulsions Oxcarbazepine Today E83.39 - Other disorders of phosphorus metabolism, E83.41 - Hypermagnesemia, G47.33 - Obstructive sleep apnea (adult) (pediatric), R56.9 - Unspecified convulsions Comprehensive Met. Panel Today E83.39 - Other disorders of phosphorus metabo lism, E83.41 - Hypermagnesemia, G47.33 - Obstructive sleep apnea (adult) (pediatric), R56.9 - Unspecified convulsions Vitamin B6 Today D64.9 - Anemia, unspecified, E83.39 - Other disorders of phosphorus metabolism, E83.41 - Hypermagnesemia, G47.33 - Obstructive sleep apnea (adult) (pediatric), R56.9 - Unspecified convulsions Phosphorus Today E83.39 - Other disorders of phosphorus metabolism, E83.41 - Hypermagnesemia, G47.33 - Obstructive sleep apnea (adult) (pediatric), R56.9 - Unspecified convulsions Triiodothyronine T3 Total Today E83.39 - Other disorders of phosphorus metabolism, E83.41 - Hypermagnesemia, G47.33 - Obstructive sleep apnea (adult) (pediatric), R56.9 - Unspecified convulsions Phenytoin, Free/Unbound Today E83.39 - Other disorders of phosphorus metabolism, E83.41 - Hypermagnesemia, G47.33 - Obstructive sleep apnea (adult) (pediatric), R56.9 - Unspecified convulsions Levetiracetam Keppra Today E83.39 - Other disorders of phosphorus metabolism, E83.41 - Hypermagnesemia, G47.33 - Obstructive sleep apnea (adult) (pediatric), R56.9 - Unspecified convulsions Magnesium Today E83.39 - Other disorders of phosphorus metabolism, E83.41 - Hypermagnesemia, G47.33 - Obstructive sleep apnea (adult) (pediatric), R56.9 - Unspecified convulsions Medications: New clonazepam 2 mg PO DAILY 30 days 5 tabs 0RF seizure lasting > 2 minutes Coding Level of Care Code Est Pt Level 4 (35279) Diagnoses Seizure R56.9 Nocturnal seizures R56.9 JENNIFER (obstructive sleep apnea) G47.33 Meningioma D32.9
== END 2024-10-16 09:20 | disposition home or self-care (01) ==
LOC: HO.HSMS 08:22
PROVIDERS: PCP Family Medicine; Visit Provider Nurse Practitioner Family
DX: R56.9 Unspecified convulsions (principal); G47.33 Obstructive sleep apnea (adult) (pediatric); D32.9 Benign neoplasm of meninges, unspecified
CPT/HCPCS: 99214

== ENCOUNTER → 2024-10-16 08:21 | Outpatient (BNVA) | payer MEDICARE, MEDICAID, SELFPAY | PROVIDERS: PCP Family Medicine; Visit Provider Nurse Practitioner Family | DX: R56.9 Unspecified convulsions (principal); D32.9 Benign neoplasm of meninges, unspecified; G47.33 Obstructive sleep apnea (adult) (pediatric) | CPT/HCPCS: 99212 ==

== ENCOUNTER 2024-10-30 10:20 | Emergency (ER) | payer MEDICARE, MEDICAID, SELFPAY ==
--- NOTE | 2024-10-30 11:07 | ED.BACK ---
HPI - Back Pain/Injury General Chief Complaint: Skin/Abscess/Foreign Body Stated Complaint: Back pain Time Seen by Provider: 10/30/24 11:15 Source: patient and RN notes reviewed Mode of arrival: ambulatory Limitations: no limitations History of Present Illness ED Provider: Neetu Catalan PA-C HPI Narrative: This is a 44-year-old male, with a past medical history of a seizure disorder on [facility], who presents emergency department with complaints of lump on upper back for several years. Patient states that his started to pick at this region and this caused him increased pain. No fevers or chills. No injury. He is otherwise feeling well other than pain to the area with palpation. He states that he followed up with a sales associate key holder, however states that they did not tell him what it was, and did not have follow-up. No other complaints or concerns at this time. Radiation: none Exacerbating factors: none Relieving factors: none Related Data Home Medications ?Medication ?Instructions ?Recorded ?Confirmed atorvastatin 10 mg tablet 10 mg PO DAILY 04/05/23 10/16/24 Previous Rx's ?Medication ?Instructions ?Recorded lisinopril 10 1 tab PO DAILY #30 tabs 11/06/23 mg-hydrochlorothiazide 12.5 mg tablet levetiracetam 500 mg tablet 1,250 mg (2.5 x 500 mg) PO Q12H 30 06/25/24 days #150 tabs oxcarbazepine 600 mg tablet 900 mg (1.5 x 600 mg) PO Q12H 30 06/25/24 days #90 tabs phenytoin sodium extended 100 mg 200 mg (2 x 100 mg) PO Q12H 30 06/25/24 capsule days #120 caps pyridoxine (vitamin B6) 50 mg 50 mg PO Q12H 30 days #60 tabs 06/25/24 tablet clonazepam 2 mg disintegrating 2 mg PO DAILY seizure lasting > 2 10/16/24 tablet minutes 30 days #5 tabs Allergies Allergy/AdvReac Type Severity Reaction Status Date / Time No Known Allergies (No Known Allergy Verified 10/30/24 11:09 Allergies*) Review of Systems Review of Systems: Yes all other systems are reviewed and are negative Constitutional: Constitutional: Reports as per [facility] Past Medical History Medical History Nasopharyngeal mass Seizure Family History Family History Maternal Aunt Seizure disorder Social History Social History Alcohol intake: never Patient Tobacco Use Status: Never used Tobacco Substance Use Type: Crack/Cocaine and Marijuana Advance Directives: No Advance Directives Information Provided: No Do you have a plan to hurt others: No Plan Physical Exam Vital Signs: Vital Signs: Last Vital Signs Temp 98.4 F 10/30/24 11:38 Pulse 71 10/30/24 11:38 Resp 18 10/30/24 11:38 BP 137/82 10/30/24 11:38 Pulse Ox 98 10/30/24 11:38 O2 Del Method Room Air 10/30/24 11:38 BMI result Body Mass Index 28.4 Const: General: cooperative, comfortable and no acute distress Orientation/consciousness: patient oriented x3 Limitations: no limitations HEENT: Head: Yes normal to inspection, Yes normocephalic and Yes atraumatic Ears: hearing grossly normal bilaterally General nose exam: Normal external nose present Face and sinus: Yes normal facial exam Mouth: Normal oral and palatal mucosa present, oropharynx normal and moist mucous membranes Throat: Yes posterior oropharynx normal Eyes: General: appearance normal, both eyes and all related structures Eyelids: Yes eyelids normal Conjunctivae: conjunctivae normal Sclerae: sclerae normal Pupils: Equal, round and reactive pupils present EOM: EOMs intact bilaterally Neck: Neck: Yes normal visual inspection, Yes full ROM and Yes no lymphadenopathy Lymphatic: no lymphadenopathy noted Chest: Chest palpation & inspection: normal inspection of the chest Resp: Effort & Inspection: normal respiratory effort and able to speak in complete sentences Auscultation: clear to auscultation bilaterally, no crackles, no rales, no rhonchi and no wheezes Cardio: Rate: regular rate Rhythm: regular rhythm GI: Inspection: Yes normal to inspection Skin: Other: Upper back, with 1 x 1 mm area of induration, hardened, mildly tender to palpation, no surrounding erythema, or drainage. General skin exam: no rashes or lesions noted Trauma: no lacerations or abrasions Wounds: no wounds Neuro: General: patient oriented x3 and moves all extremities Cranial nerves: Yes Equal, round and reactive pupils present Extrem: General: Yes normal to inspection Right upper extremity: normal to inspection Left upper extremity: normal to inspection Right lower extremity: normal to inspection Left lower extremity: normal to inspection Medical Decision Making Medical Decision Making [facility] Narrative: 44-year-old male who presents emergency department with concerns of lump on upper back for several years. reports that she tried picking at this and now it is causing him to have pain. On arrival, vital signs within normal limits. Patient has 1 mm x 1 mm area of hard induration, question of a ingrown hair versus blackhead vs cyst. Does not appear to be cellulitic. No surrounding erythema or drainage. Discussed with patient that he has follow-up with Dermatology, given referral. Given strict return precautions. Does not require antibiotics at this time. Patient stable for discharge Differential Diagnosis Differential Diagnoses: The differential diagnosis associated with the presentation includes Folliculitis, blackhead, cyst, abscess, lipoma Admission/Observation Consideration of admission/observation: Escalation of care including admission/observation considered Lab Data [facility] Lab Attestation statement: I reviewed the patient's lab results. Radiology Impression Discussion of test interpretation with radiology: I have reviewed the radiologist's reading. External Record Review External record reviewed: Inpatient record, Office record, Outpatient record, Prior outpatient labs, Prior outpatient radiology, Primary care record and Outside ED record Discharge Plan Discharge Clinical Impression: Lump of skin of back Patient Disposition: Home, Self-Care Instructions: Cyst (ED) Additional Instructions: You were seen in the emergency department due to a cyst on your upper back. This is not infected, but you do need to follow-up with a sales associate key holder as they will be able to remove this for you. Do not pick at the area, watch for any redness, swelling, or pain. Call the sales associate key holder today to make an appointment. If any new or worsening symptoms occur including but not limited to increased redness, swelling, please return for re-evaluation. [facility] [id number], [place] [address] [facility] [address] [place] [address] Prescriptions: No Action lisinopril-hydrochlorothiazide 10-12.5 mg tablet 1 tab PO DAILY Qty: 30 0RF atorvastatin 10 mg tablet 10 mg PO DAILY phenytoin sodium extended 100 mg capsule 200 mg PO Q12H 30 Days Qty: 120 6RF oxcarbazepine 600 mg tablet 900 mg PO Q12H 30 Days Qty: 90 6RF levetiracetam 500 mg tablet 1,250 mg PO Q12H 30 Days Qty: 150 3RF pyridoxine (vitamin B6) 50 mg tablet 50 mg PO Q12H 30 Days Qty: 60 6RF clonazepam 2 mg tablet,disintegrating 2 mg PO DAILY 30 Days Qty: 5 0RF Interventions: ED Discharge Assessment Last Done: 10/30/24 11:38 Discharge Date/Time: 10/30/24 11:39 Print Language: Ivorian
[2024-10-30 11:08] VITALS: BP 137/82; PULSE 71; RESP 18; TEMP 36.9; O2SAT 98; BMI 28.4
[2024-10-30 11:38] VITALS: BP 137/82; PULSE 71; RESP 18; TEMP 36.9; O2SAT 98
--- OUTSIDE RECORDS SUMMARY | 2024-10-30 12:21 | XMS_ITS | Encounter Summary ---
Author Organization [employer] Address [address] [place] [address] [address] [place] [address] Care Team Providers Care Disk Recordist Name Role Phone Sandi Ferris DO Primary Care Provider + [phone] Reason for Visit * Reason Onset Date Comments pt1 10/22/2024 Encounter Details Date Type Department Care Team ([facility] st Contact Info) Description 10/22/2024 Telephone [facility] [address] [place], [place] [phone] Sandi Ferris DO [address] [place], [place] [phone] pt1 Social History Tobacco Use Types Packs/Day Years Used Date Smoking Tobacco: Former Cigarettes Passive Smoke Exposure: Current Smokeless Tobacco: Never Passive Exposure Comments:oc Alcohol Use Standard Drinks/Week Comments Never 0 [...] getting things needed for daily living? No 10/01/2024 Utilities Answer Date Recorded In the past [...] encounter Miscellaneous Notes * Telephone Encounter - Ольга Armas - 10/22/2024 8:09 AM EDT Patient calling requesting PT1 Home Address verified: Y/N: Yes Provider name or facility name: [facility] [address], [place] [address] Escort needed: Y/N: Yes Do you have a wheelchair: No If yes- Manual or electric: Visits: 2x documented in this encounter Plan of Treatment Not on file documented as of this encounter Visit Diagnoses Not on filedocumented in this encounter Additional Health Concerns Assessment Noted Time PHQ-9 Depression Total Score: 2 11/22/19 24 11:52 AM EDT documented as of this encounter Care Teams Disk Recordist Relationship Specialty Start Date End Date Sandi Ferris DO [address] [place] [id number] PCP - General Family Medicine 11/10/12 documented as of this encounter
== END 2024-10-30 11:39 | disposition home or self-care (01) ==
PROVIDERS: Emergency Provider Emergency Medicine; PCP Family Medicine
DX: R22.2 Localized swelling, mass and lump, trunk (principal)
CPT/HCPCS: 99282

== ENCOUNTER 2024-11-25 23:52 | Emergency (ER) | payer MEDICARE, MEDICAID, SELFPAY ==
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
[2024-11-26] VITALS: BP 139/86; BP 150/90; PULSE 81; PULSE 85; RESP 16; TEMP 36.7; O2SAT 97; BMI 28.6
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
[2024-11-26] MEDS: diazePAM 10 MG/2 ML CARTRIDGE 5 MG IM (00:56)
== END 2024-11-26 05:20 | disposition home or self-care (01) ==
PROVIDERS: Emergency Provider Emergency Medicine Emergency Medical Services
DX: S09.90XA Unspecified injury of head, initial encounter (principal); Y04.8XXA Assault by other bodily force, initial encounter; Y93.89 Activity, other specified; Y92.521 Bus station as the place of occurrence of the external cause; Y99.9 Unspecified external cause status
CPT/HCPCS: 70450; 72125; 73130; 96372; 99284; J1885; J3360

== ENCOUNTER → 2024-11-26 00:15 | Outpatient (BNV) | payer MEDICARE, MEDICAID, SELFPAY | PROVIDERS: Emergency Provider Emergency Medicine Emergency Medical Services; Visit Provider Radiology Neuroradiology | DX: R22.0 Localized swelling, mass and lump, head (principal); R22.31 Localized swelling, mass and lump, right upper limb; Y04.8XXA Assault by other bodily force, initial encounter | CPT/HCPCS: 70450; 72125; 73130 ==

== ENCOUNTER 2024-12-30 09:37 | Outpatient (REF) | payer MEDICARE, MEDICAID, SELFPAY ==
--- OUTSIDE RECORDS SUMMARY | 2024-12-30 10:06 | XMS_ITS | Clinical Summary ---
Author Organization [facility] Address [address] [place] [address] [place] [address] Phone Care Team Providers Care Staffing Administrator Name Role Phone [place] Sandi Primary Care Provider Social History Tobacco Use Types Packs/Day Years Used Date Smoking Tobacco: Never Assessed Education Answer Date Recorded Are you interested in more education? Not on reina e 11/13/2024 Are you concerned about learning? Not on file 11/13/2024 No 11/13/2024 No 11/13/2024 Digital Access Answer Date Recorded No 11/13/2024 No 11/13/2024 Reliable internet access at home? Not on file 11/13/2024 Device with a working camera? Not on file Sex and Gender Information Value Date Recorded Sex Assigned at Male 09/28/2024 2:10 PM EDT Legal Sex Male 1:49 PM EDT Gender Identity Male 09/28/2024 2:10 PM EDT Sexual Orientation Straight 09/28/2024 2: 10 PM EDT Plan of Treatment Upcoming Encounters Date Type Department Care Team ([facility] st Contact Info) Description 01/21/2025 4:00 PM EDT Office Visit [facility], Department of Neurology [address] [place] [address] Gelacio Spears MD [address] [place] [id number] [email or web address] Due Date Last Done Comments Adult Td,Tdap Booster 1980 LIPID PANEL 1980 DEPRESSION SCREENING 1992 SMOKING Hx and SMOKELESS TOB ACCO SCREENING 1993 HEPATITIS C SCREENING 1998 HIV ONE-TIME SCREENING (18-6 5 YEARS) 1998 COVID-19 VACCINE (2023-2 5 season) 2024 HEPATITIS A VACCINES Aged Out No long er eligible based on patient's age to complete this topic HIB VACCINES Aged Out No longer eligi ble based on patient's age to complete this topic MENINGOCOCCAL VACCINES (ACWY) Aged Out No longer eligible based on patient's age to complete this topic MENINGOCOCCAL VACCINES (B) Aged Out N o longer eligible based on patient's age to complete this topic PNEUMOCOCCAL VACCINES (0-49 years) Aged Out No longer eligible based on patient's age to complete this topic Medical Devices Not on file Insurance [place] [id number] MEDICARE PART A & B MEDICARE PART A & B [address] [id number] MEDICARE PART A & B MEDICARE PART A & B MEDICARE PART A & B Care Teams Staffing Administrator Relationship Specialty Start Date End Date Sandi Ferris DO [address] [place] [address] PCP - General Family Medicine 09/28/24 Additional Source Comments The information contained in this document represents components of the legal health record. It is not the complete legal health record.[facility]
--- OUTSIDE RECORDS SUMMARY | 2024-12-30 10:06 | XMS_ITS | Clinical Summary ---
Author Organization [facility] Address [address] [place] [address] Care Team Providers Care Border Patrol Officer Name Role Phone Unavailable Primary Care Provider Unavailabl e Social History Tobacco Use Types Packs/Day Years Used Date Smoking Tobacco: Never Assessed Sex and Gender Information Value Date Recorded Sex Assigned at Not on file Legal Sex Male 12:37 PM EST Gender Identity Not on file Sexual Orientation Not on file Plan of Treatment Health Maintenance Due Date Last Done Comments DTaP,Tdap,and Td Vaccines (1 - Tdap) 09/08/1999 Hepatitis B Vaccines (1 of 3 - 19+ 3-dose series) 09/08/1999 COVID-19 Vaccine (2023-2 5 season) 2024 Depression Screening 05/20/2024 Influenza Vaccine (#1) 2025 HIB Vaccines Aged Out No longer eligi [...] patient's age to complete this topic Meningococcal B Vaccine Aged Out No l onger eligible based on patient's age to complete this topic Pneumococcal Vaccine: Pediat rics (0 to 5 Years) and At-Risk Patients (6 to 49 Years) Aged Out No longer eligible b ased on patient's age to complete this topic RSV Immunization Patients Un munira 20 months Aged Out No longer eligible b ased on patient's age to complete this topic Varicella Vaccines Aged Out No longer eligible based on patient's age to complete this topic
--- OUTSIDE RECORDS SUMMARY | 2024-12-30 10:06 | XMS_ITS | Encounter Summary ---
Author Organization [employer] Address [address] [place] [address] [address] [place] [address] Care Team Providers Care Custodial Services Manager Name Role Phone Sandi Ferris DO Primary Care Provider + [phone] Reason for Visit * Reason Onset Date Comments pt1 10/22/2024 Encounter Details Date Type Department Care Team ([facility] st Contact Info) Description 10/22/2024 Telephone [facility] [address] [place], [place] [phone] Sandi Ferris DO [address] [place], [place] [phone] pt1 Social History Tobacco Use Types Packs/Day [...] Y/N: Yes Provider name or facility name: [facility] [address], [place] [address] Escort needed: Y/N: Yes Do you have a wheelchair: No If yes- Manual or electric: Visits: 2x documented in this encounter Plan of Treatment Not on file documented as of this encounter Visit Diagnoses Not on filedocumented in this encounter Additional Health Concerns Assessment Noted Time PHQ-9 Depression Total Score: 2 11/22/19 24 11:52 AM EDT documented as of this encounter Care Teams Custodial Services Manager Relationship Specialty Start Date End Date Sandi Ferris DO [address] [place] [id number] PCP - General Family Medicine 11/10/12 documented as of this encounter
[2024-12-30 13:31] LABS: MANUAL DIFF FLAG NO
[2024-12-30 13:48] LABS: Hematocrit 47.2 % (42.0-52.0); Hemoglobin 16.5 g/dl (14.0-18.0); Imm Gran Abs Auto 0.02 X10*3/uL (0.00-0.03); Imm Gran Pct Auto 0.3 % (0.0-0.4); Lymphocytes Absolute Auto 2.7 X10*3/uL (1.2-4.9); Mean Corpuscular HGB Conc 35.0 g/dl (31.0-36.0); Mean Corpuscular Hemoglobin 32.5 pg (27.0-33.0); Mean Corpuscular Volume 93.1 fL (80.0-98.0); NRBC Abs Auto 0.000 X10*3/uL (0.0-0.012); NRBC Pct Auto 0.0 /100WBC (0.0-0.2); Platelet Count 322 X10*3/uL (160-400); Red Blood Count 5.07 X10*6/uL (4.60-5.80); White Blood Count 7.8 X10*3/uL (4.8-10.8)
[2024-12-30 14:17] LABS: Alanine Aminotransferase 23 U/L (0-40); Albumin Level 4.6 g/dL (3.5-5.0); Alkaline Phosphatase 71 U/L (39-117); Anion Gap 14 (12-20); Aspartate Amino Transferase 29 U/L (5-37); Blood Urea Nitrogen 9 mg/dL (9-16); Calcium 9.2 mg/dL (8.4-10.2); Carbon Dioxide 25 mmol/L (22-29); Chloride 106 mmol/L (96-108); Cholesterol 200 mg/dL (<200); Estimated Glomerular Filt Rate > 60; HDL Cholesterol 38 mg/dL (>40); Magnesium 2.1 mg/dL (1.6-2.6); Potassium 4.0 mmol/L (3.3-5.1); Sodium 141 mmol/L (135-145); Thyroid Stimulating Hormone 0.26 uIU/mL (0.32-4.0); Total Protein 7.3 g/dL (6.5-8.0); Triglycerides 177 mg/dL (<150)
[2024-12-30 14:22] LABS: Free T4 (Free Thyroxine) 1.00 ng/dL (0.71-1.85)
[2024-12-30 14:34] LABS: Folate 4.0 ng/mL (> or = 4.0); Vitamin B12 284 pg/mL (200-900)
[2024-12-30 14:47] LABS: Microalbum/Creatinine Ratio Ur 1.9 ug/mg cr (<30)
[2024-12-31 04:22] LABS: HBS Num1 0.97 mIU/mL (0-7.99); HBc Num1 0.07 S/CO (0.00-0.79); HBsAGNum1 0.42 S/CO (0.00-0.99); HIV Num 1 0.05 S/CO (0.00-0.99); Hepatitis B Surface Antigen Negative (Negative); ~HepC Num1 0.27 S/CO (0.00-0.79); ~Hepatitis B Surface Antibody NONREACTIVE (Nonreactive); ~Hepatitis C Antibody Nonreactive (Nonreactive)
[2024-12-31 20:14] LABS: Phenytoin, Free/Unbound 0.7 mg/L (1.0-2.0)
[2025-01-01 03:45] LABS: ~Hepatitis A Antibody IgG 0.36 S/CO (0.00-0.99)
[2025-01-03 02:23] LABS: Levetiracetam Keppra 3.1 mcg/mL (6.0-46.0)
[2025-01-04 12:33] LABS: Vitamin D 25-OH, D2 <4 ng/mL; Vitamin D 25-OH, D3 33 ng/mL; Vitamin D 25-OH, Total 33 ng/mL (30-100)
== END 2024-12-30 09:38 | disposition home or self-care (01) ==
LOC: HO.HKASLDS 09:37
PROVIDERS: Family Medicine; Visit Provider Nurse Practitioner Family
DX: I10 Essential (primary) hypertension (principal); E78.49 Other hyperlipidemia; G40.909 Epilepsy, unspecified, not intractable, without status epilepticus; F33.9 Major depressive disorder, recurrent, unspecified; Z51.81 Encounter for therapeutic drug level monitoring; Z13.1 Encounter for screening for diabetes mellitus; Z11.59 Encounter for screening for other viral diseases; Z11.3 Encounter for screening for infections with a predominantly sexual mode of transmission; Z11.4 Encounter for screening for human immunodeficiency virus [HIV]; Z72.89 Other problems related to lifestyle
CPT/HCPCS: 36415; 80053; 80061; 80177; 80185; 80186; 80339; 82043; 82248; 82306; 82570; 82607; 82746; 83036; 83735; 84100; 84207; 84439; 84443; 84480; 85025; 86592; 86704; 86706; 86708; 86803; 87340; 87389

== ENCOUNTER 2025-02-12 17:09 | Emergency (ER) | payer MEDICARE, MEDICAID, SELFPAY ==
--- NOTE | ~2025-02-12 | XR_ITS ---
CLINICAL HISTORY: trauma 3 view right hand Comparison: CR - XR HAND RT MIN 3V - 11/26/24 00:29 EDT Findings: No fractures or dislocations. No significant arthritic change. No erosions. No radiopaque foreign body. IMPRESSION: No acute fracture or dislocation. This document has been electronically signed by: Yoon Huber DO on 02/12/2025 17:49:12
[2025-02-12 17:20] VITALS: BP 128/79; PULSE 105; RESP 18; TEMP 36.8; O2SAT 97; BMI 26.9
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
--- OUTSIDE RECORDS SUMMARY | 2025-02-12 20:28 | XMS_ITS | Clinical Summary ---
Author Organization [facility] Address [address] [place] [address] Care Team Providers Care Poultry Culler Name Role Phone Unavailable Primary Care Provider [...] - 19+ 3-dose series) 09/08/1999 Depression Screening 05/20/2024 COVID-19 Vaccine (1 - 2023-2 5 season) 2025 Influenza Vaccine (#1) 2025 RSV Immunization Adult Patie nts (1 - 1-dose 75+ series) 09/08/2055 HIB Vaccines Aged Out No longer eligi [...]
--- OUTSIDE RECORDS SUMMARY | 2025-02-12 20:28 | XMS_ITS | Clinical Summary ---
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 atorvastatin (Lipitor) 10 MG tabletIndications :Hyperlipidemia, unspecified hyperlipidemia type Take 1 tablet by mouth daily 30 tablet 3 Active lisinopril-hydroC HLOROthiazide 10-12.5 MG tabletIndications :Essential hypertension Take 1 tablet by mouth Once per day. 30 tablet 3 025 2025 Active OXcarbazepine (Trileptal) 600 MG tablet Take 1.5 tablets (900 mg) by mouth 2 times daily. 90 tablet 3 Active phenytoin ER (Dilantin) 100 MG capsule Take 2 capsules (200 mg) by mouth 2 times daily. 120 capsule 3 Active hydrOXYzine pamoate (Vistaril) 25 MG capsuleIndication s:Major depression, recurrent, chronic (CMS/HCC) Take 1 capsule (25 mg) by mouth every 6 (six) hours if needed for anxiety. 30 capsule 1 025 2025 Active levETIRAcetam XR (Keppra XR) 500 MG 24 hr tablet Take 5 tablets by mouth Once per day. 025 Active clonazePAM (KlonoPIN) 2 MG disintegrating tablet Take 1 tablet by mouth if needed each day for seizures (lasting more than 2 minutes). 025 Active levETIRAcetam (Keppra) 500 MG tabletIndications :Seizure disorder (CMS/HCC) Take 2.5 tablets (1,250 mg) by mouth 2 times daily. 150 tablet 3 025 2024 Discontinued(M ed list cleanup (will not trigger notification to Pharmacy)) pyridoxine (Vitamin B-6) 50 MG tablet Take 1 tablet (50 mg) by mouth Once per day. Purchases OTC as instructed by neurologist 30 tablet 3 025 2024 Discontinued(M ed list cleanup (will not trigger notification to Pharmacy)) sertraline (Zoloft) 25 MG tablet Take 1 tablet (25 mg) by mouth Once per day. 30 tablet 2 025 2024 Discontinued(M ed list cleanup (will not trigger notification to Pharmacy)) Active Problems Problem Noted Date Diagnosed Date Finger deformity, acquired, right 10/01/2024 Hyperlipidemia 06/03/2024 Cocaine use 06/03/2024 History of traumatic brain injury 08/14/2022 Major depression, recurrent, chronic 08/14/2022 Essential hypertension 08/14/2022 Assessment & Plan (10/01/2024 10:04 AM EDT): Refill for blood pressure medication on today Cannabis abuse 02/21/2015 Mood disorder 02/21/2015 Seizure disorder 02/21/2015 Assessment & Plan (10/01/2024 10:04 AM EDT): refill done today continue to follow-up with neurology History of tobacco use 02/21/2015 Encounters * This document contains information received from the source organization and may not represent a complete record from that organization. Date Type Department Care Team Description 02/12/2025 Orders Only [facility] External Provider, [facility] 02/08/2025 Telephone [facility] MED[facility] [address] [place] [address] Sandi Ferris DO Chart Prep 01/31/2025 Refill [facility] [address] [place] [address] Sandi Ferris DO Hyperlipidemia, unspecified hyperlipidemia type 01/14/[address] [address] Sandi Ferris DO Referral 01/11/[address] [address] Edwina Cain MD Seizure disorder (CMS/HCC) 01/11/2025 Patient Outreach [address] [address] Sandi Ferris DO Transition Of Care (Tcm) (HDF scheduled and SDOH screening completed on 10/01/24 ) 01/05/2025 Patient Outreach [address] [address] Sandi Ferris DO Transition Of Care (Tcm) (HDF unscheduled LVM ) 12/30/2024 Orders Only GENERIC EXTERNAL DATA DEPARTMENT Provider, Generic External Data 12/08/[address] [address] Brianne Carnes, [facility] Follow-up 11/27/2024 9:15 AM EDT Office Visit [address] [address] Sandi Ferris DO Essential hypertension (Primary Dx); Other hyperlipidemia; Seizure disorder (CMS/HCC); Major depression, recurrent, chronic (CMS/HCC); Finger deformity, acquired, right; Healthcare maintenance; Hyperlipidemia, unspecified hyperlipidemia type; Liver disease, unspecified; Encounter for screening for other viral diseases; Abnormal finding of blood chemistry, unspecified; Encounter for screening for infections with a predominantly sexual mode of transmission; Encounter for procreative management and counseling for gestational carrier 11/27/2024 Travel 11/19/[address] [phone] Sandi Ferris DO Chart Prep 11/18/2024 Travel 11/17/[address] [address] Sandi Ferris DO Recall Letter from Last 3 Months Immunizations Immunization Administration Dates Next Due Influenza injectable quadriv [...] Passive Smoke Exposure: Current Smokeless Tobacco: Never Tobacco Cessation:Counseling Given: Not Answered Passive Exposure Comments:oc Alcohol Use Standard Drinks/Week Comments Never 0 (1 standard drink = 0.6 oz pur e alcohol) Depression Answer Date Recorded Patient Health Questionnaire-9 Score 15 11/27/2024 Patient Health Questionnaire-9 Score 15 11/27/2024 Last PHQ-9: Questionnaire Data Not on file 0 11/27/2024 Housing Stability Answer Date Recorded What is [...] Answer Date Recorded Patient Health Questionnaire-2 Score 3 11/27/2024 Internet Access Answer Date Recorded Internet Access [...] Sign Reading Time Taken Comments Blood Pressure 118/70 11/27/2024 9:09 AM EDT Pulse 70 11/27/2024 9:09 AM EDT Temperature 36.1 C (97 F) 11/27/2024 9:09 AM EDT Respiratory Rate 19 11/27/2024 9:09 AM EDT Oxygen Saturation 98% 11/27/2024 9:09 AM EDT Inhaled Oxygen Concentration - - Weight 91.2 kg (201 lb) 11/27/2024 9:09 AM EDT Height 180.3 cm (5' 11 ) 11/27/2024 9:09 AM EDT Body Mass Index 28.03 11/27/2024 9:09 AM EDT Plan of Treatment Upcoming Encounters Date Type Department Care Team (Late st Contact Info) Description 05/27/2025 2:00 PM EST Office Visit [facility] OPTOMETRY [address] [place] [address] Ning Crandall, OD [address] [place] [address] Health Maintenance Due Date Last Done Comments Family Planning (PISQ) 09/08/1995 HPV Vaccines (1 - Male 3-dose series) 09/08/1995 Hepatitis A Vaccines (1 of 2 - Risk 2-dose series) 09/08/1999 Hepatitis B Vaccines (1 of 3 - 19+ 3-dose series) 09/08/1999 Influenza Vaccine (#1) 2025 , 01/30/2023, 08/14/2022, Additional history exists Depression Monitoring 05/30/2025 11/27/2024, 025 Alcohol/Substance Use Screening 06/03/2025 06/03/2024 Disability Screening 10/01/2025 10/01/2024 SDOH Screening 10/01/2025 10/01/2024 Tobacco Screening 11/27/2025 11/27/2024 DTaP/Tdap/Td Vaccines (3 - Td or Tdap) 07/14/2029 07/14/2019, 11/25/2012 Lipid Panel 12/30/2029 12/30/2024, 11/17, 11/02/2020 Zoster Vaccines (1 of 2) 2030 RSV Patients and Patients Aged 60 years or older (1 - 1-dose 75+ series) 09/08/2055 Pneumococcal Vaccine: Pediatrics (0 to 5 Years) and At-Risk Patients (6 to 49) Years Aged Out 11/06/2013, 11/25/2012 No longer eligibl e based on patient's age to complete this topic COVID-19 Vaccine Completed 06/03/2024, , 10/24/2020, Additional history exists HIV Screening Completed 12/30/2024, 11/17, 11/02/2020 Hepatitis C Screening Completed 12/30/2024, 021 HIB Vaccines Aged Out No longer eligi [...] Procedure Name Priority Date/Time Associated Diagnosis Comments XR HAND 3+ VIEWS RIGHT Routine 02/12/2025 5:49 PM EDT VITAMIN B6 Routine 12/30/2024 9:50 AM EDT VITAMIN D 25-OH (D2 AND D3) Routine 12/30/2024 9:50 AM EDT LEVETIRACETAM Routine 12/30/2024 9:50 AM EDT OXCARBAZEPINE METABOLITE Routine 12/30/2024 9:50 AM EDT PHENYTOIN, FREE Routine 12/30/2024 9:50 AM EDT T3, TOTAL Routine 12/30/2024 9:50 AM EDT VITAMIN B12/FOLATE, SERUM PANEL Routine 12/30/2024 9:50 AM EDT PHENYTOIN Routine 12/30/2024 9:50 AM EDT TSH W/REFLEX TO FT4 Routine 12/30/2024 9 :50 AM EDT MAGNESIUM Routine 12/30/2024 9:50 AM EDT PHOSPHATE ( PHOSPHORUS) Routine 12/30/2024 9:50 AM EDT COMPREHENSIVE METABOLIC PANEL Routine 12/30/2024 9:50 AM EDT CBC WITH AUTO DIFFERENTIAL Routine 12/30/2024 9:50 AM EDT ALBUMIN, RANDOM URINE W/CREATININE Routine 12/30/2024 9:50 AM EDT Essential hypertension HEPATITIS B CORE AB TOTAL Routine 12/30/2024 9:50 AM EDT Essential hypertension Other hyperlipidemia Seizure disorder (CMS/HCC) Major depression, recurrent, chronic (CMS/HCC) Finger deformity, acquired, right Healthcare maintenance Hyperlipidemia, unspecified hyperlipidemia type Encounter for screening for other viral diseases HEPATITIS A ANTIBODY, TOTAL Routine 12/30/2024 9:50 AM EDT Essential hypertension Other hyperlipidemia Seizure disorder (CMS/HCC) Major depression, recurrent, chronic (CMS/HCC) Finger deformity, acquired, right Healthcare maintenance Hyperlipidemia, unspecified hyperlipidemia type HEPATITIS B SURFACE ANTIBODY, QUALITATIVE Routine 12/30/2024 9:50 AM EDT Essential hypertension Other hyperlipidemia Seizure disorder (CMS/HCC) Major depression, recurrent, chronic (CMS/HCC) Finger deformity, acquired, right Healthcare maintenance Hyperlipidemia, unspecified hyperlipidemia type Encounter for screening for other viral diseases RPR (MONITOR) W/REFL TITER Routine 12/30/2024 9:50 AM EDT Essential hypertension Other hyperlipidemia Seizure disorder (CMS/HCC) Major depression, recurrent, chronic (CMS/HCC) Finger deformity, acquired, right Healthcare maintenance Hyperlipidemia, unspecified hyperlipidemia type Encounter for screening for other viral diseases Encounter for screening for infections with a predominantly sexual mode of transmission HEPATITIS C AB W/REFL TO HCV RNA, QN, PCR Routine 12/30/2024 9:50 AM EDT Essential hypertension Other hyperlipidemia Seizure disorder (CMS/HCC) Major depression, recurrent, chronic (CMS/HCC) Finger deformity, acquired, right Healthcare maintenance Hyperlipidemia, unspecified hyperlipidemia type HIV 1/2 ANTIGEN/ANTIBODY, FOURTH GENERATION W/RFL Routine 12/30/2024 9:50 AM EDT Essential hypertension Other hyperlipidemia Seizure disorder (CMS/HCC) Major depression, recurrent, chronic (CMS/HCC) Finger deformity, acquired, right Healthcare maintenance Hyperlipidemia, unspecified hyperlipidemia type Encounter for screening for other viral diseases Encounter for procreative management and counseling for gestational carrier HEPATITIS B SURFACE ANTIGEN, EIA Routine 12/30/2024 9:50 AM EDT Essential hypertension Other hyperlipidemia Seizure disorder (CMS/HCC) Major depression, recurrent, chronic (CMS/HCC) Finger deformity, acquired, right Healthcare maintenance Hyperlipidemia, unspecified hyperlipidemia type Encounter for screening for other viral diseases HEMOGLOBIN A1C Routine 12/30/2024 9:50 AM EDT Essential hypertension Other hyperlipidemia Seizure disorder (CMS/HCC) Major depression, recurrent, chronic (CMS/HCC) Finger deformity, acquired, right Healthcare maintenance Hyperlipidemia, unspecified hyperlipidemia type Encounter for screening for other viral diseases Abnormal finding of blood chemistry, unspecified HEPATIC FUNCTION PANEL Routine 12/30/2024 9:50 AM EDT Essential hypertension Other hyperlipidemia Seizure disorder (CMS/HCC) Major depression, recurrent, chronic (CMS/HCC) Finger deformity, acquired, right Healthcare maintenance Hyperlipidemia, unspecified hyperlipidemia type VITAMIN D,25-OH,TOTAL,IA Routine 12/30/2024 9:50 AM EDT Essential hypertension Other hyperlipidemia Seizure disorder (CMS/HCC) Major depression, recurrent, chronic (CMS/HCC) Finger deformity, acquired, right Healthcare maintenance Hyperlipidemia, unspecified hyperlipidemia type Liver disease, unspecified Encounter for screening for other viral diseases TSH Routine 12/30/2024 9:50 AM EDT Essential hypertension Other hyperlipidemia Seizure disorder (CMS/HCC) Major depression, recurrent, chronic (CMS/HCC) Finger deformity, acquired, right Healthcare maintenance Hyperlipidemia, unspecified hyperlipidemia type LIPID PANEL, STANDARD Routine 12/30/2024 9:50 AM EDT Essential hypertension Other hyperlipidemia Seizure disorder (CMS/HCC) Major depression, recurrent, chronic (CMS/HCC) Finger deformity, acquired, right Healthcare maintenance Hyperlipidemia, unspecified hyperlipidemia type T4, FREE Routine 12/30/2024 9:50 AM EDT Essential hypertension Other hyperlipidemia Seizure disorder (CMS/HCC) Major depression, recurrent, chronic (CMS/HCC) Finger deformity, acquired, right Healthcare maintenance Hyperlipidemia, unspecified hyperlipidemia type from Last 3 Months Results * XR Hand 3+ Views Right (02/12/2025 5:49 PM EDT) Anatomical Region Laterality Modality Upper Extremities, Hand Right [facility] 02/12/2025 5:49 PM EDT Narrative 02/12/2025 5:50 PM EDT [address] [address] XRay Report Signed Patient: uLis Mckeon MR#: [id number] : 1980 Acct:[id number] Age/Sex: 44 / M ADM Date: 02/12/25 Loc: HO.ED Attending Dr: Ordering Physician: Gelacio Stinson Date of Service: 02/12/25 Procedure(s): XR hand RT min 3V Accession Number(s): [id number] cc: Sandi Ferris DO; Gelacio Stinson Reason for Exam: trauma CLINICAL HISTORY: trauma 3 view right hand Comparison: CR - XR HAND RT MIN 3V - 11/26/24 00:29 EDT Findings: No fractures or dislocations. No significant arthritic change. No erosions. No radiopaque foreign body. IMPRESSION: No acute fracture or dislocation. This document has been electronically signed by: Yoon Huber DO on 02/12/2025 17:49:12 Dictated By: Yoon Huber MD Signed By: <Electronically signed by Yoon Huber MD in OV> 02/12/251749 DD/ 48 TD/TT: 02/12/251748 [employer]ing [employer] Operator: Procedure Note Donotuseinterpreter, Image - 02/12/2025 [place] [address] XRay Report Signed Patient: Tylor Mckeon#: [id number] : 1980Acct:[id number] Age/Sex: 44 / MADM Date: 02/12/25 Loc: HO.ED Attending Dr: Ordering Physician: Gelacio Stinson Date of Service: 02/12/25 Procedure(s): XR hand RT min 3V Accession Number(s): [id number] cc: Sandi Ferris DO; Gelacio Stinson Reason for Exam: trauma CLINICAL HISTORY: trauma 3 view right hand Comparison: CR - XR HAND RT MIN 3V - 11/26/24 00:29 EDT Findings: No fractures or dislocations. No significant arthritic change. No erosions. No radiopaque foreign body. IMPRESSION: No acute fracture or dislocation. 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 It hasnot been cleared or approved by the .[place]. Food and DrugAdministration. This assay has been validated pursuantto the CLIA regulations and is used for clinicalpurposes.THIS TEST WAS PERFORMED AT:[employer] [id number] [place] [address]GVAAMBACHUCK FERRELL MD,PHD Vitamin D, 25-OH, D3 33 ng/mL [facility] Comment:This test was develo ped and its analytical performancecharacteristics have been determined by [facility] [place], [place]. It hasnot been cleared or approved by the U.S. Food and DrugAdministration. This assay has been validated pursuantto the CLIA regulations and is used for clinicalpurposes. Vitamin D, 25-OH, Total 33 30 - 100 ng/mL [facility] Comment:Vitamin D, 25-Hydrox y reports concentrations of twocommon forms, 25-OHD2 and 25-OHD3. 25-OHD3 indicatesboth endogenous production and supplementation.25-OHD2 is an indicator of exogenous sources such asdiet or supplementation. Therapy is based onmeasurement of Total 25-OHD, with levels <20 ng/mLindicative of Vitamin D deficiency, while levelsbetween 20 ng/mL and 30 ng/mL suggest insufficiency.Optimal levels are > or = 30 ng/mL.For additional information, please refer tohttp://education.i.Sec/faq/CGO907(This link is being provided for informational/educational purposes only.) 12/30/2024 9:50 AM EDT 12/30/2024 1:25 PM EDT us Generic External Data Provider LAB BLOOD ORDERAB LES Final Result Performing Organization Address [facility]/ZIP Co de Phone Number [facility] [address] [place] [address] [phone] * Vitamin D, 25-Hydroxy, Total, Immunoassay (12/30/2024 9:50 AM EDT) Vitamin D 25-OH Total 77.8 >30 ng/mL [facility] Comment: Health Based Reference Values*< 20 ng/mL Nrdrxahof69-23 ng/mL Insufficient> 30 ng/mL Sufficient*Brendon MCDONNELL. N Engl J Med. 2007;357:266-280There is no well-established upper level of normal vitamin Dlevels. Some laboratories use 50 ng/mL as an upper limit ofnormal. However, toxicity is patient-dependent and may occurat any level. Careful correlation with the patient'spresentation is necessary and, if there is concern forvitamin D toxicity, treatment should be consideredirrespective of the serum level.Care must be taken in interpreting Vitamin D results fromdifferent laboratories and methodologies. Published datademonstrated that results from patients undergoinghemodialysis may show a negative bias when tested withvarious automated 25-OH vitamin D assays when compared toLC-MS/MS.When testing samples from patients whose predominant form ofVitamin D is Vitamin D2, such as patients receiving VitaminD2 supplementation, results that are subtherapeutic shouldbe confirmed with another method such as LC-MS/MS. Blood Venous blood specimen / Unknown 12/30/2024 9:50 AM EDT 12/30/2024 1:25 PM EDT us Sandi Ferris DO LAB BLOOD ORDERABLES Final R esult [facility] [address] [place] [phone] * Vitamin B12 (Cobalamin) and Folate Panel, Serum (12/30/2024 9:50 AM EDT) Pathologist [facility] Vitamin B12 284 200 - 900 pg/mL [facility] Comment:NORMAL 200-900 PG/ML INDETERMINATE 160-199 PG/ML DEFICIENT < 160 PG/ML Folate 4.0 > or = 4.0 ng/mL [facility] Comment:Reference Values:> o r = 4.0 ng/mL< 4.0 ng/mL suggests folate deficiency Methotrexate, aminopterin and folinic acid(leucovorin) are chemotherapeutic agents whose molecularstructures are similar to folate; therefore, the Architectfolate assay cannot be used for patients using these drugs. 12/30/2024 9:50 AM EDT 12/30/2024 1:25 PM EDT us Generic External Data Provider LAB BLOOD ORDERAB LES Final Result Performing Organization Address [facility] de Phone Number [facility] [address] [place] [phone] * (ABNORMAL) TSH with Reflex to Free T4 (12/30/2024 9:50 AM EDT) [facility] TSH reflex Free T4 0.26(L) 0.32 - 4.0 uIU/mL [facility] 12/30/2024 9:50 AM EDT 12/30/2024 1:25 PM EDT us Generic External Data Provider LAB BLOOD ORDERAB LES Final Result Performing Organization Address [facility] Co de Phone Number [facility] [address] [place] [phone] * Albumin, Random Urine W/Creatinine (12/30/2024 9:50 AM EDT) [facility] Creatinine, Urine 258.17 mg/dL [facility] Microalbumin Urine 5.0 mg/L [facility] Microalbum Creatinine Ratio Ur 1.9 <30 ug/mg cr [facility] Comment:Albumin/Creatinine R atio Reference Ranges: Normal: < 30 ug/mg creatinine Microalbuminuria: 30 - 300 ug/mg creatinineClinical Albuminuria: > 300 ug/mg creatinine Urine (Urine, Random) 12/30/2024 9:50 AM EDT 12/30/2024 1:20 PM EDT us Sandi Ferris DO LAB URINE ORDERABLES Final R esult [facility] [address] [place] [phone] * CBC auto differential (12/30/2024 9:50 AM EDT) White Blood Count 7.8 4.8 - 10.8 X10*3/uL [facility] Red Blood Count 5.07 4.60 - 5.80 X10*6/uL [facility] Hemoglobin 16.5 14.0 - 18.0 g/dl [facility] Hematocrit 47.2 42.0 - 52.0 % [facility] Mean Corpuscular Volume 93.1 80.0 - 98.0 fL [facility] Mean Corpuscular Hemoglobin 32.5 27.0 - 33.0 pg [facility] Mean Corpuscular HGB Conc 35.0 31.0 - 36.0 g/dl [facility] Red Cell Distribution Width 13.0 11.0 - 16.0 % [facility] Platelet Count 322 160 - 400 X10*3/uL [facility] Mean Platelet Volume 9.7 9.4 - 12.4 fL [facility] Neutrophils Percent Auto 57.5 45 - 73 % [facility] Imm Gran Pct Auto 0.3 0.0 - 0.4 % [facility] Lymphocytes Percent Auto 34.7 20 - 40 % [facility] Monocytes Percent Auto 5.2 2 - 11 % [facility] Eosinophils Percent Auto 1.9 0 - 4 % [facility] Basophils Percent Auto 0.4 0 - 2 % [facility] NRBC Pct Auto 0.0 0.0 - 0.2 /100WBC [facility] Neutrophils Absolute Auto 4.5 2.0 - 8.3 x10*3/uL [facility] Imm Gran Abs Auto 0.02 0.00 - 0.03 X10*3/uL [facility] Lymphocytes Absolute Auto 2.7 1.2 - 4.9 X10*3/uL [facility] Monocytes Absolute Auto 0.4 0.1 - 1.2 X10*3/uL [facility] Eosinophils Absolute Auto 0.2 0.0 - 0.4 X10*3/uL [facility] Basophils Absolute Auto 0.0 0.0 - 0.2 X10*3/uL [facility] NRBC Abs Auto 0.000 0.0 - 0.012 X10*3/uL [facility] 12/30/2024 9:50 AM EDT 12/30/2024 1:25 PM EDT us Generic External Data Provider LAB BLOOD ORDERAB LES Final Result Performing Organization Address City/[facility]/ZIP Co de Phone Number [facility] [address] [place] [address] [phone] * Hepatitis C Antibody with Reflex to HCV, RNA, Quantitative, Real-Time PCR (12/30/2024 9:50 AM EDT) Hepatitis C Antibody Nonreactive Nonreactive [facility] Comment:Antibodies to HCV no t detected; does not exclude early acuteHCV infection. Blood Venous blood specimen / Unknown 12/30/2024 9:50 AM EDT 12/30/2024 1:25 PM EDT us Sandi Ferris DO LAB BLOOD ORDERABLES Final R esult [facility] [address] [place] [phone] * Hepatitis A Antibody, Total (12/30/2024 9:50 AM EDT) Hepatitis A Antibody IgG Nonreactive Nonreactive [facility] Blood Venous blood specimen / Unknown 12/30/2024 9:50 AM EDT 12/30/2024 1:25 PM EDT Sandi Ferris DO LAB BLOOD ORDERABLES Final R esult Performing Organization Address [facility] Co de Phone Number [facility] [address] [place] [phone] * Hepatitis B surface antigen, EIA (12/30/2024 9:50 AM EDT) Hepatitis B Surface Ag Negative Negative [facility] Blood Venous blood specimen / Unknown 12/30/2024 9:50 AM EDT 12/30/2024 1:25 PM EDT Sandi Ferris DO LAB BLOOD ORDERABLES Final R esult Performing Organization Address [facility] Co de Phone Number [facility] [address] [place] [phone] * Hepatitis B Core Antibody, Total (12/30/2024 9:50 AM EDT) Hepatitis B Core Antibody Nonreactive Nonreactive [facility] Blood Venous blood specimen / Unknown 12/30/2024 9:50 AM EDT 12/30/2024 1:25 PM EDT Sandi Ferris DO LAB BLOOD ORDERABLES Final R esult Performing Organization Address [facility] Co de Phone Number [facility] [address] [place] [address] [phone] * RPR (Monitor) with Reflex to??Titer (12/30/2024 9:50 AM EDT) RPR (Monitor) w/Refl Titer NON-REACTI VE NON-REACT JEFF [facility] Comment:THIS TEST WAS PERFOR MED AT:[employer] [address] [id number] CARLOS MD Rapid Plasma Reagin Ab Titer TNP [facility] Blood Venous blood specimen / Unknown 12/30/2024 9:50 AM EDT 12/30/2024 1:25 PM EDT us Sandi Ferris DO LAB BLOOD ORDERABLES Final R esult Performing Organization Address City/[facility]/ZIP Co de Phone Number [facility] [address] [place] [address] [phone] * (ABNORMAL) Oxcarbazepine Metabolite (12/30/2024 9:50 AM EDT) 10 Hydroxycarbazepine 1.9(A) 8.0 - 35.0 mcg/mL [facility] Comment:THIS TEST WAS PERFOR MED AT:[employer] [place] [address]OTMOIOQCHUCK FERRELL MD,PHD 12/30/2024 9:50 AM EDT 12/30/2024 1:25 PM EDT us Generic External Data Provider LAB BLOOD ORDERAB LES Final Result Performing Organization Address [facility]/ZIP Co de Phone Number [facility] [address] [place] [address] [phone] * (ABNORMAL) Levetiracetam (12/30/2024 9:50 AM EDT) Levetiracetam 3.1(A) 6.0 - 46.0 mcg/mL [facility] Comment:Brivaracetam (Brivia ct(R), Rikelta(R)) exhibitssignificant cross- reactivity in the Levetiracetam(Keppra(R), Spritam(R)) immunoassay. If Brivaracetamhas been prescribed, order test code [id number] by [facility].THIS TEST WAS PERFORMED AT:[employer] [id number] [place] [address]QEBFMRGCHUCK FERRELL MD,PHD 12/30/2024 9:50 AM EDT 12/30/2024 1:25 PM EDT us Generic External Data Provider LAB BLOOD ORDERAB LES Final Result Performing Organization Address [facility] Co de Phone Number [facility] [address] [place] [phone] * HIV-1/2 Antigen and Antibodies, Fourth Generation, with Reflexes (12/30/2024 9:50 AM EDT) HIV AB/AG Nonreactive Nonreactive [facility] Comment:HIV-1 p24 Ag and/or HIV-1/HIV-2 Ab not detected.A test result that is nonreactive does not exclude thepossibility of exposure to or infection with HIV-1 and/orHIV-2. Nonreactive results in this assay for individualswith prior exposure to HIV-1 and/or HIV-2 may be due toantigen and antibody levels that are below the limit ofdetection of this assay.The Quickcuenity HIV Ag/Ab Combo assay result andsupplemental assay results should be interpreted inconjunction with the patient's clinical presentation,history and other laboratory results. If the results areinconsistent with clinical evidence, additional testing issuggested to confirm the result. Blood Venous blood specimen / Unknown 12/30/2024 9:50 AM EDT 12/30/2024 1:25 PM EDT us Sandi Ferris DO LAB BLOOD ORDERABLES Final R esult [facility] [address] [place] [phone] * Hepatitis B Surface Antibody, Qualitative (12/30/2024 9:50 AM EDT) [facility] ~Hepatitis B Surface Antibody NONREACTIVE Nonreactive [facility] Comment:Nonreactive: < 8.00 mIU/mL Blood Venous blood specimen / Unknown 12/30/2024 9:50 AM EDT 12/30/2024 1:25 PM EDT us Sandi Ferris DO LAB BLOOD ORDERABLES Final R esult Performing Organization Address [facility] Co de Phone Number [facility] [address] [place] [phone] * T3, Total (12/30/2024 9:50 AM EDT) Pathologist [facility] T3, Total 101 76 - 181 ng/dL [facility] Comment:THIS TEST WAS PERFOR MED AT:[employer] [place] [id number] CARLOS MD 12/30/2024 9:50 AM EDT 12/30/2024 1:25 PM EDT us Generic External Data Provider LAB BLOOD ORDERAB LES Final Result Performing Organization Address [facility] Co de Phone Number [facility] [address] [place] [phone] * (ABNORMAL) TSH (12/30/2024 9:50 AM EDT) [facility] Thyroid Stimulating Hormone 0.26(L) 0.32 - 4.0 uIU/mL [facility] Comment:TSH 3rd Generation ( [facility]) Blood Venous blood specimen / Unknown 12/30/2024 9:50 AM EDT 12/30/2024 1:25 PM EDT us Sandi Ferris DO LAB BLOOD ORDERABLES Final R esult Performing Organization Address [facility]/ZIP Co de Phone Number [facility] [address] [place] [phone] * T4, Free (12/30/2024 9:50 AM EDT) Free T4 (Free Thyroxine) 1.00 0.71 - 1.85 ng/dL [facility] Blood Venous blood specimen / Unknown 12/30/2024 9:50 AM EDT 12/30/2024 1:25 PM EDT Sandi Ferris LAB BLOOD ORDERABLES Final R esult Performing Organization Address [facility] de Phone Number [facility] [address] [place] [phone] * (ABNORMAL) Vitamin B6, Plasma (12/30/2024 9:50 AM EDT) Pathologist [facility] Vitamin B6 95.8(A) 2.1 - 21.7 ng/mL [facility] Comment:Vitamin supplementat ion within 24 hours prior toblood draw may affect the accuracy of the results.This test was developed and its analytical performancecharacteristics have been determined by [employer] [place], [place]. It hasnot been cleared or approved by the U.S. Food and DrugAdministration. This assay has been validated pursuantto the CLIA regulations and is used for clinicalpurposes.THIS TEST WAS PERFORMED AT:[employer] [place] [address]DBTVEHACHUCK FERRELL MD,PHD 12/30/2024 9:50 AM EDT 12/30/2024 1:25 PM EDT Generic External Data Provider LAB BLOOD ORDERAB LES Final Result Performing Organization Address [facility] Co de Phone Number [facility] [address] [place] [phone] * (ABNORMAL) Phosphate (As Phosphorus) (12/30/2024 9:50 AM EDT) Phosphorus 1.9(L) 2.7 - 4.5 mg/dL [facility] 12/30/2024 9:50 AM EDT 12/30/2024 1:25 PM EDT Generic External Data Provider LAB BLOOD ORDERAB LES Final Result Performing Organization Address City/[facility]/ZIP Co de Phone Number [facility] [address] [place] [phone] * Magnesium (12/30/2024 9:50 AM EDT) Magnesium 2.1 1.6 - 2.6 mg/dL [facility] 12/30/2024 9:50 AM EDT 12/30/2024 1:25 PM EDT Generic External Data Provider LAB BLOOD ORDERAB LES Final Result Performing Organization Address [facility] Co de Phone Number [facility] [address] [place] [phone] * Hemoglobin A1c (12/30/2024 9:50 AM EDT) Hemoglobin A1c 5.0 <6.0 % [facility] Comment:Hemoglobin A1C Refer ence Range Adults: 4.8 - 6.0 % Non diabetic: < 6.0 % Goal: < 7.0 %Additional Action Suggested: > 8.0 %Note: Hemoglobin A1c results are invalid for patients with abnormal amounts of HbF. Blood transfusions may impact the HbA1c concentration in the patient sample. Estimated Average Glucose 97 mg/dL [facility] Comment:eAG = Estimated ave rage glucose which is %A1C expressed asaverage glucose, using the formula of the Z5C-LgxdmloBqcymsw Glucose study (ADAG), Diabetes Care, Vol.31,#8,2007 Blood Venous blood specimen / Unknown 12/30/2024 9:50 AM EDT 12/30/2024 1:25 PM EDT us Sandi Ferris DO LAB BLOOD ORDERABLES Final R esult Performing Organization Address [facility] Co de Phone Number [facility] [address] [place] [phone] * (ABNORMAL) Phenytoin level, free (12/30/2024 9:50 AM EDT) Phenytoin, Free 0.7(A) 1.0 - 2.0 mg/L [facility] Comment:THIS TEST WAS PERFOR MED AT:[employer] [place] [id number] CARLOS MD 12/30/2024 9:50 AM EDT 12/30/2024 1:25 PM EDT us Generic External Data Provider LAB BLOOD ORDERAB LES Final Result Performing Organization Address [facility] de Phone Number [facility] [address] [place] [phone] * (ABNORMAL) Phenytoin (12/30/2024 9:50 AM EDT) Phenytoin Dilantin 8.6(L) 10.0 - 20.0 ug/mL [facility] 12/30/2024 9:50 AM EDT 12/30/2024 1:25 PM EDT us Generic External Data Provider LAB BLOOD ORDERAB LES Final Result Performing Organization Address [facility] Co de Phone Number [facility] [address] [place] [phone] * Hepatic Function Panel (12/30/2024 9:50 AM EDT) Bilirubin, Direct 0.2 0.0 - 0.5 mg/dL [facility] Blood Venous blood specimen / Unknown 12/30/2024 9:50 AM EDT 12/30/2024 1:25 PM EDT Sandi Ferris LAB BLOOD ORDERABLES Final R esult Performing Organization Address City/[facility]/ZIP Co de Phone Number [facility] [address] [place] [phone] * (ABNORMAL) Lipid Panel, Standard (12/30/2024 9:50 AM EDT) Triglycerides 177(H) <150 mg/dL [facility] Comment:Desirable Triglyceri de: less than 150 mg/dLBorderline High Triglyceride 150-199 mg/dLHigh Triglyceride: 200-499 mg/dLVery High Triglyceride: greater than or equal to 5OO mg/dL Cholesterol 200(H) <200 mg/dL [facility] Comment:Desirable Cholestero l: less than 200 mg/dLBorderline High Cholesterol: 200-239 mg/dLHigh Cholesterol: greater than 239 mg/dL LDL Cholesterol Calculated 127(H) <100 mg/dL [facility] Comment:Desirable LDL: less than 100 mg/dLNear Optimal/Above Optimal LDL: 110- 129 mg/dLBorderline High LDL: 130-159 mg/dLHigh LDL: 160-189 mg/dLVery High LDL: greater than or equal to 190 mg/dL HDL Cholesterol 38(L) >40 mg/dL [facility] Comment:Desirable HDL: great er than 40 mg/dL Note: This HDL assay may give artificially low results in patients with liver disease. Blood Venous blood specimen / Unknown 12/30/2024 9:50 AM EDT 12/30/2024 1:25 PM EDT Sandi Ferris LAB BLOOD ORDERABLES Final R esult Performing Organization Address City/[facility]/ZIP Co de Phone Number [facility] [address] [place] [phone] * Comprehensive Metabolic Panel (12/30/2024 9:50 AM EDT) Sodium 141 135 - 145 mmol/L [facility] Potassium 4.0 3.3 - 5.1 mmol/L [facility] Chloride 106 96 - 108 mmol/L [facility] Carbon Dioxide 25 22 - 29 mmol/L [facility] Anion Gap 14 12 - 20 [facility] Urea Nitrogen (BUN) 9 9 - 16 mg/dL [facility] Creatinine, Serum 0.87 0.5 - 1.4 mg/dL [facility] Estimated Glomerular Filt Rate >60 [facility] Comment:Chronic Kidney Disea se: Estimated GFR < 60 mL/min/1.79n5Bvxucg Kidney Disease: Estimated GFR < 15 mL/min/1.73m2 Glucose 94 60 - 115 mg/dL [facility] Calcium 9.2 8.4 - 10.2 mg/dL [facility] Bilirubin, Total 0.5 0.0 - 1.0 mg/dL [facility] Aspartate Amino Transferase 29 5 - 37 U/L [facility] Alanine Aminotransferase 23 0 - 40 U/L [facility] Total Protein 7.3 6.5 - 8.0 g/dL [facility] Albumin Level 4.6 3.5 - 5.0 g/dL [facility] Alkaline Phosphatase 71 39 - 117 U/L [facility] 12/30/2024 9:50 AM EDT 12/30/2024 1:25 PM EDT us Generic External Data Provider LAB BLOOD ORDERAB LES Final Result [facility] [address] [place] [phone] from Last 3 Months Insurance [facility] [employer] * Guarantor: Luis Mckeon Account Type Relation to Patient Date of Phone Billing Address Personal/Family Self [address] Care Teams Livestock Exhibitor Relationship Specialty Start Date End Date Sandi Ferris DO [address] [place] [address] PCP - General Family Medicine 11/10/12
--- OUTSIDE RECORDS SUMMARY | 2025-02-12 20:28 | XMS_ITS | Encounter Summary ---
Author Organization [employer] Address [address] [place] [address] [address] [place] [address] Care Team Providers Care Phone Triage Specialist Name Role Phone Sandi Ferris DO Primary Care Provider + [phone] Reason for Visit * Reason Onset Date Comments Nurse Triage 05/06/2024 Encounter Details Date Type Department Care Team ([facility] st Contact Info) Description 05/06/2024 Telephone [facility] [address] [place], [place] [phone] Sandi Ferris DO [address] [place], [place] [phone] Nurse Triage Social History Tobacco Use Types [...] 05/06/2024 3:44 PM EST Request ED report [facility] medical for 05/10/24 for Pt chart. Triage call Pt reports two seizures recently, 04/28/24 and 05/10/24. Pt reports taking medication as prescribed, no missed doses. Report from [place] is on the chart from 04/28/24 visit. Pt went to [facility] 05/10/24 for second seizure. Pt reports the [...] documented in this encounter Plan of Treatment Upcoming Encounters Date Type Department Care Team (Late st Contact Info) Description 05/27/2025 2:00 PM EST Office Visit [facility] [address] [place] [address] Ning Crandall, OD [address] [place] [address] documented as of this encounter Visit Diagnoses Not on filedocumented in this encounter Additional Health Concerns Assessment Noted Time PHQ-9 Depression Total Score: 2 11/22/19 24 11:52 AM EDT documented as of this encounter Care Teams Phone Triage Specialist Relationship Specialty Start Date End Date Sandi Ferris DO [address] [place] [address] PCP - General Family Medicine 11/10/12 documented as of this encounter
--- OUTSIDE RECORDS SUMMARY | 2025-02-12 20:28 | XMS_ITS | Encounter Summary ---
Author Organization [employer] Address [address] [place] [address] 7 [place] [address] Care Team Providers Care Tray Worker Name Role Phone Sandi Ferris DO Primary Care Provider + [phone] Reason for Visit * Reason Comments Med Refill Encounter Details Date Type Department Care Team ([facility] st Contact Info) Description 01/31/2025 Refill [facility] [address] [place], [place] [phone] Sandi Ferris DO [address] [place], [place] [phone] Hyperlipidemia, unspecified hyperlipidemia type Social History Tobacco Use Types Packs/Day Years [...] as of this encounter Plan of Treatment Upcoming Encounters Date Type Department Care Team (Late st Contact Info) Description 05/27/2025 2:00 PM EST Office Visit [facility] OPT[facility]ET[facility] [address] [place] [address] Tarka, Ning, OD [address] [place] [address] documented as of this encounter Visit Diagnoses Diagnosis Hyperlipidemia, unspecified hyperlipidemia type documented in this encounter Additional Health Concerns Assessment Noted Time PHQ-9 Depression Total Score: 15 025 9:37 AM EDT documented as of this encounter Care Teams Tray Worker Relationship Specialty Start Date End Date Sandi Ferris DO [address] [place] [address] PCP - General Family Medicine 11/10/12 documented as of this encounter
--- OUTSIDE RECORDS SUMMARY | 2025-02-12 20:28 | XMS_ITS | Encounter Summary ---
Author Organization [employer] Address [address] [place] [address], [place] [address] Care Team Providers Care Plane Tableman Name Role Phone Sandi Ferris DO Primary Care Provider + [phone] Reason for Visit * Reason Onset Date Comments Appointment Request 06/12/2023 Encounter Details Date Type Department Care Team ([facility] st Contact Info) Description 06/12/2023 Telephone [facility] [address] [place], [place] [phone] Sandi Ferris DO [address] [place], [place] [phone] Appointment Request Social History Tobacco Use Types [...] with others, in a hotel, in a long-term, living outside on the street, on a [...] they are not satisfied. Please contact at [phone] * Telephone Encounter - Cal Guzman - 06/12/2023 1:21 PM EST Tc from pt requesting to r/s OV on 06/12/2023 for HTN . Please contact pt @ [phone] documented in this encounter Plan of Treatment Upcoming Encounters Date Type Department Care Team (Late st Contact Info) Description 05/27/2025 2:00 PM EST Office Visit [facility] OPTOMETRY [address] [place], [place] [phone] Ning Crandall, OD [address] [place] [address] documented as of this encounter Visit Diagnoses Not on filedocumented in this encounter Additional Health Concerns Assessment Noted Time PHQ-9 Depression Total Score: 1 08/15/19 11:43 AM EDT documented as of this encounter Care Teams Plane Tableman Relationship Specialty Start Date End Date Sandi Ferris DO [address] [place] [address] PCP - General Family Medicine 11/10/12 documented as of this encounter
--- OUTSIDE RECORDS SUMMARY | 2025-02-12 20:28 | XMS_ITS | Encounter Summary ---
Author Organization [employer] Address [address] [facility] [address] [place] [address] Care Team Providers Care Feed Preparation Operator Name Role Phone [place] Sandi Primary Care Provider + [phone] Encounter Details Date Type Department Care Team (Late st Contact Info) Description 09/28/2024 Orders Only [facility] [address] [place], [place] [phone] Freddy Boswell, PharmD [address] [place], [place] [phone] Social History Tobacco Use Types Packs/Day Years [...] Description 05/27/2025 2:00 PM EST Office Visit [facility] OPTOMETRY [address] [place] [address] Ning Crandall, OD [address] [place] [address] documented as of this encounter Visit Diagnoses Not on filedocumented in this encounter Additional Health Concerns Assessment Noted Time PHQ-9 Depression Total Score: 2 11/22/19 24 11:52 AM EDT documented as of this encounter Care Teams Feed Preparation Operator Relationship Specialty Start Date End Date Sandi Ferris DO [address] [place] [address] PCP - General Family Medicine 11/10/12 documented as of this encounter
--- OUTSIDE RECORDS SUMMARY | 2025-02-12 20:28 | XMS_ITS | Encounter Summary ---
Author Organization [employer] Address [address] [place] [address] [address] [place] [address] Care Team Providers Care Lead Cytogenetic Technologist Name Role Phone Sandi Ferris DO Primary Care Provider + [phone] Reason for Visit * Reason Onset Date Comments Chart Prep 02/08/2025 Encounter Details Date Type Department Care Team ([facility] st Contact Info) Description 02/08/2025 Telephone [facility] [address] [place], [place] [phone] Sandi Ferris DO [address] [place], [place] [phone] Chart Prep Social History Tobacco Use Types Packs/Day Years [...] encounter Miscellaneous Notes * Telephone Encounter - Gloria Heath [place] - 02/08/2025 8:57 AM EDT Chart Prep Labs: done Images: not applicable Referrals: appointment pending Vaccines due: Flu, Hep B, Hep A, and HPV Screenings: not applicable Overdue care gaps: PHQ-9 and RICCARDO-7 documented in this encounter Plan of Treatment Upcoming Encounters Date Type Department Care Team (Late st Contact Info) Description 05/27/2025 2:00 PM EST Office Visit [facility] [address] [place] [address] Ning Crandall, OD [address] [place] [address] documented as of this encounter Visit Diagnoses Not on filedocumented in this encounter Additional Health Concerns Assessment Noted Time PHQ-9 Depression Total Score: 15 025 9:37 AM EDT documented as of this encounter Care Teams Lead Cytogenetic Technologist Relationship Specialty Start Date End Date Sandi Ferris DO [address] [place] [address] PCP - General Family Medicine 11/10/12 documented as of this encounter
--- OUTSIDE RECORDS SUMMARY | 2025-02-12 20:28 | XMS_ITS | Encounter Summary ---
Author Organization [employer] Address [address] [place] [address] [address] [place] [address] Care Team Providers Care Machine Sorter Name Role Phone Sandi Ferris DO Primary Care Provider + [phone] Reason for Visit * Reason Onset Date Comments Hospital Follow-up 09/25/2024 Encounter Details Date Type Department Care Team ([facility] st Contact Info) Description 09/25/2024 Telephone [facility] MED[facility]INE [address] [place], [place] [phone] Sandi Ferris DO [address] [place], [place] [phone] Hospital Follow-up Social History Tobacco Use Types Packs/Day Years [...] encounter Miscellaneous Notes * Telephone Encounter - Juan Luis Klein - 09/25/2024 9:31 AM EDT Tc from pt requesting a HDF appt. Hospital: [facility] Date of admission: 09/19/24 Discharge date: 09/20/24 Diagnosed: 3 unprovoked seizures *Send message to [place] Clinical Care Coordinators documented in this encounter Plan of Treatment Upcoming Encounters Date Type Department Care Team (Late st Contact Info) Description 05/27/2025 2:00 PM EST Office Visit [facility] [address] [place] [address] Ning Crandall, OD [address] [place] [address] documented as of this encounter Visit Diagnoses Not on filedocumented in this encounter Additional Health Concerns Assessment Noted Time PHQ-9 Depression Total Score: 2 11/22/19 24 11:52 AM EDT documented as of this encounter Care Teams Machine Sorter Relationship Specialty Start Date End Date Sandi Ferris DO [address] [place] [address] PCP - General Family Medicine 11/10/12 documented as of this encounter
--- OUTSIDE RECORDS SUMMARY | 2025-02-12 20:28 | XMS_ITS | Encounter Summary ---
Author Organization [employer] Address [address] [facility] 7t [place] [address] Care Team Providers Care Diamond Setter Name Role Phone Barrington Sandi Primary Care Provider + [phone] Encounter Details Date Type Department Care Team (Late st Contact Info) Description 02/12/2025 Orders Only [facility] [place] External Provider, [facility] Social History Tobacco Use Types Packs/Day Years [...] Description 05/27/2025 2:00 PM EST Office Visit [facility] [address] [place] [address] Tarka Ning, OD [address] [place] [address] documented as of this encounter Procedures Procedure Name Priority Date/Time Associated Diagnosis Comments XR HAND 3+ VIEWS RIGHT Routine 02/12/2025 5:49 PM EDT documented in this encounter Results * XR Hand 3+ Views Right (02/12/2025 5:49 PM EDT) Anatomical Region Laterality Modality Upper Extremities, Hand Right Radiogra phic Imaging 02/12/2025 5:49 PM EDT Narrative 02/12/2025 5:50 PM EDT [address] [address] XRay Report Signed Patient: Luis Mckeon MR#: [id number] : 1980 Acct:[id number] Age/Sex: 44 / M ADM Date: 02/12/25 Loc: .ED Attending Dr: Ordering Physician: Gelacio Stinson Date of Service: 02/12/25 Procedure(s): XR hand RT min 3V Accession Number(s): [id number] cc: Sandi Ferris DO; Gelacio Stinson Reason [...] signed by Yoon Huber MD in OV> 02/12/25 175 DD/ 48 TD/TT: 02/12/251748 Board Filler: Procedure Note Donotkofiinterpreter, Image - 02/12/2025 [place] [address] XRay Report Signed Patient: Tylor Mckeon#: [id number] : 1980Acct:[id number] Age/Sex: 44 / MADM Date: 02/12/25 Loc: .ED Attending Dr: Ordering Physician: Gelacio Stinson Date of Service: 02/12/25 Procedure(s): XR hand RT min 3V Accession Number(s): [id number] cc: Sandi Ferris DO; Gelacio Stinson Reason [...] in OV> 02/12/251749 DD/ 48 TD/TT: 02/12/251748 Board Filler: [facility] External Provider IMG XR PROCEDURES Final Result documented in this encounter Visit Diagnoses Not on filedocumented in this encounter Additional Health Concerns Assessment Noted Time PHQ-9 Depression Total Score: 15 025 9:37 AM EDT documented as of this encounter Care Teams Diamond Setter Relationship Specialty Start Date End Date Sandi Ferris DO [address] [place] [address] PCP - General Family Medicine 11/10/12 documented as of this encounter
--- OUTSIDE RECORDS SUMMARY | 2025-02-12 20:28 | XMS_ITS | Encounter Summary ---
Author Organization [employer] Address [address] [place] [address] 7 [place] [address] Care Team Providers Care Mechanical Design Drafter Name Role Phone BarringtonSandi Primary Care Provider + [phone] Reason for Visit * Reason Comments Med Refill Encounter Details Date Type Department Care Team ([facility] st Contact Info) Description 01/11/2025 Refill [facility] MEDICINE [address] [place], [place] [phone] Edwina Cain MD [address] [place] [address] Seizure disorder (CMS/HCC) Social History Tobacco Use Types Packs/Day Years [...] your housing situation today? I have carmine blayne 11/22/[address] you li [...] Description 05/27/2025 2:00 PM EST Office Visit [facility] OPTOMETRY [address] [place] [address] Ning Crandall, OD [address] [place] [address] documented as of this encounter Visit Diagnoses Diagnosis Seizure disorder (CMS/HCC) Unspecified epilepsy without mention of intractable epilepsy documented in this encounter Additional Health Concerns Assessment Noted Time PHQ-9 Depression Total Score: 15 025 9:37 AM EDT documented as of this encounter Care Teams Mechanical Design Drafter Relationship Specialty Start Date End Date Sandi Ferris DO [address] [place] [address] PCP - General Family Medicine 11/10/12 documented as of this encounter
--- NOTE | 2025-02-12 20:38 | PC.NURSE ---
Pt called multiple times for a bed, no longer in ED. LWCT.
== END 2025-02-12 20:39 | disposition left against medical advice (07) ==
PROVIDERS: Emergency Provider Emergency Medicine; PCP Family Medicine
DX: S69.91XA Unspecified injury of right wrist, hand and finger(s), initial encounter (principal); X58.XXXA Exposure to other specified factors, initial encounter; Y93.9 Activity, unspecified; Y92.9 Unspecified place or not applicable; Y99.9 Unspecified external cause status; J34.89 Other specified disorders of nose and nasal sinuses; G40.909 Epilepsy, unspecified, not intractable, without status epilepticus; F14.90 Cocaine use, unspecified, uncomplicated; F12.90 Cannabis use, unspecified, uncomplicated
CPT/HCPCS: 73130; 99281; 99283

== ENCOUNTER → 2025-02-12 17:22 | Outpatient (BNV) | payer MEDICARE, MEDICAID, SELFPAY | PROVIDERS: PCP Family Medicine; Visit Provider Radiology Diagnostic Radiology | DX: M79.641 Pain in right hand (principal) | CPT/HCPCS: 73130 ==

== ENCOUNTER 2025-04-04 10:05 | Emergency (ER) | payer MEDICARE, MEDICAID, SELFPAY ==
[2025-04-04 10:21] VITALS: BP 107/58; PULSE 70; RESP 18; TEMP 36.6; O2SAT 96; BMI 26.4
--- OUTSIDE RECORDS SUMMARY | 2025-04-04 11:27 | XMS_ITS | Clinical Summary ---
Author Organization [facility] Address [address] [place] [address] Care Team Providers Care Stone Paver Name Role Phone Unavailable Primary Care Provider [...] of 3 - 19+ 3-dose series) 09/08/1999 HPV Vaccines (1 - 3-dose SCD M series) 09/08/2007 Depression Screening 05/20/2024 COVID-19 Vaccine (1 - 2024-2 6 season) 2025 Influenza Vaccine (#1) 2025 RSV [...]
[2025-04-04] MEDS: Fluorescein Sodium STRIP 1 STRIP EYE-BOTH (12:10)
--- NOTE | 2025-04-04 12:13 | ED.EYEPROB ---
HPI - Eye Problem General Chief complaint: Eye Problems Stated complaint: Eye Issues Irritation Time Seen by Provider: 04/04/25 11:48 Source: patient and science interpreter Mode of arrival: ambulatory Limitations: language barrier History of Present Illness ED Provider: HPI Narrative: Patient presenting with left eye redness and states he had discharge from in his left eye earlier today, has been using eyedrops for allergic conjunctivitis states currently feels better no foreign body sensations no visual loss. Related Data Home Medications ?Medication ?Instructions ?Recorded ?Confirmed atorvastatin 10 mg tablet 10 mg PO DAILY 04/05/23 10/16/24 Previous Rx's ?Medication ?Instructions ?Recorded lisinopril 10 1 tab PO DAILY #30 tabs 11/06/23 mg-hydrochlorothiazide 12.5 mg tablet levetiracetam 500 mg tablet 1,250 mg (2.5 x 500 mg) PO Q12H 30 06/25/24 days #150 tabs pyridoxine (vitamin B6) 50 mg 50 mg PO Q12H 30 days #60 tabs 06/25/24 tablet clonazepam 2 mg disintegrating 2 mg PO DAILY seizure lasting > 2 10/16/24 tablet minutes 30 days #5 tabs phenytoin sodium extended 100 mg 200 mg (2 x 100 mg) PO Q12H 30 01/13/25 capsule days #120 caps lacosamide 50 mg tablet 50 mg PO Q12H 14 days #28 tabs 04/02/25 ofloxacin 0.3 % eye drops See Rx Instructions ophthalmic 04/04/25 (eye) .COMPLEX #5 mL Allergies Allergy/AdvReac Type Severity Reaction Status Date / Time No Known Allergies (No Known Allergy Verified 04/04/25 10:24 Allergies*) Review of Systems Constitutional: Constitutional: Reports as per [facility] Past Medical History Medical History Nasopharyngeal mass Seizure Family History Family History Maternal Aunt Seizure disorder Social History Social History Alcohol intake: never Patient Tobacco Use Status: Never used Tobacco Substance Use Type: Crack/Cocaine and Marijuana Advance Directives: No Advance Directives Information Provided: Yes Do you have a plan to hurt others: No Plan Physical Exam Exam: Exam: No periorbital edema Vision is intact at bedside Pupils 3 mm reactive bilaterally Ophthalmoscopic examination with no abnormal appearing vasculature, present red reflex, with stain no anterior flare cells, slightly injected conjunctiva, negative Markus sign, no corneal abrasion, no foreign bodies, no dendritic lesions Alert and oriented x4 Vital Signs: Vital Signs: Last Vital Signs Temp 97.8 F 04/04/25 10:21 Pulse 70 04/04/25 10:21 Resp 18 04/04/25 10:21 BP 107/58 L 04/04/25 10:21 Pulse Ox 96 04/04/25 10:21 O2 Del Method Room Air 04/04/25 10:21 BMI result Body Mass Index 26.4 Medications Administered Discontinued Medications Generic Name Dose Route Start Last Admin Trade Name Freq PRN Reason Stop Dose Admin Fluorescein Sodium 1 strip 04/04/25 11:50 04/04/25 12:10 Fluorescein Sodium Strip EYE-BOTH 04/04/25 11:51 1 strip ONCE ONE Administration Medical Decision Making Medical Decision Making MDM Narrative: 12:16 PM 04/04/2025 (Dr. Yovani Campos): Ophthalmoscopic and Wood's lamp exam nausea reassuring, this is likely viral conjunctivitis, with some crusting we will prescribe antibiotics if not improving last 2 days, no visual changes nothing to suspect acute angle closure glaucoma foreign bodies there was no trauma and no evidence for preseptal septal cellulitis on physical examination Differential Diagnosis Differential Diagnoses: The differential diagnosis associated with the presentation includes (Corneal abrasion, septal cellulitis, preseptal cellulitis, foreign body, bacterial conjunctivitis) Prescription Management I considered prescription management with: Antibiotic Discharge Plan Discharge Clinical Impression: Acute viral conjunctivitis of left eye Patient Disposition: Home, Self-Care Instructions: Conjunctivitis (ED) Additional Instructions: Physical examination of the eye is consistent likely with a viral conjunctivitis but if the crusting continues in the next 24-48 hours you can start using eyedrops as prescribed, any swelling around the eye, worsening pain visual loss any other concerns come back to the ER Prescriptions: New ofloxacin 0.3 % drops See Rx Instructions .ROUTE .COMPLEX Qty: 5 0RF Rx Instructions: put 1-2 drps into affected eye(s) every 2-4 h x 2 days, then 1-2 drps 4 times/day days 3-7 No Action phenytoin sodium extended 100 mg capsule 200 mg PO Q12H 30 Days Qty: 120 6RF lacosamide 50 mg tablet 50 mg PO Q12H 14 Days Qty: 28 0RF lisinopril-hydrochlorothiazide 10-12.5 mg tablet 1 tab PO DAILY Qty: 30 0RF atorvastatin 10 mg tablet 10 mg PO DAILY levetiracetam 500 mg tablet 1,250 mg PO Q12H 30 Days Qty: 150 3RF pyridoxine (vitamin B6) 50 mg tablet 50 mg PO Q12H 30 Days Qty: 60 6RF clonazepam 2 mg tablet,disintegrating 2 mg PO DAILY 30 Days Qty: 5 0RF Print Language: Slovak
[2025-04-04 12:29] VITALS: BP 137/72; PULSE 75; RESP 16; TEMP 36.6; O2SAT 98
[2025-04-04 12:30] VITALS: BP 137/72; PULSE 75; RESP 16; TEMP 36.6; O2SAT 98
== END 2025-04-04 12:30 | disposition home or self-care (01) ==
PROVIDERS: Emergency Provider Emergency Medicine; PCP Family Medicine
DX: B30.9 Viral conjunctivitis, unspecified (principal)
CPT/HCPCS: 99283

== ENCOUNTER 2025-04-10 16:32 | Emergency (ER) | payer MEDICARE, MEDICAID, SELFPAY ==
--- OUTSIDE RECORDS SUMMARY | 2025-04-05 15:30 | XMS_ITS | Encounter Summary ---
Author Organization [employer] Address [address] [place] [address] 7 [place] [address] Care Team Providers Care Jumbo Operator Name Role Phone Barrington Sandi Primary Care Provider + [phone] Reason for Visit * Reason Comments ED RN VISIT Encounter Details Date Type Department Care Team (Latest Contact Info) Description 04/05/2025 3:30 PM EST Telemedicine [facility] MEDICINE [address] [place], [place] [phone] Kajal Johnson, RN [address] [place] [address] Acute conjunctivitis of left eye, unspecified acute conjunctivitis type Social History Tobacco Use Types Packs/Day [...] as of this encounter Progress Notes * Kajal Johnson RN - 04/05/2025 3:30 PM EST Transition of Care Note is going through a recent transition of care. Hospital Discharges and Admission for [facility] Type of Visit: Emergency Department Date of Admission/Visit: 04/04/25 Date of Discharge: 04/04/25 Facility: [facility] Diagnosis: Conjunctivitis Disposition: Discharged Home Follow-Up Actions Follow-Up Needed: None/self-monitoring Follow-Up Outcome: Spoke to Patient Initial Contact Date: 04/05/25 The full discharge summary is available in Care Everywhere. Recent Visits Date Type Provider Dept 11/27/24 Office Visit Sandi Ferris DO [facility] Medicine 10/01/24 Office Visit Edwina Luis MD [facility] Medicine 06/03/24 Office Visit Sandi Ferris DO [facility] Medicine 11/22/23 Office Visit Sandi Ferris DO [facility] Medicine Showing recent visits within past 540 days with a meds authorizing provider and meeting all other requirements Future Appointments No visits were found meeting these conditions. Showing future appointments within next 150 days with a meds authorizing provider and meeting all other requirements ED note reviewed, pt. Went to ED 04/04/25 with complaints of L eye redness with drainage. Using allergy eye drops without positive effect. Diagnosis conjunctivitis and prescribed antibiotic eye drops. TC placed to pt. Pt. Reports he picked up eye drops approx 4 hours ago and has used one dose. No improvement in symptoms yet but not worsening or spreading. Pt. Will continue with full course of 7 days of drops and call clinic if symptoms are not improved or are worsening at any time. documented in this encounter Plan of Treatment Upcoming Encounters Date Type Department Care Team (Late st Contact Info) Description 05/27/2025 2:00 PM EST Office Visit [facility] OPTOMETRY [address] [place], [place] [phone] Ning Crandall, FANNY [address] [place], [place] [phone] documented as of this encounter Visit Diagnoses Diagnosis Acute conjunctivitis of left eye, unspecified acute conjunctivitis type documented in this encounter Additional Health Concerns Assessment Noted Time PHQ-9 Depression Total Score: 15 025 9:37 AM EDT documented as of this encounter Care Teams Jumbo Operator Relationship Specialty Start Date End Date Sandi Ferris DO [address] [place], [place] [phone] PCP - General Family Medicine 11/10/12 documented as of this encounter
[2025-04-10 16:35] VITALS: BP 115/79; PULSE 97; RESP 18; TEMP 36.6; O2SAT 98; BMI 26.4
--- OUTSIDE RECORDS SUMMARY | 2025-04-10 18:01 | XMS_ITS | Encounter Summary ---
Author Organization [employer] Address [address] [facility] 7t [place] [address] Care Team Providers Care Grain Farmworker Name Role Phone Barrington Sandi Primary Care Provider + [phone] Encounter Details Date Type Department Care Team (Late st Contact Info) Description 09/28/2024 Orders Only [facility] MEDICINE [address] [place], [place] [phone] Freddy Boswell, PharmD [address] [place], [place] [phone] Social History Tobacco Use Types Packs/Day Years [...] Description 05/27/2025 2:00 PM EST Office Visit [facility] OPTOMETRY [address] [place] [address] Ning Crandall, OD [address] [place] [address] documented as of this encounter Visit Diagnoses Not on filedocumented in this encounter Additional Health Concerns Assessment Noted Time PHQ-9 Depression Total Score: 2 11/22/19 24 11:52 AM EDT documented as of this encounter Care Teams Grain Farmworker Relationship Specialty Start Date End Date Sandi Ferris DO [address] [place] [address] PCP - General Family Medicine 11/10/12 documented as of this encounter
--- OUTSIDE RECORDS SUMMARY | 2025-04-10 18:01 | XMS_ITS | Encounter Summary ---
Author Organization [employer] Address [address] [place] [address] [address], [place] [address] Care Team Providers Care Steam Pipe Fitter Name Role Phone Sandi Ferris DO Primary Care Provider + [phone] Reason for Visit * Reason Onset Date Comments Appointment Request 06/12/2023 Encounter Details Date Type Department Care Team ([facility] st Contact Info) Description 06/12/[address] [facility] MEDICINE [address] [place], [place] [phone] Sandi Ferris DO [address] [place], [place] [phone] Appointment Request Social History Tobacco Use Types [...] with others, in a hotel, in a fci, living outside on the street, on a [...] they are not satisfied. Please contact at [phone] * Telephone Encounter - Cal Guzman - 06/12/2023 1:21 PM EST Tc from pt requesting to r/s OV on 06/12/2023 for HTN . Please contact pt @ [phone] documented in this encounter Plan of Treatment Upcoming Encounters Date Type Department Care Team (Late st Contact Info) Description 05/27/2025 2:00 PM EST Office Visit [facility] OPTOMETRY [address] [place], [place] [phone] Ning Crandall, OD [address] [place] [address] documented as of this encounter Visit Diagnoses Not on filedocumented in this encounter Additional Health Concerns Assessment Noted Time PHQ-9 Depression Total Score: 1 08/15/19 11:43 AM EDT documented as of this encounter Care Teams Steam Pipe Fitter Relationship Specialty Start Date End Date Sandi Ferris DO [address] [place] [address] PCP - General Family Medicine 11/10/12 documented as of this encounter
--- OUTSIDE RECORDS SUMMARY | 2025-04-10 18:01 | XMS_ITS | Encounter Summary ---
Author Organization [employer] Address [address] [place] [address] 7 [place] [address] Care Team Providers Care Screen Printing Inspector Name Role Phone Sandi Ferris DO Primary Care Provider + [phone] Reason for Visit * Reason Comments Med Refill Encounter Details Date Type Department Care Team ([facility] st Contact Info) Description 01/31/2025 Refill [facility] MEDICINE [address] [place], [place] [phone] Sandi Ferris DO [address] [place], [place] [phone] Hyperlipidemia, unspecified hyperlipidemia type Social History Tobacco [...] PM EST Office Visit [facility] [address] [place] [address] Tarka, Ning, OD [address] [place] [address] documented as of this encounter Visit Diagnoses Diagnosis Hyperlipidemia, unspecified hyperlipidemia type documented in this encounter Additional Health Concerns Assessment Noted Time PHQ-9 Depression Total Score: 15 025 9:37 AM EDT documented as of this encounter Care Teams Screen Printing Inspector Relationship Specialty Start Date End Date Sandi Ferris DO [address] [place] [address] PCP - General Family Medicine 11/10/12 documented as of this encounter
--- OUTSIDE RECORDS SUMMARY | 2025-04-10 18:01 | XMS_ITS | Encounter Summary ---
Author Organization [employer] Address [address] [place] [address] 7 [place] [address] Care Team Providers Care Carnival Worker Name Role Phone BarringtonSandi Primary Care Provider + [phone] Reason for Visit * Reason Comments Med Refill Encounter Details Date Type Department Care Team ([facility] st Contact Info) Description 01/11/2025 Refill [facility] MEDICINE [address] [place], [place] [phone] Edwina Cain MD [address] [place] [address] Seizure disorder (CMS/HCC) Social History Tobacco Use [...] Description 05/27/2025 2:00 PM EST Office Visit [facility] OPTOMETRY [address] [place] [address] Ning Crandall, OD [address] [place] [address] documented as of this encounter Visit Diagnoses Diagnosis Seizure disorder (CMS/HCC) (HCC) Unspecified epilepsy without mention of intractable epilepsy documented in this encounter Additional Health Concerns Assessment Noted Time PHQ-9 Depression Total Score: 15 025 9:37 AM EDT documented as of this encounter Care Teams Carnival Worker Relationship Specialty Start Date End Date Sandi Ferris DO [address] [place] [address] PCP - General Family Medicine 11/10/12 documented as of this encounter
--- OUTSIDE RECORDS SUMMARY | 2025-04-10 18:01 | XMS_ITS | Encounter Summary ---
Author Organization [employer] Address [address] [place] [address] 7 [place] [address] Care Team Providers Care Ladle Filler Name Role Phone Sandi Ferris DO Primary Care Provider + [phone] Reason for Visit * Reason Onset Date Comments Hospital Follow-up 09/25/2024 Encounter Details Date Type Department Care Team ([facility] st Contact Info) Description 09/25/2024 Telephone [facility] MEDICINE 230 [place], [place] [phone] Sandi Ferris DO [address] [place], [place] [phone] Hospital Follow-up Social History Tobacco Use Types [...] from pt requesting a HDF appt. Hospital: [facility] Date of admission: 09/19/24 Discharge date: 09/20/24 Diagnosed: 3 unprovoked seizures *Send message to [facility] Clinical Care Coordinators documented in this encounter Plan of Treatment Upcoming Encounters Date Type Department Care Team (Late st Contact Info) Description 05/27/2025 2:00 PM EST Office Visit [facility] OPTOMETRY [address] [place] [address] Ning Crandall, OD [address] [place] [address] documented as of this encounter Visit Diagnoses Not on filedocumented in this encounter Additional Health Concerns Assessment Noted Time PHQ-9 Depression Total Score: 2 11/22/19 24 11:52 AM EDT documented as of this encounter Care Teams Ladle Filler Relationship Specialty Start Date End Date Sandi Ferris DO [address] [place] [address] PCP - General Family Medicine 11/10/12 documented as of this encounter
--- OUTSIDE RECORDS SUMMARY | 2025-04-10 18:01 | XMS_ITS | Encounter Summary ---
Author Organization [employer] Address [address] [place] [address] 7 [place] [address] Care Team Providers Care Background Check Coordinator Name Role Phone Sandi Ferris DO Primary Care Provider + [phone] Reason for Visit * Reason Comments Med Refill Encounter Details Date Type Department Care Team ([facility] st Contact Info) Description 02/18/2025 Refill [facility] MEDICINE [address] [place], [place] [phone] Sandi Ferris DO 230 [place], [place] [phone] Social History Tobacco Use Types Packs/Day Years [...] Description 05/27/2025 2:00 PM EST Office Visit [facility] OPTOMETRY [address] [place] [address] Tarka, Ning, OD [address] [place] [address] documented as of this encounter Visit Diagnoses Not on filedocumented in this encounter Additional Health Concerns Assessment Noted Time PHQ-9 Depression Total Score: 15 025 9:37 AM EDT documented as of this encounter Care Teams Background Check Coordinator Relationship Specialty Start Date End Date Sandi Ferris DO [address] [place] [address] PCP - General Family Medicine 11/10/12 documented as of this encounter
--- OUTSIDE RECORDS SUMMARY | 2025-04-10 18:01 | XMS_ITS | Encounter Summary ---
Author Organization [employer] Address [address] [facility] 7t [place] [address] Care Team Providers Care Food Concession Manager Name Role Phone BarringtonSandi Primary Care Provider + [phone] Encounter Details Date Type Department Care Team (Latest Contact Info) Description 04/05/2025 Travel Social History Tobacco Use Types Packs/Day [...] PM EST Office Visit [facility] [address] [place], [place] [phone] TarkaNing, OD [address] [place] [address] documented as of this encounter Visit Diagnoses Not on filedocumented in this encounter Additional Health Concerns Assessment Noted Time PHQ-9 Depression Total Score: 15 025 9:37 AM EDT documented as of this encounter Care Teams Food Concession Manager Relationship Specialty Start Date End Date Sandi Ferris DO [address] [place] [address] PCP - General Family Medicine 11/10/12 documented as of this encounter
--- OUTSIDE RECORDS SUMMARY | 2025-04-10 18:01 | XMS_ITS | Encounter Summary ---
Author Organization [employer] Address [address] [place] [address] 7 [place] [address] Care Team Providers Care Education Research Analyst Name Role Phone Sandi Ferris DO Primary Care Provider + [phone] Reason for Visit * Reason Onset Date Comments Nurse Triage 05/06/2024 Encounter Details Date Type Department Care Team ([facility] st Contact Info) Description 05/06/2024 Telephone [facility] MEDICINE 230 [place], [place] [phone] Sandi Ferris DO [address] [place], [place] [phone] Nurse Triage Social History Tobacco Use Types [...] 05/06/2024 3:44 PM EST Request ED report [facility] medical for 05/10/24 for Pt chart. Triage call Pt reports two seizures recently, 04/28/24 and 05/10/24. Pt reports taking medication as prescribed, no missed doses. Report from [facility] is on the chart from 04/28/24 visit. Pt went to [facility] 05/10/24 for second seizure. Pt reports the [...] Description 05/27/2025 2:00 PM EST Office Visit [facility] OPTOMETRY [address] [place] [address] Ning Crandall, OD [address] [place] [address] documented as of this encounter Visit Diagnoses Not on filedocumented in this encounter Additional Health Concerns Assessment Noted Time PHQ-9 Depression Total Score: 2 11/22/19 24 11:52 AM EDT documented as of this encounter Care Teams Education Research Analyst Relationship Specialty Start Date End Date Sandi Ferris DO [address] [place] [address] PCP - General Family Medicine 11/10/12 documented as of this encounter
--- OUTSIDE RECORDS SUMMARY | 2025-04-10 18:01 | XMS_ITS | Clinical Summary ---
Author Organization [employer] Address [address] [place] [address] [address] [place] [address] Care Team Providers Care Back Sizer Name Role Phone Sandi Ferris DO Primary Care Provider + [phone] Allergies No known active allergies Medications * This document contains information received from the source organization and may not represent a complete record from that organization. atorvastatin (Lipitor) 10 MG tabletIndications:H yperlipidemia, unspecified hyperlipidemia type Take 1 tablet by mouth daily 30 tablet 3 5 Active lisinopril-hydroCHL OROthiazide 10-12.5 MG tabletIndications:E ssential hypertension Take 1 tablet by mouth Once per day. 30 tablet 3 5 11/28/19 26 Active OXcarbazepine (Trileptal) 600 MG tablet Take 1.5 tablets (900 mg) by mouth 2 times daily. 90 tablet 3 5 Active phenytoin ER (Dilantin) 100 MG capsule Take 2 capsules (200 mg) by mouth 2 times daily. 120 capsule 3 5 Active hydrOXYzine pamoate (Vistaril) 25 MG capsuleIndications: Major depression, recurrent, chronic (CMS/HCC) Take 1 capsule (25 mg) by mouth every 6 (six) hours if needed for anxiety. 30 capsule 1 5 11/28/19 26 Active levETIRAcetam XR (Keppra XR) 500 MG 24 hr tablet Take 5 tablets by mouth Once per day. 5 Active clonazePAM (KlonoPIN) 2 MG disintegrating tablet Take 1 tablet by mouth if needed each day for seizures (lasting more than 2 minutes). Active Active Problems Problem Noted Date Diagnosed Date Finger deformity, acquired, right 10/01/2024 Hyperlipidemia 06/03/2024 Cocaine use 06/03/2024 History of traumatic brain injury 08/14/2022 Major depression, recurrent, chronic 08/14/2022 Essential hypertension 08/14/2022 Assessment & Plan (10/01/2024 10:04 AM EDT): Refill for blood pressure medication on today Cannabis abuse 02/21/2015 Mood disorder 02/21/2015 Seizure disorder ([facility]) 02/21/2015 Assessment & Plan (10/01/2024 10:04 AM EDT): refill done today continue to follow-up with neurology History of tobacco use 02/21/2015 Encounters Date Type Department Care Team Description 04/05/2025 3:30 PM EST Telemedicine [facility] [address] [place] [phone] Kajal Johnson RN Acute conjunctivitis of left eye, unspecified acute conjunctivitis type 04/05/2025 Travel 03/16/2025 Patient Outreach [facility] [address] [place] [phone] Jonas Pitts Recovery Supports 03/15/2025 Patient Outreach [facility] [address] [place] [phone] Tj Bill Recovery Supports 02/18/2025 Refill [facility] [address] [place] [phone] Sandi Ferris DO 02/12/2025 Orders Only [facility] External Provider, [facility] 02/08/2025 Telephone [facility] [address] [place] [address] Sandi Ferris DO Chart Prep 01/31/2025 Refill [facility] [address] [place] [address] Sandi Ferris DO Hyperlipidemia, unspecified hyperlipidemia type 01/14/2025 Telephone [facility] [address] [place] [phone] Sandi Ferris DO Referral 01/11/2025 Refill [facility] [address] [place] [address] Edwina Cain MD Seizure disorder ([facility]/HCC) 01/11/2025 Patient Outreach [facility] [address] [place] [address] Sandi Ferris DO Transition Of Care (Tcm) (HDF scheduled and SDOH screening completed on 10/01/24 ) from Last 3 Months Immunizations Immunization Administration [...] your housing situation today? I have carmine sing 11/22/[address] you li [...] Description 05/27/2025 2:00 PM EST Office Visit [facility]OM[facility]RY [address] [place] [address] Ning Crandall, OD [address] [place] [address] Health Maintenance Due Date Last Done Comments Family Planning (PISQ) 09/08/1995 HPV Vaccines (1 - Male 3-dose series) 09/08/1995 Hepatitis A Vaccines (1 of 2 - Risk 2-dose series) 09/08/1999 Hepatitis B Vaccines (1 of 3 - 19+ 3-dose series) 09/08/1999 COVID-19 Vaccine ( season) 2025 06/03/2024, 08/14/2022, 10/24/2020, Additional history exists Influenza Vaccine (#1) 2025 , 01/30/2023, 08/14/2022, [...] on patient's age to complete this topic HIV Screening Completed 12/30/2024, 11/17, 11/02/2020 Hepatitis [...] VIEWS RIGHT Routine 02/12/2025 5:49 PM EDT HEPATITIS C AB W/REFL TO HCV RNA, [...] procreative management and counseling for gestational carrier LIPID PANEL, STANDARD Routine 12/30/2024 9:50 AM EDT Essential hypertension Other hyperlipidemia Seizure disorder (CMS/HCC) Major depression, recurrent, chronic (CMS/HCC) Finger deformity, acquired, right Healthcare maintenance Hyperlipidemia, unspecified hyperlipidemia type from Last 3 Months or Most Recently Relevant to Health Maintenance Results * XR Hand 3+ Views Right (02/12/2025 5:49 PM EDT) Anatomical Region Laterality Modality Upper Extremities, Hand Right [facility] 02/12/2025 5:49 PM EDT Narrative 02/12/2025 5:50 PM EDT [address] [address] XRay Report Signed Patient: Luis Mckeon MR#: [id number] : 1980 Acct:[id number] Age/Sex: 44 / M ADM Date: 02/12/25 Loc: HO.ED Attending Dr: Ordering Physician: Gelacio Stinson Date of Service: 02/12/25 Procedure(s): XR hand RT min 3V Accession Number(s): [id number] cc: Sandi Ferris DO; Gelacio Stinson Reason [...] OV> 02/12/25 175 DD/ 48 TD/TT: 02/12/251748 Electric Dolly Operator: Procedure Note Donotuseinterpreter, Image - 02/12/2025 [place] [address] XRay Report Signed Patient: Tylor Mckeon#: [id number] : 1980Acct:[id number] Age/Sex: 44 / MADM Date: 02/12/25 Loc: HO.ED Attending Dr: Ordering Physician: Gelacio Stinson Date of Service: 02/12/25 Procedure(s): XR hand RT min 3V Accession Number(s): [id number] cc: Sandi Ferris DO; Gelacio Stinson Reason [...] in OV> 02/12/251749 DD/ 48 TD/TT: 02/12/251748 Electric Dolly Operator: [facility] External Provider IMG XR PROCEDURES Final Result * Hepatitis C Antibody with Reflex to HCV, RNA, Quantitative, Real-Time PCR (12/30/2024 9:50 AM EDT) Hepatitis C Antibody Nonreactive Nonreactive [facility] Comment:Antibodies to HCV no t detected; does not exclude early acuteHCV infection. Blood Venous blood specimen / Unknown 12/30/2024 9:50 AM EDT 12/30/2024 1:25 PM EDT Sandi Ferris LAB BLOOD ORDERABLES Final R esult [facility] [address] [place] [address] [phone] * HIV-1/2 Antigen and Antibodies, Fourth Generation, with Reflexes (12/30/2024 9:50 AM EDT) HIV AB/AG Nonreactive Nonreactive [facility] Comment:HIV-1 p24 Ag and/or HIV-1/HIV-2 Ab not detected.A test result that is nonreactive does not exclude thepossibility of exposure to or infection with HIV-1 and/orHIV-2. Nonreactive results in this assay for individualswith prior exposure to HIV-1 and/or HIV-2 may be due toantigen and antibody levels that are below the limit ofdetection of this assay.The Telkonet HIV Ag/Ab Combo assay result andsupplemental assay results should be interpreted inconjunction with the patient's clinical presentation,history and other laboratory results. If the results areinconsistent with clinical evidence, additional testing issuggested to confirm the result. Blood Venous blood specimen / Unknown 12/30/2024 9:50 AM EDT 12/30/2024 1:25 PM EDT Sandi Ferris DO LAB BLOOD ORDERABLES Final R esult Performing Organization Address [facility]/ZIP Co de Phone Number [facility] [address] [place] [phone] [phone] * (ABNORMAL) Lipid Panel, Standard (12/30/2024 9:50 AM EDT) Triglycerides 177(H) <150 mg/dL [facility] Comment:Desirable Triglyceri de: less than 150 mg/dLBorderline High Triglyceride 150-199 mg/dLHigh Triglyceride: 200-499 mg/dLVery High Triglyceride: greater than or equal to 5OO mg/dL Cholesterol 200(H) <200 mg/dL [facility] Comment:Desirable Cholestero l: less than 200 mg/dLBorderline High Cholesterol: 200-239 mg/dLHigh Cholesterol: greater than 239 mg/dL LDL Cholesterol Calculated 127(H) <100 mg/dL [facility] Comment:Desirable LDL: less than 100 mg/dLNear Optimal/Above Optimal LDL: 110- 129 mg/dLBorderline High LDL: 130-159 mg/dLHigh LDL: 160-189 mg/dLVery High LDL: greater than or equal to 190 mg/dL HDL Cholesterol 38(L) >40 mg/dL [facility] Comment:Desirable HDL: great er than 40 mg/dL Note: This HDL assay may give artificially low results in patients with liver disease. Blood Venous blood specimen / Unknown 12/30/2024 9:50 AM EDT 12/30/2024 1:25 PM EDT us Sandi Ferris DO LAB BLOOD ORDERABLES Final R esult Performing Organization Address [facility]/ZIP Co de Phone Number [facility] [address] [place] [phone] [phone] from Last 3 Months or Most Recently Relevant to Health Maintenance Insurance [address] [phone] [facility] STANDARD MEDICARE [address] Care Teams Back Sizer Relationship Specialty Start Date End Date Sandi Ferris DO [address] [place] [phone] PCP - General Family Medicine 11/10/12
--- OUTSIDE RECORDS SUMMARY | 2025-04-10 18:01 | XMS_ITS | Clinical Summary ---
Author Organization [facility] it[facility] Address [address] [place] [address] Care Team Providers Care Director Electrical Engineering Name Role Phone Unavailable Primary Care Provider [...]
--- NOTE | 2025-04-10 20:36 | ED.EYEPROB ---
HPI - Eye Problem General Chief complaint: Eye Problems Stated complaint: Eye Issues Irritation Time Seen by Provider: 04/10/25 20:07 Source: patient Mode of arrival: ambulatory Limitations: no limitations History of Present Illness ED Provider: DR. Guevara HPI Narrative: 44-year-old male came in for worsening of bilateral eye redness with thick discharge and both eyelids are sticking in the morning, was seen on 04/04 sent home on ofloxacin eyedrops returned today for worsening of his symptoms increased redness of the eyelid with increased secretions and eyelids sticking. Related Data Home Medications ?Medication ?Instructions ?Recorded ?Confirmed atorvastatin 10 mg tablet 10 mg PO DAILY 04/05/23 10/16/24 Previous Rx's ?Medication ?Instructions ?Recorded lisinopril 10 1 tab PO DAILY #30 tabs 11/06/23 mg-hydrochlorothiazide 12.5 mg tablet levetiracetam 500 mg tablet 1,250 mg (2.5 x 500 mg) PO Q12H 30 06/25/24 days #150 tabs pyridoxine (vitamin B6) 50 mg 50 mg PO Q12H 30 days #60 tabs 06/25/24 tablet clonazepam 2 mg disintegrating 2 mg PO DAILY seizure lasting > 2 10/16/24 tablet minutes 30 days #5 tabs phenytoin sodium extended 100 mg 200 mg (2 x 100 mg) PO Q12H 30 01/13/25 capsule days #120 caps lacosamide 50 mg tablet 50 mg PO Q12H 14 days #28 tabs 04/02/25 ofloxacin 0.3 % eye drops See Rx Instructions ophthalmic 04/04/25 (eye) .COMPLEX #5 mL amoxicillin 875 mg-potassium 1 tab PO BID #14 tabs 04/10/25 clavulanate 125 mg tablet prednisone 10 mg tablet 10 mg PO BID #10 tabs 04/10/25 Allergies Allergy/AdvReac Type Severity Reaction Status Date / Time No Known Allergies (No Known Allergy Verified 04/10/25 16:37 Allergies*) Review of Systems Review of Systems: All other systems are reviewed and are negative Constitutional: Reports as per HPI and Reports no additional constitutional complaints Eyes: Reports as per HPI and Reports no additional eye complaints Reports system reviewed and no additional complaints, except as documented Cardiovascular: Reports as per HPI and Reports no additional cardiovascular complaints Respiratory: Reports as per HPI and Reports no additional respiratory complaints Gastrointestinal: Reports as per HPI and Reports no additional gastrointestinal complaints Genitourinary: Reports no additional female genitourinary complaints Musculoskeletal: Reports no additional musculoskeletal complaints Skin/Breast: Reports system reviewed and no additional complaints, except as docu Psychiatric: Reports no additional psychiatric complaints Endocrine: Reports no additional endocrine complaints Hematologic/Lymphatic: Reports no additional hematologic/lymphatic complaints Allergic/Immunologic: Reports no additional allergic/immunologic complaints Reports system reviewed and no additional complaints, except as documented and Reports Abnormal speech present [facility] Past Medical History Medical History Nasopharyngeal mass Seizure Family History Family History Maternal Aunt Seizure disorder Social History Social History Alcohol intake: never Patient Tobacco Use Status: Never used Tobacco Substance Use Type: Crack/Cocaine and Marijuana Advance Directives: No Advance Directives Information Provided: Yes Do you have a plan to hurt others: No Plan Physical Exam Vital Signs: Vital Signs: Last Vital Signs Temp 98 F 04/10/25 16:35 Pulse 97 04/10/25 16:35 Resp 18 04/10/25 16:35 BP 115/79 04/10/25 16:35 Pulse Ox 98 04/10/25 16:35 O2 Del Method Room Air 04/10/25 16:35 BMI result Body Mass Index 26.4 Vital signs have been reviewed and appear to be correct. Blood pressure elevated. Heart rate normal. Respiratory rate normal. Temperature normal. Oxygen saturation normal. Appearance: Alert. Oriented X3. No acute distress. Head: Normal external exam. Normocephalic. Atraumatic. No Sanchez signs noted. No raccoon eyes noted Eyes: VA right 20/40 left 20/40 corrected 20/30 General: appearance normal, both eyes and all related structures Visual Cuenca: normal visual cuenca by confrontation Alignment and Position: alignment normal and position normal Periorbital: periorbital mild swelling and redness. Eyelids: Mild swelling and redness. Conjunctivae: Conjunctival injection. Sclerae: sclerae normal Corneas: corneas normal Pupils: Equal, round and reactive pupils present and Pupil accommodation reflex normal EOM: EOM abnormal (Limited abduction of right eye) and No Nystagmus present Direct Ophthalmoscopy: normal light reflex, no photophobia, no papilledema and fundi normal bilaterally ENT: TM's Normal. Pharynx normal. Uvula midline. Moist mucous membranes. No trismus noted. No drooling noted. No muffled voice noted. Neck: Normal inspection. Neck supple. FROM. No adenopathy. Thyroid Normal. No meningeal signs. No neck mass noted. CVS: Normal heart rate and rhythm. Heart sound normal. No murmurs noted. Pulses normal throughout. Respiratory: No respiratory distress. Painless inspiration. Breath sounds normal. No wheezes/rales/rhonchi noted. Chest nontender. No accessory muscle usage noted or decreased air movement noted. Abdomen: Soft and nontender. Bowel sounds normal in all 4 quadrants. No distention noted. No organomegaly noted. No visible injury noted. Back: No CVA tenderness. Full range of motion noted. Skin: Skin warm and dry. Normal skin color. Normal skin turgor. No rashes/lesions/lacerations noted. Extremities: No lower extremity edema. Extremities exhibit normal range of motion. Extremities nontender. Neuro: Oriented X 3. Cranial nerve exam: II-XII are grossly intact No motor deficit. No sensory deficit. Reflexes normal. Course Reevaluation(s) Reevaluation #1: Mix of allergic conjunctivitis and bacterial conjunctivitis not responding to ofloxacin eyedrops. Will add Augmentin, patient was given instruction of MRSA resistant conjunctivitis and follow-up with his eye doctor in 2 days, patient was instructed to return immediately if his symptoms is not improving in 2 days. Time: 22:30 Medical Decision Making Differential Diagnosis Differential Diagnoses: The differential diagnosis associated with the presentation includes ( Bacterial conjunctivitis, viral conjunctivitis, allergic conjunctivitis,) Admission/Observation Consideration of admission/observation: Escalation of care including admission/observation considered Lab Data MDM Lab Attestation statement: I reviewed the patient's lab results. Discharge Plan Discharge Clinical Impression: Conjunctivitis Patient Disposition: Home, Self-Care Instructions: Conjunctivitis (ED) Additional Instructions: make an appointment with your eye doctor for follow-up in 1-2 days. If your eyes do not feel better and improving in 2 days seek immediate medical attention. Prescriptions: New amoxicillin-pot clavulanate 875-125 mg tablet 1 tab PO BID Qty: 14 0RF prednisone 10 mg tablet 10 mg PO BID Qty: 10 0RF No Action phenytoin sodium extended 100 mg capsule 200 mg PO Q12H 30 Days Qty: 120 6RF lacosamide 50 mg tablet 50 mg PO Q12H 14 Days Qty: 28 0RF lisinopril-hydrochlorothiazide 10-12.5 mg tablet 1 tab PO DAILY Qty: 30 0RF ofloxacin 0.3 % drops See Rx Instructions .ROUTE .COMPLEX Qty: 5 0RF Rx Instructions: put 1-2 drps into affected eye(s) every 2-4 h x 2 days, then 1-2 drps 4 times/day days 3-7 atorvastatin 10 mg tablet 10 mg PO DAILY levetiracetam 500 mg tablet 1,250 mg PO Q12H 30 Days Qty: 150 3RF pyridoxine (vitamin B6) 50 mg tablet 50 mg PO Q12H 30 Days Qty: 60 6RF clonazepam 2 mg tablet,disintegrating 2 mg PO DAILY 30 Days Qty: 5 0RF Referrals: Sandi Ferris DO [Primary Care Provider, Internal Medicine] Print Language: Divehi
[2025-04-10 22:37] VITALS: BP 115/79; PULSE 97; RESP 18; TEMP 36.6; O2SAT 98
== END 2025-04-10 22:37 | disposition home or self-care (01) ==
PROVIDERS: Emergency Provider Emergency Medicine; PCP Family Medicine
DX: H10.9 Unspecified conjunctivitis (principal)
CPT/HCPCS: 99283

== ENCOUNTER 2025-04-17 11:26 | Inpatient (IN) | payer MEDICARE, MEDICAID, SELFPAY ==
--- OUTSIDE RECORDS SUMMARY | 2025-04-12 15:30 | XMS_ITS | Encounter Summary ---
Author Organization [employer] Address [address] [place] [address] [address] [place] [address] Care Team Providers Care Cardiac Cath Technologist Name Role Phone [place] Sandi Primary Care Provider + [phone] Reason for Visit * Reason Comments ED RN visit Encounter Details Date Type Department Care Team (Latest Contact Info) Description 04/12/2025 3:30 PM EST Telemedicine [facility] MEDIC[facility] [address] [place], [place] [phone] Penny Gomes, RN [address] [place] [address] Acute bacterial conjunctivitis of both eyes Social History Tobacco Use Types Packs/Day Years Used Date Smoking Tobacco: Former Cigarettes Passive Smoke Exposure: Current Smokeless Tobacco: Never Passive Exposure Comments:oc Alcohol Use Standard Drinks/Week Comments Never 0 (1 standard drink = 0.6 oz pur e alcohol) Depression Answer Date Recorded Patient Health Questionnaire-9 Score 17 04/13/2025 Patient Health Questionnaire-9 Score 17 04/13/2025 Last PHQ-9: Questionnaire Data Not on file 1 06/13/2024 Housing Stability Answer Date Recorded What is [...] Answer Date Recorded Patient Health Questionnaire-2 Score 6 04/13/2025 Internet Access Answer Date Recorded Internet Access [...] as of this encounter Progress Notes * Penny Gomes RN - 04/12/2025 3:30 PM EST Hospital Discharges and Admission for [facility] Type of Visit: Emergency Department Date of Admission/Visit: 04/10/25 Date of Discharge: 04/10/25 Facility: [facility] ED Diagnosis: Conjunctivitis Disposition: Discharged Home Follow-Up Actions Follow-Up Needed: Specialist appointment Follow-Up Outcome: Spoke to Patient Initial Contact Date: 04/12/25 Patient Contacted: Yes Patient Status: Unchanged TC placed to patient [phone] for status check. Patient repots he has obtained the 2 new prescriptions from the pharmacy (prednisone and amoxicillin- pot clavulanate). Patient reports he is using medication as prescribed. ED note also advised patient to see eye doctor within 2 days however patient has not called eye doctor to schedule appointment. Patient uses [facility] eyecare, RN contacted them toinform of recent ED visits x2 and the need for patient to f/u with eyecare within 2 days. RN was informed ee provider will review chart and contact patient for a sooner appointment. Patient verbalized understanding and is aware to come to [facility] for returning s/s. Patient to f/u PRN. The full discharge summary is Is available under media scanned document Review Flowsheet [facility] Transition of Care Documentation Type of Visit Date of Admission/Visit Date of Discharge Facility Diagnosis Disposition 09/25/2024 9:45 AM Hospital Admission 09/19/2024 09/20/2024 [facility] Epilepsy Discharged Home 01/05/2025 8:53 AM Hospital Admission 01/03/2025 01/04/2025 [facility] Seizure, Head trauma, Hyperlipidemia Discharged Home 01/11/2025 10:00 AM Hospital Admission 01/03/2025 01/04/2025 [facility] Seizure, Head trauma, Hyperlipidemia Discharged Home 04/05/2025 3:00 PM Emergency Department 04/04/2025 04/04/2025 [facility] Conjunctivitis DischargedHome 04/12/2025 1:00 PM Emergency Department 04/10/2025 04/10/2025 [facility] ED Conjunctivitis Discharged Home Recent Visits Date Type Provider Dept 11/27/24 Office Visit Sandi Ferris DO [facility] Medicine 10/01/24 Office Visit Edwina Luis MD [facility] Medicine 06/03/24 Office Visit Sandi Ferris DO [facility] Medicine Showing recent visits within past 365 days with a meds authorizing provider and meeting all other requirements Future Appointments No visits were found meeting these conditions. Showing future appointments within next 150 days with a meds authorizing provider and meeting all other requirements Patient was educated on hours of operation. documented in this encounter Plan of Treatment Upcoming Encounters Date Type Department Care Team (Late st Contact Info) Description 05/27/2025 2:00 PM EST Office Visit [facility] OPT[facility] [address] [place] [address] TarkaNing, OD [address] [place] [address] documented as of this encounter Visit Diagnoses Diagnosis Acute bacterial conjunctivitis of both eyes documented in this encounter Additional Health Concerns Assessment Noted Time PHQ-9 Depression Total Score: 15 025 9:37 AM EDT documented as of this encounter Care Teams Cardiac Cath Technologist Relationship Specialty Start Date End Date Sandi Ferris DO [address] [place] [address] PCP - General Family Medicine 11/10/12 documented as of this encounter
--- NOTE | ~2025-04-17 | XR_ITS ---
CLINICAL HISTORY: fever unknown source 1 view chest x-ray Comparison: CR/KS/SR - XR CHEST 2 VIEWS - 11/06/23 12:07 EDT Findings: No consolidation or effusion. Heart size is normal. No acute fracture. IMPRESSION: 1. No acute findings. This document has been electronically signed by: Jung Maria MD on 04/17/2025 18:06:54
--- NOTE | ~2025-04-17 | CT_ITS ---
CLINICAL HISTORY: sz --- Additional Notes or Special Instructions: CT HEAD WITHOUT CONTRAST Comparison: CT/SR - CT HEAD/BRAIN WO IV CON - 11/26/24 00:16 EDT Findings: No acute intracranial hemorrhage, extra-axial fluid collection, hydrocephalus or midline shift. No significant atrophy-like change. No significant white matter disease. There is no sinus or mastoid fluid. Chronic mild mucosal thickening in the sphenoid sinus. Visualized orbits: No acute abnormalities. There is no acute fracture. Old bilateral nasal bone fractures. IMPRESSION: 1. No acute intracranial process. This document has been electronically signed by: Yoon Huber DO on 04/18/2025 14:31:16
--- NOTE | ~2025-04-17 | US_ITS ---
EXAMINATION: US PELVIS LIMITED (BLADDER) CLINICAL INFORMATION: Urinary retention.. COMPARISON: None available. TECHNIQUE: Real-time imaging of the bladder. FINDINGS: BLADDER: Fluid-filled without gross wall thickening. Bilateral ureteral jets are not demonstrated. Prevoid bladder volume is 717 mL. Postvoid bladder volume is not documented. Prostate gland measures 4 x 3 x 5 cm and volume: 30 cc. US/US bladder IMPRESSION: Prostate volume: 30 cc. No post void image of the bladder suggesting urinary retention.. Electronically signed by: Evans Delgado MD 04/20/2025 11:09 AM MT
--- NOTE | ~2025-04-17 | XR_ITS ---
CLINICAL HISTORY: seizure episode ? aspiration 1 view chest x-ray Comparison: CR - XR CHEST 1V - 04/17/25 17:32 EST Findings: No consolidation, pleural effusion or pneumothorax. Normal size heart. No acute fracture. IMPRESSION: No acute cardiopulmonary process. This document has been electronically signed by: Yoon Huber DO on 04/18/2025 14:23:22
[2025-04-17 11:36] VITALS: BP 132/73; PULSE 95; RESP 18; TEMP 36.6; O2SAT 92; BMI 29.1
--- NOTE | 2025-04-17 11:43 | ED_ITS ---
HPI - Seizure General Chief Complaint: Seizure Stated Complaint: MULTI SZ TODAY,POSTICTAL/COMBATIVE Time Seen by Provider: 04/17/25 11:39 Source: EMS Mode of arrival: EMS Limitations: altered mental status History of Present Illness HPI Narrative: This is a 44 years old male with hx of epilepsy presented to the emergency department after seizure, at arrival of EMS he was extremely combative postictal he was given 5 mg of midazolam IM and 5 mg of Haldol IM. He arrived sedated seizure free MD complaint: seizure Onset (ago): hour(s) (1) Description of Episode: tonic-clonic movement Seizure History: Yes Place: Home Related Data Home Medications ?Medication ?Instructions ?Recorded ?Confirmed atorvastatin 10 mg tablet 10 mg PO DAILY 04/05/2303/22 clonazepam 2 mg disintegrating 2 mg PO DAILY PRN seizu re lasting 04/18/25 04/18/25 tablet > 2 minutes levetiracetam 500 mg tablet 500 mg PO Q12H 04/18/25 Previous Rx's ?Medication ?Instructions ?Recorded lisinopril 10 1 tab PO DAILY #30 tabs 10/18 02/10 mg-hydrochlorothiazide 12.5 mg tablet phenytoin sodium extended 100 mg 200 mg (2 x 100 mg) P O Q12H 30 01/13/25 capsule days #120 caps lacosamide 50 mg tablet 50 mg PO Q12H 14 days #28 ta bs 04/02/25 Allergies Allergy/AdvReac Type Severity Reaction Status Date / Time No Known Allergies (No Known Allergy Verified 04/17/25 11:39 Allergies*) Review of Systems 2 Review of Systems: Yes Unobtainable due to mental status [facility] Past Medical History Attestation statement: The following information was validated with the patient. [facility] Narrative: Epilepsy substance abuse Medical History Nasopharyngeal mass Seizure Family History Family History Maternal Aunt Seizure disorder Social History Social History Household Members: Unknown / Unable to assess Housing: Unknown / Unable to assess Alcohol intake: never Comment: 1:1 sitter for confusion/high fall risk with recent seizure activity 12/1 Patient Tobacco Use Status: Never used Tobacco Substance Use Type: Marijuana service: No Physical Exam 2 Exam: Exam: Patient is sedated postictal Vital Signs: Vital Signs: Last Vital Signs Temp 98.7 F 04/21/25 08:00 Pulse 109 H 04/21/25 09:37 Resp 15 04/21/25 09:37 BP 126/82 04/21/25 09:37 Pulse Ox 97 04/21/25 09:37 O2 Del Method Room Air 04/21/25 09:00 O2 Flow Rate 2 04/19/25 06:00 FiO2 21 04/19/25 04:00 BMI result Body Mass Index 29.1 Const: Nutritional Appearance: average body habitus Limitations: altered mental status HEENT: Other: Atraumatic Head: Yes normal to inspection Ears: hearing grossly normal bilaterally General nose exam: Normal external nose present Face and sinus: Yes normal facial exam Chest: Chest palpation & inspection: normal inspection of the chest Resp: Effort & Inspection: normal respiratory effort Auscultation: clear to auscultation bilaterally Cardio: Jugular venous distension: no JVD Rate: regular rate Rhythm: r egular rhythm GI: Inspection: Yes normal to inspection Palpation (GI): Soft to palpation, not firm, nontender and no guarding Auscultation: normal bowel sounds Skin: General skin exam: no rashes or lesions noted, elasticity normal and turgor normal Rashes: no rashes Neuro: Other: Patient is postictal at this time he just received Versed IM Haldol IM by the rehab physician Course Reevaluation(s) Reevaluation #1: Patient is now awake alert oriented fully ambulatory Time: 13:19 Reevaluation #2: $:37 PM I am off shift now signed out to Dr Caldwell, pt sleeping in NAD.To be reexamined when awake Time: 16:37 Medications Administered Discontinued Medications Generic Name Dose Route Start Last Admin Trade Name Barryq PRN Reason Stop Dose Admin Atorvastatin Calcium 10 mg 04/20/25 09:45 04/21/25 08:27 Atorvastatin Calcium 10 Mg Tablet PO 10 mg DAILY [place] Administration Clonazepam 1 mg 04/18/25 21:00 04/21/25 08:27 Clonazepam 1 Mg Tablet PO 1 mg BID [place] Administration Diazepam 5 mg 04/18/25 12:11 04/18/25 12:34 Diazepam 10 Mg/2 Ml Cartridge IVPUSH 04/18/25 12:12 Not Given STAT STA Diazepam 2.5 mg 04/18/25 17:32 04/18/25 17:36 Diazepam 10 Mg/2 Ml Cartridge IVPUSH 04/18/25 17:33 2.5 mg STAT STA Administration Enoxaparin Sodium 40 mg 04/18/25 09:00 04/21/25 08:26 Enoxaparin Sodium 40 Mg/0.4 Ml Syringe SUBCUT 40 mg Q24H [place] Administration Hydrochlorothiazide 12.5 mg 04/20/25 10:00 04/21/25 08:27 Hydrochlorothiazide 12.5 Mg Tablet PO 12.5 mg DAILY [place] Administration Sodium Chloride 1,000 mls @ 999 mls/hr 04/17/25 11:45 04/17/25 13:22 Ns IVCONT 04/17/25 12:45 Infused .Q1H1M [place] Infusion Levetiracetam 2,000 mg/ Sodium 120 mls @ 480 mls/hr 04/17/25 11:41 04/17/25 12:37 Chloride IV 04/17/25 11:55 Infused ONCE ONE Infusion Phenytoin Sodium 500 mg/ 35 mls @ 35 mls/hr 04/17/25 13:18 04/17/25 13:42 Sodium Chloride IV 04/17/25 13:19 Not Given ONCE ONE Sodium Chloride 1,000 mls @ 999 mls/hr 04/17/25 13:30 04/17/25 16:08 Ns IVCONT 04/17/25 14:30 Infused .Q1H1M [place] Infusion Phenytoin Sodium 500 mg/ 60 mls @ 60 mls/hr 04/17/25 13:45 04/17/25 16:14 Sodium Chloride IV 04/17/25 14:44 Infused ONCE ONE Infusion Levetiracetam 1,500 mg in 100 mls @ 400 mls/hr 04/18/25 06:00 04/21/25 05:18 Keppra IV Infused Q12H [place] Infusion Lactated Ringer's 1,000 mls @ 100 mls/hr 04/18/25 12:45 04/20/25 12:52 Lr IVCONT Infused .Q10H [place] Infusion Levetiracetam 500 mg in 100 mls @ 400 mls/hr 04/18/25 17:28 04/18/25 19:29 Keppra IV 04/18/25 17:42 Infused ONCE ONE Infusion Potassium Phosphate 15 mmol in 250 mls @ 62.5 mls/hr 04/19/25 08:00 04/19/25 12:46 Kphos IV 04/19/25 11:59 Infused ONCE ONE Infusion Levetiracetam 1,000 mg in 100 mls @ 400 mls/hr 04/19/25 14:30 04/19/25 15:15 Keppra IV 04/19/25 14:59 Infused Q15M [place] Infusion Dexmedetomidine HCl 400 mcg in 100 mls @ 0 mls/hr 04/19/25 15:45 04/20/25 12:33 Precedex IVCONT Infused .Q0M [place] Titration Protocol Per Protocol Esmolol HCl 2,500 mg in 250 mls @ 0 mls/hr 04/19/25 16:15 04/20/25 12:30 Brevibloc/Nacl IVCONT Infused .Q0M [place] Titration Protocol Per Protocol Phenytoin Sodium 1,340 mg/ 126.8 mls @ 126.8 mls/hr 04/20/25 14:23 04/20/25 15:48 Sodium Chloride IV 04/20/25 14:24 Infused ONCE ONE Infusion Dexmedetomidine HCl 400 mcg in 100 mls @ 0 mls/hr 04/20/25 20:45 04/21/25 10:07 Precedex IVCONT Infused .Q0M [place] Titration Protocol Per Protocol Lacosamide 50 mg 04/18/25 21:00 04/21/25 08:27 Lacosamide 100 Mg Tablet PO 50 mg BID [place] Administration Lisinopril 10 mg 04/20/25 10:00 04/21/25 08:27 Lisinopril 10 Mg Tablet PO 10 mg DAILY [place] Administration Lorazepam 1 mg 04/18/25 12:25 04/18/25 12:34 Lorazepam 2 Mg/Ml Vial IV 04/18/25 12:26 1 mg STAT STA Administration Metoprolol Tartrate 2.5 mg 04/19/25 14:47 04/19/25 14:54 Metoprolol Tartrate 5 Mg/5 Ml Vial IVPUSH 04/19/25 14:48 2.5 mg ONCE ONE Administration Protocol Midazolam HCl 2 mg 04/18/25 20:50 04/19/25 12:23 Midazolam Hcl 2 Mg/2 Ml Vial IVPUSH 2 mg Q1H PRN Administration Seizures Midazolam HCl 2 mg 04/19/25 19:48 04/20/25 19:59 Midazolam Hcl 2 Mg/2 Ml Vial IVPUSH 2 mg Q1H PRN Administration Seizures Phenytoin Sodium 400 mg 04/18/25 06:00 04/18/25 05:45 Phenytoin Sodium Extended 100 Mg Capsule PO 04/18/25 06:01 400 mg ONCE ONE Administration Phenytoin Sodium 200 mg 04/18/25 21:00 04/21/25 08:27 Phenytoin Sodium Extended 100 Mg Capsule PO 200 mg BID [place] Administration Phenytoin Sodium 100 mg 04/20/25 21:00 04/21/25 08:28 Phenytoin Sodium 100 Mg/2 Ml Vial IVPUSH 100 mg TID [place] Administration Sodium Chloride 3 ml 04/18/25 00:00 04/21/25 08:30 0.9 % Sodium Chloride Flush 3 Ml Syringe IVFLUSH 3 ml QSHIFT [place] Administration Medical Decision Making Medical Decision Making [facility] Narrative: Patient presented with a seizure history of epilepsy on Keppra/Dilantin/oxcarbazepine we will check labs we will monitor Differential Diagnosis Differential Diagnoses: The differential diagnosis associated with the presentation includes Seizure/drug abuse/noncompliant with the antiepileptic Lab Data 04/21/25 04:23 04/21/25 04:23 Labs: Lab Results 04/17/25 04/17/25 04/17/25 Range/Units 12:05 12:06 13:20 WBC 21.5 H (4.8-10.8) X10*3/uL RBC 5.39 (4.60-5.80) X10*6/uL Hgb 17.4 (14.0-18.0) g/dl Hct 48.7 (42.0-52.0) % MCV 90.4 (80.0-98.0) fL MCH 32.3 (27.0-33.0) pg MCHC 35.7 (31.0-36.0) g/dl RDW 13.0 (11.0-16.0) % Plt Count 381 (160-400) X10*3/uL MPV 8.4 L (9.4-12.4) fL Immature Gran % (Auto) 0.6 H (0.0-0.4) % Neut % (Auto) 89.0 H (45-73) % Lymph % (Auto) 7.5 L (20-40) % [place] % (Auto) 2.7 (2-11) % Eos % (Auto) 0.0 (0-4) % Baso % (Auto) 0.2 (0-2) % Lymph # (Auto) 1.6 (1.2-4.9) X10*3/uL [place] # (Auto) 0.6 (0.1-1.2) X10*3/uL Eos # (Auto) 0.0 (0.0-0.4) X10*3/uL Baso # (Auto) 0.1 (0.0-0.2) X10*3/uL Abs Immat Gran (auto) 0.12 H (0.00-0.03) X10*3/uL Absolute Neuts (auto) 19.1 H (2.0-8.3) x10*3/uL Absolute Nucleated RBC 0.000 (0.0-0.012) X10*3/uL Nucleated RBC % (auto) 0.0 (0.0-0.2) /100WBC Neutrophils % (Manual) (45-73) % Band Neutrophils % (3-5) % Lymphocytes % (Manual) (20-40) % Atypical Lymphs % (Man) (0-6) % Abs Neuts (Manual) (2.0-8.3) X10*3/uL Lymphocytes # (Manual) (1.2-4.9) X10*3/uL Atyp Lymphs # (Manual) x10*3/uL Platelet Estimate (NORMAL) Plt Morphology Comment RBC Morphology [place]aches Cells /OIF Sodium 141 (135-145) mmol/L Potassium 3.8 (3.3-5.1) mmol/L Chloride 107 (96-108) mmol/L Carbon Dioxide 19 L (22-29) mmol/L Anion Gap 19 (12-20) BUN 12 (9-16) mg/dL Creatinine 1.17 (0.5-1.4) mg/dL Estim Creat Clear Calc 89.0 Estimated GFR > 60 Random Glucose 140 H (60-115) mg/dL Calcium 9.4 (8.4-10.2) mg/dL Total Bilirubin 0.3 (0.0-1.0) mg/dL AST 33 (5-37) U/L ALT 27 (0-40) U/L Alkaline Phosphatase 75 (39-117) U/L Total Protein 8.2 H (6.5-8.0) g/dL Albumin 5.2 H (3.5-5.0) g/dL Urine Color Yellow Urine Appearance Turbid Urine pH 5.0 (5.0-9.0) Ur Specific [place] 1.015 (1.005-1.025) Urine Protein Trace (Neg-Trace) mg/dL Urine Glucose (UA) 250 H (Negative) mg/dL Urine Ketones Trace (Negative) mg/dL Urine Blood Negative (Negative) Urine Nitrite Negative (Negative) Ur Leukocyte Esterase Negative (Negative) Urine Opiates Screen Not Detected (Not Detect) Ur Buprenorphine Scrn Not Detected (Not Detect) ng/mL Ur Oxycodone Screen Not Detected (Not Detect) ng/mL Urine Methadone Screen Not Detected (Not Detect) ng/mL Urine Fentanyl Screen Not Detected (Not Detect) Ur Barbiturates Screen Not Detected (Not Detect) Phenytoin 8.7 L (10.0-20.0) ug/mL Levetiracetam 3.7 L (10.0-40.0) mcg/mL Ur Phencyclidine Scrn Not Detected (Not Detect) Ur Amphetamines Screen Not Detected (Not Detect) U Benzodiazepines Scrn POSITIVE H (Not Detect) Urine Cocaine Screen POSITIVE H (Not Detect) U Marijuana (THC) Screen POSITIVE H (Not Detect) Influenza Type A (PCR) (Negative) Influenza Type B (PCR) (Negative) RSV RNA Qual (PCR) (Negative) SARS-CoV-2 RNA (RT-PCR) (Negative) 04/17/25 04/17/25 Range/Units 14:43 16:59 WBC 24.1 H (4.8-10.8) X10*3/uL RBC 4.80 (4.60-5.80) X10*6/uL Hgb 15.5 (14.0-18.0) g/dl Hct 42.7 (42.0-52.0) % MCV 89.0 (80.0-98.0) fL MCH 32.3 (27.0-33.0) pg MCHC 36.3 H (31.0-36.0) g/dl RDW 12.9 (11.0-16.0) % Plt Count 347 (160-400) X10*3/uL MPV 8.5 L (9.4-12.4) fL Immature Gran % (Auto) Cancelled (0.0-0.4) % Neut % (Auto) Cancelled (45-73) % Lymph % (Auto) Cancelled (20-40) % [place] % (Auto) Cancelled (2-11) % Eos % (Auto) Cancelled (0-4) % Baso % (Auto) Cancelled (0-2) % Lymph # (Auto) Cancelled (1.2-4.9) X10*3/uL [place] # (Auto) Cancelled (0.1-1.2) X10*3/uL Eos # (Auto) Cancelled (0.0-0.4) X10*3/uL Baso # (Auto) Cancelled (0.0-0.2) X10*3/uL Abs Immat Gran (auto) Cancelled (0.00-0.03) X10*3/uL Absolute Neuts (auto) Cancelled (2.0-8.3) x10*3/uL Absolute Nucleated RBC 0.000 (0.0-0.012) X10*3/uL Nucleated RBC % (auto) 0.0 (0.0-0.2) /100WBC Neutrophils % (Manual) 88 H (45-73) % Band Neutrophils % 0 L (3-5) % Lymphocytes % (Manual) 11 L (20-40) % Atypical Lymphs % (Man) 1 (0-6) % Abs Neuts (Manual) 21.2 H (2.0-8.3) X10*3/uL Lymphocytes # (Manual) 2.7 (1.2-4.9) X10*3/uL Atyp Lymphs # (Manual) 0.2 x10*3/uL Platelet Estimate NORMAL (NORMAL) Plt Morphology Comment NORMAL RBC Morphology NOTED [place] Cells 2+ (3-5) /OIF Sodium (135-145) mmol/L Potassium (3.3-5.1) mmol/L Chloride (96-108) mmol/L Carbon Dioxide (22-29) mmol/L Anion Gap (12-20) BUN (9-16) mg/dL Creatinine (0.5-1.4) mg/dL Estim Creat Clear Calc Estimated GFR Random Glucose (60-115) mg/dL Calcium (8.4-10.2) mg/dL Total Bilirubin (0.0-1.0) mg/dL AST (5-37) U/L ALT (0-40) U/L Alkaline Phosphatase (39-117) U/L Total Protein (6.5-8.0) g/dL Albumin (3.5-5.0) g/dL Urine Color Urine Appearance Urine pH (5.0-9.0) Ur Specific [place] (1.005-1.025) Urine Protein (Neg-Trace) mg/dL Urine Glucose (UA) (Negative) mg/dL Urine Ketones (Negative) mg/dL Urine Blood (Negative) Urine Nitrite (Negative) Ur Leukocyte Esterase (Negative) Urine Opiates Screen (Not Detect) Ur Buprenorphine Scrn (Not Detect) ng/mL Ur Oxycodone Screen (Not Detect) ng/mL Urine Methadone Screen (Not Detect) ng/mL Urine Fentanyl Screen (Not Detect) Ur Barbiturates Screen (Not Detect) Phenytoin (10.0-20.0) ug/mL Levetiracetam (10.0-40.0) mcg/mL Ur Phencyclidine Scrn (Not Detect) Ur Amphetamines Screen (Not Detect) U Benzodiazepines Scrn (Not Detect) Urine Cocaine Screen (Not Detect) U Marijuana (THC) Screen (Not Detect) Influenza Type A (PCR) NEGATIVE (Negative) Influenza Type B (PCR) NEGATIVE (Negative) RSV RNA Qual (PCR) NEGATIVE (Negative) SARS-CoV-2 RNA (RT-PCR) NEGATIVE (Negative) Procedures EJ/Peripheral Line Arm L: Time Out Performed: Yes Skin Cleansed in Sterile Fashion: Yes Size (gauge): 20 IV Secured and Dressing Applied: Yes Patient Tolerated Procedure: well Additional Comments: Under US guided cannulated left basilic vein with 20 G catheter 1 inch 3/4 good blood return good flash Critical Care Time Critical Care Time Critical Care Time: Yes Total Critical Care Time: 60 Attestation: iV dilantin/IV keppra taking care of the pt speaking with EMS Discharge Plan Discharge Clinical Impression: Seizure, Cocaine abuse, Generalized seizure Patient Disposition: Admitted As Inpatient Interventions: Admission Worksheet (ED) Last Done: 04/18/25 00:13 Discharge Date/Time: 04/18/25 01:56
[2025-04-17 12:09] LABS: MANUAL DIFF FLAG NO
[2025-04-17 12:11] LABS: Hematocrit 48.7 % (42.0-52.0); Hemoglobin 17.4 g/dl (14.0-18.0); Imm Gran Abs Auto 0.12 X10*3/uL (0.00-0.03); Imm Gran Pct Auto 0.6 % (0.0-0.4); Lymphocytes Absolute Auto 1.6 X10*3/uL (1.2-4.9); Mean Corpuscular HGB Conc 35.7 g/dl (31.0-36.0); Mean Corpuscular Hemoglobin 32.3 pg (27.0-33.0); Mean Corpuscular Volume 90.4 fL (80.0-98.0); NRBC Abs Auto 0.000 X10*3/uL (0.0-0.012); NRBC Pct Auto 0.0 /100WBC (0.0-0.2); Platelet Count 381 X10*3/uL (160-400); Red Blood Count 5.39 X10*6/uL (4.60-5.80); White Blood Count 21.5 X10*3/uL (4.8-10.8)
--- OUTSIDE RECORDS SUMMARY | 2025-04-17 12:12 | XMS_ITS | Encounter Summary ---
Author Organization [employer] Address [address] [facility] [address] [place] [address] Care Team Providers Care Bobbin Collector Name Role Phone BarringtonSandi Primary Care Provider + [phone] Encounter Details Date Type Department Care Team (Latest Contact Info) Description 04/12/2025 Travel Social History Tobacco Use Types Packs/Day [...] PM EST Office Visit [facility] [address] [place], [place] [phone] TarkaNing, OD [address] [place] [address] documented as of this encounter Visit Diagnoses Not on filedocumented in this encounter Additional Health Concerns Assessment Noted Time PHQ-9 Depression Total Score: 15 025 9:37 AM EDT documented as of this encounter Care Teams Bobbin Collector Relationship Specialty Start Date End Date Sandi Ferris DO [address] [place] [address] PCP - General Family Medicine 11/10/12 documented as of this encounter
--- OUTSIDE RECORDS SUMMARY | 2025-04-17 12:12 | XMS_ITS | Encounter Summary ---
Author Organization [employer] Address [address] [place] [address] [address] [place] [address] Care Team Providers Care Hl7 Developer Name Role Phone BarringtonSandi Primary Care Provider + [phone] Reason for Visit * Reason Comments Med Refill Encounter Details Date Type Department Care Team ([facility] st Contact Info) Description 01/11/2025 Refill [facility] MED[facility] [address] [place], [place] [phone] Edwina Cain MD [address] [place] [address] Seizure disorder (CMS/HCC) Social History Tobacco Use [...] Description 05/27/2025 2:00 PM EST Office Visit [facility] [address] [place] [address] Ning Crandall, OD [address] [place] [address] documented as of this encounter Visit Diagnoses Diagnosis Seizure disorder (CMS/HCC) (HCC) Unspecified epilepsy without mention of intractable epilepsy documented in this encounter Additional Health Concerns Assessment Noted Time PHQ-9 Depression Total Score: 15 025 9:37 AM EDT documented as of this encounter Care Teams Hl7 Developer Relationship Specialty Start Date End Date Sandi Ferris DO [address] [place] [address] PCP - General Family Medicine 11/10/12 documented as of this encounter
--- OUTSIDE RECORDS SUMMARY | 2025-04-17 12:12 | XMS_ITS | Encounter Summary ---
Author Organization [employer] Address [address] [place] [address] [address] [place] [address] Care Team Providers Care Leather Cartridge Belt Maker Name Role Phone Sandi Ferris DO Primary Care Provider + [phone] Reason for Visit * Reason Comments Med Refill Encounter Details Date Type Department Care Team ([facility] st Contact Info) Description 02/18/2025 Refill [facility] [address] [place], [place] [phone] Sandi Ferris DO [address] [place], [place] [phone] Social History Tobacco Use Types Packs/Day Years [...] Description 05/27/2025 2:00 PM EST Office Visit [facility] [address] [place] [address] Tarka, Ning, OD [address] [place] [address] documented as of this encounter Visit Diagnoses Not on filedocumented in this encounter Additional Health Concerns Assessment Noted Time PHQ-9 Depression Total Score: 15 025 9:37 AM EDT documented as of this encounter Care Teams Leather Cartridge Belt Maker Relationship Specialty Start Date End Date Sandi Ferris DO [address] [place] [address] PCP - General Family Medicine 11/10/12 documented as of this encounter
--- OUTSIDE RECORDS SUMMARY | 2025-04-17 12:12 | XMS_ITS | Encounter Summary ---
Author Organization [employer] Address [address] [facility] [address] [place] [address] Care Team Providers Care Washroom Attendant Name Role Phone Barrington Sandi Primary Care Provider + [phone] Encounter Details Date Type Department Care Team (Late st Contact Info) Description 09/28/2024 Orders Only [facility] MEDICINE [address] [place], [place] [phone] Freddy Boswell, PharmD [address] [place], [place] [phone] Social History Tobacco Use Types Packs/Day Years [...] Description 05/27/2025 2:00 PM EST Office Visit [facility] [address] [place] [address] Ning Crandall, OD [address] [place] [address] documented as of this encounter Visit Diagnoses Not on filedocumented in this encounter Additional Health Concerns Assessment Noted Time PHQ-9 Depression Total Score: 2 11/22/19 24 11:52 AM EDT documented as of this encounter Care Teams Washroom Attendant Relationship Specialty Start Date End Date Sandi Ferris DO [address] [place] [id number] PCP - General Family Medicine 11/10/12 documented as of this encounter
--- OUTSIDE RECORDS SUMMARY | 2025-04-17 12:12 | XMS_ITS | Clinical Summary ---
Author Organization [employer] Address [address] [place] [address] 7 [place] [address] Care Team Providers Care Wagon Winder Name Role Phone Sandi Ferris DO Primary Care Provider + [phone] Allergies No known active allergies Medications * This document contains information received from the source organization and may not represent a complete record from that organization. atorvastatin (Lipitor) 10 MG tabletIndications: Hyperlipidemia, unspecified hyperlipidemia type Take 1 tablet by mouth daily 30 tablet 3 11/28/19 25 Active lisinopril-hydroCH LOROthiazide 10-12.5 MG tabletIndications: Essential hypertension Take 1 tablet by mouth Once per day. 30 tablet 3 11/28/19 25 026 Active OXcarbazepine (Trileptal) 600 MG tablet Take 1.5 tablets (900 mg) by mouth 2 times daily. 90 tablet 3 11/28/19 25 Active phenytoin ER (Dilantin) 100 MG capsule Take 2 capsules (200 mg) by mouth 2 times daily. 120 capsule 3 11/28/19 25 Active hydrOXYzine pamoate (Vistaril) 25 MG capsuleIndications :Major depression, recurrent, chronic (CMS/HCC) Take 1 capsule (25 mg) by mouth every 6 (six) hours if needed for anxiety. 30 capsule 1 11/28/19 25 026 Active Additional Information Patient not taking.Reported on 04/12/2025 levETIRAcetam XR (Keppra XR) 500 MG 24 hr tablet Take 5 tablets by mouth Once per day. 01/05/20 25 Active clonazePAM (KlonoPIN) 2 MG disintegrating tablet Take 1 tablet by mouth if needed each day for seizures (lasting more than 2 minutes). 01/04/20 Active predniSONE (Deltasone) 10 MG tablet Take 10 mg by mouth 2 times daily. Active amoxicillin-clavul anate (Augmentin) 437.5-62.5 mg per split tabletIndications: Conjunctivitis Take 1 tablet by mouth 2 times daily. Active Active Problems Problem Noted Date Diagnosed Date RICCARDO (generalized anxiety disorder) 04/13/2025 Finger deformity, acquired, right 10/01/2024 Hyperlipidemia 06/03/2024 Cocaine use 06/03/2024 History of traumatic brain injury 08/14/2022 Major depression, recurrent, chronic 08/14/2022 Essential hypertension 08/14/2022 Assessment & Plan (10/01/2024 10:04 AM EDT): Refill for blood pressure medication on today Cannabis abuse 02/21/2015 Mood disorder 02/21/2015 Seizure disorder ([facility]/HCC) 02/21/2015 Assessment & Plan (10/01/2024 10:04 AM EDT): refill done today continue to follow-up with neurology History of tobacco use 02/21/2015 Encounters * This document contains information received from the source organization and may not represent a complete record from that organization. Date Type Department Care Team Description 04/12/2025 3:30 PM EST Telemedicine [facility] MEDICINE [address] [place] [id number] Penny Gomes, pipelines laborer bacterial conjunctivitis of both eyes 04/12/2025 Travel 04/05/2025 3:30 PM EST Telemedicine [facility] MEDICINE [address] [place] [address] Kajal Johnson, pipelines laborer conjunctivitis of left eye, unspecified acute conjunctivitis type 04/05/2025 Travel 03/16/2025 Patient Outreach [facility] MEDICINE [address] [place] [address] Jonas Pitts Recovery Supports 03/15/2025 Patient Outreach [facility] MEDICINE [address] [place] [address] Tj Bill RC Recovery Supports 02/18/2025 Refill [facility] MEDICINE [address] [place] [address] Sandi Ferris DO 02/12/2025 Orders Only [facility] External Provider, [facility] 02/08/2025 Telephone [facility] MEDICINE [address] [place] [address] Sandi Ferris DO Chart Prep 01/31/2025 Refill [facility] MEDICINE [address] [place] [address] Sandi Ferris DO Hyperlipidemia, unspecified hyperlipidemia type from Last 3 Months Immunizations Immunization Administration [...] 05/27/2025 2:00 PM EST Office Visit [facility] OPTOMETRY [address] [place] [address] Ning Crandall, OD [address] [place] [address] Health Maintenance Due Date Last Done Comments Family Planning (PISQ) 09/08/1995 HPV Vaccines (1 - Male 3-dose series) 09/08/1995 Hepatitis A Vaccines (1 of 2 - Risk 2-dose series) 09/08/1999 Hepatitis B Vaccines (1 of 3 - 19+ 3-dose series) 09/08/1999 COVID-19 Vaccine ( season) 2025 06/03/2024, 08/14/2022, 10/24/2020, Additional history exists Influenza Vaccine (#1) 2025 , 01/30/2023, 08/14/2022, Additional history exists Alcohol/Substance Use Screening 06/03/2025 06/03/2024 Disability Screening 10/01/2025 10/01/2024 SDOH Screening 10/01/2025 10/01/2024 Depression Monitoring 10/11/2025 04/13/2025, 025 Tobacco Screening 11/27/2025 11/27/2024 DTaP/Tdap/Td Vaccines (3 [...] Laterality Modality Upper Extremities, Hand Right [facility] 02/12/2025 5:49 PM EDT Narrative 02/12/2025 5:50 PM EDT [address] [address] XRay Report Signed Patient: Luis Mckeon MR#: [id number] : 1980 Acct:[id number] Age/Sex: 44 / M ADM Date: 02/12/25 Loc: HO.ED Attending Dr: Ordering Physician: Gelacio Stinson Date of Service: 02/12/25 Procedure(s): XR hand RT min 3V Accession Number(s): [id number] cc: Sandi Ferris DO; Gelacio Stinson Reason [...] by Yoon Huber MD in OV> 02/12/25 1750 DD/ 48 TD/TT: 02/12/251748 Appliances Sample Maker: Procedure Note Donotuseinterpreter, Image - 02/12/2025 [place] [address] XRay Report Signed Patient: Tylor Mckeon#: [id number] : 1980Acct:[id number] Age/Sex: 44 / MADM Date: 02/12/25 Loc: HO.ED Attending Dr: Ordering Physician: Gelacio Stinson Date of Service: 02/12/25 Procedure(s): XR hand RT min 3V Accession Number(s): [id number] cc: Sandi Ferris DO; Gelacio Stinson Reason [...] in OV> 02/12/251749 DD/ 48 TD/TT: 02/12/251748 Appliances Sample Maker: [facility] External Provider IMG XR PROCEDURES Final Result * Hepatitis C Antibody with Reflex to HCV, RNA, Quantitative, Real-Time PCR (12/30/2024 9:50 AM EDT) Hepatitis C Antibody Nonreactive Nonreactive [facility] Comment:Antibodies to HCV no t detected; does not exclude early acuteHCV infection. Blood Venous blood specimen / Unknown 12/30/2024 9:50 AM EDT 12/30/2024 1:25 PM EDT Sandi Barrington LAB BLOOD ORDERABLES Final R esult [facility] [address] [place] [phone] * HIV-1/2 Antigen and Antibodies, Fourth Generation, with Reflexes (12/30/2024 9:50 AM EDT) HIV AB/AG Nonreactive Nonreactive [facility] Comment:HIV-1 p24 Ag and/or HIV-1/HIV-2 Ab not detected.A test result that is nonreactive does not exclude thepossibility of exposure to or infection with HIV-1 and/orHIV-2. Nonreactive results in this assay for individualswith prior exposure to HIV-1 and/or HIV-2 may be due toantigen and antibody levels that are below the limit ofdetection of this assay.The Mama HIV Ag/Ab Combo assay result andsupplemental assay results should be interpreted inconjunction with the patient's clinical presentation,history and other laboratory results. If the results areinconsistent with clinical evidence, additional testing issuggested to confirm the result. Blood Venous blood specimen / Unknown 12/30/2024 9:50 AM EDT 12/30/2024 1:25 PM EDT Sandi Ferris LAB BLOOD ORDERABLES Final R esult Performing Organization Address City/[facility]/ZIP Co de Phone Number [facility] [address] [place] [phone] * (ABNORMAL) Lipid Panel, Standard (12/30/2024 9:50 AM EDT) Triglycerides 177(H) <150 mg/dL [facility] Comment:Desirable Triglyceri de: less than 150 mg/dLBorderline High Triglyceride 150-199 mg/dLHigh Triglyceride: 200-499 mg/dLVery High Triglyceride: greater than or equal to 5OO mg/dL Cholesterol 200(H) <200 mg/dL [facility] Comment:Desirable Cholestero l: less than 200 mg/dLBorderline High Cholesterol: 200-239 mg/dLHigh Cholesterol: greater than 239 mg/dL LDL Cholesterol Calculated 127(H) <100 mg/dL [facility] Comment:Desirable LDL: less than 100 mg/dLNear Optimal/Above Optimal LDL: 110- 129 mg/dLBorderline High LDL: 130-159 mg/dLHigh LDL: 160-189 mg/dLVery High LDL: greater than or equal to 190 mg/dL HDL Cholesterol 38(L) >40 mg/dL [facility] Comment:Desirable HDL: great er than 40 mg/dL Note: This HDL assay may give artificially low results in patients with liver disease. Blood Venous blood specimen / Unknown 12/30/2024 9:50 AM EDT 12/30/2024 1:25 PM EDT Sandi Ferris LAB BLOOD ORDERABLES Final R esult Performing Organization Address City/[facility]/ZIP Co de Phone Number [facility] [address] [place] [phone] from Last 3 Months or Most Recently Relevant to Health Maintenance Insurance [address] [address] [facility] MEDICARE Care Teams Wagon Winder Relationship Specialty Start Date End Date Sandi Ferris DO [address] [place] [phone] PCP - General Family Medicine 11/10/12
--- OUTSIDE RECORDS SUMMARY | 2025-04-17 12:12 | XMS_ITS | Clinical Summary ---
Author Organization [facility] Address [address] [place] [address] Care Team Providers Care Prosthetic Aide Name Role Phone Unavailable Primary Care Provider [...]
--- OUTSIDE RECORDS SUMMARY | 2025-04-17 12:12 | XMS_ITS | Encounter Summary ---
Author Organization [employer] Address [address] [place] [address] [address] [place] [address] Care Team Providers Care House Painter Name Role Phone Sandi Ferris DO Primary Care Provider + [phone] Reason for Visit * Reason Onset Date Comments Hospital Follow-up 09/25/2024 Encounter Details Date Type Department Care Team ([facility] st Contact Info) Description 09/25/2024 Telephone [facility] MEDICINE [address] [place], [place] [phone] Sandi Ferris DO [address] [place], [place] [phone] Hospital Follow-up Social History Tobacco Use Types [...] from pt requesting a HDF appt. [facility] Date of admission: 09/19/24 Discharge date: 09/20/24 Diagnosed: 3 unprovoked seizures *Send message to [place] Clinical Care Coordinators documented in this encounter Plan of Treatment Upcoming Encounters Date Type Department Care Team (Late st Contact Info) Description 05/27/2025 2:00 PM EST Office Visit [facility] OPTOMETRY [address] [place] [address] Ning Crandall, OD [address] [place] [address] documented as of this encounter Visit Diagnoses Not on filedocumented in this encounter Additional Health Concerns Assessment Noted Time PHQ-9 Depression Total Score: 2 11/22/19 24 11:52 AM EDT documented as of this encounter Care Teams House Painter Relationship Specialty Start Date End Date Sandi Ferris DO [address] [place] [address] PCP - General Family Medicine 11/10/12 documented as of this encounter
--- OUTSIDE RECORDS SUMMARY | 2025-04-17 12:12 | XMS_ITS | Encounter Summary ---
Author Organization [employer] Address [address] [place] [address] [address], [place] [address] Care Team Providers Care Washer Cutter Name Role Phone Sandi Ferris DO Primary Care Provider + [phone] Reason for Visit * Reason Onset Date Comments Appointment Request 06/12/2023 Encounter Details Date Type Department Care Team ([facility] st Contact Info) Description 06/12/2023 Telephone [facility] MEDICINE [address] [place], [place] [phone] Sandi Ferris DO [address] [place], [place] [phone] Appointment Request Social History Tobacco Use Types [...] with others, in a hotel, in a assisted, living outside on the street, on a [...] they are not satisfied. Please contact at [phone] * Telephone Encounter - Cal Guzman - 06/12/2023 1:21 PM EST Tc from pt requesting to r/s OV on 06/12/2023 for HTN . Please contact pt @ [phone] documented in this encounter Plan of Treatment Upcoming Encounters Date Type Department Care Team (Late st Contact Info) Description 05/27/2025 2:00 PM EST Office Visit [facility] OPTOMETRY [address] [place], [place] [phone] Ning Crandall, OD [address] [place] [address] documented as of this encounter Visit Diagnoses Not on filedocumented in this encounter Additional Health Concerns Assessment Noted Time PHQ-9 Depression Total Score: 1 08/15/19 11:43 AM EDT documented as of this encounter Care Teams Washer Cutter Relationship Specialty Start Date End Date Sandi Ferris DO [address] [place] [phone] PCP - General Family Medicine 11/10/12 documented as of this encounter
--- OUTSIDE RECORDS SUMMARY | 2025-04-17 12:12 | XMS_ITS | Encounter Summary ---
Author Organization [employer] Address [address] [place] [address] 7 [place] [address] Care Team Providers Care Director Medical Surgical Name Role Phone Sandi Ferris DO Primary Care Provider + [phone] Reason for Visit * Reason Comments Med Refill Encounter Details Date Type Department Care Team ([facility] st Contact Info) Description 01/31/2025 Refill [facility] MEDICINE [address] [place], [place] [phone] Sandi Ferris DO [address] [place], [place] [phone] Hyperlipidemia, unspecified hyperlipidemia type Social History Tobacco [...] PM EST Office Visit C OPTOMETRY [address] [place] [address] Tarka, Ning, OD [address] [place] [address] documented as of this encounter Visit Diagnoses Diagnosis Hyperlipidemia, unspecified hyperlipidemia type documented in this encounter Additional Health Concerns Assessment Noted Time PHQ-9 Depression Total Score: 15 025 9:37 AM EDT documented as of this encounter Care Teams Director Medical Surgical Relationship Specialty Start Date End Date Sandi Ferris DO [address] [place] [address] PCP - General Family Medicine 11/10/12 documented as of this encounter
--- OUTSIDE RECORDS SUMMARY | 2025-04-17 12:12 | XMS_ITS | Encounter Summary ---
Author Organization [employer] Address [address] [place] [address] [address] [place] [address] Care Team Providers Care Artificial Limb Fitter Name Role Phone Sandi Ferris DO Primary Care Provider + [phone] Reason for Visit * Reason Onset Date Comments Nurse Triage 05/06/2024 Encounter Details Date Type Department Care Team ([facility] st Contact Info) Description 05/06/2024 Telephone [facility] MEDICINE [address] [place], [place] [phone] Sandi Ferris DO [address] [place], [place] [phone] Nurse Triage Social History Tobacco Use Types [...] 05/06/2024 3:44 PM EST Request ED report [facility] medical for 05/10/24 for Pt chart. Triage call Pt reports two seizures recently, 04/28/24 and 05/10/24. Pt reports taking medication as prescribed, no missed doses. Report from [facility] [place] on the chart from 04/28/24 visit. Pt went to [facility] 05/10/24 for second seizure. Pt reports [...] Description 05/27/2025 2:00 PM EST Office Visit [facility] OPTOMETRY [address] [place] [address] Ning Crandall, OD [address] [place] [address] documented as of this encounter Visit Diagnoses Not on filedocumented in this encounter Additional Health Concerns Assessment Noted Time PHQ-9 Depression Total Score: 2 11/22/19 24 11:52 AM EDT documented as of this encounter Care Teams Artificial Limb Fitter Relationship Specialty Start Date End Date Sandi Ferris DO [address] [place] [address] PCP - General Family Medicine 11/10/12 documented as of this encounter
[2025-04-17 12:35] LABS: Alanine Aminotransferase 27 U/L (0-40); Albumin Level 5.2 g/dL (3.5-5.0); Alkaline Phosphatase 75 U/L (39-117); Anion Gap 19 (12-20); Aspartate Amino Transferase 33 U/L (5-37); Blood Urea Nitrogen 12 mg/dL (9-16); Calcium 9.4 mg/dL (8.4-10.2); Carbon Dioxide 19 mmol/L (22-29); Chloride 107 mmol/L (96-108); Creatinine Clr Calc Pharmacy 89.0; Estimated Glomerular Filt Rate > 60; Potassium 3.8 mmol/L (3.3-5.1); Sodium 141 mmol/L (135-145); Total Protein 8.2 g/dL (6.5-8.0)
[2025-04-17 12:37] VITALS: BP 130/65; PULSE 99; RESP 17; O2SAT 99
[2025-04-17 13:26] LABS: Appearance Urine Turbid; Glucose Urine UA 250 mg/dL (Negative); PH 5.0 (5.0-9.0); Specific Gravity - Urine 1.015 (1.005-1.025)
[2025-04-17 13:36] LABS: Cannabinoid Screen Urine POSITIVE (Not Detect)
[2025-04-17 14:13] VITALS: BP 126/78; PULSE 102; RESP 20; O2SAT 99
[2025-04-17 14:49] LABS: Hematocrit 42.7 % (42.0-52.0); Hemoglobin 15.5 g/dl (14.0-18.0); Mean Corpuscular HGB Conc 36.3 g/dl (31.0-36.0); Mean Corpuscular Hemoglobin 32.3 pg (27.0-33.0); Mean Corpuscular Volume 89.0 fL (80.0-98.0); NRBC Abs Auto 0.000 X10*3/uL (0.0-0.012); NRBC Pct Auto 0.0 /100WBC (0.0-0.2); Platelet Count 347 X10*3/uL (160-400); Red Blood Count 4.80 X10*6/uL (4.60-5.80); White Blood Count 24.1 X10*3/uL (4.8-10.8)
[2025-04-17 15:10] VITALS: BP 137/65; PULSE 110; RESP 18; TEMP 37.1; O2SAT 98
[2025-04-17 15:36] LABS: Atypical Lymph Absolute Manual 0.2 x10*3/uL; Atypical Lymphs Percent Manual 1 % (0-6); Band Neutrophils Percent 0 % (3-5); Burr Cells 2+ (3-5) /OIF; Lymphocytes Absolute Manual 2.7 X10*3/uL (1.2-4.9); Lymphocytes Percent Manual 11 % (20-40); Neutrophils Absolute Manual 21.2 X10*3/uL (2.0-8.3); Neutrophils Percent Manual 88 % (45-73); RBC Morphology NOTED
[2025-04-17 17:44] VITALS: BP 120/69; PULSE 101; RESP 18; TEMP 37; O2SAT 98
--- NOTE | 2025-04-17 17:47 | PC.NURSE ---
Pt presented to ED via EMS from home, EMS reporting pt had 4 seizures at home witnessed by significant other (tonic clonic), pt has hx of seizures, takes Keppra and Dilatin (has been med compliant). Pt has hx of becoming aggressive and violent after seizures, EMS had to give 5mg of haldol and 5mg of versed IM to sedate pt. Pt has been calm and cooperative while here. Alert and oriented at this time, no resp distress. VSS, sinus tach on monitor. Provider placed US guided line in left AC. Seizure precautions in place. Pt able to ambulate steadily to bathroom.
[2025-04-17 18:09] LABS: Resp Syncy Virus RNA Qual PCR NEGATIVE (Negative); SARS COV2 PCR INHOUSE NEGATIVE (Negative)
--- NOTE | 2025-04-17 19:16 | PM.IMHP ---
History of Present Illness Date of Service: 04/17/25 Attending physician on admission: Vicente Javier Chief Complaint: Seizures Luis Felipe is a 44 years old man with past medical history significant for seizures on Keppra, Dilantin and lacosamide; hypertension and hyperlipidemia was brought to the ED after his family witnessed for seizures at home today. She reported tongue biting and some trauma to right arm. He denied head trauma. He received Haldol 5 mg and Versed 5 mg IM by EMS. He denied any headache, dizziness, palpitations, chest pain, shortness on breath, cough, fever, chills, abdominal pain, nausea, vomiting or diarrhea. He said that he has been compliant with home meds. He has been cocaine and marijuana use. He denied alcohol abuse or tobacco smoking. In the ED, he was found to have stable vital signs. The smell sinus tachycardia. Blood workup showed leukocytosis of 24.1. Hemoglobin is 15.5, hematocrit 42.7 and platelets 347. There are no significant electrolyte imbalances except for low CO2 at 19. Creatinine is 1.17 and BUN 12. Glucose 140. LFTs are normal. Albumin is 5.2. UA showed no evidence of urinary tract. UA is positive for benzodiazepines, cocaine and marijuana. ED Tx: NS 2 L bolus, Keppra 2 g IV, phenytoin 500 mg IV Review of Systems Review of Systems: All 12 systems were reviewed and normal except as noted in HPI. [facility] Medical History Nasopharyngeal mass Seizure Family History Maternal Aunt Seizure disorder Social History Alcohol intake: never Patient Tobacco Use Status: Never used Tobacco Smoked in Last 30 Days: Yes Use of substances other than those prescribed or required for medical reasons: Yes Substance Use Type: Marijuana Advance Directives: No Advance Directives Information Provided: Yes Meds Allergies Allergy/AdvReac Type Severity Reaction Status Date / Time No Known Allergies (No Known Allergy Verified 04/17/25 11:39 Allergies*) Home Medications ?Medication ?Instructions ?Recorded ?Confirmed ?Last Taken ?Type atorvastatin 10 mg tablet 10 mg PO DAILY 04/05/23 10/16/24 Unknown History Physical Exam Vital Signs and Narrative: Vital Signs: Last Vital Signs Temp 98.6 F 04/17/25 17:44 Pulse 101 H 04/17/25 17:44 Resp 18 04/17/25 17:44 BP 120/69 04/17/25 17:44 Pulse Ox 98 04/17/25 17:44 O2 Del Method Room Air 04/17/25 17:44 BMI result Body Mass Index 29.1 General: Alert, oriented, in no acute distress. Well nourished and cooperative. Afebrile. HEENT: Head normocephalic, atraumatic. PER, EOMI. Sclerae anicteric, conjunctiva clear. Oropharynx without erythema or exudate. Mucous membranes moist. Neck: Supple, no lymphadenopathy, or JVD. Heart: RRR, no murmurs, rubs or gallops. Lungs: Clear to auscultation bilaterally. No wheezes, rales, or rhonchi. Normal respiratory effort. Abdomen: Soft, non tenderness, nondistended, normoactive bowel sounds. No hepatosplenomegaly, masses or masses. Extremities: No calf tenderness bilaterally, no swelling. Left forearm ecchmosis. Musculoskeletal: Full range of motion. No joint swelling, deformity, or tenderness. Normal muscle tone and strength. Skin: Warm/Dry. No pallor. No jaundice. Neurologic: Alert & oriented x4. Moving all extremities spontaneously. Normal speech. Psychological: Normal mood and affect. Thought process coherent. Results Labs 04/17/25 14:43 04/17/25 12:06 Labs: Laboratory Results - last 24 hr 04/17/25 04/17/25 04/17/25 12:05 12:06 13:20 MCV 90.4 MCH 32.3 MCHC 35.7 RDW 13.0 Plt Count 381 MPV 8.4 L Immature Gran % (Auto) 0.6 H Neut % (Auto) 89.0 H Lymph % (Auto) 7.5 L [place] % (Auto) 2.7 Eos % (Auto) 0.0 Baso % (Auto) 0.2 Lymph # (Auto) 1.6 [place] # (Auto) 0.6 Eos # (Auto) 0.0 Baso # (Auto) 0.1 Abs Immat Gran (auto) 0.12 H Absolute Neuts (auto) 19.1 H Absolute Nucleated RBC 0.000 Nucleated RBC % (auto) 0.0 Neutrophils % (Manual) Band Neutrophils % Lymphocytes % (Manual) Atypical Lymphs % (Man) Abs Neuts (Manual) Lymphocytes # (Manual) Atyp Lymphs # (Manual) Platelet Estimate Plt Morphology Comment RBC Morphology [place] Cells Anion Gap 19 Estim Creat Clear Calc 89.0 Estimated GFR > 60 Random Glucose 140 H Calcium 9.4 Total Bilirubin 0.3 AST 33 ALT 27 Alkaline Phosphatase 75 Total Protein 8.2 H Albumin 5.2 H Urine Color Yellow Urine Appearance Turbid Urine pH 5.0 Ur Specific Interior 1.015 Urine Protein Trace Urine Glucose (UA) 250 H Urine Ketones Trace Urine Blood Negative Urine Nitrite Negative Ur Leukocyte Esterase Negative Urine Opiates Screen Not Detected Ur Buprenorphine Scrn Not Detected Ur Oxycodone Screen Not Detected Urine Methadone Screen Not Detected Urine Fentanyl Screen Not Detected Ur Barbiturates Screen Not Detected Phenytoin 8.7 L Ur Phencyclidine Scrn Not Detected Ur Amphetamines Screen Not Detected U Benzodiazepines Scrn POSITIVE H Urine Cocaine Screen POSITIVE H U Marijuana (THC) Screen POSITIVE H Influenza Type A (PCR) Influenza Type B (PCR) RSV RNA Qual (PCR) SARS-CoV-2 RNA (RT-PCR) 04/17/25 04/17/25 14:43 16:59 MCV 89.0 MCH 32.3 MCHC 36.3 H RDW 12.9 Plt Count 347 MPV 8.5 L Immature Gran % (Auto) Cancelled Neut % (Auto) Cancelled Lymph % (Auto) Cancelled [place] % (Auto) Cancelled Eos % (Auto) Cancelled Baso % (Auto) Cancelled Lymph # (Auto) Cancelled [place] # (Auto) Cancelled Eos # (Auto) Cancelled Baso # (Auto) Cancelled Abs Immat Gran (auto) Cancelled Absolute Neuts (auto) Cancelled Absolute Nucleated RBC 0.000 Nucleated RBC % (auto) 0.0 Neutrophils % (Manual) 88 H Band Neutrophils % 0 L Lymphocytes % (Manual) 11 L Atypical Lymphs % (Man) 1 Abs Neuts (Manual) 21.2 H Lymphocytes # (Manual) 2.7 Atyp Lymphs # (Manual) 0.2 Platelet Estimate NORMAL Plt Morphology Comment NORMAL RBC Morphology NOTED Cory Cells 2+ (3-5) Anion Gap Estim Creat Clear Calc Estimated GFR Random Glucose Calcium Total Bilirubin AST ALT Alkaline Phosphatase Total Protein Albumin Urine Color Urine Appearance Urine pH Ur Specific Interior Urine Protein Urine Glucose (UA) Urine Ketones Urine Blood Urine Nitrite Ur Leukocyte Esterase Urine Opiates Screen Ur Buprenorphine Scrn Ur Oxycodone Screen Urine Methadone Screen Urine Fentanyl Screen Ur Barbiturates Screen Phenytoin Ur Phencyclidine Scrn Ur Amphetamines Screen U Benzodiazepines Scrn Urine Cocaine Screen U Marijuana (THC) Screen Influenza Type A (PCR) NEGATIVE Influenza Type B (PCR) NEGATIVE RSV RNA Qual (PCR) NEGATIVE SARS-CoV-2 RNA (RT-PCR) NEGATIVE Assessment and Plan (1) Cocaine abuse: Status: Acute (2) Seizure: Status: Acute Plan Luis Felipe is a 44 y/o man with a PMHx significant for seizure disorder on multiple anticonvulsants who presents with: Multiple seizures. Phenytoin level is low. Telemetry. Neuro checks. Fall and seizure precautions. Patient was loaded with Keppra and phenytoin. Increase Keppra to 1500 mg IV b.i.d.. Continue clonazepam, lacosamide and phenytoin per home doses. Continue vitamin B6. Patient was encouraged to avoid cocaine use. Keppra level pending. Neurology consult. Essential hypertension. Continue lisinopril/hydrochlorothiazide. Hyperlipidemia. Continue statin. Obstructibe sleep apnea. Nocturnal CPAP. Cocaine use. Patient encouraged to stop using cocaine. Code status: Full DVT prophylaxis: Lovenox med rec pending Patient will need hospitalization for at least 2 midnights for multiple seizures treatment with multiple anticonvulsant agents, close monitoring of neurological status and evaluation by subspecialty. This documentation was generated using dictation software; minor spreading or plant changer errors may be present. Quality Stroke Does the patient have a stroke diagnosis?: No VTE Prior VTE?: No VTE Risk Level:: Medical - low VTE Device Contraindication: Treatment Not Indicated VTE Drug Contraindication: N/A - Med Ordered
[2025-04-17 19:32] VITALS: BP 112/68; PULSE 104; RESP 11; TEMP 36.7; O2SAT 99
[2025-04-18] VITALS (11 sets, daily range): BP systolic 122–151; BP diastolic 67–84; PULSE 73–100; RESP 14–20; TEMP 36.6–37.1; O2SAT 93–100; BMI 29.1
--- NOTE | 2025-04-18 00:10 | HO.NURTONUR ---
Pt presented to ED via EMS from home, EMS reporting pt had 4 seizures at home witnessed by significant other (tonic clonic), pt has hx of seizures, takes Keppra and Dilatin (has been med compliant). Pt has hx of becoming aggressive and violent after seizures, EMS had to give 5mg of haldol and 5mg of versed IM to sedate pt. Pt has been calm and cooperative while here. Alert and oriented at this time, no resp distress. VSS, sinus tach on monitor. Provider placed US guided line in left AC. Seizure precautions in place. Pt able to ambulate steadily to bathroom. Pt being admitted for neuro consult and further montioring Labs- WBC- 24.1 Hgb- 15.5 Hct- 42.7 CO2- 19 Creatinine- 1.17 BUN- 12 UA positive for cocaine, benzos, and marijuana.
[2025-04-18] MEDS: levETIRAcetam in NaCl (iso-os) 1,500 MG/100 ML PIGGYBACK 400 MG IV ×2 (05:45→18:18)
[2025-04-18 07:46] LABS: MANUAL DIFF FLAG NO
[2025-04-18 08:07] LABS: Hematocrit 42.1 % (42.0-52.0); Hemoglobin 15.2 g/dl (14.0-18.0); Imm Gran Abs Auto 0.05 X10*3/uL (0.00-0.03); Imm Gran Pct Auto 0.3 % (0.0-0.4); Lymphocytes Absolute Auto 3.1 X10*3/uL (1.2-4.9); Mean Corpuscular HGB Conc 36.1 g/dl (31.0-36.0); Mean Corpuscular Hemoglobin 32.9 pg (27.0-33.0); Mean Corpuscular Volume 91.1 fL (80.0-98.0); NRBC Abs Auto 0.000 X10*3/uL (0.0-0.012); NRBC Pct Auto 0.0 /100WBC (0.0-0.2); Platelet Count 309 X10*3/uL (160-400); Red Blood Count 4.62 X10*6/uL (4.60-5.80); White Blood Count 15.6 X10*3/uL (4.8-10.8)
[2025-04-18 08:36] LABS: Anion Gap 10 (12-20); Blood Urea Nitrogen 9 mg/dL (9-16); Calcium 8.5 mg/dL (8.4-10.2); Carbon Dioxide 24 mmol/L (22-29); Chloride 109 mmol/L (96-108); Creatinine Clr Calc Pharmacy 125.5; Estimated Glomerular Filt Rate > 60; Magnesium 2.4 mg/dL (1.6-2.6); Potassium 3.4 mmol/L (3.3-5.1); Sodium 140 mmol/L (135-145)
--- NOTE | 2025-04-18 09:29 | MHC.CM.PN ---
CM met with Patient and addressed IMM with him, with the assist of [facility]. 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 Home.self care is Patient's goal and CM has initiated and will follow for dc planning. PCP is Dr. Sandi Ferris and will transport at dc.
[2025-04-18] MEDS: 0.9 % Sodium Chloride Flush 3 ML SYRINGE IVFLUSH (10:28)
--- NOTE | 2025-04-18 10:34 | PC.NURSE ---
0830 This RN and MD went into patients room to discuss his discharge; patient had states that he needed to leave by 12pm to pickup driver his [place] from the airport. Patient was A x 4 asking appropriate questions in Swazi and calm in the bed. 0930 T staff alarming camera stating that patient was trying to climb oob, pulling on side rails. When this RN and COSMETICS PRESSER arrived in room patient was pulling at wires still trying to get oob and yelling only in Thai. Patient was not making sense with what he was saying and was thinking he was somewhere other than the hospital. COSMETICS PRESSER was able to get patient back in bed and patient proceeded to lie in bed, patient continued to have confusion. MD was notified and absent seizure was suspect due to patient having similar episodes of confusion and agitation in the past after seizures. Patient was able to calm down and rest quietly in the room. 1030 this RN and MD went back to patients room and patient was again A X 4 and calm/cooperative resting in the bed. When asked about the episode patient had no memory of what had happened.
--- NOTE | 2025-04-18 12:06 | ECG_ITS ---
Test Reason : IRINEO Blood Pressure : */* mmHG Vent. Rate : 78 BPM Atrial Rate : 78 BPM P-R Int : 130 ms QRS Dur : 88 ms QT Int : 384 ms P-R-T Axes : 68 1 53 degrees QTcB Int : 437 ms Normal sinus rhythm with sinus arrhythmia Normal ECG When compared with ECG of 28-Apr-2024 11:25, No significant change was found Referred By: Shonda Davila Electronically Signed By: ALEX ARAYA
[2025-04-18] MEDS: LORazepam 2 MG/ML VIAL 1 MG IV (12:34)
[2025-04-18 12:35] LABS: Glucose, Whole Blood 135 mg/dL (60-115)
[2025-04-18 13:03] LABS: Hematocrit 42.3 % (42.0-52.0); Hemoglobin 15.1 g/dl (14.0-18.0); Mean Corpuscular HGB Conc 35.7 g/dl (31.0-36.0); Mean Corpuscular Hemoglobin 32.3 pg (27.0-33.0); Mean Corpuscular Volume 90.6 fL (80.0-98.0); NRBC Abs Auto 0.000 X10*3/uL (0.0-0.012); NRBC Pct Auto 0.0 /100WBC (0.0-0.2); Platelet Count 297 X10*3/uL (160-400); Red Blood Count 4.67 X10*6/uL (4.60-5.80); White Blood Count 13.9 X10*3/uL (4.8-10.8)
[2025-04-18 13:12] LABS: Ammonia 45 umol/L (13-55)
[2025-04-18 13:18] LABS: Alanine Aminotransferase 20 U/L (0-40); Albumin Level 4.0 g/dL (3.5-5.0); Alkaline Phosphatase 60 U/L (39-117); Anion Gap 12 (12-20); Aspartate Amino Transferase 32 U/L (5-37); Blood Urea Nitrogen 8 mg/dL (9-16); Calcium 8.2 mg/dL (8.4-10.2); Carbon Dioxide 24 mmol/L (22-29); Chloride 108 mmol/L (96-108); Creatinine Clr Calc Pharmacy 119.8; Estimated Glomerular Filt Rate > 60; Potassium 3.3 mmol/L (3.3-5.1); Sodium 141 mmol/L (135-145); Total Protein 6.4 g/dL (6.5-8.0)
[2025-04-18] MEDS: Lactated Ringers 1,000 ML 100 ML IVCONT ×2 (13:42→22:32)
--- NOTE | 2025-04-18 13:53 | PM.NEUROCN ---
History of Present Illness Data of Consult Service Date: 04/18/25 Primary Care Provider: DO ARNOLDO Rodriguez Reason for consult: Seizure disorder 44 years old man who apparently has diagnosis of epilepsy with generalized convulsions not fully controlled with multiple medicines. He has been [place] [facility] [place]. I would noted that he was taking good dose of levetiracetam and also lacosamide with Dilantin. His initial tox screen was positive for cocaine. He came to hospital after apparently he had another seizure. Review of Systems Review of Systems: No recent cold or flu-like illness or trauma PMFSH Past Medical History Medical History Nasopharyngeal mass Seizure Family History Family History Maternal Aunt Seizure disorder Social History Social History Household Members: Unknown / Unable to assess Housing: Unknown / Unable to assess Alcohol intake: never Patient Tobacco Use Status: Never used Tobacco Substance Use Type: Marijuana service: No Meds Allergies Allergy/AdvReac Type Severity Reaction Status Date / Time No Known Allergies (No Known Allergy Verified 04/17/25 11:39 Allergies*) Active Medications: Current Medications Acetaminophen (Acetaminophen 325 Mg Tablet) 975 mg PO Q6H PRN PRN Reason: Pain, Mild 1-3,fever,headache Calcium Carbonate (Calcium Carbonate 750 Mg Tab.Chew) 750 mg PO Q4H PRN PRN Reason: Heartburn Enoxaparin Sodium (Enoxaparin Sodium 40 Mg/0.4 Ml Syringe) 40 mg SUBCUT Q24H [facility] Last Admin: 04/18/25 10:28 Dose: 40 mg Levetiracetam (Keppra) 1,500 mg in 100 mls @ 400 mls/hr IV Q12H [facility] Last Infusion: 04/18/25 06:00 Dose: Infused Lactated Ringer's (Lr) 1,000 mls @ 100 mls/hr IVCONT .Q10H [facility] Last Admin: 04/18/25 13:42 Dose: 100 mls/hr Lacosamide (Lacosamide 100 Mg Tablet) 50 mg PO ONCE ONE Stop: 04/19/25 05:01 Magnesium Hydroxide (Milk Of Magnesia 30 Ml Oral.Susp) 30 ml PO DAILY PRN PRN Reason: Constipation Sodium Chloride (0.9 % Sodium Chloride Flush 3 Ml Syringe) 3 ml IVFLUSH QSHIFT [place] Last Admin: 04/18/25 10:28 Dose: 3 ml Home Medications ?Medication ?Instructions ?Recorded ?Confirmed ?Last Taken ?Type atorvastatin 10 mg tablet 10 mg PO DAILY 04/05/23 10/16/24 Unknown History Physical Exam Vital Signs: Vital Signs: Last Vital Signs Temp 98.6 F 04/18/25 11:11 Pulse 73 04/18/25 12:26 Resp 16 04/18/25 12:26 BP 145/67 H 04/18/25 12:26 Pulse Ox 95 04/18/25 12:26 O2 Del Method Room Air 04/18/25 12:26 BMI result Body Mass Index 29.1 Neuro: Other: Mental Status: Alert and oriented to person, place, and time. Normal attention. Normal spontaneous speech, fluency, and comprehension. Cranial Nerves: CN II: Visual menjivar full to confrontation, visual acuity intact. CN III, IV, : Pupils equal, round, reactive to light and accommodation. Extraocular movements are normal. CN V: Facial sensation is normal. CN VII: Facial movements symmetrical. CN VIII: Hearing intact to bedside conversation is normal. CN IX, X: Palate elevates symmetrically. CN XI: Shoulder shrug and head turn symmetrical. CN XII: Tongue midline without atrophy or fasciculations. Motor: No obvious focal arm or leg weakness. Plantars are flexor. Extrapyramidal: Full facial expressions and blinking. No rigidity. Movements are appropriate with no tremor or abnormality. Speech: Normal; no dysarthria or tremor. Results Labs 04/18/25 12:39 04/18/25 12:39 Labs: Short CBC 04/17/25 04/18/25 04/18/25 Range/Units 14:43 07:41 12:39 WBC 24.1 H 15.6 H 13.9 H (4.8-10.8) X10*3/uL Hgb 15.5 15.2 15.1 (14.0-18.0) g/dl Hct 42.7 42.1 42.3 (42.0-52.0) % Plt Count 347 309 297 (160-400) X10*3/uL BMP 04/18/25 04/18/25 07:41 12:39 Sodium 140 141 Potassium 3.4 3.3 Chloride 109 H 108 Carbon Dioxide 24 24 BUN 9 8 L Creatinine 0.83 0.87 Calcium 8.5 D 8.2 L Liver Function 04/18/25 Range/Units 12:39 Total Bilirubin 0.4 (0.0-1.0) mg/dL AST 32 (5-37) U/L ALT 20 (0-40) U/L Alkaline Phosphatase 60 (39-117) U/L Albumin 4.0 (3.5-5.0) g/dL Assessment and Plan (1) Seizure: Status: Acute 44 years old man who apparently has diagnosed seizure disorder with generalized convulsions not responsive or fully controlled with multiple medicines including levetiracetam, phenytoin, and lacosamide. He came to hospital after seizure but his tox screen was also positive for cocaine. I do not recommend changing any of his medicines at this point. He needed to stopped using drugs of abuse especially cocaine, which can typically lead to seizures in can found overall management. Once that issue is resolved, and if he needed further pharmacotherapy for seizures, I would probably consider adding Xcopri and eliminating Dilantin, but that decision is better made in outpatient setting. (2) Cocaine abuse: Status: Acute Procedures Date of Service Date of Service: 04/18/25
--- NOTE | 2025-04-18 15:01 | HO.PM.IMPN ---
Subjective Subjective Date of Service: 04/18/25 Interval History: Breakthrough seizure, cocaine use Review of Systems Patient had rapid response this morning-mostly postictal Fingersticks fine, sats fine, vitals stable, after wake up get very agitated-which seems similar to his ED presentation. given iv ativan x 1 dose. Denies any new symptoms of cough or shortness of breath or any urinary complaints or abdominal pain, no fevers. Physical Exam Exam: Exam: Appearance: Awake alert, postictal was somewhat confused then improved cvs: rrr, [id number]. res: clear to auscultation ,no rhonchii or wheezing abd: no rebound or guarding ,nt, bs present. ext pulses present , no cyanosis neuro: Moves all extremities. Vital Signs: Vital Signs: Last Vital Signs Temp 98.6 F 04/18/25 11:11 Pulse 73 04/18/25 12:26 Resp 16 04/18/25 12:26 BP 145/67 H 04/18/25 12:26 Pulse Ox 95 04/18/25 12:26 O2 Del Method Room Air 04/18/25 12:26 BMI result Body Mass Index 29.1 Objective Data Active Medications Acetaminophen (Acetaminophen 325 Mg Tablet) 975 mg PO Q6H PRN PRN Reason: Pain, Mild 1-3,fever,headache Calcium Carbonate (Calcium Carbonate 750 Mg Tab.Chew) 750 mg PO Q4H PRN PRN Reason: Heartburn Enoxaparin Sodium (Enoxaparin Sodium 40 Mg/0.4 Ml Syringe) 40 mg SUBCUT Q24H [facility] Last Admin: 04/18/25 10:28 Dose: 40 mg Documented By: HEATHER Levetiracetam (Keppra) 1,500 mg in 100 mls @ 400 mls/hr IV Q12H [facility] Last Infusion: 04/18/25 06:00 Dose: Infused Documented By: RHETT Lactated Ringer's (Lr) 1,000 mls @ 100 mls/hr IVCONT .Q10H [facility] Last Admin: 04/18/25 13:42 Dose: 100 mls/hr Documented By: HEATHER Lacosamide (Lacosamide 100 Mg Tablet) 50 mg PO ONCE ONE Stop: 04/19/25 05:01 Magnesium Hydroxide (Milk Of Magnesia 30 Ml Oral.Susp) 30 ml PO DAILY PRN PRN Reason: Constipation Sodium Chloride (0.9 % Sodium Chloride Flush 3 Ml Syringe) 3 ml IVFLUSH QSHIFT [place] Last Admin: 04/18/25 10:28 Dose: 3 ml Documented By: HEATHER Labs 04/18/25 12:39 04/18/25 12:39 Labs: Laboratory Results - last 24 hr 04/17/25 04/17/25 04/18/25 14:43 16:59 07:41 MCV 89.0 91.1 MCH 32.3 32.9 MCHC 36.3 H 36.1 H RDW 12.9 13.0 Plt Count 347 309 MPV 8.5 L 9.0 L Immature Gran % (Auto) Cancelled 0.3 Neut % (Auto) Cancelled 73.5 H Lymph % (Auto) Cancelled 20.1 [place] % (Auto) Cancelled 5.6 Eos % (Auto) Cancelled 0.3 Baso % (Auto) Cancelled 0.2 Lymph # (Auto) Cancelled 3.1 [place] # (Auto) Cancelled 0.9 Eos # (Auto) Cancelled 0.1 Baso # (Auto) Cancelled 0.0 Abs Immat Gran (auto) Cancelled 0.05 H Absolute Neuts (auto) Cancelled 11.5 H Absolute Nucleated RBC 0.000 0.000 Nucleated RBC % (auto) 0.0 0.0 Neutrophils % (Manual) 88 H Band Neutrophils % 0 L Lymphocytes % (Manual) 11 L Atypical Lymphs % (Man) 1 Abs Neuts (Manual) 21.2 H Lymphocytes # (Manual) 2.7 Atyp Lymphs # (Manual) 0.2 Platelet Estimate NORMAL Plt Morphology Comment NORMAL RBC Morphology NOTED [place] Cells 2+ (3-5) Anion Gap 10 L Estim Creat Clear Calc 125.5 Estimated GFR > 60 POC Glucose Random Glucose 111 Lactic Acid Calcium 8.5 D Magnesium 2.4 Total Bilirubin AST ALT Alkaline Phosphatase Ammonia Total Protein Albumin Influenza Type A (PCR) NEGATIVE Influenza Type B (PCR) NEGATIVE RSV RNA Qual (PCR) NEGATIVE SARS-CoV-2 RNA (RT-PCR) NEGATIVE 04/18/25 04/18/25 04/18/25 12:08 12:39 13:03 MCV 90.6 MCH 32.3 MCHC 35.7 RDW 13.0 Plt Count 297 MPV 8.6 L Immature Gran % (Auto) Neut % (Auto) Lymph % (Auto) [place] % (Auto) Eos % (Auto) Baso % (Auto) Lymph # (Auto) [place] # (Auto) Eos # (Auto) Baso # (Auto) Abs Immat Gran (auto) Absolute Neuts (auto) Absolute Nucleated RBC 0.000 Nucleated RBC % (auto) 0.0 Neutrophils % (Manual) Band Neutrophils % Lymphocytes % (Manual) Atypical Lymphs % (Man) Abs Neuts (Manual) Lymphocytes # (Manual) Atyp Lymphs # (Manual) Platelet Estimate Plt Morphology Comment RBC Morphology [place] Cells Anion Gap 12 Estim Creat Clear Calc 119.8 Estimated GFR > 60 POC Glucose 135 H Random Glucose 123 H Lactic Acid 1.0 Calcium 8.2 L Magnesium Total Bilirubin 0.4 AST 32 ALT 20 Alkaline Phosphatase 60 Ammonia 45 Total Protein 6.4 L Albumin 4.0 Influenza Type A (PCR) Influenza Type B (PCR) RSV RNA Qual (PCR) SARS-CoV-2 RNA (RT-PCR) Assessment and Plan (1) Cocaine abuse: Status: Acute (2) Seizure: Status: Acute Assessment and Plan: 44 y/o man with a PMHx significant for seizure disorder on multiple anticonvulsants who presents with: multiple seizures- Phenytoin level is low. Keppra level pending. rapid response detail -see above. ct head -negative plan: Neuro checks. Fall and seizure precautions. Patient was loaded with Keppra and phenytoin on admission ,given iv ativan x1 today. continue Keppra to 1500 mg IV b.i.d.. Continue clonazepam, lacosamide and phenytoin per home doses. Continue vitamin B6. Patient was encouraged to avoid cocaine use. Neurology consult-continue above mangement ,avoid coacaine use. mild leucocytosis : improving no sirs or sepsis at present cxr negative lactic acid normal added ua blood cultures denies any respiratory or abdominal or urinary complaints. moniter closely cocaine use :added addiction eval. Essential hypertension. Continue lisinopril/hydrochlorothiazide. Hyperlipidemia. Continue statin. Obstructibe sleep apnea. Nocturnal CPAP. Cocaine use. Patient encouraged to stop using cocaine. Code status: Full DVT prophylaxis: Lovenox ongoing need hospitalization for multiple seizures treatment with multiple anticonvulsant agents, close monitoring of neurological status and evaluation by subspecialty. patient family updated at the bedside in detail length. Quality Stroke Does the patient have a stroke diagnosis?: No VTE Prior VTE?: No VTE Risk Level:: Medical - low VTE Device Contraindication: Treatment Not Indicated VTE Drug Contraindication: N/A - Med Ordered
[2025-04-18] MEDS: diazePAM 10 MG/2 ML CARTRIDGE 2.5 MG IVPUSH (17:36)
[2025-04-18] MEDS: levETIRAcetam in NaCl (iso-os) 500 MG/100 ML PIGGYBACK 400 MG IV (18:18)
--- NOTE | 2025-04-18 18:25 | PHA.MEDREC ---
Pharmacy Consult ? Medication Reconciliation Pharmacy has completed the medication reconciliation. Spoke with pt to confirm medications. He takes Keppra differently than prescribed. He was adamant that he takes 5 full tablets (2500mg) BID. He was on lacosamide until last Saturday. And completed all antibiotics and steroid courses.
[2025-04-18 19:30] LABS: Glucose, Whole Blood 120 mg/dL (60-115)
--- NOTE | 2025-04-18 19:41 | PM.EVENT ---
Event Note Date of Service: 04/18/25 Event Note: OVERNIGHT BABYSITTER activated as pt had another episode of seizures. He is now postictal. He has been receiving Keppra IV, lacosamide phenytoin. Per nursing this is the for episode of seizures after admission. Patient is currently postictal unable to tell me his name. He will be transferred to the ICU for further management. Time Spent With Patient Time: Total time managing care of this patient today ____ minutes.
[2025-04-18 20:13] LABS: MANUAL DIFF FLAG NO
[2025-04-18 20:14] LABS: Hematocrit 44.4 % (42.0-52.0); Hemoglobin 15.6 g/dl (14.0-18.0); Imm Gran Abs Auto 0.09 X10*3/uL (0.00-0.03); Imm Gran Pct Auto 0.6 % (0.0-0.4); Lymphocytes Absolute Auto 2.7 X10*3/uL (1.2-4.9); Mean Corpuscular HGB Conc 35.1 g/dl (31.0-36.0); Mean Corpuscular Hemoglobin 32.1 pg (27.0-33.0); Mean Corpuscular Volume 91.4 fL (80.0-98.0); NRBC Abs Auto 0.000 X10*3/uL (0.0-0.012); NRBC Pct Auto 0.0 /100WBC (0.0-0.2); Platelet Count 310 X10*3/uL (160-400); Red Blood Count 4.86 X10*6/uL (4.60-5.80); White Blood Count 15.2 X10*3/uL (4.8-10.8)
[2025-04-18 20:34] LABS: Anion Gap 15 (12-20); Blood Urea Nitrogen 9 mg/dL (9-16); Calcium 8.4 mg/dL (8.4-10.2); Carbon Dioxide 23 mmol/L (22-29); Chloride 109 mmol/L (96-108); Creatinine Clr Calc Pharmacy 121.2; Estimated Glomerular Filt Rate > 60; Magnesium 2.2 mg/dL (1.6-2.6); Potassium 3.6 mmol/L (3.3-5.1); Sodium 143 mmol/L (135-145)
--- NOTE | 2025-04-18 20:51 | PM.CCN ---
Critical Care Event Note Summary Date of Service: 04/18/25 Code activated: No Narrative: 44 years old man with past medical history significant for seizures, substance abuse (cocaine), hypertension hyperlipidemia who presented to emergency department yesterday after family witnessed seizure activity. ?Urine toxicology was positive for cocaine and marijuana. Phenytoin level is low. Keppra level pending Patient was admitted to Hospital Medicine and was loaded with Keppra and phenytoin and iv Ativan. With plan to resume home dose clonazepam, lacosamide and phenytoin Today patient had x4 for seizure activity lasting < 2min but prolong postictal state. Neuro rec resuming home meds. Patient did not receive PO meds during the day. Will resume. Willl transfer patient to ICU for closely monitoring due to x 4 seizure acitivity today Critical Care Time (minutes): 30
[2025-04-19] VITALS (27 sets, daily range): BP systolic 91–145; BP diastolic 56–85; PULSE 17–150; RESP 10–22; TEMP 36.8–37.1; O2SAT 92–99
[2025-04-19] MEDS: 0.9 % Sodium Chloride Flush 3 ML SYRINGE IVFLUSH ×4 (00:05→23:45)
[2025-04-19] MEDS: levETIRAcetam in NaCl (iso-os) 1,500 MG/100 ML PIGGYBACK 400 MG IV ×2 (05:00→17:41)
--- NOTE | 2025-04-19 05:17 | PC.NURSE ---
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 VERSED 2MG IVP GIVEN...GRADUAL DECREASED AGITATION..INITIALLY RESPONDING TO [place] ONLY.....CPAP MASK OFF WITH SEIZURE ACTIVITY..PLACED 2 L/M CANNULA UNTIL AWAKE...AWAKE..CONVERSING IN [place] AT PRESENT...CO-OPERATIVE..SCHEDULED AM GABRIEL ADMINISTERED 5AM PER PROVIDER..CURRENTLY ON CELLPHONE..GOOD CO-ORDINATION OF EXTREMETIES
[2025-04-19 06:17] LABS: MANUAL DIFF FLAG NO
[2025-04-19 06:19] LABS: Venous Blood Gas Refer to POC result
[2025-04-19 06:21] LABS: VBG HCO3 29 mmol/L (22-26); VBG O2 % Saturation 96.0 %
[2025-04-19 06:30] LABS: Hematocrit 41.3 % (42.0-52.0); Hemoglobin 14.5 g/dl (14.0-18.0); Imm Gran Abs Auto 0.05 X10*3/uL (0.00-0.03); Imm Gran Pct Auto 0.4 % (0.0-0.4); Lymphocytes Absolute Auto 2.3 X10*3/uL (1.2-4.9); Mean Corpuscular HGB Conc 35.1 g/dl (31.0-36.0); Mean Corpuscular Hemoglobin 32.2 pg (27.0-33.0); Mean Corpuscular Volume 91.6 fL (80.0-98.0); NRBC Abs Auto 0.000 X10*3/uL (0.0-0.012); NRBC Pct Auto 0.0 /100WBC (0.0-0.2); Platelet Count 289 X10*3/uL (160-400); Red Blood Count 4.51 X10*6/uL (4.60-5.80); White Blood Count 12.7 X10*3/uL (4.8-10.8)
[2025-04-19 06:38] LABS: Albumin Level 3.7 g/dL (3.5-5.0); Anion Gap 13 (12-20); Blood Urea Nitrogen 10 mg/dL (9-16); Calcium 8.3 mg/dL (8.4-10.2); Carbon Dioxide 24 mmol/L (22-29); Chloride 110 mmol/L (96-108); Creatinine Clr Calc Pharmacy 117.1; Estimated Glomerular Filt Rate > 60; Magnesium 2.1 mg/dL (1.6-2.6); Potassium 3.6 mmol/L (3.3-5.1); Sodium 143 mmol/L (135-145)
[2025-04-19] MEDS: Potassium Phosphate/NS 15 MMOL/250 ML PLAST..BAG 62.5 MMOL IV (07:48)
[2025-04-19] MEDS: Lactated Ringers 1,000 ML 100 ML IVCONT (07:56)
[2025-04-19] MEDS: levETIRAcetam in NaCl (iso-os) 1,000 MG/100 ML PIGGYBACK 400 MG IV ×2 (14:22→14:38)
[2025-04-19] MEDS: dexmedeTOMIDine HCL/NS 400 MCG/100 ML PLAST..BAG 22.35 MCG IVCONT (15:45)
[2025-04-19] MEDS: Esmolol HCl/NaCl Iso 2,500 MG/250 ML IV.SOLN 26.82 MG IVCONT (16:39)
[2025-04-19] MEDS: dexmedeTOMIDine HCL/NS 400 MCG/100 ML PLAST..BAG 24.59 MCG IVCONT (18:33)
--- NOTE | 2025-04-19 18:51 | P.PNCC_ITS ---
Subjective Subjective Date of Service: 04/19/25 Interval History: Patient had 4 episodes of seizures Episodes of sinus tachycardia following seizures with heart rate up to 160s and 180s, started on esmolol auditory Significant confusion secondary to postictal confusion state needing Precedex drip Critical Care Time (minutes): 35 Physical Exam 2 Vital Signs: Vital Signs: Last Vital Signs Temp 98.3 F 04/19/25 15:57 Pulse 70 04/19/25 18:00 Resp 20 04/19/25 18:00 BP 104/65 04/19/25 18:00 Pulse Ox 97 04/19/25 15:00 O2 Del Method Room Air 04/19/25 15:00 O2 Flow Rate 2 04/19/25 06:00 FiO2 21 04/19/25 04:00 BMI result Body Mass Index 29.1 General: not in any acute distress, ill appearing Nutritional Appearance: well nourished and overweight Eyes: appearance normal, both eyes and all related structures; Alignment and Position: alignment normal and position normal Neck: No lymphadenopathy, no thyromegaly Resp: bilateral air entry equal, no added sounds present Cardio: Regular rate, regular rhythm; Heart sounds: S1 normal heart sound present and S2 normal heart sound present GI: soft, nontender, no guarding, no hepatosplenomegaly : bladder normal to inspection, bladder normal to palpation, no renal angle tenderness Skin: no rashes or lesions noted and elasticity normal Neuro: alert, oriented x 3, moves all extremities Objective Data Labs 04/20/25 05:04 04/20/25 05:04 Labs: Laboratory Results - last 24 hr 04/18/25 04/18/25 04/19/25 19:21 20:01 06:13 WBC 15.2 H 12.7 H RBC 4.86 4.51 L Hgb 15.6 14.5 Hct 44.4 41.3 L MCV 91.4 91.6 MCH 32.1 32.2 MCHC 35.1 35.1 RDW 12.8 12.8 Plt Count 310 289 MPV 8.7 L 8.7 L Immature Gran % (Auto) 0.6 H 0.4 Neut % (Auto) 76.1 H 74.5 H Lymph % (Auto) 17.6 L 18.2 L Saline % (Auto) 5.1 6.0 Eos % (Auto) 0.3 0.5 Baso % (Auto) 0.3 0.4 Lymph # (Auto) 2.7 2.3 Saline # (Auto) 0.8 0.8 Eos # (Auto) 0.0 0.1 Baso # (Auto) 0.1 0.1 Abs Immat Gran (auto) 0.09 H 0.05 H Absolute Neuts (auto) 11.6 H 9.5 H Absolute Nucleated RBC 0.000 0.000 Nucleated RBC % (auto) 0.0 0.0 VBG pH VBG pCO2 VBG pO2 VBG HCO3 VBG O2 Saturation VBG Base Excess Sodium 143 143 Potassium 3.6 3.6 Chloride 109 H 110 H Carbon Dioxide 23 24 Anion Gap 15 13 BUN 9 10 Creatinine 0.86 0.89 Estim Creat Clear Calc 121.2 117.1 Estimated GFR > 60 > 60 POC Glucose 120 H Random Glucose 121 H 104 Calcium 8.4 8.3 L Phosphorus 3.1 2.3 L Magnesium 2.2 2.1 Albumin 3.7 04/19/25 06:18 WBC RBC Hgb Hct MCV MCH MCHC RDW Plt Count MPV Immature Gran % (Auto) Neut % (Auto) Lymph % (Auto) Saline % (Auto) Eos % (Auto) Baso % (Auto) Lymph # (Auto) Saline # (Auto) Eos # (Auto) Baso # (Auto) Abs Immat Gran (auto) Absolute Neuts (auto) Absolute Nucleated RBC Nucleated RBC % (auto) VBG pH 7.44 H VBG pCO2 42 VBG pO2 84 VBG HCO3 29 H VBG O2 Saturation 96.0 VBG Base Excess 4.9 Sodium Potassium Chloride Carbon Dioxide Anion Gap BUN Creatinine Estim Creat Clear Calc Estimated GFR POC Glucose Random Glucose Calcium Phosphorus Magnesium Albumin Microbiology Microbiology Results: Microbiology 04/18/25 13:03 Blood - Venous Blood Culture - Preliminary No growth after 24 hours. 04/18/25 13:03 Blood - Venous Blood Culture - Preliminary No growth after 24 hours. Progress Note: A&P Assessment and plan (1) Seizure: Status: Acute (2) Snoring: Status: Acute (3) JENNIFER (obstructive sleep apnea): Status: Acute (4) Cocaine abuse: Status: Acute Plan Acute encephalopathy: Seizure disorder: status epilepticus precipitated by drug overdose and possible medication non complaince Acute encephalopathy secondary to postictal confusion status patient is being started on Precedex drip to decrease the confusion UDS positive for cocaine, marijuana upon admission on keppra 1500 mg b.i.d., Vimpat 50 b.i.d., phenytoin 200 BD, clonazepam 1mg BID Sinus tachycardia: Did not respond well to metoprolol, started on esmolol drip Hypertension: will restart home lisinopril/HCTZ JENNIFER: overnight CPAP Urinary retention: Will get PSA with AM labs Will get US to look for prostrate size Will do bedside swallow and start on diet and stop IV fluids Prophylaxis: Lovenox Quality Stroke Does the patient have a stroke diagnosis?: No VTE Prior VTE?: No VTE Risk Level:: Medical - low VTE Device Contraindication: Treatment Not Indicated VTE Drug Contraindication: N/A - Med Ordered
--- NOTE | 2025-04-19 19:44 | PC.NURSE ---
Assumed care of patient 07:00. Patient had 5 episodes of seizure activity this shift. Approx 07:35 patient givne 2 mg IVP Versed prn for seizure lasting less than 1 minute. Patient was tachycardic HR 140s on tele. In the postictal phase, the patient was confused, attempting to get OOB, attempting to pull SaO2 probe off finger. Patient redirected to remain in bed. Patient at baseline speaks kiswahili and ukrainian but speaks only kiswahili in postictal phase. Subsequent seizures had similar presentation at approx 12:30 (2mg Versed IV prn given), 14:19 (additional 2 MG IV Keppra given per MD) , 15:00, 15:45. 15:45 Patient remained in sinus tachycardia with frequent PACs and PVCs. Precedex gtt started for agitation and patient attempting to bet OOB stating he wants to go home. Esmolol gtt started briefly for elevated HR. Esmolol gtt stopped for SBP 91. Approx 14:45 Patient was bladder scanned for 855 ml. Patient unable to void with urinal in bed or edge of bed. Patient was pivoted to commode at bedside 3 assist. Patient passed large void. 17:00 bladder scanned 850ml. MD notified and new verbal orders to straight cath patient. Patient refused straight cath. MD notified. Per MD give additional time and monitor for incontinent voids. Significant other Tiff updated via phone.
[2025-04-19 21:47] LABS: Anion Gap 8 (12-20); Blood Urea Nitrogen 9 mg/dL (9-16); Calcium 8.0 mg/dL (8.4-10.2); Carbon Dioxide 26 mmol/L (22-29); Chloride 110 mmol/L (96-108); Creatinine Clr Calc Pharmacy 135.3; Estimated Glomerular Filt Rate > 60; Magnesium 1.9 mg/dL (1.6-2.6); Potassium 3.9 mmol/L (3.3-5.1); Sodium 140 mmol/L (135-145)
[2025-04-19 22:33] LABS: Albumin Level 3.5 g/dL (3.5-5.0)
[2025-04-20] VITALS (36 sets, daily range): BP systolic 76–151; BP diastolic 41–90; PULSE 61–112; RESP 10–23; TEMP 36.1–36.9; O2SAT 91–100
[2025-04-20] MEDS: Lactated Ringers 1,000 ML 100 ML IVCONT (02:19)
[2025-04-20 05:17] LABS: MANUAL DIFF FLAG NO
[2025-04-20 05:19] LABS: Hematocrit 43.6 % (42.0-52.0); Hemoglobin 15.5 g/dl (14.0-18.0); Imm Gran Abs Auto 0.06 X10*3/uL (0.00-0.03); Imm Gran Pct Auto 0.4 % (0.0-0.4); Lymphocytes Absolute Auto 2.4 X10*3/uL (1.2-4.9); Mean Corpuscular HGB Conc 35.6 g/dl (31.0-36.0); Mean Corpuscular Hemoglobin 32.3 pg (27.0-33.0); Mean Corpuscular Volume 90.8 fL (80.0-98.0); NRBC Abs Auto 0.000 X10*3/uL (0.0-0.012); NRBC Pct Auto 0.0 /100WBC (0.0-0.2); Platelet Count 304 X10*3/uL (160-400); Red Blood Count 4.80 X10*6/uL (4.60-5.80); White Blood Count 15.9 X10*3/uL (4.8-10.8)
[2025-04-20 05:38] LABS: Albumin Level 4.0 g/dL (3.5-5.0); Anion Gap 15 (12-20); Blood Urea Nitrogen 10 mg/dL (9-16); Calcium 8.8 mg/dL (8.4-10.2); Carbon Dioxide 22 mmol/L (22-29); Chloride 111 mmol/L (96-108); Creatinine Clr Calc Pharmacy 121.2; Estimated Glomerular Filt Rate > 60; Magnesium 2.2 mg/dL (1.6-2.6); Potassium 4.3 mmol/L (3.3-5.1); Sodium 144 mmol/L (135-145)
[2025-04-20] MEDS: levETIRAcetam in NaCl (iso-os) 1,500 MG/100 ML PIGGYBACK 400 MG IV ×2 (05:56→17:04)
--- NOTE | 2025-04-20 07:17 | PC.NURSE ---
Assumed care of patient 1900, patient sedated on Precedex, titrated off at 11pm d/t somnolent. No seizure activity observed this shift. Patient unable to void straight cath and 1100ml drained, DTV at 0400, bladder scan <300mls to reassess in two hours provider aware. Patient had BM, still no urine, Bladder scanned and 436mls noted, patient refusing straight cath or commode at current time, reported to on coming RN.
[2025-04-20] MEDS: 0.9 % Sodium Chloride Flush 3 ML SYRINGE IVFLUSH ×3 (07:25→23:26)
--- NOTE | 2025-04-20 09:47 | PM.CCPN ---
Subjective Subjective Date of Service: 04/20/25 Interval History: Had 4 episodes of seizures yesterday in the morning but none during the night This morning he is stable with no symptoms, alert oriented Critical Care Time (minutes): 35 Physical Exam Vital Signs: Vital Signs: Last Vital Signs Temp 97.2 F 04/20/25 08:00 Pulse 101 H 04/20/25 09:00 Resp 20 04/20/25 09:00 BP 132/79 04/20/25 09:00 Pulse Ox 96 04/20/25 09:00 O2 Del Method Room Air 04/20/25 09:00 O2 Flow Rate 2 04/19/25 06:00 FiO2 21 04/19/25 04:00 BMI result Body Mass Index 29.1 General: not in any acute distress, ill appearing Nutritional Appearance: well nourished and normal weight Eyes: appearance normal, both eyes and all related structures; Alignment and Position: alignment normal and position normal Neck: No lymphadenopathy, no thyromegaly Resp: bilateral air entry equal, no added sounds present Cardio: Regular rate, regular rhythm; Heart sounds: S1 normal heart sound present and S2 normal heart sound present GI: soft, nontender, no guarding, no hepatosplenomegaly : bladder normal to inspection, bladder normal to palpation, no renal angle tenderness Skin: no rashes or lesions noted and elasticity normal Neuro: alert, oriented x 3, moves all extremities Objective Data Labs 04/20/25 05:04 04/20/25 05:04 Labs: Laboratory Results - last 24 hr 04/19/25 04/20/25 21:16 05:04 WBC 15.9 H RBC 4.80 Hgb 15.5 Hct 43.6 MCV 90.8 MCH 32.3 MCHC 35.6 RDW 12.9 Plt Count 304 MPV 8.8 L Immature Gran % (Auto) 0.4 Neut % (Auto) 77.0 H Lymph % (Auto) 15.3 L Stoddard % (Auto) 6.1 Eos % (Auto) 0.9 Baso % (Auto) 0.3 Lymph # (Auto) 2.4 Stoddard # (Auto) 1.0 Eos # (Auto) 0.1 Baso # (Auto) 0.1 Abs Immat Gran (auto) 0.06 H Absolute Neuts (auto) 12.3 H Absolute Nucleated RBC 0.000 Nucleated RBC % (auto) 0.0 Sodium 140 144 Potassium 3.9 4.3 Chloride 110 H 111 H Carbon Dioxide 26 22 Anion Gap 8 L 15 BUN 9 10 Creatinine 0.77 0.86 Estim Creat Clear Calc 135.3 121.2 Estimated GFR > 60 > 60 Random Glucose 150 H 87 Calcium 8.0 L 8.8 D Phosphorus 3.4 2.8 Magnesium 1.9 2.2 Albumin 3.5 4.0 Microbiology Microbiology Results: Microbiology 04/18/25 13:03 Blood - Venous Blood Culture - Preliminary No growth after 24 hours. 04/18/25 13:03 Blood - Venous Blood Culture - Preliminary No growth after 24 hours. Progress Note: A&P Assessment and plan (1) Cocaine abuse: Status: Acute (2) JENNIFER (obstructive sleep apnea): Status: Acute (3) Generalized seizure: Status: Acute Plan Seizure disorder: status epilepticus precipitated by drug overdose and possible medication non complaince UDS positive for cocaine, marijuana upon admission on keppra 1500 mg b.i.d., Vimpat 50 b.i.d., phenytoin 200 BD, clonazepam 1mg BID Hypertension: will restart home lisinopril/HCTZ JENNIFER: overnight CPAP Urinary retention: Will get PSA with AM labs Will get US to look for prostrate size Will do bedside swallow and start on diet and stop IV fluids Prophylaxis: Lovenox Quality Stroke Does the patient have a stroke diagnosis?: No VTE Prior VTE?: No VTE Risk Level:: Medical - low VTE Device Contraindication: Treatment Not Indicated VTE Drug Contraindication: N/A - Med Ordered
[2025-04-20 11:14] LABS: Levetiracetam Keppra 3.7 mcg/mL (10.0-40.0)
--- NOTE | 2025-04-20 11:36 | MHC.CM.PN ---
Pt remains in ICU - continued seizure activity noted - possible med adjustment and transfer to medical floor. CM to follow
[2025-04-20] MEDS: dexmedeTOMIDine HCL/NS 400 MCG/100 ML PLAST..BAG 22.35 MCG IVCONT (19:50)
[2025-04-20] MEDS: dexmedeTOMIDine HCL/NS 400 MCG/100 ML PLAST..BAG 33.53 MCG IVCONT ×2 (20:45→21:04)
[2025-04-21] VITALS (19 sets, daily range): BP systolic 87–136; BP diastolic 50–84; PULSE 69–109; RESP 12–20; TEMP 36.4–37.1; O2SAT 92–98
[2025-04-21 04:33] LABS: VBG HCO3 25 mmol/L (22-26); VBG O2 % Saturation 93.0 %
[2025-04-21 04:41] LABS: MANUAL DIFF FLAG NO
[2025-04-21 04:55] LABS: Alanine Aminotransferase 19 U/L (0-40); Albumin Level 4.2 g/dL (3.5-5.0); Alkaline Phosphatase 70 U/L (39-117); Anion Gap 15 (12-20); Aspartate Amino Transferase 26 U/L (5-37); Blood Urea Nitrogen 11 mg/dL (9-16); Calcium 9.2 mg/dL (8.4-10.2); Carbon Dioxide 24 mmol/L (22-29); Chloride 107 mmol/L (96-108); Creatinine Clr Calc Pharmacy 118.4; Estimated Glomerular Filt Rate > 60; Potassium 3.6 mmol/L (3.3-5.1); Sodium 142 mmol/L (135-145); Total Protein 6.9 g/dL (6.5-8.0)
[2025-04-21 04:58] LABS: Hematocrit 47.9 % (42.0-52.0); Hemoglobin 16.7 g/dl (14.0-18.0); Imm Gran Abs Auto 0.06 X10*3/uL (0.00-0.03); Imm Gran Pct Auto 0.5 % (0.0-0.4); Lymphocytes Absolute Auto 2.1 X10*3/uL (1.2-4.9); Mean Corpuscular HGB Conc 34.9 g/dl (31.0-36.0); Mean Corpuscular Hemoglobin 31.9 pg (27.0-33.0); Mean Corpuscular Volume 91.4 fL (80.0-98.0); NRBC Abs Auto 0.000 X10*3/uL (0.0-0.012); NRBC Pct Auto 0.0 /100WBC (0.0-0.2); Platelet Count 318 X10*3/uL (160-400); Red Blood Count 5.24 X10*6/uL (4.60-5.80); White Blood Count 12.8 X10*3/uL (4.8-10.8)
[2025-04-21] MEDS: levETIRAcetam in NaCl (iso-os) 1,500 MG/100 ML PIGGYBACK 400 MG IV (05:02)
[2025-04-21 05:16] LABS: Prostate Specific Antigen 0.63 ng/mL (<0.05-4.0)
--- NOTE | 2025-04-21 05:39 | PC.NURSE ---
CARE ASSUMED 7PM..AWAKE..ALERT..ORIENTEDX3 AT SHIFT CHANGE..INCREASED AGITATION...DEMANDING TO LEAVE AMA..DOES NOT RECALL RECURRANT SEIZURES SATURDAY/SATURDAY/SATURDAY AND SATURDAY....PROVIDER AT BEDSIDE...STATED PATIENT UNABLE TO LEAVE AMA...PRN VERSED 2MG IV GIVEN PER PROVIDER W/O EFFECT...PRECIDEX DRIP INITIATED AND TITRATED TO 1.5 MCG/KG/HR WITH GRADUAL RESTFUL EFFECT OVER 1 HOUR...SEDATE BUT DECREASED BP...PRECIDEX DRIP WEANED AND FINALLY HELD FOR SBP 70'S-80'S...GRADUAL IMPROVED BP AND THEN PATIENT AWAKE/CALM AND CO-OPERATIVE....3AM OOB TO BEDSIDE COMMODE AND VOIDED 800 ML TWILA-YELLOW URINE...GRADUAL INCREASED AGITATION THIS AM..STATED HE WILL LEAVE AT 7-7:30AM... I HAVE A COURT DATE AT 9AM ...PREVIOUSLY HAD REPORTED HE HAS A NEUROLOGY APPT AND/OR WOULD CARE FOR HIM AT HOME....PER PROVIDER PRECIDEX DRIP RESTARTED AT 0.6 MCG/KG/HR AND TO TITRATE NEEDED PER PROTOCOL..TO ASSESS RESPONSE TO PRECIDEX DRIP..SBP 120'S-140'S WHEN PRECIDEX DRIP RESTARTED
[2025-04-21 06:37] LABS: Venous Blood Gas Refer to POC result
[2025-04-21] MEDS: 0.9 % Sodium Chloride Flush 3 ML SYRINGE IVFLUSH (08:30)
--- NOTE | 2025-04-21 10:19 | PM.DS ---
DS: Providers Provider Date of Service: 04/21/25 Date of admission: 04/17/25 18:18 Date of discharge: 04/21/25 Primary care physician: Sandi Ferris DO Consults: 04/17/25 19:26 Consult to Neurology Routine Consulting Provider: [facility] Reason for consultation: Seizures Has provider been notified: No 04/18/25 12:44 Consult for Sitter Routine Reason for consultation: agiattaion Has provider been notified: No 04/18/25 14:53 Addiction Medicine Provider Routine Consulting Provider: Addiction Covering Reason for consultation: cocaine use Has provider been notified: No 04/19/25 05:41 Consult to Case Management Routine Comment: and Patient need help with obtaining new PCP DS: Diagnosis Discharge Diagnosis (1) Seizure: Status: Acute (2) Snoring: Status: Acute (3) JENNIFER (obstructive sleep apnea): Status: Acute (4) Cocaine abuse: Status: Acute DS: Summary Time Attestation Discharge Coordination Time (in mins): 35 Quality: Safe Use of Opioids Does Pt have an Active Cancer Diagnosis on the Problem List?: No Quality: Stroke Does the patient have a stroke diagnosis?: No Physical Exam Vital Signs: Vital Signs: Last Vital Signs Temp 98.7 F 04/21/25 08:00 Pulse 109 H 04/21/25 09:37 Resp 15 04/21/25 09:37 BP 126/82 04/21/25 09:37 Pulse Ox 97 04/21/25 09:37 O2 Del Method Room Air 04/21/25 09:00 O2 Flow Rate 2 04/19/25 06:00 FiO2 21 04/19/25 04:00 BMI result Body Mass Index 29.1 General: not in any acute distress, ill appearing Nutritional Appearance: well nourished and normal weight Eyes: appearance normal, both eyes and all related structures; Alignment and Position: alignment normal and position normal Neck: No lymphadenopathy, no thyromegaly Resp: bilateral air entry equal, no added sounds present Cardio: Regular rate, regular rhythm; Heart sounds: S1 normal heart sound present and S2 normal heart sound present GI: soft, nontender, no guarding, no hepatosplenomegaly : bladder normal to inspection, bladder normal to palpation, no renal angle tenderness Skin: no rashes or lesions noted and elasticity normal Neuro: alert, oriented x 3, moves all extremities DS: Data Data Completed and Pending Labs on day of discharge: Laboratory Results - last 24 hr 04/17/25 04/21/25 04/21/25 12:06 04:23 04:27 WBC 12.8 H RBC 5.24 Hgb 16.7 Hct 47.9 MCV 91.4 MCH 31.9 MCHC 34.9 RDW 12.7 Plt Count 318 MPV 9.1 L Immature Gran % (Auto) 0.5 H Neut % (Auto) 75.9 H Lymph % (Auto) 16.4 L Dillon % (Auto) 6.1 Eos % (Auto) 0.7 Baso % (Auto) 0.4 Lymph # (Auto) 2.1 Dillon # (Auto) 0.8 Eos # (Auto) 0.1 Baso # (Auto) 0.1 Abs Immat Gran (auto) 0.06 H Absolute Neuts (auto) 9.7 H Absolute Nucleated RBC 0.000 Nucleated RBC % (auto) 0.0 VBG pH 7.53 H VBG pCO2 30 VBG pO2 64 VBG HCO3 25 VBG O2 Saturation 93.0 VBG Base Excess 3.9 Sodium 142 Potassium 3.6 Chloride 107 Carbon Dioxide 24 Anion Gap 15 BUN 11 Creatinine 0.88 Estim Creat Clear Calc 118.4 Estimated GFR > 60 Random Glucose 105 Calcium 9.2 Phosphorus 3.1 Total Bilirubin 0.8 AST 26 ALT 19 Alkaline Phosphatase 70 Total Protein 6.9 Albumin 4.2 Prostate Specific Ag 0.63 Levetiracetam 3.7 L Preliminary micro results at discharge 04/18/25 13:03 Blood Culture - Preliminary Blood - Venous No growth after 48 hours. 04/18/25 13:03 Blood Culture - Preliminary Blood - Venous No growth after 48 hours. Discharge Plan Discharge Patient Disposition: Left Against Medical Advice Discharge Diagnosis: seizure disorder Referrals: Sandi Ferris DO [Primary Care Provider, Internal Medicine] - 1 Week Discharge Medications: No Action phenytoin sodium extended 100 mg capsule 200 mg PO Q12H 30 Days Qty: 120 6RF lacosamide 50 mg tablet 50 mg PO Q12H 14 Days Qty: 28 0RF lisinopril-hydrochlorothiazide 10-12.5 mg tablet 1 tab PO DAILY Qty: 30 0RF clonazepam 2 mg tablet,disintegrating 2 mg PO DAILY PRN (Reason: seizure lasting > 2 minutes) levetiracetam 500 mg tablet 500 mg PO Q12H atorvastatin 10 mg tablet 10 mg PO DAILY Discharge Orders: Discharge Order (Routine); Ordered 04/21/25 Ordered By: Quintin Comer Print Language: Icelandic Care Plan Goals: Left against medical advice Health Concerns: Patient was told that he has a risk of having seizures that might even lead to if he leaves AMA. But he states he has to go to court today or else he will be jailed in 2 days so he is states he understands the risk including but wants to leave against medical advise any ways as he does not want to go to alf. Plan of Treatment: Patient had 3 seizures in the past 24 hours, explained him that he might have further seizures if he leaves AMA and even he can on the street from the seizures. But the patient states he understands the risk and wants to leave against medical advice. Assessment: Seizure disorder: status epilepticus precipitated by drug overdose and possible medication non complaince UDS positive for cocaine, marijuana upon admission on keppra 1500 mg b.i.d., Vimpat 50 b.i.d., phenytoin 200 BD, clonazepam 1mg BID Phenytoin loading doses added yesterday Hypertension: Continue home lisinopril/HCTZ JENNIFER: overnight CPAP Urinary retention: PSA normal, prostate size 30 cc Needs outpatient Urology follow-up Prophylaxis: Lovenox Patient Instructions: Recurrent Seizures in Adults (ED)
--- NOTE | 2025-04-21 10:24 | PC.NURSE ---
Patient informed staff of desire to leave the facility against medical advice. MD notified and spoke directly with patient Patient is alert and oriented x 4 Vss, patient able to verbalize understanding of current condition and risks. RN and MD explained the current diagnosis, recommended treatment and potential risks of leaving AMA, patient verbalized understanding and continued to request AMA discharge. AMA form presented and explained. Patient signed AMA form. Patient instructed to return to ED or call 911 if symptoms worsen. Patient left the unit at 10:00 ambulatory with staff member. No acute distress noted at time of departure.
--- NOTE | 2025-04-21 11:06 | MHC.CM.PN ---
DP: PT HAS LEFT AMA
== END 2025-04-21 10:00 | disposition left against medical advice (07) | DRG 918 ==
LOC: HO.ED 12:10 → HO.EDOVER 18:50 → HO.IMC 23:31 → HO.ICU 04-18 19:39
PROVIDERS: Emergency Medicine; Internal Medicine; Internal Medicine Pulmonary Disease; Physician Assistant Medical; Registered Nurse Community Health; Admitting Provider Internal Medicine; Emergency Provider Emergency Medicine; PCP Family Medicine; Visit Provider Internal Medicine Critical Care Medicine
DX: T40.5X1A Poisoning by cocaine, accidental (unintentional), initial encounter (principal); G40.901 Epilepsy, unspecified, not intractable, with status epilepticus; F14.10 Cocaine abuse, uncomplicated; R33.9 Retention of urine, unspecified; I10 Essential (primary) hypertension; E78.5 Hyperlipidemia, unspecified; G47.33 Obstructive sleep apnea (adult) (pediatric); R00.0 Tachycardia, unspecified; Z91.199 Patient's noncompliance with other medical treatment and regimen due to unspecified reason; Z20.822 Contact with and (suspected) exposure to COVID-19; Z79.899 Other long term (current) drug therapy
CPT/HCPCS: 36415; 70450; 71045; 76857; 80048; 80053; 80177; 80185; 80307; 81003; 82040; 82140; 82803; 82947; 83605; 83735; 84100; 84153; 85007; 85025; 85027; 87040; 87637; 93005; 94660; 99285; J0616; J1165; J1650; J1805; J1953; J2060; J2250; J3360; J7120; S9485

== ENCOUNTER → 2025-04-17 16:49 | Outpatient (BNV) | payer MEDICARE, MEDICAID, SELFPAY | PROVIDERS: Admitting Provider Internal Medicine; Emergency Provider Emergency Medicine; PCP Family Medicine; Visit Provider Radiology Diagnostic Radiology | DX: R50.9 Fever, unspecified (principal) | CPT/HCPCS: 71045 ==

== ENCOUNTER 2025-04-17 18:18 | Outpatient (BNV) | payer MEDICARE, MEDICAID, SELFPAY | END 2025-04-18 12:06 | PROVIDERS: Admitting Provider Internal Medicine; Emergency Provider Emergency Medicine; PCP Family Medicine; Visit Provider Internal Medicine | DX: R00.1 Bradycardia, unspecified (principal) | CPT/HCPCS: 93010 ==

== ENCOUNTER 2025-04-17 18:18 | Outpatient (BNV) | payer MEDICARE, MEDICAID, SELFPAY | END 2025-04-20 10:50 | PROVIDERS: Admitting Provider Internal Medicine; Emergency Provider Emergency Medicine; PCP Family Medicine; Visit Provider Radiology Diagnostic Radiology | DX: R33.9 Retention of urine, unspecified (principal) | CPT/HCPCS: 76857 ==

== ENCOUNTER 2025-04-17 18:18 | Outpatient (BNV) | payer MEDICARE, MEDICAID, SELFPAY | END 2025-04-18 12:11 | PROVIDERS: Admitting Provider Internal Medicine; Emergency Provider Emergency Medicine; PCP Family Medicine; Visit Provider Radiology Diagnostic Radiology | DX: R56.9 Unspecified convulsions (principal) | CPT/HCPCS: 70450; 71045 ==

== ENCOUNTER → 2025-04-17 18:18 | Outpatient (BNV) | payer MEDICARE, MEDICAID, SELFPAY | PROVIDERS: Admitting Provider Internal Medicine; Emergency Provider Emergency Medicine; PCP Family Medicine; Visit Provider Internal Medicine | DX: F14.10 Cocaine abuse, uncomplicated (principal); R56.9 Unspecified convulsions | CPT/HCPCS: 99223; 99232; 99499 ==

== ENCOUNTER → 2025-04-17 18:18 | Outpatient (BNV) | payer MEDICARE, MEDICAID, SELFPAY | PROVIDERS: Admitting Provider Internal Medicine; Emergency Provider Emergency Medicine; PCP Family Medicine; Visit Provider Registered Nurse Community Health | DX: R56.9 Unspecified convulsions (principal); R06.83 Snoring; G47.33 Obstructive sleep apnea (adult) (pediatric); F14.10 Cocaine abuse, uncomplicated | CPT/HCPCS: 99233; 99239 ==

== ENCOUNTER → 2025-04-17 18:18 | Outpatient (BNV) | payer MEDICARE, MEDICAID, SELFPAY | PROVIDERS: Admitting Provider Internal Medicine; Emergency Provider Emergency Medicine; PCP Family Medicine; Visit Provider Psychiatry & Neurology Neurology | DX: R56.9 Unspecified convulsions (principal); F14.10 Cocaine abuse, uncomplicated | CPT/HCPCS: 99222 ==

== ENCOUNTER 2025-04-23 05:46 | Emergency (ER) | payer MEDICARE, MEDICAID, SELFPAY ==
[2025-04-23 05:51] VITALS: BP 136/71; PULSE 94; RESP 18; TEMP 36.3; O2SAT 99; BMI 26.5
--- NOTE | 2025-04-23 06:13 | ED_ITS ---
HPI - Ear Problem General Chief complaint: Ear Problems Stated complaint: Ear Pain/Issues Time Seen by Provider: 04/23/25 06:05 Source: patient Mode of arrival: ambulatory Limitations: no limitations History of Present Illness HPI Narrative: This is a 44 years old the patient presented to the emergency department with a chief complaint of right ear pain since yesterday. Denies any fever chills he stated that he feels like the right ear is blocked Complaint: ear pain Location: right ear Duration: constant Severity: moderate Relieving factors: nothing Exacerbating factors: nothing Discharge from ear: no Related Data Home Medications ?Medication ?Instructions ?Recorded ?Confirmed atorvastatin 10 mg tablet 10 mg PO DAILY 04/05/2303/22 clonazepam 2 mg disintegrating 2 mg PO DAILY PRN seizu re lasting 04/18/25 04/18/25 tablet > 2 minutes levetiracetam 500 mg tablet 500 mg PO Q12H 04/18/25 Previous Rx's ?Medication ?Instructions ?Recorded lisinopril 10 1 tab PO DAILY #30 tabs 10/18 02/10 mg-hydrochlorothiazide 12.5 mg tablet phenytoin sodium extended 100 mg 200 mg (2 x 100 mg) P O Q12H 30 01/13/25 capsule days #120 caps lacosamide 50 mg tablet 50 mg PO Q12H 14 days #28 ta bs 04/02/25 amoxicillin 500 mg tablet 500 mg PO TID #10 tabs 04/23 Allergies Allergy/AdvReac Type Severity Reaction Status Date / Time No Known Allergies (No Known Allergy Verified 04/23/25 05:52 Allergies*) Review of Systems Constitutional: Constitutional: Reports no additional constitutional complaints ENT: Reports as per HPI [facility] Past Medical History [facility] Narrative: Hypertension/epilepsy Medical History Nasopharyngeal mass Seizure Family History Family History Maternal Aunt Seizure disorder Social History Social History Household Members: Unknown / Unable to assess Housing: Unknown / Unable to assess Alcohol intake: never Comment: 1:1 sitter for confusion/high fall risk with recent seizure activity 04/19 Patient Tobacco Use Status: Never used Tobacco Substance Use Type: Marijuana Advance Directives: No Advance Directives Information Provided: No service: No Physical Exam Exam: Exam: He looks well is not toxic-appearing he is comfortable in the stretcher Vital Signs: Vital Signs: Last Vital Signs Temp 97.4 F 04/23/25 06:29 Pulse 94 04/23/25 06:29 Resp 18 04/23/25 06:29 BP 136/71 04/23/25 06:29 Pulse Ox 99 04/23/25 06:29 O2 Del Method Room Air 04/23/25 06:29 BMI result Body Mass Index 26.5 Vital signs were reviewed by me he is normotensive afebrile Const: General: cooperative and comfortable Nutritional Appearance: average body habitus Orientation/consciousness: patient oriented x3 Limitations: no limitations HEENT: Head: Yes normal to inspection Ears: TM abnormal (Red bulging) General nose exam: Normal external nose present Throat: Yes posterior oropharynx normal Neck: Neck: Yes normal visual inspection Resp: Effort & Inspection: normal respiratory effort Auscultation: clear to auscultation bilaterally Cardio: Jugular venous distension: no JVD Rate: regular rate Rhythm: regular rhythm GI: Inspection: Yes normal to inspection Palpation (GI): Soft to palpation, not firm, nontender and no guarding Auscultation: normal bowel sounds Skin: General skin exam: no rashes or lesions noted and elasticity normal Lesions: no lesions Rashes: no rashes Neuro: General: patient oriented x3 Extrem: General: Yes normal to inspection and Yes full ROM Medical Decision Making Medical Decision Making MDM Narrative: The patient presented with a right hip pain he is having is consistent with a right otitis media we will discharge home on amoxicillin Differential Diagnosis Differential Diagnoses: The differential diagnosis associated with the presentation includes Right otitis media/cerumen impaction Admission/Observation Consideration of admission/observation: Escalation of care including admission/observation considered Discharge Plan Discharge Clinical Impression: Otitis media Qualifiers: Otitis media type: unspecified Chronicity: acute Qualified Code(s): H66.90 - Otitis media, unspecified, unspecified ear Patient Disposition: Home, Self-Care Instructions: Ear Infection (ED) Additional Instructions: Follow-up with your primary care physician and take amoxicillin as directed return if worse Prescriptions: New amoxicillin 500 mg tablet 500 mg PO TID Qty: 10 0RF No Action phenytoin sodium extended 100 mg capsule 200 mg PO Q12H 30 Days Qty: 120 6RF lacosamide 50 mg tablet 50 mg PO Q12H 14 Days Qty: 28 0RF lisinopril-hydrochlorothiazide 10-12.5 mg tablet 1 tab PO DAILY Qty: 30 0RF clonazepam 2 mg tablet,disintegrating 2 mg PO DAILY PRN (Reason: seizure lasting > 2 minutes) levetiracetam 500 mg tablet 500 mg PO Q12H atorvastatin 10 mg tablet 10 mg PO DAILY Referrals: Sandi Ferris DO [Primary Care Provider, Internal Medicine] - 04/26/25 Interventions: ED Discharge Assessment Last Done: 04/23/25 06:29 Discharge Date/Time: 04/23/25 06:29 Print Language: Urdu
--- OUTSIDE RECORDS SUMMARY | 2025-04-23 06:24 | XMS_ITS | Clinical Summary ---
Author Organization [facility] Address [address] [place] [address] Care Team Providers Care Well Logging Mud Analysis Captain Name Role Phone Unavailable Primary Care Provider [...]
--- OUTSIDE RECORDS SUMMARY | 2025-04-23 06:24 | XMS_ITS | Encounter Summary ---
Author Organization [employer] Address [address] [place] [address] [address] [place] [address] Care Team Providers Care Freight Delivery Driver Name Role Phone Sandi Ferris DO Primary Care Provider + [phone] Reason for Visit * Reason Onset Date Comments Hospital Follow-up 09/25/2024 Encounter Details Date Type Department Care Team ([facility] st Contact Info) Description 09/25/2024 Telephone [facility] MEDICINE [address] [place], [place] [phone] Sandi Ferris DO [address] [place], [place] [phone] Hospital Follow-up Social History Tobacco Use Types [...] from pt requesting a HDF appt. Hospital: [facility] Date of admission: 09/19/24 Discharge date: 09/20/24 Diagnosed: 3 unprovoked seizures *Send message to [facility] Clinical Care Coordinators documented in this encounter Plan of Treatment Upcoming Encounters Date Type Department Care Team (Late st Contact Info) Description 05/18/2025 9:15 AM EST Office Visit [facility] MEDICINE [address] [place] [address] Sandi Ferris DO [address] [place] [address] 05/27/2025 2:00 PM EST Office Visit [facility] OPTOMETRY [address] [place] [address] Ning Crandall, OD [address] [place] [address] documented as of this encounter Visit Diagnoses Not on filedocumented in this encounter Additional Health Concerns Assessment Noted Time PHQ-9 Depression Total Score: 2 11/22/19 24 11:52 AM EDT documented as of this encounter Care Teams Freight Delivery Driver Relationship Specialty Start Date End Date Sandi Ferris DO [address] [place] [address] PCP - General Family Medicine 11/10/12 documented as of this encounter
--- OUTSIDE RECORDS SUMMARY | 2025-04-23 06:24 | XMS_ITS | Encounter Summary ---
Author Organization [employer] Address [address] [place] [address] [address] [place] [address] Care Team Providers Care Scrubber Operator Name Role Phone BarringtonSandi Primary Care Provider + [phone] Reason for Visit * Reason Comments Med Refill Encounter Details Date Type Department Care Team ([facility] st Contact Info) Description 01/11/2025 Refill [facility] MEDICINE [address] [place], [place] [phone] Edwina Cain MD [address] [place] [address] Seizure disorder (CMS/HCC) Social History Tobacco Use [...] Description 05/18/2025 9:15 AM EST Office Visit [facility] MEDICINE [address] [place] [address] Sandi Ferris DO [address] [place] [address] 05/27/2025 2:00 PM EST Office Visit [facility] OPTOMETRY [address] [place] [address] Tarka, Ning, OD [address] [place] [address] documented as of this encounter Visit Diagnoses Diagnosis Seizure disorder (CMS/HCC) (HCC) Unspecified epilepsy without mention of intractable epilepsy documented in this encounter Additional Health Concerns Assessment Noted Time PHQ-9 Depression Total Score: 15 025 9:37 AM EDT documented as of this encounter Care Teams Scrubber Operator Relationship Specialty Start Date End Date Sandi Ferris DO [address] [place] [address] PCP - General Family Medicine 11/10/12 documented as of this encounter
--- OUTSIDE RECORDS SUMMARY | 2025-04-23 06:24 | XMS_ITS | Encounter Summary ---
Author Organization [employer] Address [address] [place] [address] [address] [address] Care Team Providers Care Sofa Cover Inspector Name Role Phone Sandi Ferris DO Primary Care Provider + [phone] Reason for Visit * Reason Onset Date Comments Appointment Request 06/12/2023 Encounter Details Date Type Department Care Team ([facility] st Contact Info) Description 06/12/2023 Telephone [facility] MEDICINE [address] [place], [place] [phone] Sandi Ferris DO [address] [place], [place] [phone] Appointment Request Social History Tobacco Use Types [...] with others, in a hotel, in a fdc, living outside on the street, on a [...] they are not satisfied. Please contact at [phone] * Telephone Encounter - Cal Guzman - 06/12/2023 1:21 PM EST Tc from pt requesting to r/s OV on 06/12/2023 for HTN . Please contact pt @ [phone] documented in this encounter Plan of Treatment Upcoming Encounters Date Type Department Care Team (Late st Contact Info) Description 05/18/2025 9:15 AM EST Office Visit [facility] MEDICINE [address] [place] [address] Sandi Ferris DO [address] [place] [address] 05/27/2025 2:00 PM EST Office Visit [facility] OPTOMETRY [address] [place] [address] Ning Crandall, OD [address] [place] [address] documented as of this encounter Visit Diagnoses Not on filedocumented in this encounter Additional Health Concerns Assessment Noted Time PHQ-9 Depression Total Score: 1 08/15/19 23 11:43 AM EDT documented as of this encounter Care Teams Sofa Cover Inspector Relationship Specialty Start Date End Date Sandi Ferris DO [address] [place] [address] PCP - General Family Medicine 11/10/12 documented as of this encounter
--- OUTSIDE RECORDS SUMMARY | 2025-04-23 06:24 | XMS_ITS | Encounter Summary ---
Author Organization [employer] Address [address] [place] [address] 7 [place] [address] Care Team Providers Care It Specialist Name Role Phone Sandi Ferris DO Primary Care Provider + [phone] Reason for Visit * Reason Comments Med Refill Encounter Details Date Type Department Care Team ([facility] st Contact Info) Description 02/18/2025 Refill [facility] MEDICINE [address] [place], [place] [phone] Sandi Ferris DO [address] [place], [place] [phone] Social History Tobacco Use Types Packs/Day Years [...] 9:15 AM EST Office Visit [facility] MEDICINE [address] [place] [address] Sandi Ferris DO [address] [place] [address] 05/27/2025 2:00 PM EST Office Visit [facility] OPTOMETRY [address] [place] [address] Tarka, Ning, OD [address] [place] [address] documented as of this encounter Visit Diagnoses Not on filedocumented in this encounter Additional Health Concerns Assessment Noted Time PHQ-9 Depression Total Score: 15 025 9:37 AM EDT documented as of this encounter Care Teams It Specialist Relationship Specialty Start Date End Date Sandi Ferris DO [address] [place] [address] PCP - General Family Medicine 11/10/12 documented as of this encounter
--- OUTSIDE RECORDS SUMMARY | 2025-04-23 06:24 | XMS_ITS | Encounter Summary ---
Author Organization [employer] Address [address] [place] [address] [address] [address] Care Team Providers Care Price Lister Name Role Phone Sandi Ferris DO Primary Care Provider + [phone] Reason for Visit * Reason Comments Transition Of Care (Tcm) [facility] scheduled a nd SDOH screening completed on 10/01/24 Encounter Details Date Type Department Care Team ([facility] st Contact Info) Description 04/22/2025 Patient Outreach [facility] [address] [place] [address] Sandi Ferris DO [address] [place], [place] [phone] Transition Of Care (Tcm) (HDF scheduled and SDOH screening completed on 10/01/24) Social History Tobacco Use Types Packs/Day Years [...] as of this encounter Miscellaneous Notes * Significant Event - Justin Hills - 04/22/2025 8:33 AM EST 04/22/25 0828 Hospital Discharges and Admission for [facility] Type of Visit Hospital Admission Date of Admission/Visit 04/17/25 Date of Discharge 04/24/25 Facility [facility] Diagnosis Seizure,JENNIFER (obstructive sleep apnea), Cocaine abuse Disposition Discharged Home Follow-Up Actions Follow-Up Needed Provider appointment Follow-Up Outcome Spoke to Patient;Booked Appointment Initial Contact Date 04/22/25 JAMAL Valentine placed outbound call to patient for HDF outreach. Patient's name and were confirmed. Patient educated on the importance of follow up with provider following inpatient admission. Patient offered an HDF appt. Patient is agreeable to an appointment and has been scheduled for 05/18/25 at 9:15am with Dr. Ferris. Insurance verified prior to scheduling. Patient also notified that a [facility] pharmacist will be reaching out to them via telephone prior to their scheduled appointmentin order to review their medications in preparation for their appointment. Patient advised to bringto appointment a photo id and insurance card. Patient provided with education on contacting the Health Center with any questions or concerns prior to the scheduled appointment. Patient educated on extended clinic hours on Mondays and Wednesdays, and Walk-In Urgent Care Located in [facility]. Patient provided with after-hours line for [facility], , which offer night time triage service and option to transfer to personal development educator provider if needed. Discharge summary has been scanned into chart. Biggest concern for appointment at this time is no concerns. Appropriate screenings completed in anticipation of appointment. documented in this encounter Plan of Treatment Upcoming Encounters Date Type Department Care Team (Late st Contact Info) Description 05/18/2025 9:15 AM EST Office Visit [facility] [address] [place] [address] Sandi Ferris DO [address] [place] [address] 05/27/2025 2:00 PM EST Office Visit [facility] OPTOMETRY [address] [place] [address] Tarka, Ning, OD [address] [place] [address] documented as of this encounter Visit Diagnoses Not on filedocumented in this encounter Additional Health Concerns Assessment Noted Time PHQ-9 Depression Total Score: 17 025 11:36 AM EST documented as of this encounter Care Teams Price Lister Relationship Specialty Start Date End Date Sandi Ferris DO [address] [place] [address] PCP - General Family Medicine 11/10/12 documented as of this encounter
--- OUTSIDE RECORDS SUMMARY | 2025-04-23 06:24 | XMS_ITS | Encounter Summary ---
Author Organization [employer] Address [address] [place] [address] [address] [address] Care Team Providers Care Automatic Glove Former Name Role Phone Sandi Ferris DO Primary Care Provider + [phone] Reason for Visit * Reason Onset Date Comments Recall Letter 04/21/2025 Encounter Details Date Type Department Care Team ([facility] st Contact Info) Description 04/21/2025 Telephone [facility] [address] [place], [place] [phone] Sandi Ferris DO [address] [place], [place] [phone] Recall Letter Social History Tobacco Use Types Packs/Day Years [...] Telephone Encounter - Gloria Heath [place] - 04/21/2025 2:56 PM EST Telephone call to patient to schedule a recall appointment. No answer, Unable to leave message. Recall letter sent. Visit type: Office visit Appointment notes: due: March With: Melodie Please schedule appointment above if patient returns call documented in this encounter Plan of Treatment Upcoming Encounters Date Type Department Care Team (Late st Contact Info) Description 05/18/2025 9:15 AM EST Office Visit [facility] MED[facility]INE [address] [place] [address] Sandi Ferris DO [address] [place] [address] 05/27/2025 2:00 PM EST Office Visit [facility] OPTOMETRY [address] [place] [address] Ning Crandall, OD [address] [place] [address] documented as of this encounter Visit Diagnoses Not on filedocumented in this encounter Additional Health Concerns Assessment Noted Time PHQ-9 Depression Total Score: 17 025 11:36 AM EST documented as of this encounter Care Teams Automatic Glove Former Relationship Specialty Start Date End Date Sandi Ferris DO [address] [place] [address] PCP - General Family Medicine 11/10/12 documented as of this encounter
--- OUTSIDE RECORDS SUMMARY | 2025-04-23 06:24 | XMS_ITS | Encounter Summary ---
Author Organization [employer] Address [address] [place] [address] [address] [place] [address] Care Team Providers Care Nuclear Technologist Name Role Phone Sandi Ferris DO Primary Care Provider + [phone] Reason for Visit * Reason Comments Med Refill Encounter Details Date Type Department Care Team ([facility] st Contact Info) Description 01/31/2025 Refill [facility] [address] [place], [place] [phone] Sandi Ferris DO [address] [place], [place] [phone] Hyperlipidemia, unspecified hyperlipidemia type Social History Tobacco [...] Description 05/18/2025 9:15 AM EST Office Visit [facility] [address] [place] [address] Sandi Ferris DO [address] [place] [address] 05/27/2025 2:00 PM EST Office Visit [facility] OPTOMETRY [address] [place] [address] Tarka, Ning, OD [address] [place] [address] documented as of this encounter Visit Diagnoses Diagnosis Hyperlipidemia, unspecified hyperlipidemia type documented in this encounter Additional Health Concerns Assessment Noted Time PHQ-9 Depression Total Score: 15 025 9:37 AM EDT documented as of this encounter Care Teams Nuclear Technologist Relationship Specialty Start Date End Date Sandi Ferris DO [address] [place] [address] PCP - General Family Medicine 11/10/12 documented as of this encounter
--- OUTSIDE RECORDS SUMMARY | 2025-04-23 06:24 | XMS_ITS | Clinical Summary ---
Author Organization [employer] Address [address] [place] [address] 7 [place] [address] Care Team Providers Care Deckhand [employer] Name Role Phone Sandi Ferris DO Primary Care Provider + [phone] Allergies No known active allergies Medications * [...] abuse 02/21/2015 Mood disorder 02/21/2015 Seizure disorder (CMS/HCC) 02/21/2015 Assessment & Plan (10/01/2024 10:04 AM EDT): refill done today continue to follow-up with neurology History of tobacco use 02/21/2015 Encounters * This document contains information received from the source organization and may not represent a complete record from that organization. Date Type Department Care Team Description 04/22/2025 Patient Outreach [address] [address] Sandi Ferris DO Transition Of Care (Tcm) (HDF scheduled and SDOH screening completed on 10/01/24) 04/21/[address] [address] Sandi Ferris DO Recall Letter 04/17/2025 Orders Only GENERIC EXTERNAL DATA DEPARTMENT Provider, Generic External Data 04/12/2025 3:30 PM EST Telemedicine [address] [address] Penny Gomes, drupal architect bacterial conjunctivitis of both eyes 04/12/2025 Travel 04/05/2025 3:30 PM EST Telemedicine [address] [address] Kajal Johnson RN Acute conjunctivitis of left eye, unspecified acute conjunctivitis type 04/05/2025 Travel 03/16/2025 Patient Outreach [facility] [address] [place] [address] Jonas Pitts RC Recovery Supports 03/15/2025 Patient Outreach [facility] [address] [place] [address] Tj Bill RC Recovery Supports 02/18/2025 Refill [facility] [address] [place] [address] Sandi Ferris DO 02/12/2025 Orders Only [facility] External Provider, [facility] 02/08/[address] [address] Sandi Ferris DO Chart Prep 01/31/[address] [address] Sandi Ferris DO Hyperlipidemia, unspecified hyperlipidemia type [...] Description 05/18/2025 9:15 AM EST Office Visit [facility] [address] [place] [address] Sandi Ferris, [address] [place] [address] 05/27/2025 2:00 PM EST Office Visit [facility] [address] [place] [address] Ning Crandall, OD [address] [place] [address] Health Maintenance Due Date Last Done Comments [...] Procedure Name Priority Date/Time Associated Diagnosis Comments US BLADDER Routine 04/20/2025 10:[address] HEAD WO CONTRAST Routine 04/18/2025 2 :31 PM EST XR CHEST 1 VIEW Routine 04/18/2025 2:23 PM EST XR CHEST 1 VIEW Routine 04/17/2025 6:06 PM EST SARS COV2/INFLUENZA A/B AND RSV RNA QL NAAT Routine 04/17/2025 4:59 PM EST COMPLETE BLOOD COUNT MAN DIF Routine 04/17/2025 2:43 PM EST CBC WITH AUTO DIFFERENTIAL Routine 04/17/2025 2:43 PM EST DRUG MONITOR, PANEL 1, SCREEN, URINE Routine 04/17/2025 1:20 PM EST URINALYSIS WITH REFLEX MICROSCOPIC Routine 04/17/2025 1:20 PM EST XR HAND 3+ VIEWS RIGHT Routine 02/12/2025 [...] Recently Relevant to Health Maintenance Results * US BLADDER (04/20/2025 10:50 AM EST) Anatomical Region Laterality Modality Abdomen Ultrasound 04/20/2025 10:5 0 AM EST Narrative 04/20/2025 11:12 AM EST [address] [address] Ultrasound Report Signed Patient: Luis Mckeon MR#: [id number] : 1980 Acct:[id number] Age/Sex: 44 / M ADM Date: 04/17/25 Loc: .[facility] 262-[address]: Quintin Comer MD Ordering Physician: Quintin Comer MD Date of Service: 04/20/25 Procedure(s): US bladder Accession Number(s): [id number] cc: Quintin Comer MD; Sandi Ferris DO Reason for Exam: URINE RETENTION - ASSESS PROSTATE SIZE EXAMINATION: US PELVIS LIMITED (BLADDER) CLINICAL INFORMATION: Urinary retention.. COMPARISON: None available. TECHNIQUE: Real-time imaging of the bladder. FINDINGS: BLADDER: Fluid-filled without gross wall thickening. Bilateral ureteral jets are not demonstrated. Prevoid bladder volume is 717 mL. Postvoid bladder volume is not documented. Prostate gland measures 4 x 3 x 5 cm and volume: 30 cc. US/US bladder IMPRESSION: Prostate volume: 30 cc. No post void image of the bladder suggesting urinary retention.. Electronically signed by: Evans Delgado MD 04/20/2025 11:09 AM EST Dictated By: Evans Bose MD Signed By: <Electronically signed by Evans Carnes MD in OV> 04/20/25 1109 DD/ 1050 TD/TT: 04/20/25 1053 Infant Lead Teacher: Procedure Note Donotuseinterpreter, Image - 04/20/2025 [place] [address] Ultrasound Report Signed Patient: Tylor Mckeon#: [id number] : 1980Acct:[id number] Age/Sex: 44 / MADM Date: 04/17/25 Loc: .[facility] 262-[address]: Quintin Comer MD Ordering Physician: Quintin Comer MD Date of Service: 04/20/25 Procedure(s): US bladder Accession Number(s): [id number] cc: Quintin Comer MD; Sandi Ferris DO Reason for Exam: URINE RETENTION - ASSESS PROSTATE SIZE EXAMINATION: US PELVIS LIMITED (BLADDER) CLINICAL INFORMATION: Urinary retention.. COMPARISON: None available. TECHNIQUE: Real-time imaging of the bladder. FINDINGS: BLADDER: Fluid-filled without gross wall thickening. Bilateral ureteral jets are not demonstrated. Prevoid bladder volume is 717 mL. Postvoid bladder volume is not documented. Prostate gland measures 4 x 3 x 5 cm and volume: 30 cc. US/US bladder IMPRESSION: Prostate volume: 30 cc. No post void image of the bladder suggesting urinary retention.. Electronically signed by: Evans Delgado MD 04/20/2025 11:09 AM EST RP Dictated By: Evans Bose MD Signed By: <Electronically signed by Evans Carnes MDin OV> 04/20/25 1109 DD/ 1050 TD/TT: 04/20/25 1053 Infant Lead Teacher: [facility] External Provider IMG US PROCEDURES Final Result * CT Head w/o Contrast (04/18/2025 2:31 PM EST) Anatomical Region Laterality Modality Head, Neck Computed Tomogra phy 04/18/2025 2:31 PM EST Narrative 04/18/2025 2:32 PM EST [place] [address] CT Scan Report Signed Patient: Luis Mckeon MR#: [id number] : 1980 Acct:[id number] Age/Sex: 44 / M ADM Date: 04/17/25 Loc: [facility] 476-[address]: Shonda Davila MD Ordering Physician: Shabnam De La Rosa MD Date of Service: 04/18/25 Procedure(s): CT head/brain wo IV con Accession Number(s): [id number] cc: Shabnam De La Rosa MD; Sandi Ferris DO Report Number: [id number]: Total DLP = 1426.00 mGy-cm Reason for Exam: sz CLINICAL HISTORY: sz --- Additional Notes or Special Instructions: sz CT HEAD WITHOUT CONTRAST Comparison: CT/SR - CT HEAD/BRAIN WO IV CON - 11/26/24 00:16 EDT Findings: No acute intracranial hemorrhage, extra-axial fluid collection, hydrocephalus or midline shift. No significant atrophy-like change. No significant white matter disease. There is no sinus or mastoid fluid. Chronic mild mucosal thickening in the sphenoid sinus. Visualized orbits: No acute abnormalities. There is no acute fracture. Old bilateral nasal bone fractures. IMPRESSION: 1. No acute intracranial process. This document has been electronically signed by: Yoon Huber DO on 04/18/2025 14:31:16 Dictated By: Yoon Huber MD Signed By: <Electronically signed by Yoon Huber MD in OV> 04/18/25 1431 DD/ 1431 TD/TT: 04/18/25 1431 Infant Lead Teacher: Procedure Note Donotuseinterpreter, Image - 04/18/[address] [place] [address] [address] Scan Report Signed Patient: Tylor Mckeon#: [id number] : 1980Acct:[id number] Age/Sex: 44 / MADM Date: 04/17/25 Loc: [facility] 476-[address]: Shonda Davila MD Ordering Physician: Shabnam De La Rosa MD Date of Service: 04/18/25 Procedure(s): CT head/brain wo IV con Accession Number(s): [id number] cc: Shabnam De La Rosa MD; Sandi Ferris DO Report Number: [id number]: Total DLP = 1426.00 mGy-cm Reason for Exam: sz CLINICAL HISTORY: sz --- Additional Notes or Special Instructions: sz CT HEAD WITHOUT CONTRAST Comparison: CT/SR - CT HEAD/BRAIN WO IV CON - 11/26/24 00:16 EDT Findings: No acute intracranial hemorrhage, extra-axial fluid collection, hydrocephalus or midline shift. No significant atrophy-like change. No significant white matter disease. There is no sinus or mastoid fluid. Chronic mild mucosal thickening in the sphenoid sinus. Visualized orbits: No acute abnormalities. There is no acute fracture. Old bilateral nasal bone fractures. IMPRESSION: 1. No acute intracranial process. This document has been electronically signed by: Yoon Huber DO on 04/18/2025 14:31:16 Dictated By: Yoon Huber MD Signed By: <Electronically signed by Yoon Huber MD in OV> 04/18/25 1431 DD/ 1431 TD/TT: 04/18/25 1431 Infant Lead Teacher: [facility] External Provider IMG CT PROCEDURES Edited Result - Final * XR Chest 1 View (04/18/2025 2:23 PM EST) Only the most recent of2 resultswithin the time period is included. Anatomical Region Laterality Modality Chest Radiographic Lesly ging 04/18/2025 2:23 PM EST Narrative 04/18/2025 2:24 PM EST [place] [address] XRay Report Signed Patient: Luis Mckeon MR#: [id number] : 1980 Acct:[id number] Age/Sex: 44 / M ADM Date: 04/17/25 Loc: [facility] 476-[address]: Shonda Davila MD Ordering Physician: Shonda Davila MD Date of Service: 04/18/25 Procedure(s): XR chest 1V Accession Number(s): [id number] cc: Sandi Ferris DO; Shonda Davila MD Reason for Exam: seizure episode/? aspiration CLINICAL HISTORY: seizure episode ? aspiration 1 view chest x-ray Comparison: CR - XR CHEST 1V - 04/17/25 17:32 EST Findings: No consolidation, pleural effusion or pneumothorax. Normal size heart. No acute fracture. IMPRESSION: No acute cardiopulmonary process. This document has been electronically signed by: Yoon Huber DO on 04/18/2025 14:23:22 Dictated By: Yoon Huber MD Signed By: <Electronically signed by Yoon Huber MD in OV> 04/18/25 1424 DD/ 1423 TD/TT: 04/18/25 142 Infant Lead Teacher: Procedure Note Donotuseinterpreter, Image - 04/18/[address] [address] XRay Report Signed Patient: Tylor Mckeon#: [id number] : 1980Acct:[id number] Age/Sex: 44 / MADM Date: 04/17/25 Loc: [facility] 476-[address]: Shonda Davila MD Ordering Physician: Shonda Davila MD Date of Service: 04/18/25 Procedure(s): XR chest 1V Accession Number(s): [id number] cc: Sandi Ferris DO; Shonda Davila MD Reason for Exam: seizure episode/? aspiration CLINICAL HISTORY: seizure episode ? aspiration 1 view chest x-ray Comparison: CR - XR CHEST 1V - 04/17/25 17:32 EST Findings: No consolidation, pleural effusion or pneumothorax. Normal size heart. No acute fracture. IMPRESSION: No acute cardiopulmonary process. This document has been electronically signed by: Yoon Huber DO on 04/18/2025 14:23:22 Dictated By: Yoon Huber MD Signed By: <Electronically signed by Yoon Huber MD in OV> 04/18/25 1424 DD/ 1423 TD/TT: 04/18/25 1423 Infant Lead Teacher: [facility] External Provider IMG XR PROCEDURES Edited Result - Final * SARS-CoV-2 RNA, Influenza A/B, and RSV RNA, Ql NAAT (04/17/2025 4:59 PM EST) Influenza A PCR NEGATIVE Negative [facility] Influenza B PCR NEGATIVE Negative [facility] Resp Syncy Virus RNA Qual PCR NEGATIVE Negative [facility] SARS COV2 PCR NEGATIVE Negative [facility] Comment:All test results mus t be correlated with clinical findings.Negative results do not preclude SARS-CoV2, influenza Avirus, influenza B virus and/or RSV infectionand should not be used as the sole basis for treatment orother patient management decisions. Negative results must becombined with clinical observations, patient history, andepidemiological information.This test has not been evaluated for monitoring treatment ofinfection.This test has been authorized by the FDA under an EmergencyUse Authorization (EUA) for use by authorized laboratories.Testing performed on the [employer] GeneXpert utilizingreal-time RT-PCR.All SARS CoV2 and positive influenza A/B results arereported to [facility]. 04/17/2025 4:59 PM EST 04/17/2025 5:02 PM EST us Generic External Data Provider LAB MICROBIOLOGY - GENERAL ORDERABLES Final Result [facility] [address] [place] [phone] [phone] * (ABNORMAL) Complete Blood Count Manual Diff (04/17/2025 2:43 PM EST) White Blood Count 24.1(H) 4.8 - 10.8 X10*3/uL [facility] Red Blood Count 4.80 4.60 - 5.80 X10*6/uL [facility] Hemoglobin 15.5 14.0 - 18.0 g/dl [facility] Hematocrit 42.7 42.0 - 52.0 % [facility] Mean Corpuscular Volume 89.0 80.0 - 98.0 fL [facility] Mean Corpuscular Hemoglobin 32.3 27.0 - 33.0 pg [facility] Mean Corpuscular HGB Conc 36.3(H) 31.0 - 36.0 g/dl [facility] Red Cell Distribution Width 12.9 11.0 - 16.0 % [facility] Platelet Count 347 160 - 400 X10*3/uL [facility] Mean Platelet Volume 8.5(L) 9.4 - 12.4 fL [facility] NRBC Pct Auto 0.0 0.0 - 0.2 /100WBC [facility] NRBC Abs Auto 0.000 0.0 - 0.012 X10*3/uL [facility] Neutrophils % Manual 88(H) 45 - 73 % [facility] Band Neutrophils Percent 0(L) 3 - 5 % [facility] Lymphocytes Percent Manual 11(L) 20 - 40 % [facility] Atypical Lymphs Percent Manual 1 0 - 6 % [facility] NEUTROPHILS ABSOLUTE MANUAL 21.2(H) 2.0 - 8.3 X10*3/uL [facility] LYMPHOCYTES ABSOLUTE MANUAL 2.7 1.2 - 4.9 X10*3/uL [facility] Atypical Lymph Absolute Manual 0.2 x10*3/uL [facility] Platelet Estimate NORMAL NORMAL [facility] Platelet Morphology Comment NORMAL [facility] RBC Morphology NOTED [facility] Cory Cells 2+ (3-5) /OIF [facility] 04/17/2025 2:43 PM EST 04/17/2025 2:46 PM EST us Generic External Data Provider LAB BLOOD ORDERAB LES Final Result Performing Organization Address City/State/[facility] Co de Phone Number [facility] [address] [place] [phone] [phone] * (ABNORMAL) Drug Monitoring, Panel 1, Screen, Urine (04/17/2025 1:20 PM EST) Opiate Screen Urine Not Detected Not Detect [facility] Comment:Opiate cut-off is 30 0 ng/mL.Positive results are unconfirmed and should not be used fornon-medical purposes. Barbiturates, Urine Not Detected Not Detect [facility] Comment:Barbiturate cut-off is 200 ng/mL.Positive results are unconfirmed and should not be used fornon-medical purposes. Phencyclidine Screen Urine Not Detected Not Detect [facility] Comment:Phencyclidine cut-of f is 25 ng/mL.Positive results are unconfirmed and should not be used fornon-medical purposes. Amphetamine Screen Urine Not Detected Not Detect [facility] Comment:Amphetamine cut-off is 1000 ng/mL.Positive results are unconfirmed and should not be used fornon-medical purposes. Benzodiazepines Screen Urine POSITIVE(A) Not Detect [facility] Comment:Benzodiazepine cut-o ff is 200 ng/mL.Positive results are unconfirmed and should not be used fornon-medical purposes. Cocaine Screen Urine POSITIVE(A) Not Detect [facility] Comment:Cocaine cut-off is 3 00 ng/mL.Positive results are unconfirmed and should not be used fornon-medical purposes. Cannabinoid Screen Urine POSITIVE(A) Not Detect [facility] Comment:Cannabinoid cut-off is 50 ng/mL.Positive results are unconfirmed and should not be used fornon-medical purposes. Methadone Screen, Urine Not Detected Not Detect ng/mL [facility] Comment:Methadone cut-off is 300 ng/mL.Positive results are unconfirmed and should not be used fornon-medical purposes. FENTANYL URINE Not Detected Not Detect [facility] Comment:Fentanyl cut-off is 1 ng/mL.Positive results are unconfirmed and should not be used fornon-medical purposes. Oxycodone Urine Screen Not Detected Not Detect ng/mL [facility] Comment:Oxycodone cut-off is 100 ng/mL.Positive results are unconfirmed and should not be used fornon-medical purposes. Buprenorphine Screen Not Detected Not Detect ng/mL [facility] Comment:Buprenorphine cut-of f is 5 ng/mL.Positive results are unconfirmed and should not be used fornon-medical purposes. 04/17/2025 1:20 PM EST 04/17/2025 1:23 PM EST Generic External Data Provider LAB URINE ORDERAB LES Final Result [facility] [address] [place] [phone] * (ABNORMAL) Urinalysis w/reflex microscopic (04/17/2025 1:20 PM EST) Color Urine Yellow [facility] Appearance Urine Turbid [facility] PH 5.0 5.0 - 9.0 [facility] Glucose Urine UA 250(A) Negative mg/dL [facility] Urine Blood Negative Negative [facility] Specific [place] - Urine 1.015 1.005 - 1.025 [facility] Urine Protein Trace Neg-Trace mg/dL [facility] Urine Ketones Trace Negative mg/dL [facility] Nitrite Urine Negative Negative [facility] Leukocyte Esterase Urine Negative Negative [facility] 04/17/2025 1:20 PM EST 04/17/2025 1:23 PM EST Narrative [facility] - 04/17/2025 1:28 PM EST Urine, Clean Catch us Generic External Data Provider LAB URINE ORDERAB LES Final Result Performing Organization Address City/State/[facility] Co de Phone Number [facility] [address] [place] [phone] * XR Hand 3+ Views Right (02/12/2025 5:49 PM EDT) Anatomical Region Laterality Modality Upper Extremities, Hand Right Radiogra phic Imaging 02/12/2025 5:49 PM EDT Narrative 02/12/2025 5:50 PM EDT [address] [address] XRay Report Signed Patient: Luis Mckeon MR#: [id number] : 1980 Acct:[id number] Age/Sex: 44 / M ADM Date: 02/12/25 Loc: .ED Attending Dr: Ordering Physician: Gelacio Stinson Date of Service: 02/12/25 Procedure(s): XR hand RT min 3V Accession Number(s): [id number] cc: Sandi Ferris DO; Gelacio Stinson Reason [...] in OV> 02/12/251749 DD/ 48 TD/TT: 02/12/251748 Infant Lead Teacher: Procedure Note Christen, Image - 02/12/2025 [place] [address] XRay Report Signed Patient: Tylor Mckeon#: [id number] : 1980Acct:[id number] Age/Sex: 44 / MADM Date: 02/12/25 Loc: HO.ED Attending Dr: Ordering Physician: Gelacio Stinson Date of Service: 02/12/25 Procedure(s): XR hand RT min 3V Accession Number(s): [id number] cc: Sandi Ferris DO; Gelacio Stinson Reason [...] in OV> 02/12/251749 DD/ 48 TD/TT: 02/12/251748 Infant Lead Teacher: [facility] External Provider IMG XR PROCEDURES Final Result * Hepatitis C Antibody with Reflex to HCV, RNA, Quantitative, Real-Time PCR (12/30/2024 9:50 AM EDT) Hepatitis C Antibody Nonreactive Nonreactive [facility] Comment:Antibodies to HCV no t detected; does not exclude early acuteHCV infection. Blood Venous blood specimen / Unknown 12/30/2024 9:50 AM EDT 12/30/2024 1:25 PM EDT Sandi Ferris DO LAB BLOOD ORDERABLES Final R esult Performing Organization Address City/[facility] Co de Phone Number [facility] [address] [place] [phone] * HIV-1/2 Antigen and Antibodies, Fourth Generation, with Reflexes (12/30/2024 9:50 AM EDT) HIV AB/AG Nonreactive Nonreactive [facility] Comment:HIV-1 p24 Ag and/or HIV-1/HIV-2 Ab not detected.A test result that is nonreactive does not exclude thepossibility of exposure to or infection with HIV-1 and/orHIV-2. Nonreactive results in this assay for individualswith prior exposure to HIV-1 and/or HIV-2 may be due toantigen and antibody levels that are below the limit ofdetection of this assay.The [facility] PharmStat HIV Ag/Ab Combo assay result andsupplemental assay results should be interpreted inconjunction with the patient's clinical presentation,history and other laboratory results. If the results areinconsistent with clinical evidence, additional testing issuggested to confirm the result. Blood Venous blood specimen / Unknown 12/30/2024 9:50 AM EDT 12/30/2024 1:25 PM EDT Sandi Ferris DO LAB BLOOD ORDERABLES Final R esult Performing Organization Address City/[facility]/ZIP Co de Phone Number [facility] [address] [place] [phone] * (ABNORMAL) Lipid Panel, Standard (12/30/2024 9:50 AM EDT) Triglycerides 177(H) <150 mg/dL [facility] Comment:Desirable Triglyceri de: less than 150 mg/dLBorderline High Triglyceride 150-199 mg/dLHigh Triglyceride: 200-499 mg/dLVery High Triglyceride: greater than or equal to 5OO mg/dL Cholesterol 200(H) <200 mg/dL [facility] Comment:Desirable Cholestero l: less than 200 mg/dLBorderline High Cholesterol: 200-239 mg/dLHigh Cholesterol: greater than 239 mg/dL LDL Cholesterol Calculated 127(H) <100 mg/dL [facility] Comment:Desirable LDL: less than 100 mg/dLNear Optimal/Above Optimal LDL: 110- 129 mg/dLBorderline High LDL: 130-159 mg/dLHigh LDL: 160-189 mg/dLVery High LDL: greater than or equal to 190 mg/dL HDL Cholesterol 38(L) >40 mg/dL [facility] Comment:Desirable HDL: great er than 40 mg/dL Note: This HDL assay may give artificially low results in patients with liver disease. Blood Venous blood specimen / Unknown 12/30/2024 9:50 AM EDT 12/30/2024 1:25 PM EDT us Sandi Ferris DO LAB BLOOD ORDERABLES Final R esult [facility] [address] [place] [phone] from Last 3 Months or Most Recently Relevant to Health Maintenance Insurance [facility] [address] [address] Care Teams Deckhand [employer] Relationship Specialty Start Date End Date Sandi Ferris DO [address] [place] [phone] PCP - General Family Medicine 11/10/12
--- OUTSIDE RECORDS SUMMARY | 2025-04-23 06:24 | XMS_ITS | Encounter Summary ---
Author Organization [employer] Address [address] [facility] [address] [place] [address] Care Team Providers Care Superintendent Automotive Name Role Phone [place] Sandi Primary Care Provider + [phone] Encounter Details Date Type Department Care Team (Late st Contact Info) Description 09/28/2024 Orders Only [facility] [address] [place], [place] [phone] Freddy Boswell, PharmD [address] [place], [place] [phone] Social History Tobacco Use Types Packs/Day Years [...] 05/18/2025 9:15 AM EST Office Visit [facility] [address] [place] [address] Sandi Ferris DO [address] [place] [address] 05/27/2025 2:00 PM EST Office Visit [facility] [address] [place] [address] Tarka, Ning, OD [address] [place] [address] documented as of this encounter Visit Diagnoses Not on filedocumented in this encounter Additional Health Concerns Assessment Noted Time PHQ-9 Depression Total Score: 2 11/22/19 24 11:52 AM EDT documented as of this encounter Care Teams Superintendent Automotive Relationship Specialty Start Date End Date Sandi Ferris DO [address] [place] [phone] PCP - General Family Medicine 11/10/12 documented as of this encounter
--- OUTSIDE RECORDS SUMMARY | 2025-04-23 06:24 | XMS_ITS | Encounter Summary ---
Author Organization [employer] Address [address] [place] [address] [address] [place] [address] Care Team Providers Care Import/Export Specialist Name Role Phone Sandi Ferris DO Primary Care Provider + [phone] Reason for Visit * Reason Onset Date Comments Nurse Triage 05/06/2024 Encounter Details Date Type Department Care Team ([facility] st Contact Info) Description 05/06/2024 Telephone [facility] [address], [place] [phone] Sandi Ferris DO [address] [place], [place] [phone] Nurse Triage Social History Tobacco Use Types [...] 05/06/2024 3:44 PM EST Request ED report [facility] medical for 05/10/24 for Pt chart. Triage call Pt reports two seizures recently, 04/28/24 and 05/10/24. Pt reports taking medication as prescribed, no missed doses. [place] [facility] [place] from 04/28[place]24 visit. Pt went to [facility] 05/10/24 for second seizure. Pt reports the [...] Description 05/18/2025 9:15 AM EST Office Visit [facility] [address] [place] [address] Sandi Ferris DO [address] [place] [address] 05/27/2025 2:00 PM EST Office Visit [facility] [address] [place] [address] Ning Crandall, OD [address] [place] [address] documented as of this encounter Visit Diagnoses Not on filedocumented in this encounter Additional Health Concerns Assessment Noted Time PHQ-9 Depression Total Score: 2 11/22/19 24 11:52 AM EDT documented as of this encounter Care Teams Import/Export Specialist Relationship Specialty Start Date End Date Sandi Ferris DO [address] [place] [address] PCP - General Family Medicine 11/10/12 documented as of this encounter
[2025-04-23 06:29] VITALS: BP 136/71; PULSE 94; RESP 18; TEMP 36.3; O2SAT 99
== END 2025-04-23 06:29 | disposition home or self-care (01) ==
PROVIDERS: Emergency Provider Emergency Medicine; PCP Family Medicine
DX: H66.91 Otitis media, unspecified, right ear (principal); H69.91 Unspecified Eustachian tube disorder, right ear; H92.01 Otalgia, right ear
CPT/HCPCS: 99282; 99283

== ENCOUNTER 2025-04-28 08:57 | Outpatient (AMB) | payer MEDICARE, MEDICAID, SELFPAY ==
--- NOTE | 2025-04-28 09:13 | A.OFFVIS_ITS ---
Vital Signs 04/28/25 09:14 Height 5 ft 11 in Weight 190 lb BMI 26.5 BP 110/80 Blood Pressure Location Lt brachial Position Sitting Pulse 87 Pulse Source Pulse Oximeter Pulse Oximetry (%) 95 Oxygen Delivery Method Room Air Intake Visit Reasons: 6m follow up Manager English Required: No Manager English Name: Patient speaks lithuanian Accompanied by: Self / Same As Patient Allergies No Known Allergies (No Known Allergies*) Allergy (Verified 04/28/25 09:14) Medication List - Last Reconciled 04/28/25 by ERNESTINE Escalante amoxicillin 500 mg PO TID atorvastatin 10 mg PO DAILY clonazepam 2 mg PO DAILY PRN lacosamide 100 mg PO Q12H 30 days levetiracetam 500 mg PO Q12H lisinopril-hydrochlorothiazide 10-12.5 mg 1 tab PO DAILY phenytoin sodium extended 200 mg (2 x 100 mg) PO Q12H 30 days HPI Comments Details: 44-yr-old male presents for f/u seizure disorder and obstructive sleep apnea. Pt presents s/p [facility] [place] 04/18/2025- d/t having multiple breakthrough seizures, which was thought to be due to skipping AEDs and having used cocaine and marijuana heavily the couple of days prior. He states that he does not use cocaine regularly- just that weekend. Prior to the hospitalization, he had started on Lacosamide, which he thought was helping, but then could not get a refill. Since discharge, he has been compliant w/ keppra 1500mg bid, phenytoin 200mg bid, and lacosamide 50mg bid. He states that he now understands that he cannot skip any doses of his AEDs. He did not have the tertiary care epilepsy consult as he did not have transportation. He has not had any seizure activity since he left the hospital on 04/21/25. Of note, the patient did leave the hospital AMA- as he had a court date to attend. He is also asking for clearance so that he can undergo right 5th finger surgery through [facility]- due to his seizure disorder. 02/16/2025, addendum: After the last visit, the patient had notified us that he was having irritability and mood changes, which he attributed to oxcarbazepine. Therefore, he stopped the oxcarbazepine and trialed the patient on Aptiom (order sent for 1600 mg daily at bedtime). Patient started Aptiom 800 mg 1 tab, which he took daily in the morning for 3 days; however, it caused significant dizziness, confusion, and tiredness, and he stopped the Aptiom completely. He is continuing to have at least weekly seizure activity despite being compliant with his Keppra and phenytoin regimen. Therefore, we will start the patient on lacosamide 50 mg twice a day. An order was sent for 14 14-day supply to assess tolerance before increasing to 100 mg twice a day if tolerated. 10/16/2024, HPI: In regards to seizure disorder: Patient had [facility] hospital evaluation, in early September, for having 3 back to back convulsive seizures. He denies known trigger for the seizures. He denies recent cocaine he is. He does still take marijuana on a regular basis, but confirms he only purchases marijuana from the dispensary. Head CT was unrem arkable. Video EEG, while on his usual antiepileptic regimen, showed sharp waves and focal intermittent slowing over bilateral temporal regions, without push-button events or distinct electrographic seizure activity. Lab results were notable for, low oxcarbazepine level < 1, low Dilantin level at 5.2, positive cannabinoid screen, low TSH 0.22, low phosphorus 2.4, elevated magnesium 2.5, elevated glucose level 113, elevated lactate 3.4, elevated WBC 21.3, elevated needs 18.4-with otherwise normal CBC. Patient has not received an appointment yet with [facility]- patient had not realized that he needed to register with them directly, an order for them to accept our referral. But he states he did this today. He also did not undergo the brain MRI or EEG that was ordered by us at the last visit. He states he is compliant with his Keppra 1500 mg b.i.d., oxcarbazepine 600 mg b.i.d. and phenytoin 200 mg b.i.d.- usually taking these at 08:00 and 17:00. He did start vitamin B6, but stated he did not tolerate the prescribed version- made him dizzy. Since the recent hospitalization, he did start an OTC vitamin B6 supplement, which he states he is tolerating better. He can still be prone to irritability, such as may throw his phone when he receives multiple Spam calls. Patient states he was started on seizure medication proximally 14-15 years ago in [place]. At that time he was started on phenytoin. He states Trileptal and Keppra added once he moved to [place] by his previous neurologist, Dr. Valdez. He denies trying any other AED tx. He does NOT drive. He does not work- on disability. In regards to JENNIFER: Patient has not tolerated APAP 6-20 cmH2O w/ EPR 3, either with nasal or fullface mask. He continues to have sleep difficulties, snoring, fragmented sleep. And today, he is open to having a follow-up in-lab sleep study to help to determine which PAP settings and mask he would better tolerate. For the previously identified nasopharynx lesion: He has ENT consult with Dr Small, patient states he was told everything is okay. Unfortunately, we still do not have ENT notes. [facility], [facility] Medical History Nasopharyngeal mass Seizure Family History Maternal Aunt Seizure disorder Social History Household Members: Unknown / Unable to assess Housing: Unknown / Unable to assess Alcohol intake: never Comment: 1:1 sitter for confusion/high fall risk with recent seizure activity 04/19 Patient Tobacco Use Status: Never used Tobacco Substance Use Type: Marijuana service: No Physical Exam Vital Signs: Last Vital Signs Pulse 87 04/28/25 09:14 BP 110/80 04/28/25 09:14 Pulse Ox 95 04/28/25 09:14 Oxygen Delivery Method Room Air 04/28/25 09:14 BMI result Body Mass Index 26.5 Const General: cooperative and no acute distress Orientation/consciousness: patient oriented x3 Resp Effort & Inspection: normal respiratory effort Neuro Other: With prolonged speaking, voice breaks. General: patient oriented x3 Cranial nerves: Yes CN's II-XII intact bilaterally Cognition (Neuro): normal cognition Gait exam (Neuro): Normal gait present Motor exam (neuro): 5/5 motor strength present throughout Psych Appearance: grossly normal Mental Status: mental status grossly normal Affect: normal affect Attitude: cooperative Assessment & Plan Assessment & Plan (1) Generalized seizure: Code(s): R56.9 - Unspecified convulsions Category: Medical (2) Nocturnal seizures: Code(s): R56.9 - Unspecified convulsions Category: Medical (3) JENNIFER (obstructive sleep apnea): Comment: Severe degree of sleep apnea. The AHI was 27/hr and oxygen anurag was 82%. Code(s): G47.33 - Obstructive sleep apnea (adult) (pediatric) Category: Medical (4) Meningioma: Comment: Sinus CT, September 2023: 3 mm ossified extra-axial lesion along the basiocciput just superior to the foramen magnum which may reflect a small meningioma Code(s): D32.9 - Benign neoplasm of meninges, unspecified Category: Medical (5) Cocaine abuse: Code(s): F14.10 - Cocaine abuse, uncomplicated Category: Medical Plan For severe JENNIFER: Pt has not tolerated APAP. Patient again advised to undergo in-lab PAP titration study to identify optimal PAP treatment pressures and PAP mask tolerance. For nasopharynx lesion: Hold brain MRI w/wo- previously ordered to better assess brain MRI w/o finding of 3 mm ossified extra-axial lesion along the basiocciput just superior to the foramen magnum- possibly a small meningioma. Reviewed ENT notes- pt was to obtain MRI images and return for f/u. Will monitor- and consider f/u MRI at f/u. For seizure disorder: As patient continues to have breakthrough seizure on 3 AEDs, we will follow-up on request for 2nd opinion from a tertiary epilepsy care center.- pt states that he did not have this appt as he did not have transportation. Continue levetiracetam 500 mg p.o. q.12 hours. Continue OTC pyridoxine 50 mg p.o. q.12 hours. Continue lacosamide 50mg x's 7 days, then increase to 100mg twice a day Continue phenytoin 200 mg q.12 hours. * Advised to make routine dental appointment Advise patient to take all of his AED therapies every 12 hours, such as at 08:00 and 20:00 every day. Check labs in 1 month Patient again advised to avoid cocaine use. * He agrees to a referral to [facility] [place] medicine Continue clonazepam ODT 2 mg as needed for seizure lasting greater than 2 minutes. * Previously reviewed: * administration technique with spouse. * call 911 for a seizure lasting greater than 2-3 minutes or if patient has more than 3 seizures in [address] Previous trials- oxcarbazapine- caused irritability. Written instructions given Patient advised to call clinic in 1 month- so that we can complete [facility] sx clearance for right 5th finger repair- if seizure free. Will follow-up upon review of above and patient to follow-up in clinic in 6 months or sooner prn. Orders: Orders Comprehensive Met. Panel Today R56.9 - Unspecified convulsions Complete Blood Count Auto Diff Today R56.9 - Unspecified convulsions Phenytoin Dilantin Today R56.9 - Unspecified convulsions Phenytoin, Free/Unbound Today R56.9 - Unspecified convulsions Referrals Addiction Medicine Referral F14.10 - Cocaine abuse, uncomplicated, R56.9 - Unspecified convulsions Medications: New lacosamide 100 mg PO Q12H 60 tabs 5RF 30 days R56.9 - Unspecified convulsions Changed From levetiracetam 500 mg PO Q12H To levetiracetam 1,500 mg (3 x 500 mg) PO Q12H 180 tabs 11RF 30 days Discontinued lacosamide Discontinued Reason: Doctor's Order 50 mg PO Q12H 14 days 28 tabs 0RF Coding Level of Care Code Est Pt Level 4 (40260) Add On Problem Visit Only Diagnoses Generalized seizure R56.9 Nocturnal seizures R56.9 JENNIFER (obstructive sleep apnea) G47.33 Meningioma D32.9 Cocaine abuse F14.10
[2025-04-28 09:14] VITALS: BP 110/80; PULSE 87; O2SAT 95; BMI 26.5
== END 2025-04-28 10:15 | disposition home or self-care (01) ==
LOC: HO.HSMS 08:58
PROVIDERS: PCP Family Medicine; Visit Provider Nurse Practitioner Family
DX: R56.9 Unspecified convulsions (principal); G47.33 Obstructive sleep apnea (adult) (pediatric); D32.9 Benign neoplasm of meninges, unspecified; F14.10 Cocaine abuse, uncomplicated
CPT/HCPCS: 99214; G2211

== ENCOUNTER → 2025-04-28 08:57 | Outpatient (BNVA) | payer MEDICARE, MEDICAID, SELFPAY | PROVIDERS: PCP Family Medicine; Visit Provider Nurse Practitioner Family | DX: G47.33 Obstructive sleep apnea (adult) (pediatric) (principal); D32.9 Benign neoplasm of meninges, unspecified; F14.10 Cocaine abuse, uncomplicated; R56.9 Unspecified convulsions | CPT/HCPCS: 99212 ==